=== PATIENT | female | born 1950 | race Caucasian/White ===

== ENCOUNTER 2020-01-09 16:32 | Outpatient (REF) | payer MEDICARE, SELFPAY ==
--- NOTE | 2020-01-09 | MM_ITS ---
EXAMINATION: MM SCREENING DIGITAL BREAST TOMOSYNTHESIS, BILATERAL CLINICAL INFORMATION: Screening. Asymptomatic. The lifetime risk of breast cancer based on the Tyrer-Cuzick Model is 9%. COMPARISON: Mammography: 10/09/2018, 09/23/2017, 08/23/2016 TECHNIQUE: Digital breast tomosynthesis is performed in both the craniocaudal and mediolateral oblique views along with computer-aided detection (CAD). Synthesized 2D images are generated from the tomosynthesis. FINDINGS: There are scattered areas of fibroglandular density (ACR BI-RADS breast composition Category b). There are no significant masses, abnormal calcifications, or other abnormalities. Breast tissue composition borders on predominantly fatty. Background stromal and fibroglandular densities are stable. No significant changes. MM/MM tomosynthesis screening BI IMPRESSION: No mammographic evidence of malignancy. ASSESSMENT: BI-RADS 1: Negative RECOMMENDATION: Routine annual mammography screening. This patient's information was entered into a reminder system with a target due date for their next mammogram.
== END 2020-01-09 16:33 | disposition home or self-care (01) ==
LOC: HO.MAMMO 16:32
PROVIDERS: PCP Student in an Organized Health Care Education/Training Program; Visit Provider Student in an Organized Health Care Education/Training Program
DX: Z12.31 Encounter for screening mammogram for malignant neoplasm of breast (principal)
CPT/HCPCS: 77063; 77067

== ENCOUNTER 2020-01-15 10:22 | Outpatient (REF) | payer MEDICARE, SELFPAY ==
--- NOTE | 2020-01-15 10:23 | XR_ITS ---
EXAMINATION: XR KNEE STANDING, BILATERAL XR KNEE, LEFT CLINICAL INFORMATION: Pain bilateral knee. More pain on the left at COMPARISON: Left knee 08/08/2008 TECHNIQUE: AP bilateral knee standing. Left knee 2 views. FINDINGS: AP BILATERAL KNEE: There is mild reduction in the medial and lateral compartment joint space left knee with lateral compartment periarticular spurring. There is mild loss of medial compartment right knee joint. No visible acute fracture, dislocation or lytic process. The soft tissues are normal. LEFT KNEE: Two views of the left knee reveal severe loss of patellofemoral compartment joint space with periarticular spurring. There is mild joint effusion. There is no fracture or dislocation. No evidence of loose bodies. XR/XR knee standing BI IMPRESSION: Mild degenerative changes medial and lateral compartment left knee. Tricompartment degenerative changes left knee with mild suprapatellar joint effusion. No loose body seen.
--- NOTE | 2020-01-15 10:23 | XR_ITS ---
EXAMINATION: XR KNEE STANDING, BILATERAL XR KNEE, LEFT CLINICAL INFORMATION: Pain bilateral knee. More pain on the left at COMPARISON: Left knee 08/08/2008 TECHNIQUE: AP bilateral knee standing. Left knee 2 views. FINDINGS: AP BILATERAL KNEE: There is mild reduction in the medial and lateral compartment joint space left knee with lateral compartment periarticular spurring. There is mild loss of medial compartment right knee joint. No visible acute fracture, dislocation or lytic process. The soft tissues are normal. LEFT KNEE: Two views of the left knee reveal severe loss of patellofemoral compartment joint space with periarticular spurring. There is mild joint effusion. There is no fracture or dislocation. No evidence of loose bodies. XR/XR knee LT 2V IMPRESSION: Mild degenerative changes medial and lateral compartment left knee. Tricompartment degenerative changes left knee with mild suprapatellar joint effusion. No loose body seen.
== END 2020-01-15 10:23 | disposition home or self-care (01) ==
LOC: HO.HOSX 10:22
PROVIDERS: Visit Provider Orthopaedic Surgery
DX: M17.12 Unilateral primary osteoarthritis, left knee (principal); M25.561 Pain in right knee
CPT/HCPCS: 20610; 73560; 73565; 99202; J1040

== ENCOUNTER 2020-05-19 09:26 | Day surgery (SDC) | payer MEDICARE, OTHER, SELFPAY ==
[2020-05-13 09:16] VITALS: BMI 40.7
--- NOTE | 2020-05-16 14:25 | P.CONAN_ITS ---
Documented by User: Rajni Cervantes 05/16/20 14:26 HPI - Anesthesia Eval Consult details Narrative: 69yo F for Right Cataract Extraction IOL Insertion No prev cataract on record PCP clearance pending [facility] Active Problems Active Problems: All Active Problems (Updated 05/13/20 @ 09:16 by Bell Sousa) Primary osteoarthritis of left knee (Acute) Past Medical History Medical History Arthritis Back pain, lumbosacral Bone spur of ankle Diabetes Hypercholesteremia Hypertension Hypothyroid Plantar fasciitis Steatohepatitis Family History Family History Mother Rheumatoid arthritis Gout Diabetes Father Lung cancer Hypertension Surgical History Surgical History History of dental surgery History of hysterectomy History of tonsillectomy Social History Social History Are you a primary hourly caregiver to a significant other at home: No Do you presently have visiting nurse or other home services: No Smoking Status: Former smoker Smoking Quit Date: 15 years ago Use of substances other than those prescribed or required for medical reasons: No Have you been hit, kicked, punched, or otherwise hurt by someone within the past year? If so, by whom?: No Advance Directives: No Advance Directives Information Provided: No Advance Directives on File: No Recently lost weight without trying: No Current occupational status: retired Current occupation: Right handed Meds Allergies Allergy/AdvReac Type Severity Reaction Status Date / Time lisinopril Allergy Cough Verified 05/13/20 08:58 Home Medications Medication Instructions Recorded Confirmed Last Taken Type aspirin 81 mg tablet,delayed 81 mg PO DAILY 01/14/20 05/13/20 Unknown History release atenolol 100 mg tablet 100 mg PO DAILY 01/14/20 05/13/20 05/19/20 History atorvastatin 20 mg tablet 20 mg PO DAILY 01/14/20 05/13/20 Unknown History blood sugar diagnostic #10 ea 01/14/20 Unknown History clonidine HCl 0.2 mg tablet 0.2 mg PO TID 01/14/20 05/13/20 05/19/20 History gabapentin 100 mg capsule 100 mg PO BID 01/14/20 05/13/20 Unknown History gemfibrozil 600 mg tablet 600 mg PO DAILY 01/14/20 05/13/20 Unknown History glipizide 5 mg tablet 10 mg PO DAILY 01/14/20 05/13/20 Unknown History lancets MISCELLANEOUS 01/14/20 Unknown History levothyroxine 75 mcg tablet 75 mcg PO DAILY 01/14/20 05/13/20 05/19/20 History oxybutynin chloride 5 mg tablet 10 mg PO DAILY tab 01/14/20 05/13/20 Unknown History valsartan 40 mg tablet 40 mg PO BID 01/14/20 05/13/20 05/19/20 History acetaminophen [Tylenol Extra 500 mg PO Q8H PRN 05/13/20 05/13/20 Unknown History Strength] amlodipine 1 tab PO DAILY 05/13/20 05/13/20 05/19/20 History calcium carbonate-vitamin D3 1 tab PO DAILY 05/13/20 05/13/20 Unknown History [Calcium 600 + D(3)] glipizide 20 mg PO QPM 05/13/20 05/13/20 Unknown History ibuprofen 600 mg PO BID 05/13/20 05/13/20 Unknown History multivitamin 1 tab PO DAILY 05/13/20 05/13/20 Unknown History niacin [Niacor] 500 mg PO DAILY 05/13/20 05/13/20 Unknown History omega-3 fatty acids-fish oil [Fish 2 cap PO DAILY 05/13/20 05/13/20 Unknown History Oil] Exam Exam Date and Time: May 16, 2020 1425 Height,Weight and Vital Signs: Height 5 ft 5 in Weight 111.13 kg Assessment and Plan Assessment Anesthesia Assessment: Chart Reviewed Documented by User: Arvind Azul 05/19/20 10:28 [facility] Past Medical History Medical History Arthritis Back pain, lumbosacral Bone spur of ankle Diabetes Hypercholesteremia Hypertension Hypothyroid Plantar fasciitis Steatohepatitis Family History Family History Mother Rheumatoid arthritis Gout Diabetes Father Lung cancer Hypertension Surgical History Surgical History History of dental surgery History of hysterectomy History of tonsillectomy Social History Social History Are you a primary hourly caregiver to a significant other at home: No Do you presently have visiting nurse or other home services: No Smoking Status: Former smoker Smoking Quit Date: 15 years ago Use of substances other than those prescribed or required for medical reasons: No Have you been hit, kicked, punched, or otherwise hurt by someone within the past year? If so, by whom?: No Advance Directives: No Advance Directives Information Provided: No Advance Directives on File: No Recently lost weight without trying: No Current occupational status: retired Current occupation: Right handed Meds Allergies Allergy/AdvReac Type Severity Reaction Status Date / Time lisinopril Allergy Cough Verified 05/13/20 08:58 Home Medications Medication Instructions Recorded Confirmed Last Taken Type aspirin 81 mg tablet,delayed 81 mg PO DAILY 01/14/20 05/13/20 Unknown History release atenolol 100 mg tablet 100 mg PO DAILY 01/14/20 05/13/20 05/19/20 History atorvastatin 20 mg tablet 20 mg PO DAILY 01/14/20 05/13/20 Unknown History blood sugar diagnostic #10 ea 01/14/20 Unknown History clonidine HCl 0.2 mg tablet 0.2 mg PO TID 01/14/20 05/13/20 05/19/20 History gabapentin 100 mg capsule 100 mg PO BID 01/14/20 05/13/20 Unknown History gemfibrozil 600 mg tablet 600 mg PO DAILY 01/14/20 05/13/20 Unknown History glipizide 5 mg tablet 10 mg PO DAILY 01/14/20 05/13/20 Unknown History lancets MISCELLANEOUS 01/14/20 Unknown History levothyroxine 75 mcg tablet 75 mcg PO DAILY 01/14/20 05/13/20 05/19/20 History oxybutynin chloride 5 mg tablet 10 mg PO DAILY tab 01/14/20 05/13/20 Unknown History valsartan 40 mg tablet 40 mg PO BID 01/14/20 05/13/20 05/19/20 History acetaminophen [Tylenol Extra 500 mg PO Q8H PRN 05/13/20 05/13/20 Unknown History Strength] amlodipine 1 tab PO DAILY 05/13/20 05/13/20 05/19/20 History calcium carbonate-vitamin D3 1 tab PO DAILY 05/13/20 05/13/20 Unknown History [Calcium 600 + D(3)] glipizide 20 mg PO QPM 05/13/20 05/13/20 Unknown History ibuprofen 600 mg PO BID 05/13/20 05/13/20 Unknown History multivitamin 1 tab PO DAILY 05/13/20 05/13/20 Unknown History niacin [Niacor] 500 mg PO DAILY 05/13/20 05/13/20 Unknown History omega-3 fatty acids-fish oil [Fish 2 cap PO DAILY 05/13/20 05/13/20 Unknown History Oil] Exam Airway Mallampati Class: III TM Dist: >3cm Neck ROM: Full Denture: Upper and Lower Heart: [id number] Lungs: cta b/l Assessment and Plan Assessment Anesthesia Assessment: Anesthesia Plan Discussed, PAT Visit and Chart Reviewed Final Anesthetic Review NPO: Yes ASA Class: III Final Preanesthetic Review: No Changes in Pt Med Stat, Meds/Allgs Chart Reviewed, Consent Obtained/Reviewed and Anes Risks/Benef Reviewed Patient Risk: Intermediate Procedure Risk: Low Assessment/Block/Sedation in SS: Assess/Block/Sedation-SS Anesthetic Plan Anesthetic Plan: MAC: and Agree w/ Assess. and Plan Disposition: Standard PACU
[2020-05-19 10:13] VITALS: BP 150/69; PULSE 55; RESP 18; TEMP 36.6; O2SAT 95
[2020-05-19 10:14] LABS: Glucose, Whole Blood 179 mg/dL (60-115)
--- NOTE | 2020-05-19 10:18 | PC.NURSE ---
pt verbalized understanding of d/c and care of plan
[2020-05-19] MEDS: Tetracaine HCl/PF 0.5% Oph Sol 4 ML DROPS 1 DROP EYE-RIGHT (10:19)
[2020-05-19] MEDS: Tropicamide 1 % Ophth Sol 3 ML BTL 1 DROP EYE-RIGHT ×3 (10:19→10:24)
[2020-05-19] MEDS: Phenylephrine HCL 2.5% Oph SoL 2 ML BOTTLE 1 DROP EYE-RIGHT ×3 (10:20→10:24)
[2020-05-19] MEDS: Lactated Ringers 500 ML 50 ML IV (10:40)
[2020-05-19 11:39] VITALS: BP 120/51; PULSE 52; RESP 16; TEMP 36.6; O2SAT 95
--- NOTE | 2020-05-19 11:39 | HO.PNOPHT ---
Ophthalmology Procedure Procedure Date of Service: 05/19/20 Ophthalmology Viscoelastic: Healon Duet Dual Pack Pro Ophthalmology Lenses: TECNIS [id number] (23.5) Procedure Notes: PREOPERATIVE DIAGNOSIS: Decreased visual acuity right eye secondary to cataract POSTOPERATIVE DIAGNOSIS: Same PROCEDURE: Right cataract extraction with intraocular lens insertion SURGEON: Howard Clark M.D. ANESTHESIA: Topical/MAC ESTIMATED BLOOD LOSS: None COMPLICATIONS: None After obtaining informed consent, the patient was brought to the operating room suite and placed in the supine position. After adequate sedation per anesthesia, topical drops of Tetracaine were given to the right eye. The eye was then prepped and draped in the usual sterile fashion. The operating room microscope was then positioned over the operative eye and a lid speculum placed. A paracentesis was created. Viscoelastic was then instilled into the anterior chamber. A three plane incision was then created temporally, utilizing a 2.85 mm keratome. Capsulotomy forceps were then utilized to create a circular tear capsulotomy. Hydrodissection and hydrodelineation were carried out until adequate mobilization of the nucleus occurred. Phacoemulsification was then utilized to remove the dense central nucleus followed by removal of the cortical material utilizing the automated aspiration irrigation unit. Viscoelastic was instilled into the posterior capsular bag followed by placement of a posterior chamber intraocular lens without difficulty. The residual Viscoelastic was then removed utilizing the automated IA machine. The wound was checked and found to be watertight. The patient tolerated the procedure well and the lid speculum was removed. Intracameral injection of Vigamox 0.1 mL followed by a subtenon injection of Kenalog-40 0.2 mL were administered. The patient will be seen in the a.m.
== END 2020-05-19 12:41 | disposition home or self-care (01) ==
PROVIDERS: PCP Student in an Organized Health Care Education/Training Program; Visit Provider Ophthalmology
PROC: (CPT 66985; principal; 2020-05-19 12:10)
DX: H25.11 Age-related nuclear cataract, right eye (principal); H35.033 Hypertensive retinopathy, bilateral; H52.4 Presbyopia; I10 Essential (primary) hypertension; E11.9 Type 2 diabetes mellitus without complications; E03.9 Hypothyroidism, unspecified; Z79.84 Long term (current) use of oral hypoglycemic drugs; Z79.899 Other long term (current) drug therapy; Z87.891 Personal history of nicotine dependence
CPT/HCPCS: 66984; 82947; J2250; J3010; J3300; V2632

== ENCOUNTER 2020-05-26 08:31 | Day surgery (SDC) | payer MEDICARE, OTHER, SELFPAY ==
[2020-05-13 09:23] VITALS: BMI 39.9
--- NOTE | 2020-05-22 08:12 | MHC.SHP ---
Pre-Procedural Eval Section A The patient is an INPATIENT: No The History & Physical has been completed within 30 days and I have reviewed it.: Yes Section B Chief Complaint: Cataract Left Eye Allergies: Allergies Allergy/AdvReac Type Severity Reaction Status Date / Time lisinopril Allergy Cough Verified 05/13/20 08:58 Plan Diagnosis/Plan: Unchanged I have reviewed the history and physical and performed a pertinent physical examination on my patient. No changes have occurred unless specified.
--- NOTE | 2020-05-23 08:54 | HO.ANESPROP2 ---
Documented by User: Rajni Cervantes 05/23/20 08:54 HPI - Anesthesia Eval Consult details Narrative: 69yo F for Left Cataract Extraction IOL Insertion Right eye 05/19/20 with MAC: Fent 50, Midaz 2 PMFSH Active Problems Active Problems: All Active Problems (Updated 05/16/20 @ 14:26 by Rajni Cervantes) Primary osteoarthritis of left knee (Acute) Past Medical History Medical History (Updated 05/26/20 @ 10:21 by Adelita Lopez) Arthritis Back pain, lumbosacral Bone spur of ankle Diabetes Hypercholesteremia Hypertension Hypothyroid Increased BMI Plantar fasciitis Steatohepatitis Family History Family History Mother Rheumatoid arthritis Gout Diabetes Father Lung cancer Hypertension Surgical History Surgical History History of dental surgery History of hysterectomy History of tonsillectomy Social History Social History Are you a primary career development facilitator to a significant other at home: No Do you presently have visiting nurse or other home services: No Smoking Status: Former smoker Smoking Quit Date: 15 yrs ago Use of substances other than those prescribed or required for medical reasons: No Have you been hit, kicked, punched, or otherwise hurt by someone within the past year? If so, by whom?: No Advance Directives: No Advance Directives Information Provided: No Advance Directives on File: No Recently lost weight without trying: No Current occupational status: retired Current occupation: Right handed Meds Allergies Allergy/AdvReac Type Severity Reaction Status Date / Time lisinopril Allergy Cough Verified 05/26/20 09:32 Home Medications Medication Instructions Recorded Confirmed Last Taken Type aspirin 81 mg tablet,delayed 81 mg PO DAILY 01/14/20 05/13/20 Unknown History release atenolol 100 mg tablet 100 mg PO DAILY 01/14/20 05/13/20 05/19/20 History atorvastatin 20 mg tablet 20 mg PO DAILY 01/14/20 05/13/20 Unknown History blood sugar diagnostic #10 ea 01/14/20 Unknown History clonidine HCl 0.2 mg tablet 0.2 mg PO TID 01/14/20 05/13/20 05/19/20 History gabapentin 100 mg capsule 100 mg PO BID 01/14/20 05/13/20 Unknown History gemfibrozil 600 mg tablet 600 mg PO DAILY 01/14/20 05/13/20 Unknown History glipizide 5 mg tablet 10 mg PO DAILY 01/14/20 05/13/20 Unknown History lancets MISCELLANEOUS 01/14/20 Unknown History levothyroxine 75 mcg tablet 75 mcg PO DAILY 01/14/20 05/13/20 05/19/20 History oxybutynin chloride 5 mg tablet 10 mg PO DAILY tab 01/14/20 05/13/20 Unknown History valsartan 40 mg tablet 40 mg PO BID 01/14/20 05/13/20 05/19/20 History acetaminophen [Tylenol Extra 500 mg PO Q8H PRN 05/13/20 05/13/20 Unknown History Strength] amlodipine 1 tab PO DAILY 05/13/20 05/13/20 05/19/20 History calcium carbonate-vitamin D3 1 tab PO DAILY 05/13/20 05/13/20 Unknown History [Calcium 600 + D(3)] glipizide 20 mg PO QPM 05/13/20 05/13/20 Unknown History ibuprofen 600 mg PO BID 05/13/20 05/13/20 Unknown History multivitamin 1 tab PO DAILY 05/13/20 05/13/20 Unknown History niacin [Niacor] 500 mg PO DAILY 05/13/20 05/13/20 Unknown History omega-3 fatty acids-fish oil [Fish 2 cap PO DAILY 05/13/20 05/13/20 Unknown History Oil] Exam Exam Date and Time: May 23, 2020 0854 Height,Weight and Vital Signs: Height 5 ft 5 in Weight 108.862 kg Assessment and Plan Assessment Anesthesia Assessment: Chart Reviewed Documented by User: Adelita Lopez 05/26/20 10:24 [facility] Past Medical History Medical History (Updated 05/26/20 @ 10:21 by Adelita Lopez) Arthritis Back pain, lumbosacral Bone spur of ankle Diabetes Hypercholesteremia Hypertension Hypothyroid Increased BMI Plantar fasciitis Steatohepatitis Family History Family History Mother Rheumatoid arthritis Gout Diabetes Father Lung cancer Hypertension Family history of problems with anesthesia: No Surgical History Surgical History History of dental surgery History of hysterectomy History of tonsillectomy History of Problems with Anesthesia: No Social History Social History Are you a primary career development facilitator to a significant other at home: No Do you presently have visiting nurse or other home services: No Smoking Status: Former smoker Smoking Quit Date: 15 yrs ago Use of substances other than those prescribed or required for medical reasons: No Have you been hit, kicked, punched, or otherwise hurt by someone within the past year? If so, by whom?: No Advance Directives: No Advance Directives Information Provided: No Advance Directives on File: No Recently lost weight without trying: No Current occupational status: retired Current occupation: Right handed Meds Allergies Allergy/AdvReac Type Severity Reaction Status Date / Time lisinopril Allergy Cough Verified 05/26/20 09:32 Home Medications Medication Instructions Recorded Confirmed Last Taken Type aspirin 81 mg tablet,delayed 81 mg PO DAILY 01/14/20 05/13/20 Unknown History release atenolol 100 mg tablet 100 mg PO DAILY 01/14/20 05/13/20 05/19/20 History atorvastatin 20 mg tablet 20 mg PO DAILY 01/14/20 05/13/20 Unknown History blood sugar diagnostic #10 ea 01/14/20 Unknown History clonidine HCl 0.2 mg tablet 0.2 mg PO TID 01/14/20 05/13/20 05/19/20 History gabapentin 100 mg capsule 100 mg PO BID 01/14/20 05/13/20 Unknown History gemfibrozil 600 mg tablet 600 mg PO DAILY 01/14/20 05/13/20 Unknown History glipizide 5 mg tablet 10 mg PO DAILY 01/14/20 05/13/20 Unknown History lancets MISCELLANEOUS 01/14/20 Unknown History levothyroxine 75 mcg tablet 75 mcg PO DAILY 01/14/20 05/13/2021 History oxybutynin chloride 5 mg tablet 10 mg PO DAILY tab 01/14/20 05/13/20 Unknown History valsartan 40 mg tablet 40 mg PO BID 01/14/20 05/13/20 05/19/20 History acetaminophen [Tylenol Extra 500 mg PO Q8H PRN 05/13/20 05/13/20 Unknown History Strength] amlodipine 1 tab PO DAILY 05/13/20 05/13/20 05/19/20 History calcium carbonate-vitamin D3 1 tab PO DAILY 05/13/20 05/13/20 Unknown History [Calcium 600 + D(3)] glipizide 20 mg PO QPM 05/13/20 05/13/20 Unknown History ibuprofen 600 mg PO BID 05/13/20 05/13/20 Unknown History multivitamin 1 tab PO DAILY 05/13/20 05/13/20 Unknown History niacin [Niacor] 500 mg PO DAILY 05/13/20 05/13/20 Unknown History omega-3 fatty acids-fish oil [Fish 2 cap PO DAILY 05/13/20 05/13/20 Unknown History Oil] Exam Height,Weight and Vital Signs: Vital Signs Temp Pulse Resp BP Pulse Ox 05/26/20 09:46 98.7 F 49 L 20 131/43 L 98 Pertinent Lab Results Pertinent Lab Results: POC 179 Narrative Narrative: HR 45-60 Airway Mallampati Class: II TM Dist: >3cm Neck ROM: Full Heart: RRR Lungs: CTAB Assessment and Plan Assessment Anesthesia Assessment: Anesthesia Plan Discussed and Chart Reviewed Final Anesthetic Review NPO: Yes ASA Class: III Final Preanesthetic Review: No Changes in Pt Med Stat, Meds/Allgs Chart Reviewed, Consent Obtained/Reviewed and Anes Risks/Benef Reviewed Patient Risk: Intermediate Procedure Risk: Low Assessment/Block/Sedation in SS: Assess/Block/Sedation-SS Anesthetic Plan Anesthetic Plan: MAC: Disposition: Standard PACU
[2020-05-26] MEDS: Tetracaine HCl/PF 0.5% Oph Sol 4 ML DROPS 1 DROP EYE-LEFT (09:40)
[2020-05-26] MEDS: Tropicamide 1 % Ophth Sol 3 ML BTL 1 DROP EYE-LEFT ×3 (09:44→10:05)
[2020-05-26 09:46] VITALS: BP 131/43; PULSE 49; RESP 20; TEMP 37.1; O2SAT 98
[2020-05-26] MEDS: Phenylephrine HCL 2.5% Oph SoL 2 ML BOTTLE 1 DROP EYE-LEFT ×3 (09:50→10:11)
[2020-05-26] MEDS: Lactated Ringers 500 ML 50 ML IV (09:57)
[2020-05-26 10:25] LABS: Glucose, Whole Blood 179 mg/dL (60-115)
--- NOTE | 2020-05-26 10:48 | HO.PNOPHT ---
Ophthalmology Procedure Procedure Date of Service: 05/26/20 Ophthalmology Viscoelastic: Healon Duet Dual Pack Pro Ophthalmology Lenses: TECBASILIO [id number] (24) Procedure Notes: PREOPERATIVE DIAGNOSIS: Decreased visual acuity left eye secondary to cataract POSTOPERATIVE DIAGNOSIS: Same PROCEDURE: Left cataract extraction with intraocular lens insertion SURGEON: Howard Clark M.D. ANESTHESIA: Topical/MAC ESTIMATED BLOOD LOSS: None COMPLICATIONS: None After obtaining informed consent, the patient was brought to the operation room suite and placed in the supine position. After adequate sedation per anesthesia, topical drops of Tetracaine were given to the left eye. The eye was then prepped and draped in the usual sterile fashion. The operating room microscope was then positioned over the operative eye and a lid speculum placed. A paracentesis was created. Viscoelastic was then instilled into the anterior chamber. A three plane incision was then created temporally, utilizing a 2.85 mm keratome. Capsulotomy forceps were then utilized to create a circular tear capsulotomy. Hydrodissection and hydrodelineation were carried out until adequate mobilization of the nucleus occurred. Phacoemulsification was then utilized to remove the dense central nucleus followed by removal of the cortical material utilizing the automated aspiration irrigation unit. Viscoat elastic was instilled into the posterior capsular bag followed by placement of a posterior chamber intraocular lens without difficulty. The residual Viscoat elastic was then removed utilizing the automated IA machine. The wound was check and found to be watertight. The patient tolerated the procedure well and the lid speculum was removed. Intracameral injection of Vigamox 0.1 mL followed by a subtenon injection of Kenalog-40 0.2 mL were administered. The patient will be seen in the a.m.
[2020-05-26 10:54] VITALS: BP 123/52; PULSE 53; RESP 16; TEMP 36.6; O2SAT 95
== END 2020-05-26 11:24 | disposition home or self-care (01) ==
PROVIDERS: PCP Student in an Organized Health Care Education/Training Program; Visit Provider Ophthalmology
PROC: (CPT 66985; principal; 2020-05-26 10:50)
DX: H25.12 Age-related nuclear cataract, left eye (principal); I10 Essential (primary) hypertension; E11.9 Type 2 diabetes mellitus without complications; Z79.82 Long term (current) use of aspirin; Z79.84 Long term (current) use of oral hypoglycemic drugs; Z79.899 Other long term (current) drug therapy
CPT/HCPCS: 66984; 82947; J2250; J3300; V2632

== ENCOUNTER 2021-02-09 12:59 | Outpatient (REF) | payer MEDICARE, OTHER, SELFPAY ==
--- NOTE | ~2021-02-09 | MM_ITS ---
EXAMINATION: MM SCREENING DIGITAL BREAST TOMOSYNTHESIS, BILATERAL CLINICAL INFORMATION: Screening. Asymptomatic. The lifetime risk of breast cancer based on the Tyrer-Cuzick Model is 8%. COMPARISON: Mammography: 01/09/2020, 10/09/2018, 09/23/2017 TECHNIQUE: Digital breast tomosynthesis is performed in both the craniocaudal and mediolateral oblique views along with computer-aided detection (CAD). Synthesized 2D images are generated from the tomosynthesis. Additional right CC x2 views are provided. FINDINGS: There are scattered areas of fibroglandular density (ACR BI-RADS breast composition Category b). There are no significant masses, abnormal calcifications, or other abnormalities. Parenchymal pattern is similar to prior studies. There is no developing density or architectural abnormality. The axilla and skin contours are unremarkable. No significant changes. MM/MM tomosynthesis screening BI IMPRESSION: No mammographic evidence of malignancy. ASSESSMENT: BI-RADS 1: Negative RECOMMENDATION: Routine annual mammography screening. This patient's information was entered into a reminder system with a target due date for their next mammogram.
== END 2021-02-09 13:00 | disposition home or self-care (01) ==
LOC: HO.MAMMO 12:59
PROVIDERS: PCP Student in an Organized Health Care Education/Training Program; Visit Provider Student in an Organized Health Care Education/Training Program
DX: Z12.31 Encounter for screening mammogram for malignant neoplasm of breast (principal)
CPT/HCPCS: 77063; 77067

== ENCOUNTER 2021-09-07 10:17 | Day surgery (SDC) | payer MEDICARE, OTHER, SELFPAY ==
[2021-09-01 09:46] VITALS: BMI 38.6
--- NOTE | 2021-09-03 10:49 | MHC.SHP ---
Pre-Procedural Eval Section A Date of Service: 09/03/21 The patient is an INPATIENT: No Changes since office visit: No Cold of Flu in the past 2 weeks, No New Medical Problems, No Changes in Medication and No Patient answered all questions The History & Physical has been completed within 30 days and I have reviewed it.: Yes Section B Chief Complaint: extra skin Allergies: Allergies Allergy/AdvReac Type Severity Reaction Status Date / Time lisinopril Allergy Cough Verified 05/26/20 09:32 Plan Diagnosis/Plan: Unchanged I have reviewed the history and physical and performed a pertinent physical examination on my patient. No changes have occurred unless specified.
--- NOTE | 2021-09-04 09:54 | P.CONAN_ITS ---
Documented by User: Rajni Cervantes NP 09/04/21 09:55 HPI - Anesthesia Eval Consult details Narrative: 71yo F for Bilateral Blepharoplasty [facility]CP [facility] Active Problems Active Problems: All Active Problems (Updated 09/01/21 @ 09:47 by Mercedes Christianson RN) Primary osteoarthritis of left knee (Acute) Increased BMI (Acute) Past Medical History Medical History Arthritis Back pain, lumbosacral Bone spur of ankle COVID-19 vaccine series completed Diabetes Hypercholesteremia Hypertension Hypothyroid Increased BMI Plantar fasciitis Steatohepatitis Family History Family History Mother Rheumatoid arthritis Gout Diabetes Father Lung cancer Hypertension Family history of problems with anesthesia: No Surgical History Surgical History History of dental surgery History of hysterectomy History of tonsillectomy Hx of cataract surgery History of Problems with Anesthesia: No Social History Social History Are you a primary complex care nurse practitioner to a significant other at home: No Do you presently have visiting nurse or other home services: No Patient Tobacco Use Status: Former Tobacco user Quit Date: 2007 Tobacco use type: Cigarette Use of substances other than those prescribed or required for medical reasons: No Have you been hit, kicked, punched, or otherwise hurt by someone within the past year? If so, by whom?: No Are you DNR?: No Advance Directives: No Advance Directives Information Provided: Yes (brochure mailed) Advance Directives on File: No Recently lost weight without trying: No Eating poorly because of decreased appetite: No Nutrition Risks: No Nutritional Risk Poor oral hygiene: No (upper & lower full dentures) Current occupational status: retired Current occupation: Right handed Meds Allergies Allergy/AdvReac Type Severity Reaction Status Date / Time lisinopril Allergy Cough Verified 05/26/20 09:32 Home Medications Medication Instructions Recorded Confirmed Last Taken Type aspirin 81 mg tablet,delayed 81 mg PO DAILY 01/14/20 09/01/21 09/06/21 History release atenolol 100 mg tablet 100 mg PO DAILY 11/09/01/21 09/07/21 History atorvastatin 20 mg tablet 20 mg PO DAILY 01/14/20 09/01/21 Unknown History blood sugar diagnostic (OneTouch #10 ea 01/14/20 Unknown History Ultra Blue Test Strip) clonidine HCl 0.2 mg tablet 0.2 mg PO TID 01/14/20 09/01/21 09/07/21 History gabapentin 100 mg capsule 100 mg PO BID 01/14/20 09/01/21 09/07/21 History gemfibrozil 600 mg tablet 600 mg PO DAILY 01/14/20 09/01/21 Unknown History glipizide 5 mg tablet 10 mg PO DAILY 01/14/20 09/01/21 Unknown History lancets [OneTouch Delica Lancets] miscellaneous 01/14/20 Unknown History levothyroxine 75 mcg tablet 75 mcg PO DAILY 01/14/20 09/01/21 09/07/21 History oxybutynin chloride 5 mg tablet 10 mg PO DAILY 01/14/20 09/01/21 Unknown History valsartan 40 mg tablet 40 mg PO BID 01/14/20 09/01/21 05/19/20 History acetaminophen 500 mg capsule 500 mg PO Q8H PRN Pain 05/13/20 09/01/21 08/31/21 History amlodipine 10 mg tablet 1 tab PO DAILY 05/13/20 09/01/21 09/07/21 History calcium carbonate 600 mg-vitamin 1 tab PO DAILY 05/13/20 09/01/21 Unknown History D3 10 mcg (400 unit) tablet (Calcium 600 + D(3)) glipizide 10 mg tablet 20 mg PO QPM 05/13/20 09/01/21 Unknown History multivitamin 1 tab PO DAILY 05/13/20 09/01/21 Unknown History niacin 500 mg tablet (Niacor) 500 mg PO DAILY 05/13/20 09/01/21 Unknown History omega-3 fatty acids-fish oil 340 2 cap PO DAILY 05/13/20 09/01/21 09/06/21 History mg-1,000 mg capsule (Fish Oil) biotin 10,000 mcg capsule 10,000 mcg PO DAILY 09/01/21 09/01/21 Unknown History meloxicam 7.5 mg tablet 7.5 mg PO DAILY PRN Pain 07/09/01/21 08/16/21 History Exam Exam Date and Time: September 04, 2021 0954 Height,Weight and Vital Signs: Height 5 ft 5 in Weight 105.233 kg Assessment and Plan Assessment Anesthesia Assessment: Chart Reviewed Final Anesthetic Review Family History of Problems with Anesthesia: No History of Problems with Anesthesia: No Documented by User: Adelita Lopez MD 09/07/21 11:36 [facility] Past Medical History Medical History Arthritis Back pain, lumbosacral Bone spur of ankle COVID-19 vaccine series completed Diabetes Hypercholesteremia Hypertension Hypothyroid Increased BMI Plantar fasciitis Steatohepatitis Family History Family History Mother Rheumatoid arthritis Gout Diabetes Father Lung cancer Hypertension Surgical History Surgical History History of dental surgery History of hysterectomy History of tonsillectomy Hx of cataract surgery Social History Social History Are you a primary complex care nurse practitioner to a significant other at home: No Do you presently have visiting nurse or other home services: No Patient Tobacco Use Status: Former Tobacco user Quit Date: 2007 Tobacco use type: Cigarette Use of substances other than those prescribed or required for medical reasons: No Have you been hit, kicked, punched, or otherwise hurt by someone within the past year? If so, by whom?: No Are you DNR?: No Advance Directives: No Advance Directives Information Provided: Yes (brochure mailed) Advance Directives on File: No Recently lost weight without trying: No Eating poorly because of decreased appetite: No Nutrition Risks: No Nutritional Risk Poor oral hygiene: No (upper & lower full dentures) Current occupational status: retired Current occupation: Right handed Meds Allergies Allergy/AdvReac Type Severity Reaction Status Date / Time jordonpril Allergy Cough Verified 05/26/20 09:32 Home Medications Medication Instructions Recorded Confirmed Last Taken Type aspirin 81 mg tablet,delayed 81 mg PO DAILY 01/14/20 09/01/21 09/06/21 History release atenolol 100 mg tablet 100 mg PO DAILY 01/14/20 09/01/21 09/07/21 History atorvastatin 20 mg tablet 20 mg PO DAILY 01/14/20 09/01/21 Unknown History blood sugar diagnostic (OneTouch #10 ea 01/14/20 Unknown History Ultra Blue Test Strip) clonidine HCl 0.2 mg tablet 0.2 mg PO TID 01/14/20 09/01/21 09/07/21 History gabapentin 100 mg capsule 100 mg PO BID 01/14/20 09/01/21 09/07/21 History gemfibrozil 600 mg tablet 600 mg PO DAILY 01/14/20 09/01/21 Unknown History glipizide 5 mg tablet 10 mg PO DAILY 01/14/20 09/01/21 Unknown History lancets [OneTouch Delica Lancets] miscellaneous 01/14/20 Unknown History levothyroxine 75 mcg tablet 75 mcg PO DAILY 01/14/20 09/01/21 09/07/21 History oxybutynin chloride 5 mg tablet 10 mg PO DAILY 01/14/20 09/01/21 Unknown History valsartan 40 mg tablet 40 mg PO BID 01/14/20 09/01/21 05/19/20 History acetaminophen 500 mg capsule 500 mg PO Q8H PRN Pain 05/13/20 09/01/21 08/31/21 History amlodipine 10 mg tablet 1 tab PO DAILY 05/13/20 09/01/21 09/07/21 History calcium carbonate 600 mg-vitamin 1 tab PO DAILY 05/13/20 09/01/21 Unknown History D3 10 mcg (400 unit) tablet (Calcium 600 + D(3)) glipizide 10 mg tablet 20 mg PO QPM 05/13/20 09/01/21 Unknown History multivitamin 1 tab PO DAILY 05/13/20 09/01/21 Unknown History niacin 500 mg tablet (Niacor) 500 mg PO DAILY 05/13/20 09/01/21 Unknown History omega-3 fatty acids-fish oil 340 2 cap PO DAILY 05/13/20 09/01/21 09/06/21 History mg-1,000 mg capsule (Fish Oil) biotin 10,000 mcg capsule 10,000 mcg PO DAILY 09/01/21 09/01/21 Unknown History meloxicam 7.5 mg tablet 7.5 mg PO DAILY PRN Pain 09/01/21 09/01/21 08/16/21 History Exam Height,Weight and Vital Signs: Height 5 ft 5 in Weight 105.233 kg Vital Signs Temp Pulse Resp BP Pulse Ox O2 Del Method 09/07/21 10:51 98 F 54 20 165/55 H 94 Room Air Pertinent Lab Results Pertinent Lab Results: Lab Results 09/07/21 Range/Units 11:05 POC Glucose 157 H (60-115) mg/dL Airway Mallampati Class: II TM Dist: >3cm Neck ROM: Full Denture: Upper and Lower Heart: RRR Lungs: CTAB Assessment and Plan Final Anesthetic Review NPO: Yes ASA Class: III Final Preanesthetic Review: No Changes in Pt Med Stat, Meds/Allgs Chart Reviewed, Consent Obtained/Reviewed and Anes Risks/Benef Reviewed Patient Risk: Intermediate Procedure Risk: Low Assessment/Block/Sedation in SS: Assess/Block/Sedation-SS Anesthetic Plan Anesthetic Plan: MAC: Disposition: Standard PACU
[2021-09-07 10:51] VITALS: BP 165/55; PULSE 54; RESP 20; TEMP 36.6; O2SAT 94
[2021-09-07 11:08] LABS: Glucose, Whole Blood 157 mg/dL (60-115)
--- NOTE | 2021-09-07 12:45 | HO.PNOPHT ---
Ophthalmology Procedure Procedure Date of Service: 09/07/21 Ophthalmology Viscoelastic: Not Applicable Ophthalmology Lenses: Not Applicable Procedure Notes: PREOPERATIVE DIAGNOSIS: Decreased visual field secondary to dermatochalasia POSTOPERATIVE DIAGNOSIS: Same PROCEDURE: Bilateral Blepharoplasty, upper eyelids SURGEON: Howard Clark M.D. ANESTHESIA: Local with sedation ESTIMATED BLOOD LOSS: None COMPLICATIONS: None After obtaining informed consent, the patient was brought to the operating room and placed in supine position. After adequate sedation per Anesthesia, the eyes were prepped and draped in the usual sterile fashion. Attention was directed to the right eye where a double pinch test was completed to assure excess tissue was not removed from the upper lid. The margin was marked at the proposed incision sites. The left eye was done in a similar fashion. 2% Lidocaine with epinephrine was then instilled subcutaneously along the margin of the pre-marked skin incisions. #15 scalpel blade was then utilized to create the incisions. Using a combination of sharp and blunt dissection with Diony scissors, the epidermis was removed. Hemostasis was achieved with cautery. 6-0 plain suture was then utilized to close the incision site. Attention was directed to the left upper lid where subcutaneous 2% with Epinephrine Lidocaine was instilled along the pre-marked areas. A #15 scalpel blade was then utilized to create the incisions followed by sharp and blunt dissection with Diony scissors to remove the overlying epidermis. Hemostasis was achieved with cautery, followed by closure with 6-0 plain suture. The patient tolerated the procedure well. The patient will be followed up in the a.m. Topical antibiotic ointment was instilled over the incision sites and ice as tolerated for 48 hours.
[2021-09-07 14:11] VITALS: BP 131/54; PULSE 54; RESP 16; TEMP 36.2; O2SAT 95
[2021-09-07 14:26] VITALS: BP 142/53; PULSE 52; RESP 16; O2SAT 95
[2021-09-07 14:40] VITALS: BP 132/52; PULSE 50; RESP 16; TEMP 36.3; O2SAT 95
[2021-09-07 14:55] VITALS: BP 136/53; PULSE 49; RESP 16; TEMP 36.3; O2SAT 95
[2021-09-07] MEDS: oxyCODONE HCl Immed Release 5 MG TABLET PO (15:10)
[2021-09-07] MEDS: Acetaminophen 325 MG TABLET 650 MG PO (15:10)
== END 2021-09-07 15:29 | disposition home or self-care (01) ==
PROVIDERS: PCP Student in an Organized Health Care Education/Training Program; Visit Provider Ophthalmology
PROC: (CPT 15823; principal; 2021-09-07 12:40)
DX: H02.834 Dermatochalasis of left upper eyelid (principal); H02.831 Dermatochalasis of right upper eyelid; H53.453 Other localized visual field defect, bilateral; Z96.1 Presence of intraocular lens; I10 Essential (primary) hypertension; E78.00 Pure hypercholesterolemia, unspecified; E03.9 Hypothyroidism, unspecified; E11.9 Type 2 diabetes mellitus without complications; Z87.891 Personal history of nicotine dependence; Z79.84 Long term (current) use of oral hypoglycemic drugs; Z79.899 Other long term (current) drug therapy
CPT/HCPCS: 15823; 82947; J2250; J3010

== ENCOUNTER 2022-02-10 13:15 | Outpatient (REF) | payer MEDICARE, OTHER, SELFPAY ==
--- NOTE | ~2022-02-10 | MM_ITS ---
EXAMINATION: MM SCREENING DIGITAL BREAST TOMOSYNTHESIS, BILATERAL CLINICAL INFORMATION: Screening. Asymptomatic. The lifetime risk of breast cancer based on the Tyrer-Cuzick Model is 8%. COMPARISON: Mammography: February 09, 2021 and studies dating back to August 08, 2015 TECHNIQUE: Digital breast tomosynthesis is performed in both the craniocaudal and mediolateral oblique views along with computer-aided detection (CAD). Synthesized 2D images are generated from the tomosynthesis. FINDINGS: There are scattered areas of fibroglandular density (ACR BI-RADS breast composition Category b). There are no significant masses, abnormal calcifications, or other abnormalities. MM/MM tomosynthesis screening BI IMPRESSION: No significant changes from prior exam. ASSESSMENT: BI-RADS 1: Negative RECOMMENDATION: Routine annual mammography screening. This patient's information was entered into a reminder system with a target due date for their next mammogram.
== END 2022-02-10 13:16 | disposition home or self-care (01) ==
LOC: HO.MAMMO 13:15
PROVIDERS: PCP Student in an Organized Health Care Education/Training Program; Visit Provider Student in an Organized Health Care Education/Training Program
DX: Z12.31 Encounter for screening mammogram for malignant neoplasm of breast (principal)
CPT/HCPCS: 77063; 77067

== ENCOUNTER → 2022-04-01 11:25 | Outpatient (BNVA) | payer MEDICARE, SELFPAY | PROVIDERS: PCP Student in an Organized Health Care Education/Training Program; Visit Provider Surgery Vascular Surgery | DX: I73.9 Peripheral vascular disease, unspecified (principal); I65.23 Occlusion and stenosis of bilateral carotid arteries | CPT/HCPCS: 99202 ==

== ENCOUNTER 2022-08-11 13:24 | Outpatient (REF) | payer MEDICARE, SELFPAY | END 2022-08-11 13:25 | disposition home or self-care (01) | LOC: HO.US 13:24 | PROVIDERS: PCP Student in an Organized Health Care Education/Training Program; Visit Provider Surgery Vascular Surgery | DX: I65.23 Occlusion and stenosis of bilateral carotid arteries (principal); I70.213 Atherosclerosis of native arteries of extremities with intermittent claudication, bilateral legs | CPT/HCPCS: 93880; 93923; 93925 ==

== ENCOUNTER 2022-09-14 13:22 | Outpatient (AMB) | payer MEDICARE, SELFPAY ==
--- NOTE | 2022-09-14 13:24 | A.OFFVIS_ITS ---
Intake Vital Signs 09/14/22 13:29 09/14/22 13:34 BP 127/78 127/77 Blood Pressure Location Lt brachial Rt brachial Position Sitting Sitting Intake Visit Reasons: 6 mo follow up carotid and LE Art US 08/11/2022 Intake Note: Patient is here for a 6 months follow up carotid and LE arterial US 08/11/22, patient stated shes been having trouble with balancing when walking Allergies lisinopril Allergy (Verified 09/14/22 13:27) Cough HPI 6 mo follow up carotid and LE Art US 08/11/2022 HPI Details Very pleasant 71-year-old female who presents for follow-up regarding carotid an arterial disease. She had originally transferred her care from [facility] has we take care of her as well. She had been on a surveillance protocol. She now presents for routine arterial in carotid surveillance. Of note she quit smoking about 15 years prior. She does have a history of diabetes and hypertension. In terms of her carotids she is asymptomatic and denies any lateralizing signs or symptoms, speech disturbances or visual changes. In terms of her peripheral vascular disease she is able to ambulate approximately a block. She now presents for follow-up regarding her arterial disease. PENDING SALE TO [facility] Medical History Arthritis Back pain, lumbosacral Bone spur of ankle COVID-19 vaccine series completed Diabetes Hypercholesteremia Hypertension Hypothyroid Increased BMI Plantar fasciitis Steatohepatitis Surgical History History of dental surgery History of hysterectomy History of tonsillectomy Hx of cataract surgery Family History Mother Rheumatoid arthritis Gout Diabetes Father Lung cancer Hypertension Social History Are you a primary lead care manager to a significant other at home: No Do you presently have visiting nurse or other home services: No Patient Tobacco Use Status: Former Tobacco user Quit Date: 2007 Tobacco use type: Cigarette Current occupational status: retired Current occupation: Right handed Review of Systems Const All systems reviewed & are unremarkable except as noted in HPI and below Reports no additional complaints ENT Reports Normal hearing present Card Denies chest pain, Denies chest pain at rest, Denies chest pain with activity and Denies pedal edema Resp Denies cough GI Denies abdominal pain Musc Denies abnormal gait, Denies muscle cramps and Denies radiating pain into limb Skin/Breast Denies skin ulcer and Denies wounds Neuro Reports Normal hearing present and Denies abnormal gait Psych Reports no additional complaints Physical Exam Vital Signs: Last Vital Signs BP 127/77 09/14/22 13:34 Const General: cooperative, healthy appearing and comfortable Orientation/consciousness: oriented to person, oriented to place and oriented to time HEENT Head: Yes normal to inspection Neck Neck: Yes normal visual inspection Carotids: no bruits Chest Chest palpation & inspection: normal inspection of the chest Resp Effort & Inspection: normal respiratory effort and able to speak in complete sentences Auscultation: clear to auscultation bilaterally, no crackles, no rales, no rhonchi and no wheezes Cardio Other: Bilateral DP signals Rate: regular rate Rhythm: regular rhythm Heart sounds: S1 normal heart sound present and S2 normal heart sound present Bruits: no carotid bruits GI Inspection: Yes normal to inspection Skin Wounds: no wounds Hair: normal Neuro General: oriented to person, oriented to place and oriented to time Cranial nerves: Yes CN's II-XII intact bilaterally and Yes Normal hearing present Cognition (Neuro): normal cognition Motor exam (neuro): 5/5 motor strength present throughout Extrem Other: venous exam: No significant superficial varicosities or spider telangiectasias, minimal edema General: No clubbing, No cyanosis and No edema Psych Appearance: grossly normal Mental Status: mental status grossly normal Speech and movement: Normal speech and movement present Results Reviewed Results Reviewed: Carotid testing dated 08/03/2022 demonstrates right-sided 0-49% stenosis left side 50-79% stenosis of the peak systolic is only 176 or suspect it is in the lower end of that range. Arterial ultrasound dated 08/11/2022 demonstrates BAKARI on the right of 0.58 and on the left of 0.69. This is similar from prior exam findings. Bilateral superficial femoral arteries changes from a multi phasic to monophasic flow. Written report and images of both studies were reviewed. Assessment & Plan Assessment & Plan (1) Bilateral carotid artery stenosis: Code(s): I65.23 - Occlusion and stenosis of bilateral carotid arteries Plan: In short patient has asymptomatic carotid disease. We have reviewed signs and symptoms of a stroke. We also discussed risk factor modification inclusive a healthy diet low in cholesterol. The patient will follow up with us with surveillance ultrasound of the carotids 1 year. Should there be any changes or signs or symptoms of a stroke we will be happy to see them back sooner. Thank you for allowing us to participate in this patient's care. If there are any questions or concerns please do not hesitate to contact us. (2) PAD (peripheral artery disease): Code(s): I73.9 - Peripheral vascular disease, unspecified Orders: Orders US arterial duplex LE BI 364 Days I73.9 - Peripheral vascular disease, unspecified US carotid duplex BI 364 Days I65.23 - Occlusion and stenosis of bilateral carotid arteries Patient Instructions: In short patient has stable claudication. I did review the pathophysiology of peripheral vascular disease with the patient. In addition we did discuss routine conservative measures including a healthy diet and the importance of exercise and ambulation. We did discuss risk factor modification. The patient will continue to to follow-up with surveillance follow-up in approximately 1 year. Thank you for allowing us to participate in this patient's care. If there are any questions or concerns please do not hesitate to contact us. Coding Level of Care Code Est Pt Level 4 (38156) Diagnoses Bilateral carotid artery stenosis I65.23 PAD (peripheral artery disease) I73.9
[2022-09-14 13:29] VITALS: BP 127/78
[2022-09-14 13:34] VITALS: BP 127/77
== END 2022-09-14 13:49 | disposition home or self-care (01) ==
PROVIDERS: PCP Student in an Organized Health Care Education/Training Program; Visit Provider Surgery Vascular Surgery
DX: I65.23 Occlusion and stenosis of bilateral carotid arteries (principal); I73.9 Peripheral vascular disease, unspecified
CPT/HCPCS: 99213

== ENCOUNTER → 2022-09-14 13:22 | Outpatient (BNVA) | payer MEDICARE, SELFPAY | PROVIDERS: PCP Student in an Organized Health Care Education/Training Program; Visit Provider Surgery Vascular Surgery ==

== ENCOUNTER 2023-02-23 13:57 | Outpatient (REF) | payer MEDICARE, SELFPAY | END 2023-02-23 13:58 | disposition home or self-care (01) | LOC: HO.MAMMO 13:57 | PROVIDERS: PCP Student in an Organized Health Care Education/Training Program; Visit Provider Student in an Organized Health Care Education/Training Program | DX: Z12.31 Encounter for screening mammogram for malignant neoplasm of breast (principal) | CPT/HCPCS: 77063; 77067 ==

== ENCOUNTER → 2023-02-23 14:00 | Outpatient (BNV) | payer MEDICARE, SELFPAY | PROVIDERS: PCP Student in an Organized Health Care Education/Training Program; Visit Provider Radiology Diagnostic Radiology | DX: Z12.31 Encounter for screening mammogram for malignant neoplasm of breast (principal) | CPT/HCPCS: 77063; 77067 ==

== ENCOUNTER 2023-09-05 09:52 | Outpatient (REF) | payer MEDICARE, SELFPAY ==
--- NOTE | ~2023-09-05 | US_ITS ---
EXAMINATION: US EXTRACRANIAL CAROTID DUPLEX, BILATERAL CLINICAL INFORMATION: Occlusion and stenosis of bilateral carotid arteries COMPARISON: Carotid duplex 08/11/2022 TECHNIQUE: Real-time ultrasound and Doppler techniques (integrating B-mode 2-D vascular images, Doppler spectral analysis and color-flow Doppler imaging) were utilized to interrogate the extracranial carotid arteries, the vertebral arteries and proximal subclavian arteries bilaterally. The degree of stenosis is determined by criteria similar to NASCET. FINDINGS: Right Side: 1. There is mild atherosclerotic plaque seen in the bifurcation/proximal ICA region. 2. The common carotid artery PSV proximally is 107 cm/s and distally 91 cm/s. 3. The proximal internal carotid artery velocities are 92 cm/s systolic and 16 cm/s diastolic. 4. The proximal external carotid artery PSV is 169 cm/s. 5. The vertebral artery shows antegrade flow. 6. The subclavian artery waveforms are normal. Left Side: 1. There is moderate atherosclerotic plaque seen in the bifurcation/proximal ICA region. 2. The common carotid artery PSV proximally is 113 cm/s and distally 94 cm/s. 3. The proximal internal carotid artery velocities are 147 cm/s systolic and 17 cm/s diastolic. 4. The proximal external carotid artery PSV is 121 cm/s. 5. The vertebral artery shows antegrade flow. 6. The subclavian artery waveforms are normal. US/US carotid duplex BI IMPRESSION: 1. RIGHT: Minimal, non-hemodynamically significant stenosis of the proximal right internal carotid artery corresponding to a 0-49% stenosis by velocity criteria. 2. LEFT: Moderate, hemodynamically significant stenosis of the proximal left internal carotid artery corresponding to a 50-79% stenosis by velocity criteria. 3. There is no change in the category severity of disease when compared to the previous study dated 08/11/2022.
--- NOTE | ~2023-09-05 | US_ITS ---
EXAMINATION: US NONINVASIVE ASSESSMENT OF THE ARTERIES OF BOTH LOWER EXTREMITIES INCLUDING PVR EXAM AND BILATERAL LOWER EXTREMITY DUPLEX. CLINICAL INFORMATION: Peripheral vascular disease COMPARISON: BAKARI/duplex 08/11/2022 TECHNIQUE: Ankle pulse volume recordings, ankle pressure measurements and ankle brachial indices were obtained of the lower extremity arterial system bilaterally in addition to duplex Doppler techniques with wave form analysis and measurement of velocities in the common femoral, profunda femoral, superficial femoral, popliteal, tibial and peroneal arteries. The study was performed only at rest. FINDINGS: RIGHT LE. THE RIGHT ANKLE-BRACHIAL INDEX IS: 0.72 >0.97-1.25 = normal - no significant arterial disease 0.75-0.96 = mild peripheral arterial disease 0.5-0.74 = moderate peripheral arterial disease <0.50 = severe peripheral arterial disease <0.30 = critical arterial disease 2. SEGMENTAL PRESSURES (mmHg): Ankle: PT 81, DP 83 3. PVR WAVEFORMS: Ankle: Abnormal 4. DIRECT DUPLEX: Common femoral artery: 171 cm/s, Multiphasic Profunda femoris artery: 78 cm/s, biphasic Superficial femoral artery (proximal): 74 cm/s, biphasic Superficial femoral artery (mid): 152 cm/s, monophasic Superficial femoral artery (distal): 39 cm/s, monophasic Proximal Popliteal artery: 49 cm/s, monophasic Anterior tibial artery: 69 cm/s, monophasic Mid posterior tibial artery: 40 cm/s, monophasic Peroneal artery: Not visualized Dorsalis pedis artery: 49 cm/s, monophasic Incidentally noted Hollingsworth's cyst measuring 5.3 x 1.7 x 2.4 cm in the popliteal fossa. LEFT LE. THE LEFT ANKLE-BRACHIAL INDEX IS: 0.7 >0.97-1.25 = normal - no significant arterial disease 0.75-0.96 = mild peripheral arterial disease 0.5-0.74 = moderate peripheral arterial disease <0.50 = severe peripheral arterial disease <0.30 = critical arterial disease 2. SEGMENTAL PRESSURES: Ankle: PT (occluded), DP 81 3. PVR WAVEFORMS: Ankle: Abnormal 4. DIRECT DUPLEX: Common femoral artery: 149 cm/s, Multiphasic Profunda femoris artery: 143 cm/s, biphasic Superficial femoral artery (proximal): 170 cm/s, monophasic Superficial femoral artery (mid): 234 cm/s, monophasic Superficial femoral artery (distal): 78 cm/s, monophasic Proximal Popliteal artery: 148 cm/s, monophasic Anterior tibial artery: 70 cm/s, monophasic Mid posterior tibial artery: Not visualized Dorsalis pedis artery: 6 cm/s, monophasic Incidentally noted Hollingsworth's cyst measuring 4.8 x 1.8 x 2.6 cm in the popliteal fossa. US/US arterial duplex BI w/ BAKARI IMPRESSION: 1. When compared to prior study in 2022, there is mild improvement in the BAKARI on the right, unchanged on the left. 2. Mild right lower extremity peripheral vascular disease, worst within the mid SFA. 3. Moderate left lower extremity peripheral vascular disease, worst at the mid SFA and popliteal artery. 4. Nonvisualization of bilateral peroneal and left posterior tibial arteries. 5. Bilateral Hollingsworth's cysts.
== END 2023-09-05 09:53 | disposition home or self-care (01) ==
LOC: HO.US 09:52
PROVIDERS: PCP Student in an Organized Health Care Education/Training Program; Visit Provider Surgery Vascular Surgery
DX: I65.23 Occlusion and stenosis of bilateral carotid arteries (principal); I70.213 Atherosclerosis of native arteries of extremities with intermittent claudication, bilateral legs
CPT/HCPCS: 93880; 93922; 93925

== ENCOUNTER 2023-10-14 08:42 | Outpatient (REF) | payer MEDICARE, SELFPAY ==
[2023-10-14 15:23] LABS: Alanine Aminotransferase 15 U/L (0-31); Albumin Level 3.8 g/dL (3.5-5.0); Alkaline Phosphatase 54 U/L (39-117); Anion Gap 10 (12-20); Aspartate Amino Transferase 17 U/L (5-31); Bilirubin Direct 0.2 mg/dL (0.0-0.5); Bilirubin Total 0.5 mg/dL (0.0-1.0); Blood Urea Nitrogen 20 mg/dL (9-16); Calcium 9.5 mg/dL (8.4-10.2); Carbon Dioxide 26 mmol/L (22-29); Chloride 109 mmol/L (96-108); Cholesterol 132 mg/dL (<200); Estimated Glomerular Filt Rate > 60; Glucose Random 131 mg/dL (60-115); HDL Cholesterol 45 mg/dL (>40); LDL Cholesterol Calculated 62 mg/dL (<100); Potassium 3.9 mmol/L (3.3-5.1); Sodium 141 mmol/L (135-145); Total Protein 6.7 g/dL (6.5-8.0); Triglycerides 125 mg/dL (<150)
[2023-10-14 15:27] LABS: TSH reflex Free T4 1.84 uIU/mL (0.32-4.0)
== END 2023-10-14 08:43 | disposition home or self-care (01) ==
LOC: HO.CHCLDS 08:42
PROVIDERS: Visit Provider Student in an Organized Health Care Education/Training Program
DX: I10 Essential (primary) hypertension (principal); E78.00 Pure hypercholesterolemia, unspecified; E03.9 Hypothyroidism, unspecified; E11.9 Type 2 diabetes mellitus without complications
CPT/HCPCS: 36415; 80048; 80061; 80076; 84443

== ENCOUNTER 2023-10-18 13:19 | Outpatient (AMB) | payer MEDICARE, SELFPAY ==
--- NOTE | 2023-10-18 13:20 | MHC.OFFVIS ---
Vital Signs 10/18/23 13:24 10/18/23 13:30 Height 5 ft 5 in BP 102/52 L 104/58 L Blood Pressure Location Lt brachial Rt brachial Position Sitting Sitting Intake Visit Reasons: follow up Carotid & Arterial US 09/05/23 Intake Note: 1 yr follow up carotid US 09/05/23 & LE arterial US 09/05/23. Pt states she still gets some weakness/balance issues in her legs but has been exercising more using a bike pedal machine. Accompanied by: Self / Same As Patient Allergies lisinopril Allergy (Verified 10/18/23 13:28) Cough adhesive tape Adverse Reaction (Intermediate, Verified 10/18/23 13:28) Rash HPI HPI follow up Carotid & Arterial US 09/05/23: Details: Very pleasant 73-year-old female presents for follow-up regarding carotids and peripheral vascular disease. She had been seen by [facility] in the past and had transferred her care to . Of note she has been seen podiatry for her right 3rd toe. Overall reports that she was doing fairly well. She actually had seen Ophthalmology earlier today. She reports that she is doing extremely well she can ambulate about a block without any difficulty. She is a nonsmoker but is a diabetic. She now is for surveillance follow-up. [facility] Medical History COVID-19 vaccine series completed Increased BMI Back pain, lumbosacral Arthritis Bone spur of ankle Plantar fasciitis Diabetes Hypothyroid Steatohepatitis Hypercholesteremia Hypertension Surgical History Hx of cataract surgery History of dental surgery History of hysterectomy History of tonsillectomy Family History Mother Rheumatoid arthritis Gout Diabetes Father Lung cancer Hypertension Social History Are you a primary rn long term care to a significant other at home: No Do you presently have visiting nurse or other home services: No Patient Tobacco Use Status: Former Tobacco user Tobacco use type: Cigarette Current occupational status: retired Current occupation: Right handed Review of Systems Const All systems reviewed & are unremarkable except as noted in HPI and below Reports no additional complaints ENT Reports Normal hearing present Card Denies chest pain, Denies chest pain at rest, Denies chest pain with activity and Denies pedal edema Resp Denies cough GI Denies abdominal pain Musc Denies abnormal gait, Denies muscle cramps and Denies radiating pain into limb Skin/Breast Denies skin ulcer and Denies wounds Neuro Reports Normal hearing present and Denies abnormal gait Psych Reports no additional complaints Physical Exam Vital Signs: Last Vital Signs BP 104/58 L 10/18/23 13:30 Const General: cooperative, healthy appearing and comfortable Orientation/consciousness: oriented to person, oriented to place and oriented to time HEENT Head: Yes normal to inspection Neck Neck: Yes normal visual inspection Carotids: no bruits Chest Chest palpation & inspection: normal inspection of the chest Resp Effort & Inspection: normal respiratory effort and able to speak in complete sentences Auscultation: clear to auscultation bilaterally, no crackles, no rales, no rhonchi and no wheezes Cardio Rate: regular rate Rhythm: regular rhythm Heart sounds: S1 normal heart sound present and S2 normal heart sound present Bruits: no carotid bruits Peripheral pulses: Peripheral pulses 2+ throughout GI Inspection: Yes normal to inspection Skin Wounds: no wounds Hair: normal Neuro General: oriented to person, oriented to place and oriented to time Cranial nerves: Yes CN's II-XII intact bilaterally and Yes Normal hearing present Cognition (Neuro): normal cognition Motor exam (neuro): 5/5 motor strength present throughout Extrem Other: venous exam: No significant superficial varicosities or spider telangiectasias, minimal edema General: No clubbing, No cyanosis and No edema Psych Appearance: grossly normal Mental Status: mental status grossly normal Speech and movement: Normal speech and movement present Results Reviewed Results Reviewed: Noninvasive arterial testing dated 09/05/2023 demonstrates BAKARI on the right of 0.72 and on the left of 0.70 with monophasic waveforms. She does appear to have mild bilateral SFA disease. Carotid ultrasound testing dated 09/05/2023 demonstrates right-sided 0-49% stenosis left side 50-79% stenosis with a peak systolic of 147 Written report and images of both studies were reviewed Assessment & Plan Assessment & Plan (1) Bilateral carotid artery stenosis: Code(s): I65.23 - Occlusion and stenosis of bilateral carotid arteries Category: Medical Plan: In short patient has asymptomatic carotid disease. We have reviewed signs and symptoms of a stroke. We also discussed risk factor modification inclusive a healthy diet low in cholesterol. The patient will follow up with us with surveillance ultrasound of the carotids 1 year. Should there be any changes or signs or symptoms of a stroke we will be happy to see them back sooner. Thank you for allowing us to participate in this patient's care. If there are any questions or concerns please do not hesitate to contact us. (2) PAD (peripheral artery disease): Code(s): I73.9 - Peripheral vascular disease, unspecified Category: Medical Plan: In short patient has stable claudication. I did review the pathophysiology of peripheral vascular disease with the patient. In addition we did discuss routine conservative measures including a healthy diet and the importance of exercise and ambulation. We did discuss risk factor modification. The patient will continue to to follow-up with surveillance follow-up in approximately 1 year. Thank you for allowing us to participate in this patient's care. If there are any questions or concerns please do not hesitate to contact us. Please note a longitudinal relationship has been created with the patient and we have been following and surveillance this chronic condition. Orders: Orders US carotid duplex BI 1 Year I65.23 - Occlusion and stenosis of bilateral carotid arteries US arterial duplex LE BI 1 Year I73.9 - Peripheral vascular disease, unspecified Coding Level of Care Code Est Pt Level 4 (79632) Complex EM visit Add On G2211 Diagnoses Bilateral carotid artery stenosis I65.23 PAD (peripheral artery disease) I73.9
[2023-10-18 13:24] VITALS: BP 102/52
[2023-10-18 13:30] VITALS: BP 104/58
== END 2023-10-18 13:50 | disposition home or self-care (01) ==
PROVIDERS: PCP Student in an Organized Health Care Education/Training Program; Visit Provider Surgery Vascular Surgery
DX: I65.23 Occlusion and stenosis of bilateral carotid arteries (principal); I73.9 Peripheral vascular disease, unspecified
CPT/HCPCS: 99213; G2211

== ENCOUNTER → 2023-10-18 13:19 | Outpatient (BNVA) | payer MEDICARE, SELFPAY | PROVIDERS: PCP Student in an Organized Health Care Education/Training Program; Visit Provider Surgery Vascular Surgery | DX: I65.23 Occlusion and stenosis of bilateral carotid arteries (principal); I73.9 Peripheral vascular disease, unspecified | CPT/HCPCS: 99212 ==

== ENCOUNTER 2024-02-27 11:29 | Outpatient (REF) | payer MEDICARE, SELFPAY | END 2024-02-27 11:30 | disposition home or self-care (01) | LOC: HO.MAMMO 11:29 | PROVIDERS: PCP Student in an Organized Health Care Education/Training Program; Visit Provider Student in an Organized Health Care Education/Training Program | DX: Z12.31 Encounter for screening mammogram for malignant neoplasm of breast (principal) | CPT/HCPCS: 77063; 77067 ==

== ENCOUNTER → 2024-02-27 11:30 | Outpatient (BNV) | payer MEDICARE, SELFPAY | PROVIDERS: PCP Student in an Organized Health Care Education/Training Program; Visit Provider Internal Medicine | DX: Z12.31 Encounter for screening mammogram for malignant neoplasm of breast (principal) | CPT/HCPCS: 77063; 77067 ==

== ENCOUNTER 2024-03-12 09:54 | Outpatient (REF) | payer MEDICARE, SELFPAY ==
--- OUTSIDE RECORDS SUMMARY | 2024-03-12 14:25 | XMS_ITS | Encounter Summary ---
Author Organization [employer] Address [address] [facility] [address]t [place] [address] Care Team Providers Care Certified Medical Assistant Name Role Phone Romy Delgadillo MD Primary Care Provider [phone] Encounter Details Date Type Department Care Team (Late st Contact Info) Description 06/23/2022 Orders Only [facility] CHC MED & PEDS [address] [place] [address] Mariangel Hurt LPN Social History Tobacco Use Types Packs/Day Years Used Date Smoking Tobacco: Former Cigarettes Smokeless Tobacco: Never Alcohol Use Standard Drinks/Week Comments Never 0 (1 standard drink = 0.6 oz pur e alcohol) Comments Unknown Sex and Gender Information Value Date Recorded Sex Assigned at Female 12/14/2021 10:18 AM EDT Legal Sex Female 10:18 AM EDT Gender Identity Female 12/14/2021 10:18 AM EDT Sexual Orientation Straight 12/14/2021 10 :18 AM EDT documented as of this encounter Plan of Treatment Not on file documented as of this encounter Visit Diagnoses Not on filedocumented in this encounter Care Teams Certified Medical Assistant Relationship Specialty Start Date End Date Romy Delgadillo MD [address] [place] [id number] PCP - General Family Medicine 01/27/12 documented as of this encounter
--- OUTSIDE RECORDS SUMMARY | 2024-03-12 14:25 | XMS_ITS | Encounter Summary ---
Author Organization [employer] Address [address] [facility] 7[address] [place] [address] Care Team Providers Care Seasonal Retail Merchandiser Name Role Phone Romy Delgadillo MD Primary Care Provider [phone] Reason for Visit * Reason Comments Med Refill Encounter Details Date Type Department Care Team ([facility] Contact Info) Description 07/29/[address] [facility] CHC MED & PEDS [address] [place], [place] [phone] Romy Delgadillo MD [address] [place], [place] Type 2 diabetes mellitus without complication, without long-term current use of insulin ([facility]/HCC); Acquired hypothyroidism; Benign hypertension Social History Tobacco Use Types Packs/Day Years Used Date Smoking Tobacco: Former Cigarettes Smokeless Tobacco: Never Alcohol Use Standard Drinks/Week Comments Never 0 (1 standard drink = 0.6 oz pur e alcohol) Depression Answer Date Recorded Patient Health Questionnaire-9 Score 1 07/15/2022 Housing Stability Answer Date Recorded What is your housing situation today? I have jayden amos 12/03/[address] you li ve. Do you have problems with any of the following? None of the above 12/03/2022 Food Insecurity Answer Date Recorded Within the past 12 months, y ou worried that your food would run out before you got money to buy more: Never True 12/03/2022 Within the past 12 months,th e food you bought just didn't last and you didn't have enough money to get more: Not on file Transportation Answer Date Recorded In the past 12 months, has l ack of transportation kept you from medical appts, meetings, work or from getting things needed for daily living? No 12/03/2022 Utilities Answer Date Recorded In the past 12 months, has t he electric, gas, oil or water company threatened to shut off services in your home? No 12/03/2022 Depression Answer Date Recorded Patient Health Questionnaire-2 Score 1 07/15/2022 Comments Unknown Sex and Gender Information Value Date Recorded Sex Assigned at Female 12/14/2021 10:18 AM EDT Legal Sex Female 10:18 AM EDT Gender Identity Female 12/14/2021 10:18 AM EDT Sexual Orientation Straight 12/14/2021 10 :18 AM EDT documented as of this encounter Plan of Treatment Not on file documented as of this encounter Visit Diagnoses Diagnosis Type 2 diabetes mellitus without complication, without long-term current use of insulin ([facility]) Acquired hypothyroidism Unspecified hypothyroidism Benign hypertension Essential hypertension, benign documented in this encounter Additional Health Concerns Assessment Noted Time PHQ-9 Depression Total Score: 1 07/16/19 23 9:56 AM EDT documented as of this encounter Care Teams Seasonal Retail Merchandiser Relationship Specialty Start Date End Date Romy Delgadillo MD [address] [place] [address] PCP - General Family Medicine 01/27/12 documented as of this encounter
--- OUTSIDE RECORDS SUMMARY | 2024-03-12 14:25 | XMS_ITS | Encounter Summary ---
Author Organization [employer] Address [address] [place] [address] 7t [place] [address] Care Team Providers Care Fashion Photographer Name Role Phone Romy Delgadillo MD Primary Care Provider [phone] Reason for Visit * Reason Comments Med Refill Encounter Details Date Type Department Care Team ([facility] st Contact Info) Description 02/23/2022 Refill [facility] CHC MED & PEDS [address] [place], [place] [phone] Romy Delgadillo MD [address] [place] [address] Social History Tobacco Use Types Packs/Day Years Used Date Smoking Tobacco: Never Assessed Comments Unknown Sex and Gender Information Value [...] on filedocumented in this encounter Care Teams Fashion Photographer Relationship Specialty Start Date End Date Romy Delgadillo MD [address] [place] [id number] PCP - General Family Medicine 01/27/12 documented as of this encounter
--- OUTSIDE RECORDS SUMMARY | 2024-03-12 14:26 | XMS_ITS ---
Author Organization [facility] Address [address] [place] [address] Care Team Providers Care Gate Manager Name Role Phone Romy Delgadillo Primary Care Provider Cande Christie [phone] REASON FOR VISIT seen sooner Encounters Encounter Location Date Provider Diagnosis [address] [id number] 01/23/2024 Cande Vogt Plan Of Treatment Next Appt Details Provider Name:Cande Vogt , 03/19/2024 03:00:00 PM, [address] [place] [address], [id number], Progress Notes * Bell VOGTDOB:[birth year] (73 yo F)Acc No.[id number]:01/23/2024 Progress Note Patient:?Bell VOGT Provider:?Cande Vogt DPM :1950???Age:73 Y???Sex:Female D ate:01/23/2024 [address] [id number] Pcp:Romy Delgadillo Subjective: * Chief Complaints: * ???1. Seen sooner. * Medical History:? Objective: * Vitals:? Assessment: Plan: * Treatment: * Images: * The named appointment provid er may or may not be the originator of this progress note, and it is not deemed complete until electronically signed by the appointment provider. Sign off status: Pending * Provider:?Cande Vogt DPM Date:?2023 Generated for Lang oates/Meghann/Rosa on:?03/12/2024 02:25 PM EST
--- OUTSIDE RECORDS SUMMARY | 2024-03-12 14:26 | XMS_ITS | Encounter Summary ---
Author Organization [employer] Address [address] [facility] [address] [place] [address] Care Team Providers Care Seating Upholsterer Name Role Phone Romy Delgadillo MD Primary Care Provider [phone] Reason for Visit * Reason Comments Pre-visit Planning Pre-visit planning - LVM Encounter Details Date Type Department Care Team ([facility] Contact Info) Description 02/20/2024 Patient Outreach [facility] CHC MED & PEDS [address] [place] [address] Romy Delgadillo MD [address] [place] [address] Pre-visit Planning (Pre-visit planning - LVM ) Social History Tobacco Use Types Packs/Day Years Used Date Smoking Tobacco: Former Cigarettes Passive Smoke Exposure: Past Smokeless Tobacco: Never Alcohol Use Standard Drinks/Week [...] AM EDT documented as of this encounter Progress Notes * Katherine Barahona - 02/20/2024 2:17 PM EST SUDHIR De Leon placed outbound call to patient to complete pre-visit planning. No answer at this time. Patient name and were not confirmed. CC left voicemail requesting return call. Direct contact information provided. documented in this encounter Plan of Treatment Not on file documented as of this encounter Visit Diagnoses Not on filedocumented in this encounter Additional Health Concerns Assessment Noted Time PHQ-9 Depression Total Score: 1 07/16/19 23 9:56 AM EDT documented as of this encounter Care Teams Seating Upholsterer Relationship Specialty Start Date End Date Romy Delgadillo MD [address] [place] [id number] PCP - General Family Medicine 01/27/12 documented as of this encounter
--- OUTSIDE RECORDS SUMMARY | 2024-03-12 14:26 | XMS_ITS | Encounter Summary ---
Author Organization [employer] Address [address] [place] [address] [address] [place] [address] Care Team Providers Care Film Flat Inspector Name Role Phone Romy Delgadillo MD Primary Care Provider [phone] Reason for Visit * Reason Comments Med Refill Encounter Details Date Type Department Care Team ([facility] st Contact Info) Description 02/22/2022 Refill [facility] CHC MED & PEDS [address] [place], [place] [phone] Romy Delgadillo MD [address] [place] [address] Social History Tobacco Use Types Packs/Day Years [...] on filedocumented in this encounter Care Teams Film Flat Inspector Relationship Specialty Start Date End Date Romy Delgadillo MD [address] [place] [id number] PCP - General Family Medicine 01/27/12 documented as of this encounter
--- OUTSIDE RECORDS SUMMARY | 2024-03-12 14:26 | XMS_ITS | Encounter Summary ---
Author Organization [employer] Address [address] [facility] [address] [place] [address] Care Team Providers Care Director Erp Name Role Phone Romy Delgadillo MD Primary Care Provider [phone] Reason for Visit * Reason Comments Med Refill Encounter Details Date Type Department Care Team ([facility] Contact Info) Description 03/08/2023 Refill [facility] CHC MED & PEDS [address] [place], [place] [phone] Romy Delgadillo MD [address] [place] [address] Social History Tobacco Use Types Packs/Day Years [...] documented as of this encounter Care Teams Director Erp Relationship Specialty Start Date End Date Romy Delgadillo MD [address] [place] [id number] PCP - General Family Medicine 01/27/12 documented as of this encounter
--- OUTSIDE RECORDS SUMMARY | 2024-03-12 14:26 | XMS_ITS | Clinical Summary ---
Author Organization [employer] Address [address] [facility] [address] [place] [address] Care Team Providers Care Brass Finisher Name Role Phone Romy Delgadillo MD Primary Care Provider [phone] Allergies Active Allergy Reactions Criticality Noted Date Comments Lisinopril Cough 03/21/2014 Other reaction(s): coughing Medications atenolol (Tenormin) 100 MG tabletIndications: Benign hypertension TAKE 1 TABLET BY MOUTH ONCE DAILY 100 tablet 2 3 Active glipiZIDE (Glucotrol) 5 MG tabletIndications: Type 2 diabetes mellitus without complication, without long-term current use of insulin (CMS/HCC),Acquired hypothyroidism TAKE 2 TABLETS BY MOUTH BEFORE BREAKFAST AND 4 TABLETS BY MOUTH BEFORE SUPPER 600 tablet 2 3 Active Lancets (OneTouch Delica Plus [id number]) misc CHECK TWICE DAILY 200 each 11 3 Active meloxicam (Mobic) 7.5 MG tablet TAKE 1 TABLET BY MOUTH TWICE DAILY 200 tablet 2 4 Active levothyroxine (Synthroid, Levoxyl) 75 MCG tabletIndications: Type 2 diabetes mellitus without complication, without long-term current use of insulin (CMS/HCC),Acquired hypothyroidism TAKE 1 TABLET BY MOUTH DAILY BEFORE BREAKFAST 100 tablet 2 4 Active gemfibrozil (Lopid) 600 MG tabletIndications: Primary hypertension TAKE 1 TABLET BY MOUTH IN THE MORNING 100 tablet 2 4 Active cloNIDine (Catapres) 0.2 MG tabletIndications: Primary hypertension TAKE 1 TABLET BY MOUTH 3 TIMES DAILY 300 tablet 2 4 Active atorvastatin (Lipitor) 20 MG tabletIndications: Primary hypertension TAKE 1 TABLET BY MOUTH IN THE MORNING 100 tablet 2 4 Active metFORMIN (Glucophage) 500 MG tablet 1 tablet 2 times daily. Active Calcium Carb-Cholecalcifer ol 600-10 MG-MCG tablet Take 1 tablet by mouth every 12 (twelve) hours. 5 Active acetaminophen (Tylenol Extra Strength) 500 MG tablet Take 1 tablet (500 mg) by mouth every 6 (six) hours if needed for mild pain. 90 tablet 2 4 10/12/19 25 Active terbinafine (LamISIL AT) 1 % cream Apply topically 2 times daily. 15 g 2 4 Active glucose blood (Hone and Strop Ultra) test stripIndications:T ype 2 diabetes mellitus without complication, without long-term current use of insulin (CMS/HCC),Acquired hypothyroidism CHECK BLOOD SUGAR TWICE DAILY 200 strip 2 4 Active gabapentin (Neurontin) 100 MG capsule TAKE 1 CAPSULE BY MOUTH TWICE DAILY 200 capsule 2 4 Active oxybutynin XL (Ditropan-XL) 15 MG 24 hr tablet TAKE 1 TABLET BY MOUTH DAILY 100 tablet 2 4 Active amLODIPine (Norvasc) 10 MG tablet TAKE 1 TABLET BY MOUTH ONCE DAILY 100 tablet 2 4 Active valsartan (Diovan) 40 MG tablet TAKE 1 TABLET BY MOUTH DAILY 100 tablet 2 4 Active Active Problems Problem Noted Date Diagnosed Date Peripheral vascular disease 03/11/2022 Type 2 diabetes mellitus wit hout complication, without long-term current use of insulin 03/11/2022 Hypothyroidism 07/17/2012 Hypercholesterolemia 07/17/2012 Benign hypertension 07/17/2012 Encounters Date Type Department Care Team Description 03/01/2024 11:30 AM EST Office Visit [facility] [address] [place] [place] [address] Romy Delgadillo MD Benign hypertension (Primary Dx); Type 2 diabetes mellitus without complication, without long-term current use of insulin (CMS/HCC); Hypothyroidism, unspecified type 03/01/2024 Travel 02/27/2024 Orders Only [facility] [address] [place] [address] Romy Delgadillo MD 02/27/2024 Travel 02/27/2024 Telephone [facility] [address] [place] [address] Romy Delgadillo MD Chart Prep 02/20/2024 Patient Outreach [facility] [address] [place] [place] [address] Romy Delgadillo MD Pre-visit Planning (Pre-visit planning - LVM ) from Last 3 Months Immunizations Name Administration Dates Next Due Influenza High-dose Quadriva lent Preservative Free 10/28/2020 Influenza Quadrivalent Adjuvanted 11/03/2021 Influenza injectable quadriv alent IIV4 with preservative 11/05/2016 Influenza, High Dose Seasona l, Preservative Free 11/06/2018,12/12/2015,11/19/2014 Influenza, IIV3, injectable 11/16/2013 Influenza, Split (incl. miguel fied surface antigen) 11/01/2011 Pneumococcal Conjugate PCV 13 12/24/2015 Pneumococcal Polysaccharide PPSV23 01/24/2018, TD (adult), 2 Lf tetanus tox oid, preservative free, adsorbed 11/11/2006 Tdap 12/24/2016 Zoster, Recombinant 09/21/2021,07/07/2021 Zoster, live 12/05/2014 Social History Tobacco Use Types Packs/Day Years Used Date Smoking Tobacco: Former Cigarettes Passive Smoke Exposure: Past Smokeless Tobacco: Never Tobacco Cessation:Counseling Given: Not Answered Alcohol Use Standard Drinks/Week Comments Never 0 (1 standard drink = 0.6 oz pur e alcohol) Depression Answer Date Recorded Patient Health Questionnaire-9 Score 1 07/15/2022 Housing Stability Answer Date Recorded What is your housing situation today? I have jayden dandre 12/03/[address] you li [...] Patient Health Questionnaire-2 Score 1 07/15/2022 Comments No Sex and Gender Information Value Date Recorded Sex Assigned at Female 12/14/2021 10:18 AM EDT Legal Sex Female 10:18 AM EDT Gender Identity Female 12/14/2021 10:18 AM EDT Sexual Orientation Straight 12/14/2021 10 :18 AM EDT Last Filed Vital Signs Vital Sign Reading Time Taken Comments Blood Pressure 146/59 03/01/2024 11:47 AM EST Pulse 58 03/01/2024 11:47 AM EST Temperature 36.1 ??C (97 ??F) 03/01/2024 11:47 AM EST Respiratory Rate 20 03/01/2024 11:47 AM EST Oxygen Saturation 98% 03/01/2024 11:47 AM EST Inhaled Oxygen Concentration - - Weight 102 kg (224 lb) 03/01/2024 11:47 AM EST Height 163.2 cm (5' 4.25 ) 03/01/2024 11:[address] Body Mass Index 38.15 03/01/2024 11:47 AM EST Plan of Treatment Health Maintenance Due Date Last Done Comments CT Colonography 1950 Colonoscopy 1950 Colorectal Cancer Screening 1950 FIT DNA/Cologuard 1950 FIT 1950 FOBT 1950 Sigmoidoscopy 1950 Eye Exam 06/07/1959 Alcohol/Substance Use Screening 1961 Hepatitis C Screening 06/07/1967 Hepatitis A Vaccines (1 of 2 - Risk 2-dose series) 1968 Hepatitis B Vaccines (1 of 3 - Risk 3-dose series) 2009 RSV Patients and Patients Aged 60 years or older (1 - Risk 60-74 years 1-dose series) 2009 Diabetes: Urine Protein Screening 01/15/2022 01/15/2021 Depression Screening 07/16/2023 07/15/2022, 07/16/19 23 SDOH Screening 07/16/2023 07/15/2022 Diabetes: Hemoglobin A1C 08/29/2024 025, 10/12/2023, 07/15/2022, Additional history exists Lipid Panel 10/13/2024 10/14/2023, 06/2022, 03/16/2022, Additional history exists Mammogram 02/26/2025 02/27/2024, 02/14, 02/10/2022, Additional history exists Diabetes: Foot Exam 03/01/2025 03/01/2024, 03/01/2024, 03/01/2024, Additional history exists Tobacco Screening 03/01/2025 03/01/2024 DTaP/Tdap/Td Vaccines (2 - Td or Tdap) 12/24/2026 12/24/2016, 11/11/2006 Pneumococcal Vaccine: 65+ Years Completed 01/24/2018, 12/24/2015, 05/09/2005 Zoster Vaccines Completed 09/21/2021, 06/15, 12/05/2014 Influenza Vaccine Completed 09/22/2023, , 11/03/2021, Additional history exists COVID-19 Vaccine Completed 12/29/2023, , 01/01/2022, Additional history exists HIB Vaccines Aged Out No longer eligi ble based on patient's age to complete this topic HPV Vaccines Aged Out No longer eligi ble based on patient's age to complete this topic IPV Vaccines Aged Out No longer eligi ble based on patient's age to complete this topic Meningococcal Vaccine Aged Out No stan pancho eligible based on patient's age to complete this topic RSV under 20 months Aged Out No longe r eligible based on patient's age to complete this topic Rotavirus Vaccines Aged Out No longer eligible based on patient's age to complete this topic Procedures Procedure Name Priority Date/Time Associated Diagnosis Comments POCT GLYCATED HEMOGLOBIN, TOTAL Routine 03/01/2024 11:50 AM EST Type 2 diabetes mellitus without complication, without long-term current use of insulin ([facility]) POCT GLUCOSE Routine 03/01/2024 11:49 AM EST Type 2 diabetes mellitus without complication, without long-term current use of insulin ([facility]) BI MAMMOGRAM SCREENING TOMOSYNTHESIS BILATERAL Routine 02/27/2024 11:35 AM EST LIPID PANEL, STANDARD Routine 10/14/2023 8:44 AM EDT Type 2 diabetes mellitus without complication, without long-term current use of insulin ([facility]) Benign hypertension Hypercholesterolem ia ALBUMIN, RANDOM URINE W/CREATININE Routine 01/15/2021 11:20 AM EST from Last 3 Months or Most Recently Relevant to Health Maintenance Results * (ABNORMAL) POCT HGB A1C (03/01/2024 11:50 AM EST) Hemoglobin A1C 6.7(A) 4.0 - 6.0 % QC Media Lot # [id number] Lot# Expiration Date [id number] Blood 03/01/2024 11:5 0 AM EST Romy Delgadillo MD POINT OF CARE TEST ENTER/EDIT OR DERABLES Final Result * (ABNORMAL) POCT Glucose (03/01/2024 11:49 AM EST) Glucose Blood, POC 202(A) 60 - 200 mg/dL QC Media Lot # [id number] Lot# Expiration Date [id number] Blood Capillary blood specimen / Unknown 03/01/2024 11:49 AM EST Romy Delgadillo MD POINT OF CARE TEST ENTER/EDIT OR DERABLES Final Result * BI Mammogram Screening Tomosynthesis Bilateral (02/27/2024 11:35 AM EST) Anatomical Region Laterality Modality Breast Bilateral Mammography 02/27/2024 11:3 5 AM EST Narrative 03/06/2024 12:48 PM EST ? [facility] ? [address] ?[place] [address] ? Mammography Report ? Signed ? Patient: Boivin,Bell ?MR#: [id number] ?? [id number] ? : 1950 ?Acct:[id number] ? Age/Sex: 73 / F ?ADM Date: 02/27/24 ? Loc: HO.MAMMO ? Attending Dr: Romy Delgadillo MD ? Ordering Physician: Romy Delgadillo MD ?Results: 2Benign ?? Findings ? Date of Service: 02/27/24 ?Follow Up: 1 Year From Orig ?? inal Mammogram ? Procedure(s): MM tomosynthesis screening BI ?? Accession Number(s): [id number] ? cc: Romy Delgadillo MD ? EXAMINATION: ?? MM SCREENING DIGITAL BREAST TOMOSYNTHESIS, BILATERAL ? CLINICAL INFORMATION: ? Screening. Asymptomatic. ? COMPARISON: ?? Mammography: Comparison is made with available priors ? TECHNIQUE: ?? Digital breast mammography with tomosynthesis is performed in both the ?? craniocaudal and mediolateral oblique views along with computer-aided ?? detection (CAD). ? FINDINGS: ?? Limited imaging patient wheelchair and due to patient's limitations. ?? There are scattered areas of fibroglandular density (ACR BI-RADS breast ?? composition Category b). ?? Bilateral scattered asymmetries are stable. ?? There are no significant masses, abnormal calcifications, or other ?? abnormalities. ? MM/MM tomosynthesis screening BI ?? IMPRESSION: ?? No mammographic evidence of malignancy. ? ASSESSMENT: ? BI-RADS BI-RADS 2 - Benign Findings ? RECOMMENDATION: ?? Routine annual mammography screening. ? 1 year F/U ? This examination should not preclude the clinical evaluation of a ?? suspicious palpable abnormality. ? This patient's information was entered into a reminder system with a ?? target due date for their next mammogram. ? Electronically signed by: ??Charmaine Willson DO ??03/06/2024 12:46 PM EST ? Dictated By: ?Charmaine Willson DO ? Signed By: ?<Electronically signed by Charmaine Willson, DO in OV> ? 03/06/24 1246 ? DD/ 1135 ? TD/TT: 02/27/24 1205 ? Racehorse Trainer: ? Procedure Note Terry, Image - 03/06/2024 [facility] [address] [place] [address] Mammography Report Signed Patient: Bell MartinezMR#: [id number] : 1950Acct:[id number] Age/Sex: 73 / FADM Date: 02/27/24 Loc: HO.MAMMO Attending Dr: Romy Delgadillo MD Ordering Physician: Romy Delgadillo MDResults: 2Benign Findings Date of Service: 02/27/24Follow Up: 1 Year From Orig inal Mammogram Procedure(s): MM tomosynthesis screening BI Accession Number(s): [id number] cc: Romy Delgadillo MD EXAMINATION: MM SCREENING DIGITAL BREAST TOMOSYNTHESIS, BILATERAL CLINICAL INFORMATION: Screening. Asymptomatic. COMPARISON: Mammography: Comparison is made with available priors TECHNIQUE: Digital breast mammography with tomosynthesis is performed in both the craniocaudal and mediolateral oblique views along with computer-aided detection (CAD). FINDINGS: Limited imaging patient wheelchair and due to patient's limitations. There are scattered areas of fibroglandular density (ACR BI-RADS breast composition Category b). Bilateral scattered asymmetries are stable. There are no significant masses, abnormal calcifications, or other abnormalities. MM/MM tomosynthesis screening BI IMPRESSION: No mammographic evidence of malignancy. ASSESSMENT: BI-RADS BI-RADS 2 - Benign Findings RECOMMENDATION: Routine annual mammography screening. 1 year F/U This examination should not preclude the clinical evaluation of a suspicious palpable abnormality. This patient's information was entered into a reminder system with a target due date for their next mammogram. Electronically signed by: Charmaine Willson DO 03/06/2024 12:46 PM [facility] Dictated By: Charmaine Willson DO Signed By: <Electronically signed by Charmaine Willson DO in OV> 03/06/24 1246 DD/ 1135 TD/TT: 02/27/24 1205 Racehorse Trainer: Romy Delgadillo MD IM BI PROCEDURES Edited Result - Final * Lipid Panel, Standard (10/14/2023 8:44 AM EDT) Triglycerides 125 <150 mg/dL [facility] Comment:Desirable Triglyceri de: less than 150 mg/dLBorderline High Triglyceride 150-199 mg/dLHigh Triglyceride: 200-499 mg/dLVery High Triglyceride: greater than or equal to 5OO mg/dL Cholesterol 132 <200 mg/dL [facility] Comment:Desirable Cholestero l: less than 200 mg/dLBorderline High Cholesterol: 200-239 mg/dLHigh Cholesterol: greater than 239 mg/dL LDL Cholesterol Calculated 62 <100 mg/dL [facility] Comment:Desirable LDL: less than 100 mg/dLNear Optimal/Above Optimal LDL: 110- 129 mg/dLBorderline High LDL: 130-159 mg/dLHigh LDL: 160-189 mg/dLVery High LDL: greater than or equal to 190 mg/dL HDL Cholesterol 45 >40 mg/dL [facility] Comment:Desirable HDL: great er than 40 mg/dL Note: This HDL assay may give artificially low results in patients with liver disease. Blood Venous blood specimen / Unknown 10/14/2023 8:44 AM EDT 10/14/2023 2:38 PM EDT us Romy Delgadillo MD LAB BLOOD ORDERABLES Final Resul t Performing Organization Address [facility]/ZIP Co de Phone Number [facility] [address] [place] [address] [phone] * ALBUMIN, RANDOM URINE W/CREATININE (01/15/2021 11:20 AM EST) Microalbumin Urine 1.8 See Note: mg/dL [facility] Comment: Reference Range: ?? Reference Range Not established Microalb/Creat Ratio 23 <30 mcg/mg creat [facility] Comment: ?? The ADA defines abnormalities in albumin excretion as follows: ?? Albuminuria Category ?Result (mcg/mg creatinine) ?? Normal to Mildly increased ?? <30 Moderately increased ? 30-299 ?? Severely increased ? > OR = 300 ?? The ADA recommends that at least two of three specimens collected within a 3-6 month period be abnormal before considering a patient to be within a diagnostic category. Creatinine, Urine 77 20 - 275 mg/dL [facility] 01/15/2021 11:2 0 AM EST us Romy Delgadillo MD LAB URINE ORDERABLES Final Resul t Performing Organization Address [facility] Co de Phone Number [facility] [address] from Last 3 Months or Most Recently Relevant to Health Maintenance Insurance [facility] MEDICARE REPLACEMENT * Guarantor: Bell Martinez Account Type Relation to Patient Date of Phone Billing Address Personal/Family Self [address] [place] Advance Directives Documents on File Type Date Recorded 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
--- OUTSIDE RECORDS SUMMARY | 2024-03-12 14:26 | XMS_ITS ---
Author Organization [facility] Address [address] [place] [address] Care Team Providers Care Rn Rehabilitation Name Role Phone Romy Delgadillo Primary Care Provider Cande Christie [phone] REASON FOR VISIT BUY Right Medium Crest Pad Encounters Encounter Location Date Provider Diagnosis [facility] [address] [place] [address] 12/15/2023 Cande Vogt Plan Of Treatment Next Appt Details Provider Name:Cande Vogt , 03/19/2024 03:00:00 PM, [address] [place] [address], [phone], Progress Notes * Bell VOGTDOB:[birth year] (73 yo F)Acc No.[id number]:12/15/2023 Patient:?Bell Vogt :1950???Age:73 Y???Sex:Female Address:[address] [place] [address] * true * Date:? Generated for Printi иван/Meghann/eTransmitting on:?03/12/2024 02:26 PM EST
--- OUTSIDE RECORDS SUMMARY | 2024-03-12 14:26 | XMS_ITS ---
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 Medications Medication SIG (Take, Route, Frequency, Duration) Notes Start Date End Date Status Compression Stockings 20-30mm Hg as directed 12/09/2022 Active Vitamin B 12 Not-Solomon ing Fish Oil Not-Taking Ciclopirox 8 % 1 application Externally Once a day for 90 days 12/09/2022 Not-Taking metFORMIN HCl 500 MG 1 tablet with a dawn l Orally Twice a day Not-Taking Losartan Potassium A ctive Night Splint AFO - L1930 as directed 12/26/2017 Active Gabapentin Active glipiZIDE Active Levothyroxine Sodium Active Gemfibrozil Active Atorvastatin Calcium Active Caltrate 600 Active Centrum Silver Activ e cloNIDine HCl Active oxyBUTYnin Active amLODIPine Besylate Active Atenolol 100 MG 1 tablet Orally Once a day Active Aspirin Active Social History Tobacco Use: Social History Observation Description Date Details (start date - stop date) Former Smoker NA - NA Tobacco Use/Smoking Question Answer Notes Are you a: former smoker Additional Findings: Tobacco Non-User Current no n-smoker Tobacco use other than smoking: Question Answer Notes Are you an other tobacco user? No Problems Problem Type SNOMED Code ICD Code Onset Dates Problem Status W/U Status Risk Notes Problem Ulcer of toe of right foot (disorder) ([id number]) Skin ulcer of toe of right foot, limited to breakdown of skin (L97.511) Active confirmed Resistant to previous conservative treatment Vital Signs Height 5ft5in in 12/15/2023 Weight 224 lbs 12/15/2023 BMI 37.27 kg/m2 12/15/2023 Procedures Procedure Date Ordered Date Performed Result Body Sit e 25136-AYACZRV NAIL, 6 OR MORE 12/15/2023 N/A 50727- Debride <25 sq cm 12/15/2023 N/A 62592-AQPN SKIN LESIONS, OVER 4 12/15/2023 N/A Encounters Encounter Location Date Provider Diagnosis [facility] [address] [place] [address] 12/15/2023 Cande Black Type 2 diabetes mellitus with diabetic polyneuropathy E11.42 ; Tinea unguium B35.1 ; Skin ulcer of toe of right foot, limited to breakdown of skin L97.511 and Hammer toe of right foot M20.41 Assessments Encounter Date Diagnosis (ICD Code) Assessment Notes Treatment Notes Treatment Clinical Notes Section Notes 12/15/2023 Type 2 diabetes mellitus with diabetic polyneuropathy (ICD-10 - E11.42) 12/15/2023 Tinea unguium (ICD-10 - B35.1) 12/15/2023 Skin ulcer of toe of right foot, limited to breakdown of skin (ICD-10 - L97.511) Resistant to previous conservative treatment Patient Educated with: WOUND CARE INSTRUCTIONS. pdf (WOUND CARE INSTRUCTIONS. pdf) 12/15/2023 Hammer toe of right foot (ICD-10 - M20.41) 12/15/2023 Other Plan Of Treatment Treatment Notes Assessment Notes Skin ulcer of toe of right f oot, limited to breakdown of skin Patient Educated with: WOUND CARE INSTRUCTIONS.pdf (WOUND CARE INSTRUCTIONS.pdf) Pending Test Test Name Order Date 00023-ZRKIEHE NAIL, 6 OR MORE 12/15/2023 29865- Debride <25 sq cm 12/15/2023 05095-EQDD SKIN LESIONS, OVER 4 12/15/19 24 Next Appt Details Follow Up: 2 Months, Reason: Provider Name:Cande Olsen Sin , 03/19/2024 03:00:00 PM, [address] [place] [address], [phone], Procedure Notes * Category Sub-Category Detail Notes Debride Nail 6-10 Nail debridement Performance o f this nail treatment by a nonprofessional would put this patients foot and overall health at risk. Therefore, nail debridement was performed extensively to reduce/remove overall nail length, girth, thickness, subungual debris, and necrotic tissue, by manual and/or electrical means through the use of a nail nipper and/or dremel-type grinder brake lining, to a more viable healthy nail plate or bed tissue 6-10. Silver nitrate used for any petechial bleeding as necessary. Definitive antifungal treatment options have been reviewed and discussed with the patient. The patient chooses, no pharmaceutical tx - 41691 Debride skin< 25 sq cm Open wound Physician of record performed open wound selective debridement of first 25 sq cm or less, of devitilized necrotic/nonviable soft tissue, fibrin, and exudate extending from the epidermis through the dermis, utilizing sharp dissection with sterile 15 blade, and/or tissue nippers. Sterile antibiotic dressing applied, ANESTHESIA- was accomplished TOPICALLY with Lidocaine Hydrochloride Jelly 2 percent. Hemostasis was achieved through direct pressure. Post debridement measurements: 7 mm x7 mm x 2 mm. Character of the wound post debridement is stable (23395) Keratoma Treatment Parring or Cutting o f Benign Hyperkeratotic Lesion(s) 17787 ( >4 Lesions) - The Benign hyperkeratotic lesions, as described above were pared, and/or cut utilizing a sterile #15 blade, tissue nippers, and/or dremel Progress Notes * Bell VOGTDOB:[birth year] (73 yo F)Acc No.[id number]:12/15/2023 Progress Notes Patient:?Bell Vogt Provider:?Cande Vogt DPM :1950???Age:73 Y???Sex:Female D ate:12/15/2023 Address:[address] [place] [address] [id number] Pcp:Romy Delgadillo Subjective: * Chief Complaints: * ???At Risk FootcareOpen sore - ToePainful Nail(s) aggrevated by shoes and causing difficulty standing/walking. * HPI: ???At Risk footcare:?Pt States Last PCP Visit:?Date?11/03/2023 ???Skin problems:?Treatments:?, Local care consisting of daily distilled water wound cleanse, topical antibiotic as recommended, application of sterile dressing, offloading/pressure reduction via rest, shoe modification, insert modification, accommodative padding, assisted ambulation via cane/ crutch/ walker/ wheel chair/ knee scooter, and surgical debridement.? Pt was scheduled for a flexor e release however due to other medical issues pt defers to move forward. * ROS:?General/Constitutional:?Nausea?denies.?Vomiting?denies.?Hunger Thirst?denies.?Loss appetite?denies.?Chills?denies.?Fatigue?denies.?Fever?denies.?Night Sweats?denies.?Unexplained weight loss?denies.?Unexplained weight gain?denies.?HEENTM:?Dentures?denies.?Dizziness?denies.?Glasses/contacts?denies.?Retinopathy?de nies.?Blurred/double vision?denies.?TMJ?denies.?Discharge/drainage?denies.?Implants?denies.?Sore throat?denies.?Dental implants?denies.?Hard of hearing ?denies.?Difficulty chewing/swallowing/speaking?denies.?Nose bleeds?denies.?Sore mouth?denies.?Respiratory:?On Oxygen?denies.?Pneumonia/pleurisy?denies.?Bronchitis?denies.?Emphysema?denies.?C oughing?denies.?Cough blood?denies.?Shortness of breath?denies.?Wheezing?denies.?Cardiovascular:?Pacemaker?denies.?MVP?denies.?WPW?denies.?CHF?denies.?Heart attack?denies.?Septal defect?denies.?Rapid beat?denies.?Chest pain ?denies.?Atrial Fib.?denies.?Murmur/Palpitations?denies.?Gastrointestinal:?Hemorrhoids?denies.?Stomach/Abdominal pain?denies.?Dark blood stool?denies.?Irritable bowel ?denies.?Constipation?denies.?Diarrhea?denies.?Hematology:?Swelling?denies.?Clots?denies.?Varicose Veins?denies.?Bruising?denies.?Bleeding problem?denies.?Genitourinary:?Blood urine?denies.?Frequent/Painfu/urination/bladder control?denies.?Kidney stones?denies.?Infection (UTI)?denies.?Nephropathy?admits.?sex trans dis (STD)?denies.?Prostate?denies.?Musculoskeletal:?Hammertoes?admits.?Bunions?admits.?Back Pain?denies.?Muscle Cramps/ Resting?denies.?Muscle cramps / walking?denies.?Generalized aches and pains?denies.?Weakness?denies.?Integ.:?Horton?denies.?Scars?denies.?Corns/calluses?admits.?Ingrown nails?denies.?Painful nails?denies.?Open Sores?denies.?Rashes?denies.?Neurologic:?Difficulty sleeping?denies.?Brain disorder?denies.?Numbness?denies.?Balance trouble?denies.?Confusion?denies.?Fainting/blackouts?denies.?Tingling?denies.?Tr emors?denies.? * Medical History:? * Surgical History:?tonsillect zamzam 1975teeth extraction 1993hysterectomy 1994xrays Pankaj israel ap/lat/mo 07/23/19cataract surgery- both eyes 06/04 * Hospitalization/Major Diagno stic Procedure:?Denies Past Hospitalization * Family History:?Mother: dece ased, thyroid issues, diagnosed with Family history of arthritis, Diabetic - NIDDM, Unspecified essential hypertension.?Father: , diagnosed with Unspecified essential hypertension, Other malignant neoplasm of unspecified site.?Siblings: kidney/liver disease, poor circulation, cancer, diagnosed with Unspecified cerebral artery occlusion with cerebral infarction.? * Social History:?Tobacco Use:?Tobacco Use/Smoking?Are you a:?former smoker ?Additional Findings: Tobacco Non-User?Current non-smoker ?Tobacco use other than smoking?Are you an other tobacco user??No * Medications:?TakingoxyBUTYni n amLODIPine Besylate Atenolol 100 MG Tablet 1 tablet Orally Once a dayAspirin Atorvastatin Calcium Caltrate 600 Centrum Silver cloNIDine HCl Gemfibrozil Gabapentin glipiZIDE Levothyroxine Sodium Losartan Potassium Night Splint AFO - L1930 as directed Compression Stockings 20-30mm Hg closed toe- knee high as directed Taking oxyBUTYnin Taking amLODIPine Besylate Taking Atenolol 100 MG Tablet 1 tablet Orally Once a dayTaking Aspirin Taking Atorvastatin Calcium Taking Caltrate 600 Taking Centrum Silver Taking cloNIDine HCl Taking Gemfibrozil Taking Gabapentin Taking glipiZIDE Taking Levothyroxine Sodium Taking Losartan Potassium Taking Night Splint AFO - L1930 as directed Taking Compression Stockings 20-30mm Hg closed toe- knee high as directed Not-Taking/PRNVitamin B 12 Fish Oil Ciclopirox 8 % Solution 1 application Externally Once a daymetFORMIN HCl 500 MG Tablet 1 tablet with a meal Orally Twice a dayMedication List reviewed and reconciled with the patientNot-Taking/PRN Vitamin B 12 Not-Taking/PRN Fish Oil Not-Taking/PRN Ciclopirox 8 % Solution 1 application Externally Once a dayNot-Taking/PRN metFORMIN HCl 500 MG Tablet 1 tablet with a meal Orally Twice a dayMedication List reviewed and reconciled with the patient * Allergies:?Lisinopril: cough ing - Side EffectsLatex: Allergyyes[Allergies Verified] Objective: * Vitals:?Ht: 5ft5in, Wt:224, BMI:37.27, Shoe size: 9W, BS: 117, Ht-cm: 165.1 cm, Wt-k.6 kg. * Examination: ???Ophthalmology Referral: ?DIABETES EYE EXAM?Dermatologic: ?SKIN FINDINGS:? Skin exam reveals Keratotic lesion(s) located at, Medial plantar, SUB MTH (s), 1, b/l IPJ, TA, T5, T9 ,.?ULCER:? LOCATION,T7, SIZE, 6mm X 5mm X 2mm, BASE, granular, RIM, hyperkeratotic, UNDERMINING, absent, TRACKING, Full thickness breakdown of skin, DRAINAGE, serosanguineous, mild, NECROTIC TISSUE, loosely-adherent, yellow slough, MALODOR, absent, CALOR, absent, ERYTHEMA, absent, PAIN ON PALPATION, present.?Neurological: ?SENSORY:?Neurological exam demonstrates, reduced sharp/dull discrimination , reduced vibration sensation, 5.07 monofilament test performed at plantar aspects of 5 varied sites per foot shows sensation, reduced, at Forefoot, B/L, Pt relates, Cont. burning, anesthesia, pins and needles sensation , tingling, burning, anesthesia ,.?Nails: ?NAILS are:?elongated,overgrown,dystrophic,greater than 3mm thick,discolored and friable with crumbly malodorous subungual debris, with dull to no pain on palpation due to neuropathy,, , T1 , T2 , T3 , T4 , T6 , T8.?Vascular: ?DP PULSES(B):? 1/4, B/L.?PT PULSES(B):?2/4, B/L.?AASHISH'S SIGN:?absent, B/L.?PALPABLE CORDS:?absent, B/L.?Orthopedic: ?DIGITAL DEFORMITIES:?Digital contracture, PIPJ, 2-5 B/L, incompl-reducible with WB, or to push-up test, no over, nor underlapping , Reveals pain/swelling/redness/enlargement of DIPJ T7.?General Examination: ?GENERAL APPEARANCE:?Reveals a pleasant, alert, well nourished, well- developed, well hydrated individual, who demonstrates proper attention to hygiene/body habitus, and is in no acute distress, Pt serves as own historian for office visit today.?ORIENTED:?person, place, and time.? * Physical Examination:?L2999 Supplies:?Crest pad?1 Medium right.? Assessment: * Assessment: 1.?Type 2 diabetes mellitus with diabetic polyneuropathy - E11.42?2.?Tinea unguium - B35.1?3.?Skin ulcer of toe of right foot, limited to breakdown of skin - L97.511, Resistant to previous conservative treatment?4.?Hammer toe of right foot - M20.41? Plan: * Treatment: 2.?Tinea unguium?Procedure: 72684-SMQHTZH NAIL, 6 OR MORE 3.?Skin ulcer of toe of righ t foot, limited to breakdown of skin?Procedure: 59084- Debride <25 sq cm Notes: Patient Educated with: WOUND CARE INSTRUCTIONS.pdf (WOUND CARE INSTRUCTIONS.pdf)?? * Procedures:?Debride Nail 6-10:?Nail debridement?Performance of this nail treatment by a nonprofessional would put this patients foot and overall health at risk. Therefore, nail debridement was performed extensively to reduce/remove overall nail length, girth, thickness, subungual debris, and necrotic tissue, by manual and/or electrical means through the use of a nail nipper and/or dremel-type grinder brake lining, to a more viable healthy nail plate or bed tissue 6-10. Silver nitrate used for any petechial bleeding as necessary. Definitive antifungal treatment options have been reviewed and discussed with the patient. The patient chooses, no pharmaceutical tx - 25820.?Debride skin< 25 sq cm:?Open wound?Physician of record performed open wound selective debridement of first 25 sq cm or less, of devitilized necrotic/nonviable soft tissue, fibrin, and exudate extending from the epidermis through the dermis, utilizing sharp dissection with sterile 15 blade, and/or tissue nippers. Sterile antibiotic dressing applied, ANESTHESIA- was accomplished TOPICALLY with Lidocaine Hydrochloride Jelly 2 percent. Hemostasis was achieved through direct pressure. Post debridement measurements: 7 mm x7 mm x 2 mm. Character of the wound post debridement is stable (62701).?Keratoma Treatment:?Parring or Cutting of Benign Hyperkeratotic Lesion(s)?72276 ( >4 Lesions) - The Benign hyperkeratotic lesions, as described above were pared, and/or cut utilizing a sterile #15 blade, tissue nippers, and/or dremel.?97. ? * Procedure Codes:?21212 ACTIV E WOUND CARE/20 CM OR <, Modifiers: XS 55135 TRIM SKIN LESIONS, OVER 4, Modifiers: XS 89924 DEBRIDE NAIL, 6 OR MORE, Modifiers: XS * Preventive Medicine:? ??Counseling:?Discussion:?-13: Office or other outpatient visit for the evaluation and management of an established patient, which required a medically appropriate history and/or examination and LOW level of DECISION MAKING for: 1 STABLE ACUTE UNCOMPLICATED PROBLEM, 2 OR MORE MINOR PROBLEMS, OR 1 STABLE CHRONIC PROBLEM, THAT POSE(S) A LOW RISK FOR MORBIDITY/MORTALITY. The visit on the day of the encounter encompassed interpreting the data and educating the patient as to the nature of their condition, treatment options available according to their individual PMH, meds, allergies, and overall health/living conditions, as well as any potential risks or complications that may occur from a failure to adhere to, and participate in, the recommended course of therapy. The discussion included a complete verbal, and/or written explanation of the examination results, any x-rays taken, the proposed diagnosis, and outline of the treatment plan. A schedule for future care needs was also explained. The patient verbalized an understanding of the instructions at this time and agreed to be an active participant in their treatment. If the patient should think of any questions or concerns after the visit, I have encouraged the patient to call the office.?Digital Treatment:?WE cancelled pts scheduled procedure today and discussed more conservative care, Recomm, rest, ice, proper shoe gear, padding, orthotics, anti-inflammatories or Tylenol as tolerated, topical analgesics, cortisone injections-Pt is fitted with a medium crest pad to offload the distal tip of the 3rd digit.?Ulcer:?The patient is to cont the local wound care as directed, Debridement frequency as indicated, Every 5-8 weeks until healed, wear crest pad, check multiple times daily for a skin irritation if found remove device.? * Follow Up:?2 Months * Images: * Sign off status: Completed true * Provider:?Cande Vogt DPM Date:?2023 Generated for aLng oates/Meghann/Rosa on:?03/12/2024 02:26 PM EST History and Physical Notes * HPI (History of Present Illness) Category Sub-Category Detail Notes Category Not es Skin problems Treatments: , Local care con sisting of daily distilled water wound cleanse, topical antibiotic as recommended, application of sterile dressing, offloading/pressure reduction via rest, shoe modification, insert modification, accommodative padding, assisted ambulation via cane/ crutch/ walker/ wheel chair/ knee scooter, and surgical debridement Pt was scheduled for a flexor e release however due to other medical issues pt defers to move forward At Risk footcare Pt States Last PCP Visit: Date: 11/03/2023 Physical Examination Category Sub-Category Detail Notes Section Note s L2999 Supplies Crest pad 1 Medium right Examination Category Sub-Category Detail Notes Category Not es Neurological SENSORY: Neurological exa m demonstrates, reduced sharp/dull discrimination , reduced vibration sensation, 5.07 monofilament test performed at plantar aspects of 5 varied sites per foot shows sensation, reduced, at Forefoot, B/L, Pt relates, Cont. burning, anesthesia, pins and needles sensation , tingling, burning, anesthesia , BABINSKI REFLEX: TINEL'S COMPRESSION: DEEP TENDON REFLEXES: Dermatologic SKIN FINDINGS: Skin exam reveal s Keratotic lesion(s) located at, Medial plantar, SUB MTH (s), 1, b/l IPJ, TA, T5, T9 , ULCER: LOCATION,T7, SIZE, 6 mm X 5mm X 2mm, BASE, granular, RIM, hyperkeratotic, UNDERMINING, absent, TRACKING, Full thickness breakdown of skin, DRAINAGE, serosanguineous, mild, NECROTIC TISSUE, loosely-adherent, yellow slough, MALODOR, absent, CALOR, absent, ERYTHEMA, absent, PAIN ON PALPATION, present Orthopedic DIGITAL DEFORMITIES: Digital con tracture, PIPJ, 2-5 B/L, incompl-reducible with WB, or to push-up test, no over, nor underlapping , Reveals pain/swelling/redness/enlargement of DIPJ T7 General Examination GENERAL APPEARANCE: Reveals a pleasant, alert, well nourished, well-developed, well hydrated individual, who demonstrates proper attention to hygiene/body habitus, and is in no acute distress, Pt serves as own historian for office visit today ORIENTED: person, place, and t deneen Ophthalmology Referral DIABETES EYE EXAM Diabeti c Retinopathy Screening:: Yes 02/2023 Findings of Diabetic Eye Exam:: no retin opathy Vascular DP PULSES (B): 1/4, B/L PT PULSES (B): 2/4, B/L AASHISH'S SIGN: absent, B/L PALPABLE CORDS: absent, B/L Nails NAILS are: elongated,overgr own,dystrophic,greater than 3mm thick,discolored and friable with crumbly malodorous subungual debris, with dull to no pain on palpation due to neuropathy,, , T1 , T2 , T3 , T4 , T6 , T8
--- OUTSIDE RECORDS SUMMARY | 2024-03-12 14:27 | XMS_ITS | Encounter Summary ---
Author Organization [employer] Address [address] [place] [address] Care Team Providers Care Entertainment Reporter Name Role Phone Romy Delgadillo MD Primary Care Provider [phone] Encounter Details Date Type Department Care Team (Latest Contact Info) Description 02/27/2024 Travel Social History Tobacco Use Types Packs/Day Years [...] documented as of this encounter Care Teams Entertainment Reporter Relationship Specialty Start Date End Date Romy Delgadillo MD [address] [place] [address] PCP - General Family Medicine 01/27/12 documented as of this encounter
--- OUTSIDE RECORDS SUMMARY | 2024-03-12 14:27 | XMS_ITS | Encounter Summary ---
Author Organization [employer] Address [address] [place] [address] Care Team Providers Care Door Cutter Name Role Phone Romy Delgadillo MD Primary Care Provider [phone] Reason for Visit * Reason Onset Date Comments Immunizations 11/25/2022 Encounter Details Date Type Department Care Team ([facility] Contact Info) Description 11/25/2022 Telephone [facility] [address] [place], [place] [phone] Romy Delgadillo MD [address] [place] [address] Immunizations Social History Tobacco Use Types Packs/Day Years Used Date Smoking Tobacco: Former Cigarettes Smokeless Tobacco: Never Alcohol Use Standard Drinks/Week Comments Never 0 (1 standard drink = 0.6 oz pur e alcohol) Depression Answer Date Recorded Patient Health Questionnaire-9 Score 1 07/15/2022 Housing Stability Answer Date Recorded What is your housing situation today? I have jayden amos 11/21/[address] you li ve. Do you have problems with any of the following? None of the above 11/21/2022 Food Insecurity Answer Date Recorded Within the past 12 months, y ou worried that your food would run out before you got money to buy more: Never True 11/21/2022 Within the past 12 months,th e food you bought just didn't last and you didn't have enough money to get more: Not on file 09/2022 Transportation Answer Date Recorded In the past 12 months, has l ack of transportation kept you from medical appts, meetings, work or from getting things needed for daily living? No 11/21/2022 Utilities Answer Date Recorded In the past 12 months, has t he electric, gas, oil or water company threatened to shut off services in your home? No 11/21/2022 Depression Answer Date Recorded Patient Health Questionnaire-2 Score 1 07/15/2022 Comments Unknown Sex and Gender Information Value Date Recorded Sex Assigned at Female 12/14/2021 10:18 AM EDT Legal Sex Female 10:18 AM EDT Gender Identity Female 12/14/2021 10:18 AM EDT Sexual Orientation Straight 12/14/2021 10 :18 AM EDT documented as of this encounter Miscellaneous Notes * Telephone Encounter - Anuradha Hamlin - 11/25/2022 3:34 PM EDT Tc from pt requesting a call from a nurse. Would like to know if PCP would like for pt to get the RSV vaccine. Please contact pt at [phone] documented in this encounter Plan of Treatment Not on file documented as of this encounter Visit Diagnoses Not on filedocumented in this encounter Additional Health Concerns Assessment Noted Time PHQ-9 Depression Total Score: 1 07/16/19 23 9:56 AM EDT documented as of this encounter Care Teams Door Cutter Relationship Specialty Start Date End Date Romy Delgadillo MD [address] [place] [id number] PCP - General Family Medicine 01/27/12 documented as of this encounter
--- OUTSIDE RECORDS SUMMARY | 2024-03-12 14:27 | XMS_ITS | Encounter Summary ---
Author Organization [employer] Address [address] [facility] 7t [place] [address] Care Team Providers Care Roll Cutting Operator Name Role Phone Romy Delgadillo MD Primary Care Provider [phone] Reason for Visit * Reason Onset Date Comments Glucose Meter 12/28/2022 Encounter Details Date Type Department Care Team ([facility] Contact Info) Description 12/28/2022 Telephone [facility] MED [facility] PEDS [address] [place], [place] [phone] Romy Delgadillo MD [address] [place] [address] Glucose Meter Social History Tobacco Use Types Packs/Day Years [...] encounter Miscellaneous Notes * Telephone Encounter - Naomy Gutierrez RN - 12/28/2022 12:47 PM EST Meter pended to PCP for review * Telephone Encounter - Evelia Marcos - 12/28/2022 12:19 PM EST Tc from pt requesting a ONE TOUCH METER for her diabetes. Pt states that pharmacy has sent multiplerequests for meter and no response. Please sent to [facility] - [address] documented in this encounter Plan of Treatment Not on file documented as of this encounter Visit Diagnoses Not on filedocumented in this encounter Additional Health Concerns Assessment Noted Time PHQ-9 Depression Total Score: 1 07/16/19 23 9:56 AM EDT documented as of this encounter Care Teams Roll Cutting Operator Relationship Specialty Start Date End Date Romy Delgadillo MD [address] [place] [address] PCP - General Family Medicine 01/27/12 documented as of this encounter
--- OUTSIDE RECORDS SUMMARY | 2024-03-12 14:27 | XMS_ITS | Patient Health Record ---
Author Organization [facility] jonah Coker Address [address] [facility] [place] [address] Care Team Providers Care Librarian Special Collections Name Role Phone Romy Delgadillo Primary Care Provider Cande Christie Unavailable [phone] Allergies Allergen (clinical drug ingredient) Drug/Non Drug Allergy documented on EMR Reaction Allergy Type Onset Date Status Latex Latex Unknown Allergy Active lisinopril Lisinopril coughing Drug Allergy Activ e Results Component Value Reference Range Notes HEMOGLOBIN A1C (GLYCOHEMOGLO BIN) Reviewed date:02/20/2024 07:31:07 AM Interpretation: Performing Lab: Notes/Report: HEMOGLOBIN A1C % (HH) 7.1 Reason For Referral No Information Medications Medication SIG (Take, Route, Frequency, Duration) Notes Start Date End Date Status oxyBUTYnin Active amLODIPine Besylate Active Losartan Potassium A ctive Atenolol 100 MG 1 tablet Orally Once a day Active Night Splint AFO - L1930 as directed 12/26/2017 Active Aspirin Active Compression Stockings 20-30mm Hg as directed 12/09/2022 Active Gemfibrozil Active Gabapentin Active glipiZIDE Active Levothyroxine Sodium Active Atorvastatin Calcium Active Vitamin B 12 Not-Solomon ing Caltrate 600 Active Fish Oil Not-Taking Centrum Silver Activ e Ciclopirox 8 % 1 application Externally Once a day for 90 days 12/09/2022 Not-Taking cloNIDine HCl Active metFORMIN HCl 500 MG 1 tablet with a dawn l Orally Twice a day Not-Taking Immunizations Vaccine Route Administration Date Status Comme nts COVID-19 Moderna Vaccine Unknown 05/05/2020 Administere d First Dose: 04/14/2020 Influenza Unknown 12/22/2015 Administered Influenza Unknown 10/18/2016 Administered Influenza Unknown 10/18/2017 Administered Influenza Unknown 10/18/2018 Administered Influenza Unknown 11/23/2019 Administered Influenza Unknown 10/15/2020 Administered Influenza Unknown 10/15/2022 Administered Pneumococcal Unknown 12/22/2015 Administered 2nd dose Social History Tobacco Use: Social History Observation Description Date Details (start date - stop date) Former Smoker NA - NA Tobacco Use/Smoking Question Answer Notes Are you a: former smoker Additional Findings: Tobacco Non-User Current no n-smoker Alcohol Screen Question Answer Notes Did you have a drink containing alcohol in the p ast year? No Points 0 Interpretation Negative Tobacco use other than smoking: Question Answer Notes Are you an other tobacco user? No Problems Problem Type SNOMED Code ICD Code Onset Dates Problem Status W/U Status Risk Notes Problem Acquired hallux valgus (85691742) Hallux valgus (acquired), left foot (M20.12) Active confirmed Problem Localized, primary osteoarthritis of the ankle and/or foot (715564112) Primary osteoarthritis, right ankle and foot (M19.071) Active confirmed Problem Localized, primary osteoarthritis of the ankle and/or foot (541797205) Primary osteoarthritis, left ankle and foot (M19.072) Active confirmed Problem Acquired hallux valgus (34738003) Hallux valgus (acquired), right foot (M20.11) Active confirmed Problem Ulcer of foot (56820123) Non-pressure chronic ulcer of other part of left foot limited to breakdown of skin (L97.521) Active confirmed Problem Chronic ulcer of toe (781528071) Non-pressure chronic ulcer of other part of right foot limited to breakdown of skin (L97.511) Active confirmed Problem Acquired hallux valgus (84343360) Hallux valgus (acquired), right foot (M20.11) Active confirmed Problem Polyneuropathy due to type 2 diabetes mellitus (652966285) Type 2 diabetes mellitus with diabetic polyneuropathy (E11.42) Active confirmed Problem Acquired hammer toe of lesser toe of right foot (061985864466837 08) Hammer toe of right foot (M20.41) Active confirmed Problem Acquired hammer toe of lesser toe of left foot (102636994003452 03) Hammer toe of left foot (M20.42) Active confirmed Problem Unable to balance (664160126) Unsteady gait (R26.81) Active confirmed Problem Localized, primary osteoarthritis of the ankle and/or foot (319834062) Osteoarthritis of right ankle and foot (M19.071) Active confirmed Problem Peripheral arterial disease (555646706) PAD (peripheral artery disease) (I73.9) Active confirmed Problem Acquired deformity of right foot (120607167145047 00) PlantarFlexion of metatarsal of right foot (M21.6X1) Active confirmed Problem Acquired deformity of left foot (558054001405986 04) PlantarFlexion of metatarsal of left foot (M21.6X2) Active confirmed Problem Ulcer of toe of right foot (disorder) (637437517104096 01) Skin ulcer of toe of right foot, limited to breakdown of skin (L97.511) Active confirmed Resistant to previous conservative treatment Vital Signs Blood pressure diastolic 70 mm Hg 08/15/2023 Height 5ft5in in 12/15/2023 Blood pressure systolic 120 mm Hg 08/15/2023 Weight 224 lbs 12/15/2023 BMI 37.27 kg/m2 12/15/2023 Procedures Procedure Date Ordered Date Performed Result Body Sit e 34600-GSADORZ NAIL, 6 OR MORE 04/18/2023 N/A 23661-NQEB SKIN LESIONS, OVER 4 04/18/2023 N/A 02967- Debride <25 sq cm 08/01/2023 N/A 77104-TYIL SKIN LESIONS, OVER 4 08/01/2023 N/A 12551- Debride <25 sq cm 08/15/2023 N/A 42224- Debride <25 sq cm 12/01/2023 N/A 41415-JZKJSEO NAIL, 6 OR MORE 12/15/2023 N/A 41589- Debride <25 sq cm 12/15/2023 N/A 74037-PODN SKIN LESIONS, OVER 4 12/15/2023 N/A Encounters Encounter Location Date Provider Diagnosis [facility] [address] 04/18/2023 Cande Black Type 2 diabetes mellitus with diabetic polyneuropathy E11.42 and Tinea unguium B35.[address] [facility] [address] 08/01/2023 Cande Black Type 2 diabetes mellitus with diabetic polyneuropathy E11.42 ; Tinea unguium B35.1 and Skin ulcer of toe of right foot, limited to breakdown of skin L97.[address] [address] 08/15/2023 Cande Black Type 2 diabetes mellitus with diabetic polyneuropathy E11.42 ; Skin ulcer of toe of right foot, limited to breakdown of skin L97.511 and Tinea unguium B35.[address] [address] 12/01/2023 Cande Black Pain in right toe(s) M79.674 ; Other hammer toe(s) (acquired), right foot M20.41 and Skin ulcer of toe of right foot, limited to breakdown of skin L97.[address] [address] 12/15/2023 Cande Black Type 2 diabetes mellitus with diabetic polyneuropathy E11.42 ; Tinea unguium B35.1 ; Skin ulcer of toe of right foot, limited to breakdown of skin L97.511 and Hammer toe of right foot M20.[address] [address] 03/17/2023 Cande Vogt [address] [address] 08/10/2023 Candemarley Vogt [address] [address] 12/01/2023 Candemarley Vogt [address] [address] 12/15/2023 Caned Black Assessments Encounter Date Diagnosis (ICD Code) Assessment Notes Treatment Notes Treatment Clinical Notes Section Notes 04/18/2023 Type 2 diabetes mellitus with diabetic polyneuropathy (ICD-10 - E11.42) 04/18/2023 Tinea unguium (ICD-10 - B35.1) 08/01/2023 Type 2 diabetes mellitus with diabetic polyneuropathy (ICD-10 - E11.42) 08/01/2023 Tinea unguium (ICD-10 - B35.1) 08/15/2023 Type 2 diabetes mellitus with diabetic polyneuropathy (ICD-10 - E11.42) 08/15/2023 Skin ulcer of toe of right foot, limited to breakdown of skin (ICD-10 - L97.511) Response to treatment - Improvement Patient Educated with: WOUND CARE INSTRUCTIONS. pdf (WOUND CARE INSTRUCTIONS. pdf) 12/01/2023 Pain in right toe(s) (ICD-10 - M79.674) 12/01/2023 Other hammer toe(s) (acquired), right foot (ICD-10 - M20.41) 12/15/2023 Type 2 diabetes mellitus with diabetic polyneuropathy (ICD-10 - E11.42) 12/15/2023 Tinea unguium (ICD-10 - B35.1) 12/15/2023 Skin ulcer of toe of right foot, limited to breakdown of skin (ICD-10 - L97.511) Resistant to previous conservative treatment Patient Educated with: WOUND CARE INSTRUCTIONS. pdf (WOUND CARE INSTRUCTIONS. pdf) 12/01/2023 Skin ulcer of toe of right foot, limited to breakdown of skin (ICD-10 - L97.511) Patient Educated with: WOUND CARE INSTRUCTIONS. pdf (WOUND CARE INSTRUCTIONS. pdf) 08/15/2023 Tinea unguium (ICD-10 - B35.1) 08/01/2023 Skin ulcer of toe of right foot, limited to breakdown of skin (ICD-10 - L97.511) Nonapplicable Patient Educated with: WOUND CARE INSTRUCTIONS. pdf (WOUND CARE INSTRUCTIONS. pdf) 12/15/2023 Hammer toe of right foot (ICD-10 - M20.41) 08/01/2023 Other 12/01/2023 Other 12/15/2023 Other Plan Of Treatment Pending Test Test Name Order Date *Liver Function Test (LFT) 08/01/2023 *Liver Function Test (LFT) 08/15/2023 X ray : Foot, left 3V 07/23/2019 36348-FDJQAXK NAIL, 6 OR MORE 07/23/2019 52004-BKXVQXS NAIL, 6 OR MORE 01/04/2019 12317-RZSXQJS NAIL, 6 OR MORE 04/12/2019 79669-FBNYYZS NAIL, 6 OR MORE 12/26/2017 09326-ECKTPKR NAIL, 6 OR MORE 03/27/2018 84624-LMWWNFY NAIL, 6 OR MORE 06/26/2018 96968-SMBFGRO NAIL, 6 OR MORE 10/02/2018 30465-THVAMNY NAIL, 6 OR MORE 12/04/2015 41930-RXTYPHO NAIL, 6 OR MORE 03/04/2016 82628-GYGUAUO NAIL, 6 OR MORE 06/03/2016 20321-HYWSMJG NAIL, 6 OR MORE 10/11/2016 70177-ZEKGLYQ NAIL, 6 OR MORE 12/27/2016 27492-XUYMWYK NAIL, 6 OR MORE 03/28/2017 12801-AEKDTBM NAIL, 6 OR MORE 06/27/2017 07707-GAVEDBM NAIL, 6 OR MORE 09/26/2017 99506-TVOETIK NAIL, 6 OR MORE 10/15/2019 46840-ZDKMCEF NAIL, 6 OR MORE 01/21/2020 41007-UAZGCQG NAIL, 6 OR MORE 05/05/2020 30506-ALAYGOP NAIL, 6 OR MORE 09/22/2020 13273-DLROXQA NAIL, 6 OR MORE 12/29/2020 34197-VNKITFS NAIL, 6 OR MORE 04/20/2021 24790-LHTKQYA NAIL, 6 OR MORE 07/30/2021 75995-KTTRWBQ NAIL, 6 OR MORE 11/05/2021 52413-CAVTZIX NAIL, 6 OR MORE 02/25/2022 97137-LOBGKLE NAIL, 6 OR MORE 05/27/2022 59727-NIVYNLP NAIL, 6 OR MORE 09/02/2022 19287-DQRFKDK NAIL, 6 OR MORE 12/09/2022 15195-KQOXPJE NAIL, 6 OR MORE 04/18/2023 06036-LZZDYEM NAIL, 6 OR MORE 12/15/2023 86101-Wwpmepsd Plate 04/20/2021 22941-Vbqmfpka Plate 05/05/2020 88122-Jrpaabey Plate 10/15/2019 70635-Ffopbaxq Plate 06/27/2017 21503-Dpwteonp Plate 10/11/2016 37625-Oykskktv Plate 06/03/2016 95152- Debride <25 sq cm 01/21/2020 01852- Debride <25 sq cm 10/06/2020 45470- Debride <25 sq cm 09/22/2020 85602- Debride <25 sq cm 07/30/2021 02228- Debride <25 sq cm 08/01/2023 13438- Debride <25 sq cm 08/15/2023 61885- Debride <25 sq cm 12/01/2023 69686- Debride <25 sq cm 12/15/2023 25375 I&D ABSCESS- SIMPLE,SINGLE , J0702- INJECT or DRAIN, JOINT/BUR SA 07/23/2019, J0702- INJECT or DRAIN, JOINT/BUR SA 10/15/2019 32237-ZBZK SKIN LESIONS, OVER 4 12/04/19 16 54185-FXHA SKIN LESIONS, OVER 4 07/23/19 20 96681-UHFG SKIN LESIONS, OVER 4 04/12/19 20 08997-UCIO SKIN LESIONS, OVER 4 01/05/20 19 80269-NMIJ SKIN LESIONS, OVER 4 10/03/19 19 58029-MDFH SKIN LESIONS, OVER 4 03/27/19 19 00479-IRCV SKIN LESIONS, OVER 4 06/27/19 19 86566-FGBH SKIN LESIONS, OVER 4 10/12/19 17 69339-URCF SKIN LESIONS, OVER 4 06/04/19 17 37085-DOZV SKIN LESIONS, OVER 4 03/04/19 17 56867-DFIM SKIN LESIONS, OVER 4 09/27/19 18 65502-AFEF SKIN LESIONS, OVER 4 12/27/19 18 39622-SECV SKIN LESIONS, OVER 4 06/28/19 18 52311-WMDO SKIN LESIONS, OVER 4 12/28/19 17 30335-TUYZ SKIN LESIONS, OVER 4 03/28/19 18 14507-HACA SKIN LESIONS, OVER 4 05/28/19 23 33591-VMOK SKIN LESIONS, OVER 4 09/03/19 23 83202-WYUN SKIN LESIONS, OVER 4 04/18/19 24 37448-HQNT SKIN LESIONS, OVER 4 12/10/19 23 29338-HJEM SKIN LESIONS, OVER 4 07/31/19 22 07433-YMCT SKIN LESIONS, OVER 4 11/06/19 22 23973-ACLB SKIN LESIONS, OVER 4 02/25/19 23 18214-OZOR SKIN LESIONS, OVER 4 09/23/19 21 87046-FARG SKIN LESIONS, OVER 4 04/21/19 22 38346-SWWU SKIN LESIONS, OVER 4 12/30/19 21 30719-CVPJ SKIN LESIONS, OVER 4 05/06/19 21 72134-BZNL SKIN LESIONS, OVER 4 10/15/19 20 90089-YQES SKIN LESIONS, OVER 4 01/21/20 20 83394-ADIZ SKIN LESIONS, OVER 4 12/15/19 24 02080-YHFO SKIN LESIONS, OVER 4 08/01/19 24 98527, R5396-THQWZ/INJECT, JOINT/BURSA 0 05/27/2022 Next Appt Details Provider Name:Cande Vogt , 03/19/2024 03:00:00 PM, [address] [place], [address], Insurance Providers Payer Name Payer Address Payer Phone Subscriber Number Group Number Insured Name Patient Relationship to Insured Coverage Start Date Coverage End Date A[employer] Medicare Complete [address] [address] [place] [address] [id number] Bell Martinez Self - patient is the insured Medical (General) History Medical History History ICD Code osteoarthritis Chicken pox Cholesterol Diabetic type 2 Gall bladder problems High blood pressure Measles Mumps Numbness Thyroid disorder Surgical History Surgery Date(Month/Year) tonsillectomy 1975 teeth extraction 1992 hysterectomy 1994 xrays L jhonatan ap/lat/mo 07/23/19 cataract surgery- both eyes 06/04
--- OUTSIDE RECORDS SUMMARY | 2024-03-12 14:27 | XMS_ITS | Encounter Summary ---
Author Organization [employer] Address [address] [facility] [address] 7[address] [place] [address] Care Team Providers Care Getterer Name Role Phone Romy Delgadillo MD Primary Care Provider [phone] Encounter Details Date Type Department Care Team (Latest Contact Info) Description 03/01/2024 Travel Social History Tobacco Use Types Packs/Day [...] documented as of this encounter Care Teams Getterer Relationship Specialty Start Date End Date Romy Delgadillo MD [address] [place] [address] PCP - General Family Medicine 01/27/12 documented as of this encounter
--- OUTSIDE RECORDS SUMMARY | 2024-03-12 14:27 | XMS_ITS | Encounter Summary ---
Author Organization [employer] Address [address] [facility] 7t [place] [address] Care Team Providers Care Basket Filler Name Role Phone Romy Delgadillo MD Primary Care Provider [phone] Reason for Visit * Reason Onset Date Comments Chart Prep 02/27/2024 Encounter Details Date Type Department Care Team ([facility] [address] Contact Info) Description 02/27/2024 Telephone [facility] MED & PEDS [address] [place] [address] Romy Delgadillo MD [address] [place] [address] Chart Prep Social History Tobacco Use Types Packs/Day Years [...] encounter Miscellaneous Notes * Telephone Encounter - Linda Rodriguez [place] - 02/27/2024 2:39 PM EST Chart Prep Labs: not done Images: done Vaccines due: yes Referrals: complete Screenings: eye exam Overdue care gaps: A1C, Glucose, Sbirt, SDOH, PHQ-9 documented in this encounter Plan of Treatment Not on file documented as of this encounter Visit Diagnoses Not on filedocumented in this encounter Additional Health Concerns Assessment Noted Time PHQ-9 Depression Total Score: 1 07/16/19 23 9:56 AM EDT documented as of this encounter Care Teams Basket Filler Relationship Specialty Start Date End Date Romy Delgadillo MD [address] [place] [address] PCP - General Family Medicine 01/27/12 documented as of this encounter
--- OUTSIDE RECORDS SUMMARY | 2024-03-12 14:27 | XMS_ITS | Encounter Summary ---
Author Organization [employer] Address [address] [facility] 7t [place] [address] Care Team Providers Care Nursing Attendant Name Role Phone Romy Delgadillo MD Primary Care Provider [phone] Reason for Visit * Reason Comments Diabetes Encounter Details Date Type Department Care Team ([facility] Contact Info) Description 03/01/2024 11:30 AM EST Office Visit [facility] MED & PEDS [address] [place] [address] Romy Delgadillo MD [address] [place] [address] Benign hypertension (Primary Dx); Type 2 diabetes mellitus without complication, without long-term current use of insulin ([facility]); Hypothyroidism, unspecified type Social History Tobacco Use Types Packs/Day Years [...] is your housing situation today? I have jaydenmodesto amos 12/03/[address] you [...] AM EDT documented as of this encounter Last Filed Vital Signs Vital Sign Reading [...] Mass Index 38.15 03/01/2024 11:47 AM EST documented in this encounter Progress Notes * Romy Delgadillo MD - 03/01/2024 11:30 AM EST Subjective Patient ID: Bell Martinez is a 73 y.o. female who presents for Diabetes. Diabetes Pertinent negatives for hypoglycemia include no headaches or sweats. Pertinent negatives for diabetes include no blurred vision and no chest pain. Review of Systems Constitutional: Negative. Eyes: Negative for blurred vision. Respiratory: Negative. Negative for shortness of breath. Cardiovascular: Negative for chest pain and palpitations. Gastrointestinal: Negative. Genitourinary: Negative. Musculoskeletal: Negative for neck pain. Neurological: Negative for headaches. Objective Physical Exam Constitutional: Appearance: Normal appearance. Cardiovascular: Rate and Rhythm: Normal rate and regular rhythm. Pulses: Normal pulses. Heart sounds: Normal heart sounds. Pulmonary: Effort: Pulmonary effort is normal. Abdominal: General: Abdomen is flat. Feet: Right foot: Protective Sensation: 4 sites tested. 4 sites sensed. Skin integrity: Callus present. Left foot: Protective Sensation: 4 sites tested. 4 sites sensed. Skin integrity: Callus present. Neurological: Mental Status: She is alert. Assessment/Plan Diagnoses and all orders for this visit: Benign hypertension Comments: Stable Cont Same meds Advised low salt diet . Orders: - Basic Metabolic Panel; Future - Lipid Panel, Standard; Future - Hepatic Function Panel; Future Type 2 diabetes mellitus without complication, without long-term current use of insulin (CMS/HCC) Comments: Stable No changes in meds for now Advised low carb and low sugar diet . Orders: - POCT Glucose - POCT HGB A1C - Basic Metabolic Panel; Future - Lipid Panel, Standard; Future - Hepatic Function Panel; Future - Albumin, Random Urine W/Creatinine; Future Hypothyroidism, unspecified type Comments: Stable Cont Levothyroxine labs ordered Orders: - TSH with Reflex to Free T4; Future documented in this encounter Plan of Treatment Scheduled Orders Name Type Priority Associated Diagnoses Orde r Schedule Basic Metabolic Panel Lab Routine Type 2 diabetes mellitus without complication, without long-term current use of insulin (CMS/HCC) Benign hypertension Expected: 03/01/2024 (Approximate), Expires: 03/01/2025 Lipid Panel, Standard Lab Routine Type 2 diabetes mellitus without complication, without long-term current use of insulin (CMS/HCC) Benign hypertension Expected: 03/01/2024 (Approximate), Expires: 03/01/2025 Hepatic Function Panel Lab Routine Type 2 diabetes mellitus without complication, without long-term current use of insulin (CMS/HCC) Benign hypertension Expected: 03/01/2024 (Approximate), Expires: 03/01/2025 Albumin, Random Urine W/Creatinine Lab Routine Type 2 diabetes mellitus without complication, without long-term current use of insulin (CMS/HCC) Expected: 03/01/2024 (Approximate), Expires: 03/01/2025 TSH with Reflex to Free T4 Lab Routine Hypothyroidism, unspecified type Expected: 03/01/2024 (Approximate), Expires: 03/01/2025 documented as of this encounter Procedures Procedure Name Priority Date/Time Associated Diagnosis Comments POCT GLYCATED HEMOGLOBIN, TOTAL Routine 03/01/2024 11:50 AM EST Type 2 diabetes mellitus without complication, without long-term current use of insulin ([facility]) POCT GLUCOSE Routine 03/01/2024 11:49 AM EST Type 2 diabetes mellitus without complication, without long-term current use of insulin ([facility]) documented in this encounter Results * (ABNORMAL) POCT HGB A1C (03/01/2024 11:50 AM EST) Hemoglobin A1C 6.7(A) 4.0 - 6.0 % QC Media Lot # [id number] Lot# Expiration Date Blood 03/01/2024 11:5 0 AM EST Romy Delgadillo MD POINT OF CARE TEST ENTER/EDIT OR DERABLES Final Result * (ABNORMAL) POCT Glucose (03/01/2024 11:49 AM EST) Glucose Blood, POC 202(A) 60 - 200 mg/dL QC Media Lot # [id number] Lot# Expiration Date Blood Capillary blood specimen / Unknown 03/01/2024 11:49 AM EST Result Count Includes [facility] us Romy Delgadillo MD POINT OF CARE TEST ENTER/EDIT OR DERABLES Final Result documented in this encounter Visit Diagnoses Diagnosis Benign hypertension- Primary Essential hypertension, benign Type 2 diabetes mellitus without complication, without long-term current use of insulin ([facility]) Hypothyroidism, unspecified type documented in this encounter Additional Health Concerns Assessment Noted Time PHQ-9 Depression Total Score: 1 07/16/19 23 9:56 AM EDT documented as of this encounter Care Teams Nursing Attendant Relationship Specialty Start Date End Date Romy Delgadillo MD [address] [place] [address] PCP - General Family Medicine 01/27/12 documented as of this encounter
--- OUTSIDE RECORDS SUMMARY | 2024-03-12 14:27 | XMS_ITS | Encounter Summary ---
Author Organization [facility] Address [address] [place] [address] Care Team Providers Care Coiled Tubing Supervisor Name Role Phone Romy Delgadillo MD Primary Care Provider [phone] Encounter Details Date Type Department Care Team ([facility] st Contact Info) Description 02/27/[address] [facility] CH[facility] MED & PEDS [address] [place] [address] Romy Delgadillo MD [address] [place] [address] Social History Tobacco Use Types Packs/Day Years [...] t he electric, gas, oil or water [employer] threatened to shut off services in your [...] on file documented as of this encounter Procedures Procedure Name Priority Date/Time Associated Diagnosis Comments BI MAMMOGRAM SCREENING TOMOSYNTHESIS BILATERAL Routine 02/27/2024 11:35 AM EST documented in this encounter Results * BI Mammogram Screening Tomosynthesis Bilateral (02/27/2024 11:35 AM EST) Anatomical Region Laterality Modality Breast Bilateral Mammography 02/27/2024 11:3 5 AM EST Narrative 03/06/2024 12:48 PM EST ? [facility] [place] ? [address] ?[place] [address] ? Mammography Report ? Signed ? Patient: Bell Martinez ?MR#: [id number] ?? [id number] ? : 1950 ?Acct:[id number] ? Age/Sex: 73 / F ?ADM Date: 01/13/25 ? Loc: HO.MAMMO ? Attending Dr: Romy Delgadillo MD ? Ordering Physician: Romy Delgadillo MD ?Results: 2Benign ?? Findings ? Date of Service: 02/27/24 ?Follow Up: 1 Year From Orig ?? inal Mammogram ? Procedure(s): MM tomosynthesis screening BI ?? Accession Number(s): [id number] ? cc: Romy Delgadillo MD ? EXAMINATION: [...] next mammogram. ? Electronically signed by: ??Charmaine Sharonhumberto DO ??03/06/2024 12:46 PM EST ?? RP ? Dictated By: ?Charmaine Willson DO ? Signed By: ?<Electronically signed by Charmaine Willson, DO in OV> ? 03/06/24 1246 ? DD/ 1135 ? TD/TT: 02/27/24 1205 ? Therapeutic Case Manager: ? Procedure Note Terry, Image - 03/06/2024 [facility] [address] [place] [address] Mammography Report Signed Patient: Bell MartinezMR#: [id number] : 1950Acct:[id number] Age/Sex: 73 / FADM Date: 02/27/24 Loc: HO.MAMMO Attending Dr: Romy Delgadillo MD Ordering Physician: Romy Delgadillo MDResults: 2Benign Findings Date of Service: 02/27/24Follow Up: 1 Year From Orig inal Mammogram Procedure(s): MM tomosynthesis screening BI Accession Number(s): [id number] cc: Romy Delgadillo MD EXAMINATION: MM SCREENING [...] by: Charmaine Willson DO 03/06/2024 12:46 PM [facility] Dictated By: Charmaine Willson DO Signed By: <Electronically signed by Charmaine Willson DO in OV> 03/06/24 1246 DD/ 1135 TD/TT: 02/27/24 1205 Therapeutic Case Manager: Romy Delgadillo MD IMG BI PROCEDURES Edited Result - Final documented in this encounter Visit Diagnoses Not on filedocumented in this encounter Additional Health Concerns Assessment Noted Time PHQ-9 Depression Total Score: 1 07/16/19 23 9:56 AM EDT documented as of this encounter Care Teams Coiled Tubing Supervisor Relationship Specialty Start Date End Date Romy Delgadillo MD [address] [place] [address] PCP - General Family Medicine 01/27/12 documented as of this encounter
[2024-03-12 14:47] LABS: Alanine Aminotransferase 20 U/L (0-31); Albumin Level 3.9 g/dL (3.5-5.0); Anion Gap 13 (12-20); Aspartate Amino Transferase 25 U/L (5-31); Bilirubin Direct 0.2 mg/dL (0.0-0.5); Bilirubin Total 0.6 mg/dL (0.0-1.0); Blood Urea Nitrogen 27 mg/dL (9-16); Calcium 9.4 mg/dL (8.4-10.2); Carbon Dioxide 23 mmol/L (22-29); Chloride 108 mmol/L (96-108); Cholesterol 154 mg/dL (<200); Estimated Glomerular Filt Rate > 60; Glucose Random 145 mg/dL (60-115); HDL Cholesterol 48 mg/dL (>40); LDL Cholesterol Calculated 80 mg/dL (<100); Potassium 4.3 mmol/L (3.3-5.1); Sodium 140 mmol/L (135-145); Total Protein 7.2 g/dL (6.5-8.0); Triglycerides 130 mg/dL (<150)
[2024-03-12 14:56] LABS: Alkaline Phosphatase 58 U/L (39-117)
[2024-03-12 15:03] LABS: Creatinine Urine 62.67 mg/dL; Microalbum/Creatinine Ratio Ur 35.1 ug/mg cr (<30)
[2024-03-12 15:13] LABS: TSH reflex Free T4 2.75 uIU/mL (0.32-4.0)
== END 2024-03-12 09:55 | disposition home or self-care (01) ==
LOC: HO.CHCLDS 09:54
PROVIDERS: Visit Provider Student in an Organized Health Care Education/Training Program
DX: I10 Essential (primary) hypertension (principal); E11.9 Type 2 diabetes mellitus without complications; E03.9 Hypothyroidism, unspecified
CPT/HCPCS: 36415; 80048; 80061; 80076; 82043; 82570; 84443

== ENCOUNTER 2024-08-13 09:10 | Outpatient (REF) | payer MEDICARE, SELFPAY ==
--- OUTSIDE RECORDS SUMMARY | 2024-08-13 09:32 | XMS_ITS | Encounter Summary ---
Author Organization [employer] Address [address] [facility] [address] [place] [address] Care Team Providers Care Trench Pipe Layer Helper Name Role Phone Romy Delgadillo MD Primary Care Provider [phone] Encounter Details Date Type Department Care Team ([facility] st Contact Info) Description 06/23/2022 Orders Only [facility] CHC MED & PEDS [address] [place] [address] Mariangel Hurt LPN Social History Tobacco Use [...] on filedocumented in this encounter Care Teams Trench Pipe Layer Helper Relationship Specialty Start Date End Date Romy Delgadillo MD [address] [place] [address] PCP - General Family Medicine 01/27/12 documented as of this encounter
[2024-08-13 15:10] LABS: Estimated Average Glucose 148 mg/dL; Hemoglobin A1c % 6.8 % (<6.0)
[2024-08-13 15:15] LABS: Alanine Aminotransferase 19 U/L (0-31); Albumin Level 4.1 g/dL (3.5-5.0); Alkaline Phosphatase 71 U/L (39-117); Anion Gap 12 (12-20); Aspartate Amino Transferase 23 U/L (5-31); Bilirubin Direct 0.3 mg/dL (0.0-0.5); Bilirubin Total 0.6 mg/dL (0.0-1.0); Blood Urea Nitrogen 24 mg/dL (9-16); Calcium 9.7 mg/dL (8.4-10.2); Carbon Dioxide 25 mmol/L (22-29); Chloride 107 mmol/L (96-108); Cholesterol 140 mg/dL (<200); Estimated Glomerular Filt Rate 58; Glucose Random 109 mg/dL (60-115); HDL Cholesterol 42 mg/dL (>40); LDL Cholesterol Calculated 77 mg/dL (<100); Potassium 4.2 mmol/L (3.3-5.1); Sodium 140 mmol/L (135-145); Total Protein 6.9 g/dL (6.5-8.0); Triglycerides 107 mg/dL (<150)
[2024-08-13 15:36] LABS: TSH reflex Free T4 1.82 uIU/mL (0.32-4.0)
== END 2024-08-13 09:11 | disposition home or self-care (01) ==
LOC: HO.CHCLDS 09:10
PROVIDERS: Visit Provider Student in an Organized Health Care Education/Training Program
DX: I10 Essential (primary) hypertension (principal); E11.9 Type 2 diabetes mellitus without complications; E03.9 Hypothyroidism, unspecified
CPT/HCPCS: 36415; 80048; 80061; 80076; 83036; 84443

== ENCOUNTER 2024-08-20 11:39 | Outpatient (REF) | payer MEDICARE, SELFPAY ==
--- NOTE | ~2024-08-20 | XR_ITS ---
EXAMINATION: XR KNEE 1-2 VIEWS LEFT HISTORY: pain COMPARISON: Comparison is made with the prior examination dated 01/15/2020. FINDINGS: AP and lateral views of the left knee are submitted. Osseous mineralization is normal. There is no fracture or dislocation. There is moderate to severe osteoarthritis of the medial and patellofemoral compartment and moderate osteoarthritis of the lateral compartment, with joint space narrowing and osteophyte formation. The soft tissues are unremarkable. There is no joint effusion. XR/XR knee LT 2V IMPRESSION: Osteoarthritis of the left knee as described. Electronically signed by: Emiliano Justice MD 08/20/2024 12:46 PM EDT
--- OUTSIDE RECORDS SUMMARY | 2024-08-20 12:32 | XMS_ITS | Encounter Summary ---
Author Organization [employer] [facility] Address [address] [place] [address] [address] [place] [address] Care Team Providers Care Aerial Gunner Superintendent Name Role Phone Romy Delgadillo MD Primary Care Provider [phone] Encounter Details Date Type Department Care Team (Late Contact Info) Description 06/23/[address] [facility] MED & PEDS [address] [place] [address] Mariangel Hurt LPN Social History Tobacco Use [...] as of this encounter Plan of Treatment Upcoming Encounters Date Type Department Care Team (Late st Contact Info) Description 10/10/2024 11:15 AM EDT Office Visit [facility] MED & PEDS [address] [place] [address] Romy Delgadillo MD [address] [place] [address] documented as of this encounter Visit Diagnoses Not on filedocumented in this encounter Care Teams Aerial Gunner Superintendent Relationship Specialty Start Date End Date Romy Delgadillo MD [address] [place] [address] PCP - General Family Medicine 01/27/12 documented as of this encounter
--- OUTSIDE RECORDS SUMMARY | 2024-08-20 12:32 | XMS_ITS | Patient Health Record ---
Author Organization [facility] jonah Jones Address [address] [facility] [place] [address] Care Team Providers Care [employer] Consultant Name Role Phone Romy Delgadillo Primary Care Provider Cande Christie Unavailable [phone] Allergies Allergen (clinical drug ingredient) Drug/Non Drug Allergy documented on EMR Reaction Allergy Type Onset Date Status Latex Latex Unknown Allergy Active lisinopril Lisinopril coughing Drug Allergy Activ e Results Component Value Reference Range Notes HEMOGLOBIN A1C (GLYCOHEMOGLO BIN) Reviewed date:02/20/2024 07:31:07 AM Interpretation: Performing Lab: Notes/Report: HEMOGLOBIN A1C % (HH) 7.1 HEMOGLOBIN A1C (GLYCOHEMOGLO BIN) Reviewed date:03/19/2024 03:23:57 PM Interpretation: Performing Lab: Notes/Report: HEMOGLOBIN A1C % (HH) 7.1 Reason For Referral No Information Medications Medication SIG (Take, Route, Frequency, Duration) Notes Start Date End Date Status Caltrate 600 Active Night Splint AFO - L1930 as directed 12/26/2017 Not-Taking Centrum Silver Activ e Compression Stockings 20-30mm Hg as directed 12/09/2022 Not-Taking cloNIDine HCl Active Vitamin B 12 Not-Solomon ing Gemfibrozil Active amLODIPine Besylate Active Losartan Potassium A ctive Atenolol 100 MG 1 tablet Orally Once a day Active Ammonium Lactate 12 % 1 application Exte rnally to affected areas of dry skin to feet except for between the toes Twice a day; Duration: 30 days Active Aspirin Active Extra Depth Orthopedic Shoes (1 Pair) with Customized Heat Molded Multidensity Innersoles (3 Pair) as directed Dx: NIDDM/Polyneuropathy (E11.42), Hammertoe Foot Deformity (M20.41,M20.42), Preulcerative Skin Lesion(s) (L85.1 03/19/2024 Active Atorvastatin Calcium Active Silvadene 1 % 1 application Nurse Monitoring ally Once a day; Duration: 30 days 05/28/2024 Active Fish Oil Not-Taking Gabapentin Active Ciclopirox 8 % 1 application Nurse Monitoring ally Once a day; Duration: 90 days 12/09/2022 Not-Taking Cephalexin 500 MG 1 capsule Orally twi ce a day; Duration: 10 days 06/18/2024 Active glipiZIDE Active metFORMIN HCl 500 MG 1 tablet with a dawn l Orally Twice a day Not-Taking oxyBUTYnin Active Levothyroxine Sodium Active Immunizations Vaccine Route Administration Date Status Comme nts COVID-19 Moderna Vaccine Unknown 05/05/2020 Administere d First Dose: 04/14/2020 Influenza Unknown 12/22/2015 Administered Influenza Unknown 10/18/2016 Administered Influenza Unknown 10/18/2017 Administered Influenza Unknown 10/18/2018 Administered Influenza Unknown 11/23/2019 Administered Influenza Unknown 10/15/2020 Administered Influenza Unknown 10/15/2022 Administered Influenza Unknown 11/15/2023 Administered Pneumococcal Unknown 12/22/2015 Administered 2nd dose Social History Tobacco Use: Social History Observation Description Date Details (start date - stop date) Never Smoker NA - NA Tobacco use other than smoking: Question Answer Notes Are you an other tobacco user? No Tobacco Control (Standard) Question Answer Notes Tobacco use: Nonsmoker AUDIT-C (Standard) Question Answer Notes Did you have a drink containing alcohol in the p ast year? No Points 0 Interpretation Negative Problems Problem Type SNOMED Code ICD Code Onset Dates Problem Status W/U Status Risk Notes Problem Polyneuropathy due to type 2 diabetes mellitus (000747911) Type 2 diabetes mellitus with diabetic polyneuropathy (E11.42) Active confirmed Problem Hammer toe of right foot (M20.41) Active confirmed Improvement Vital Signs Blood pressure diastolic 70 mm Hg 07/23/2024 Height 5ft5in in 07/23/2024 Blood pressure systolic 120 mm Hg 07/23/2024 Weight 224 lbs 07/23/2024 BMI 37.27 kg/m2 07/23/2024 Procedures Procedure Date Ordered Date Performed Result Body Sit e 23750- Debride <25 sq cm 12/01/2023 N/A 13045-KGSYFEH NAIL, 6 OR MORE 12/15/2023 N/A 44945- Debride <25 sq cm 12/15/2023 N/A 79381-EGOF SKIN LESIONS, OVER 4 12/15/2023 N/A 42258-JMHTQXK NAIL, 6 OR MORE 03/19/2024 N/A 76084- Debride <25 sq cm 03/19/2024 N/A 25882-GVYF SKIN LESIONS, OVER 4 03/19/2024 N/A 80959- Debride <25 sq cm 04/05/2024 N/A 82184-VONSMQN SKIN/TISSUE 05/28/2024 N/A 83501-KYGBWRQ NAIL, 6 OR MORE 06/18/2024 N/A 68748-TERIDCS SKIN/TISSUE 06/18/2024 N/A 77536-ICQW SKIN LESIONS, OVER 4 06/18/2024 N/A 34460 - Tenotomy, open flexor 07/16/2024 N/A Encounters Encounter Location Date Provider Diagnosis [address] [address] 12/01/2023 Cande Black Pain in right toe(s) M79.674 ; Other hammer toe(s) (acquired), right foot M20.41 and Skin ulcer of toe of right foot, limited to breakdown of skin L97.[address] [address] 12/15/2023 Cande Black Type 2 diabetes mellitus with diabetic polyneuropathy E11.42 ; Tinea unguium B35.1 ; Skin ulcer of toe of right foot, limited to breakdown of skin L97.511 and Hammer toe of right foot M20.[address] [address] 03/19/2024 Cande Black Type 2 diabetes mellitus with diabetic polyneuropathy E11.42 ; Tinea unguium B35.1 ; Skin ulcer of toe of right foot, limited to breakdown of skin L97.511 ; Cellulitis of toe of right foot L03.031 ; Xerosis of skin L85.3 ; Other hammer toe(s) (acquired), left foot M20.42 and Other hammer toe(s) (acquired), right foot M20.[address] [address] 04/05/2024 Cande Black Type 2 diabetes mellitus with diabetic polyneuropathy E11.42 ; Other hammer toe(s) (acquired), right foot M20.41 ; Skin ulcer of toe of right foot, limited to breakdown of skin L97.511 and Cellulitis of toe of right foot L03.[address] [address] 05/28/2024 Cande Black Skin ulcer of toe of right foot with fat layer exposed L97.512 and Type 2 diabetes mellitus with diabetic polyneuropathy E11.[address] [address] 06/18/2024 Cande Black Skin ulcer of toe of right foot with fat layer exposed L97.512 ; Type 2 diabetes mellitus with diabetic polyneuropathy E11.42 and Tinea unguium B35.[address] [address] 07/16/2024 Cande Black Hammer toe of right foot M20.[address] [facility] [address] 07/23/2024 Cande Black Hammer toe of right foot M20.41 [facility] [place] [address] 12/01/2023 Cande Black [facility] [address] [address] 12/15/2023 Cande Black [facility] [address] [address] 05/24/2024 Cande Black [facility] [address] [address] 06/14/2024 Cande Black [facility] [address] [address] 06/18/2024 Cande Black [facility] [address] [address] 07/06/2024 Candemarley Vogt Assessments Encounter Date Diagnosis (ICD Code) Assessment Notes Treatment Notes Treatment Clinical Notes Section Notes 12/01/2023 Pain in right toe(s) (ICD-10 - M79.674) 12/01/2023 Other hammer toe(s) (acquired), right foot (ICD-10 - M20.41) 12/15/2023 Type 2 diabetes mellitus with diabetic polyneuropathy (ICD-10 - E11.42) 12/15/2023 Tinea unguium (ICD-10 - B35.1) 03/19/2024 Type 2 diabetes mellitus with diabetic polyneuropathy (ICD-10 - E11.42) 04/05/2024 Other hammer toe(s) (acquired), right foot (ICD-10 - M20.41) 04/05/2024 Type 2 diabetes mellitus with diabetic polyneuropathy (ICD-10 - E11.42) 05/28/2024 Type 2 diabetes mellitus with diabetic polyneuropathy (ICD-10 - E11.42) 05/28/2024 Skin ulcer of toe of right foot with fat layer exposed (ICD-10 - L97.512) Response to treatment Unchanged Patient Educated with: WOUND CARE INSTRUCTIONS. pdf (WOUND CARE INSTRUCTIONS. pdf) 06/18/2024 Type 2 diabetes mellitus with diabetic polyneuropathy (ICD-10 - E11.42) 06/18/2024 Skin ulcer of toe of right foot with fat layer exposed (ICD-10 - L97.512) Response to treatment - Improvement Patient Educated with: WOUND CARE INSTRUCTIONS. pdf (WOUND CARE INSTRUCTIONS. pdf) 07/16/2024 Hammer toe of right foot (ICD-10 - M20.41) 07/23/2024 Hammer toe of right foot (ICD-10 - M20.41) Improvement 04/05/2024 Skin ulcer of toe of right foot, limited to breakdown of skin (ICD-10 - L97.511) Response to treatment - Improvement Patient Educated with: WOUND CARE INSTRUCTIONS. pdf (WOUND CARE INSTRUCTIONS. pdf) 06/18/2024 Tinea unguium (ICD-10 - B35.1) 03/19/2024 Tinea unguium (ICD-10 - B35.1) 12/15/2023 Skin [...] toe of right foot (ICD-10 - M20.41) 03/19/2024 Skin ulcer of toe of right foot, limited to breakdown of skin (ICD-10 - L97.511) Resistant to previous conservative treatment Patient Educated with: WOUND CARE INSTRUCTIONS. pdf (WOUND CARE INSTRUCTIONS. pdf) 04/05/2024 Cellulitis of toe of right foot (ICD-10 - L03.031) 03/19/2024 Cellulitis of toe of right foot (ICD-10 - L03.031) 03/19/2024 Xerosis of skin (ICD-10 - L85.3) 03/19/2024 Other hammer toe(s) (acquired), left foot (ICD-10 - M20.42) 03/19/2024 Other hammer toe(s) (acquired), right foot (ICD-10 - M20.41) Patient Educated with: DIABETIC FOOT CARE INSTRUCTIONS. pdf (DIABETIC FOOT CARE INSTRUCTIONS. pdf) 12/01/2023 Other 12/15/2023 Other Plan Of Treatment Pending Test Test Name Order Date *Liver Function Test (LFT) 08/01/2023 *Liver Function Test (LFT) 08/15/2023 X ray : Foot, left 3V 07/23/2019 26920-SUBCCAN NAIL, 6 OR MORE 07/23/2019 76893-BCIDOZZ NAIL, 6 OR MORE 01/04/2019 59658-WJEZRHE NAIL, 6 OR MORE 04/12/2019 39041-RLVJSHB NAIL, 6 OR MORE 12/26/2017 42760-KFXIVUJ NAIL, 6 OR MORE 03/27/2018 22773-WCMGPZC NAIL, 6 OR MORE 06/26/2018 14915-PDDXOAT NAIL, 6 OR MORE 10/02/2018 21319-IVEEOBS NAIL, 6 OR MORE 12/04/2015 08076-ECXXEJU NAIL, 6 OR MORE 03/04/2016 84585-PGGIAGX NAIL, 6 OR MORE 06/03/2016 12647-LNTUKHR NAIL, 6 OR MORE 10/11/2016 37489-ROIXFXT NAIL, 6 OR MORE 12/27/2016 42681-QXVOGNK NAIL, 6 OR MORE 03/28/2017 22798-FXHFFXJ NAIL, 6 OR MORE 06/27/2017 71947-KZKWJXI NAIL, 6 OR MORE 09/26/2017 18956-ZZUKNGJ NAIL, 6 OR MORE 10/15/2019 41467-GKRJWIB NAIL, 6 OR MORE 01/21/2020 84475-BENVWAK NAIL, 6 OR MORE 05/05/2020 97199-OSOLOIV NAIL, 6 OR MORE 09/22/2020 94287-QMJKQCB NAIL, 6 OR MORE 12/29/2020 28303-KBUVJUA NAIL, 6 OR MORE 04/20/2021 77408-WXEHGXW NAIL, 6 OR MORE 07/30/2021 17048-JGSGLAM NAIL, 6 OR MORE 11/05/2021 88144-DYLPSAM NAIL, 6 OR MORE 02/25/2022 86789-MFFMHZK NAIL, 6 OR MORE 05/27/2022 43240-OFPMLDD NAIL, 6 OR MORE 09/02/2022 21976-FORXDTU NAIL, 6 OR MORE 12/09/2022 37003-SVIKZHH NAIL, 6 OR MORE 04/18/2023 08740-MSQAGLJ NAIL, 6 OR MORE 03/19/2024 88043-VLMNIUS NAIL, 6 OR MORE 12/15/2023 41307-YJWXCBA NAIL, 6 OR MORE 06/18/2024 86451-Rywzoqhm Plate 04/20/2021 47042-Bnbozepv Plate 05/05/2020 97988-Yfcbdiaa Plate 10/15/2019 55384-Lliyxfgw Plate 06/27/2017 43077-Oecaokje Plate 10/11/2016 63948-Foctjtie Plate 06/03/2016 01739- Debride <25 sq cm 01/21/2020 42375- Debride <25 sq cm 10/06/2020 23013- Debride <25 sq cm 09/22/2020 53829- Debride <25 sq cm 07/30/2021 61832- Debride <25 sq cm 03/19/2024 89473- Debride <25 sq cm 04/05/2024 25030- Debride <25 sq cm 08/01/2023 31494- Debride <25 sq cm 08/15/2023 52948- Debride <25 sq cm 12/01/2023 07885- Debride <25 sq cm 12/15/2023 38729-KLUWTED SKIN/TISSUE 05/28/2024 44654-AQIYYZK SKIN/TISSUE 06/18/2024 88963 I&D ABSCESS- SIMPLE,SINGLE , J0702- INJECT or DRAIN, JOINT/BUR SA 07/23/2019, J0702- INJECT or DRAIN, JOINT/BUR SA 10/15/2019 39161-EKCY SKIN LESIONS, OVER 4 12/04/19 16 97094-ERTQ SKIN LESIONS, OVER 4 07/23/19 20 46407-KDWO SKIN LESIONS, OVER 4 04/12/19 20 60924-VTPN SKIN LESIONS, OVER 4 01/05/20 19 72705-MJWV SKIN LESIONS, OVER 4 10/03/19 19 98949-NMKR SKIN LESIONS, OVER 4 03/27/19 19 64828-JETU SKIN LESIONS, OVER 4 06/27/19 19 27151-WUTD SKIN LESIONS, OVER 4 10/12/19 17 22032-KONW SKIN LESIONS, OVER 4 06/04/19 17 75497-UAKW SKIN LESIONS, OVER 4 03/04/19 17 17872-JUEC SKIN LESIONS, OVER 4 09/27/19 18 28671-XUZE SKIN LESIONS, OVER 4 12/27/19 18 95208-VTNZ SKIN LESIONS, OVER 4 06/28/19 18 62804-GPCN SKIN LESIONS, OVER 4 12/28/19 17 99845-EFUG SKIN LESIONS, OVER 4 03/28/19 18 25732-OGMJ SKIN LESIONS, OVER 4 05/28/19 23 49059-LOLN SKIN LESIONS, OVER 4 09/03/19 23 98999-PJAX SKIN LESIONS, OVER 4 04/18/19 24 86742-IAJP SKIN LESIONS, OVER 4 12/10/19 23 40629-IULR SKIN LESIONS, OVER 4 07/31/19 22 61096-DYLJ SKIN LESIONS, OVER 4 11/06/19 22 18672-NCRM SKIN LESIONS, OVER 4 02/25/19 23 20816-LLDH SKIN LESIONS, OVER 4 09/23/19 21 45224-ZYSQ SKIN LESIONS, OVER 4 04/21/19 22 43506-MNOH SKIN LESIONS, OVER 4 12/30/19 21 44492-RIPH SKIN LESIONS, OVER 4 05/06/19 21 21572-QRZV SKIN LESIONS, OVER 4 10/15/19 20 43127-RLFF SKIN LESIONS, OVER 4 01/21/20 20 37284-RHSG SKIN LESIONS, OVER 4 06/19/19 25 91590-IRPN SKIN LESIONS, OVER 4 03/19/19 25 08388-SOYL SKIN LESIONS, OVER 4 12/15/19 24 70733-RHVF SKIN LESIONS, OVER 4 08/01/19 24 64422, P2492-IJKQY/INJECT, JOINT/BURSA 0 05/27/2022 20568 - Tenotomy, open flexor 07/16/2024 Next Appt Details Provider Name:Cande Vogt , 10/08/2024 01:30:00 PM, [address] [facility], [place], [address], Insurance Providers Payer Name Payer Address Payer Phone Subscriber Number Group Number Insured Name Patient Relationship to Insured Coverage Start Date Coverage End Date [employer] Medicare Complete [address] [address] [place], [place] [id number] [phone] [id number] Bell Martinez Self - patient is the insured Medical (General) History Medical History History ICD Code osteoarthritis Chicken pox Cholesterol Diabetic type 2 Gall bladder problems High blood pressure Measles Mumps Numbness Thyroid disorder Primary osteoarthritis, right ankle and foot M19.071 Primary osteoarthritis, left ankle and f oot M19.072 Hallux valgus (acquired), right foot M20 .11 Hallux valgus (acquired), left foot M20. 12 Other hammer toe(s) (acquired), right fo ot M20.41 Other hammer toe(s) (acquired), left cherelle t M20.42 Surgical History Surgery Date(Month/Year) tonsillectomy 1975 teeth extraction 1992 hysterectomy 1994 xrays Pankaj israel ap/lat/mo 07/23/19 cataract surgery- both eyes 06/04
== END 2024-08-20 11:40 | disposition home or self-care (01) ==
LOC: HO.HMGCX 11:39
PROVIDERS: PCP Student in an Organized Health Care Education/Training Program; Visit Provider Student in an Organized Health Care Education/Training Program
DX: M17.12 Unilateral primary osteoarthritis, left knee (principal); G89.29 Other chronic pain
CPT/HCPCS: 73560

== ENCOUNTER → 2024-08-20 11:51 | Outpatient (BNV) | payer MEDICARE, SELFPAY | PROVIDERS: PCP Student in an Organized Health Care Education/Training Program; Visit Provider Radiology Diagnostic Radiology | DX: M17.12 Unilateral primary osteoarthritis, left knee (principal) | CPT/HCPCS: 73560 ==

== ENCOUNTER 2024-10-16 10:50 | Outpatient (AMB) | payer MEDICARE, SELFPAY ==
--- NOTE | 2024-10-16 11:02 | MHC.OFFVIS ---
Vital Signs 10/16/24 11:08 Height 5 ft 4 in Weight 213 lb BMI 36.6 Intake Visit Reasons: [employer]-LT knee pain Intake Note: Bell is a 74 year old female who presents with complaints of progressively worsening left knee pain. She describes her pain as sharp and severe in nature, 11/23. Her pain has gotten worse over the last 5 years in spite of continued non operative treatments. She has tried Tylenol and meloxicam which gave her minimal relief. She has also done physical therapy exercises which aggravated her pain. The patient walks with a walker because of her left knee pain. She states that her left knee will give out several times per day. The patient recently fell because her knee gave out. At this point her left knee pain is interfering with her activities of daily living and her ability to sleep well through the night. Allergies lisinopril Allergy (Verified 10/16/24 11:08) Cough adhesive tape Adverse Reaction (Intermediate, Verified 10/16/24 11:08) Rash Medication List - Last Reconciled 10/16/24 by Anatoly Pollock MD acetaminophen 500 mg PO Q8H PRN amlodipine 1 tab PO DAILY aspirin 81 mg PO DAILY atenolol 100 mg PO DAILY atorvastatin 20 mg PO DAILY biotin 10,000 mcg PO DAILY blood sugar diagnostic (ThumbplayTouch Ultra Blue Test Strip) As directed calcium carbonate-vitamin D3 600 mg-10 mcg (400 unit) (Calcium 600 + D(3)) 1 tab PO DAILY clonidine HCl 0.2 mg PO TID gabapentin 100 mg PO BID gemfibrozil 600 mg PO DAILY glipizide 20 mg PO QPM glipizide 10 mg PO DAILY lancets (ThumbplayTouch Delica Lancets) miscellaneous levothyroxine 75 mcg PO DAILY meloxicam 7.5 mg PO DAILY PRN multivitamin 1 tab PO DAILY niacin (Niacor) 500 mg PO DAILY omega-3 fatty acids-fish oil 340-1,000 mg (Fish Oil) 2 caps PO DAILY oxybutynin chloride 10 mg PO DAILY valsartan 40 mg PO BID PFSH Medical History COVID-19 vaccine series completed Increased BMI Back pain, lumbosacral Arthritis Bone spur of ankle Plantar fasciitis Diabetes Hypothyroid Steatohepatitis Hypercholesteremia Hypertension Surgical History Hx of cataract surgery History of dental surgery History of hysterectomy History of tonsillectomy Family History Mother Rheumatoid arthritis Gout Diabetes Father Lung cancer Hypertension Social History Are you a primary hemodialysis patient care specialist to a significant other at home: No Do you presently have visiting nurse or other home services: No Patient Tobacco Use Status: Former Tobacco user Tobacco use type: Cigarette Current occupational status: retired Current occupation: Right handed Physical Exam Vital Signs: BMI result Body Mass Index 36.6 Const Other: Well-nourished well-developed very friendly female awake alert and oriented x3 in no acute distress Extrem Other: Bilateral lower extremity examination shows good capillary refill, no skin lesions noted, normal sensation light touch Left knee examination shows a minimal effusion, palpable crepitus with range of motion, pain with range of motion, range of motion from -3 degrees to 110 degrees, no instability Results Reviewed Results Reviewed: X-rays of the patient's left knee taken previously show end-stage degenerative joint disease with grade 4 [id number] arthritis, subchondral sclerosis, no acute bony abnormalities Assessment & Plan Assessment & Plan (1) Primary osteoarthritis of left knee: Code(s): M17.12 - Unilateral primary osteoarthritis, left knee Category: Medical Plan Ms. Martinez presents with progressively worsening left knee pain due to end-stage degenerative joint disease. I had a lengthy discussion with the patient regarding the treatment options. At this point she has failed continued non operative treatments. The risks and benefits of left total knee replacement surgery were discussed at length with the patient. The patient wishes to proceed. I will have my office contact the patient to pick a surgery date. I will see her back 1 week prior to her surgery to answer any final questions that she might have. Feel free to call me at any time should questions regarding her orthopedic management arise. Thank you very much for asking me to see this very friendly patient. I spent 20 minutes in reviewing the patient's records and imaging studies, seeing the patient and documenting in the medical record. Coding Level of Care Code New Pt Level 3 (87057) Complex EM visit Add On G2211 Diagnoses Primary osteoarthritis of left knee M17.12
[2024-10-16 11:08] VITALS: BMI 36.6
--- OUTSIDE RECORDS SUMMARY | 2024-10-16 12:24 | XMS_ITS | Clinical Summary ---
Author Organization [employer] Address [address] [facility] 7[address] [place] [address] Care Team Providers Care Manager Process Name Role Phone Romy Delgadillo MD Primary Care Provider [phone] Allergies Active Allergy Reactions Criticality Noted Date Comments Lisinopril Cough 03/21/2014 Other reaction(s): coughing Medications Lancets (OneTouch Delica Plus [id number]) misc CHECK TWICE DAILY 200 each 11 01/01/20 23 Active Calcium Carb-Cholecalcife rol 600-10 MG-MCG tablet Take 1 tablet by mouth every 12 (twelve) hours. 06/05/19 15 Active terbinafine (LamISIL AT) 1 % cream Apply topically 2 times daily. 15 g 2 10/12/19 24 Active glucose blood (OneTouch Ultra) test stripIndications: Type 2 diabetes mellitus without complication, without long-term current use of insulin (CMS/HCC),Acquire d hypothyroidism CHECK BLOOD SUGAR TWICE DAILY 200 strip 2 11/02/19 24 Active levothyroxine (Synthroid, Levoxyl) 75 MCG tabletIndications :Type 2 diabetes mellitus without complication, without long-term current use of insulin (CMS/HCC),Acquire d hypothyroidism TAKE 1 TABLET BY MOUTH DAILY BEFORE BREAKFAST 100 tablet 2 03/21/19 25 Active cloNIDine (Catapres) 0.2 MG tabletIndications :Primary hypertension TAKE 1 TABLET BY MOUTH 3 TIMES DAILY 300 tablet 2 05/23/19 25 Active atorvastatin (Lipitor) 20 MG tabletIndications :Primary hypertension TAKE 1 TABLET BY MOUTH IN THE MORNING 100 tablet 2 05/23/19 25 Active valsartan (Diovan) 40 MG tablet TAKE 1 TABLET BY MOUTH DAILY 100 tablet 2 08/21/19 25 Active gemfibrozil (Lopid) 600 MG tabletIndications :Primary hypertension TAKE 1 TABLET BY MOUTH IN THE MORNING 100 tablet 2 08/21/19 25 Active amLODIPine (Norvasc) 10 MG tablet TAKE 1 TABLET BY MOUTH ONCE DAILY 100 tablet 2 08/21/19 25 Active gabapentin (Neurontin) 100 MG capsule TAKE 1 CAPSULE BY MOUTH TWICE DAILY 200 capsule 2 08/21/19 25 Active oxybutynin XL (Ditropan-XL) 15 MG 24 hr tablet TAKE 1 TABLET BY MOUTH DAILY 100 tablet 2 08/21/19 25 Active atenolol (Tenormin) 100 MG tabletIndications :Benign hypertension TAKE 1 TABLET BY MOUTH ONCE DAILY 100 tablet 2 09/01/19 25 Active glipiZIDE (Glucotrol) 5 MG tabletIndications :Type 2 diabetes mellitus without complication, without long-term current use of insulin ([facility]),Acquire d hypothyroidism TAKE 2 TABLETS BY MOUTH BEFORE BREAKFAST AND 4 TABLETS BY MOUTH BEFORE SUPPER 600 tablet 2 09/01/19 25 Active Accu-Chek Softclix Lancets lancetsIndication s:Type 2 diabetes mellitus without complication, without long-term current use of insulin ([facility]) CHECK BLOOD SUGAR TWICE DAILY 100 each 11 10/03/19 25 Active glucose blood (Accu-Chek Guide Test) test stripIndications: Type 2 diabetes mellitus without complication, without long-term current use of insulin ([facility]) CHECK BLOOD SUGAR TWICE DAILY 100 each 11 10/03/19 25 Active Blood Glucose Monitoring Suppl (Accu-Chek Guide Me) w/Device kitIndications:Ty pe 2 diabetes mellitus without complication, without long-term current use of insulin ([facility]) CHECK BLOOD SUGAR TWICE DAILY 1 kit 10/03/19 25 Active meloxicam (Mobic) 15 MG tablet Take 1 tablet (15 mg) by mouth 2 times daily. 60 tablet 2 10/11/19 25 Active Diclofenac Sodium (Voltaren) 1 % gel Use topical BID 100 g 3 10/11/19 25 Active acetaminophen (Tylenol Extra Strength) 500 MG tablet Take 1 tablet (500 mg) by mouth every 6 (six) hours if needed for mild pain. 90 tablet 2 10/12/19 24 2024 meloxicam (Mobic) 7.5 MG tablet TAKE 1 TABLET BY MOUTH TWICE DAILY 200 tablet 2 09/01/19 25 2024 Discontinued(R eorder (will not trigger notification to Pharmacy)) Active Problems Problem Noted Date Diagnosed Date Peripheral vascular disease 03/11/2022 Type 2 diabetes mellitus wit hout complication, without long-term current use of insulin 03/11/2022 Hypothyroidism 07/17/2012 Hypercholesterolemia 07/17/2012 Benign hypertension 07/17/2012 Encounters Date Type Department Care Team Description 10/10/2024 11:15 AM EDT Office Visit [facility] [address] [place] [address] Romy Delgadillo MD Type 2 diabetes mellitus without complication, without long-term current use of insulin (CMS/HCC) (Primary Dx); Benign hypertension; Hypercholesterolemia; Bilateral chronic knee pain 10/10/2024 Travel 10/09/2024 Telephone [facility] [address] [place] [address] Romy Delgadillo MD Chart Prep 10/03/2024 Patient Outreach [facility] [address] [place] [phone] Romy Delgadillo MD Pre-visit Planning (Pre visit planning LVM ) 10/01/2024 Refill [facility] [address] [place] [address] Romy Delgadillo MD Type 2 diabetes mellitus without complication, without long-term current use of insulin (CMS/HCC) 09/27/2024 Telephone [facility] [address] [place] [phone] Romy Delgadillo MD 09/12/2024 Telephone [facility] [address] [place] [address] Romy Delgadillo MD 08/31/2024 Telephone [facility] [address] [place] [phone] Romy Delgadillo MD Med Refill 08/31/2024 Refill [facility] [address] [place] [phone] Romy Delgadillo MD Benign hypertension; Type 2 diabetes mellitus without complication, without long-term current use of insulin (CMS/HCC); Acquired hypothyroidism 08/28/2024 Orders Only [facility] [address] [place] [address] Nimco Acevedo MD 08/20/2024 Telephone [facility] [address] [place] [address] Romy Delgadillo MD Results 08/16/2024 Refill [facility] [address] [place] [address] Romy Delgadillo MD Primary hypertension 08/15/2024 Telephone [facility] [address] [place] [address] Romy Delgadillo MD Referral 08/15/2024 Orders Only [facility] [address] [place] [address] Romy Delgadillo MD Chronic pain of left knee (Primary Dx) 08/14/2024 Telephone [facility] [address] [place] [address] Romy Delgadillo MD Call 07/24/2024 Telephone [facility] [address] [place] [address] Romy Delgadillo MD Referral; FYI 07/17/2024 Telephone [facility] [address] [place] [address] Romy Delgadillo MD from Last 3 Months Immunizations Immunization Administration Dates Next Due Influenza High-dose Quadriva lent Preservative Free 10/28/2020 Influenza Quadrivalent Adjuvanted 11/03/2021 Influenza injectable quadriv alent IIV4 with preservative 11/05/2016 Influenza, High Dose Seasona l, Preservative Free 11/06/2018,12/12/2015,11/19/2014 Influenza, IIV3, injectable 11/16/2013 Influenza, Split (incl. miguel fied surface antigen) 11/01/2011 Pneumococcal Conjugate PCV 13 12/24/2015 Pneumococcal Polysaccharide PPSV23 01/24/2018,,05/09/2005 RSV Bivalent 02/24/2023 TD (adult), 2 Lf tetanus tox oid, [...] housing situation today? I have jayden amos 07/13/[address] you li ve. Do you have problems with any of the following? None of the above 07/13/2024 Food Insecurity Answer Date Recorded Within the past 12 months, y ou worried that your food would run out before you got money to buy more: Never True 07/13/2024 Within the past 12 months,th e food you bought just didn't last and you didn't have enough money to get more: Never True Transportation Answer Date Recorded In the past 12 months, has l ack of transportation kept you from medical appts, meetings, work or from getting things needed for daily living? No 07/13/2024 Utilities Answer Date Recorded In the past 12 months, has t he electric, gas, oil or water company threatened to shut off services in your home? No 07/13/2024 Depression Answer Date Recorded Patient Health Questionnaire-2 Score 1 07/15/2022 Internet Access Answer Date Recorded Internet Access Q1 No 07/13/2024 Internet Access Q2 I do not want or need it 06/16 Comments No Sex and Gender Information Value Date Recorded Sex Assigned at Female 12/14/2021 10:18 AM EDT Legal Sex Female 10:18 AM EDT Gender Identity Female 12/14/2021 10:18 AM EDT Sexual Orientation Straight 12/14/2021 10 :18 AM EDT Last Filed Vital Signs Vital Sign Reading Time Taken Comments Blood Pressure 120/76 10/10/2024 11:39 AM EDT Pulse 60 10/10/2024 11:39 AM EDT Temperature 36.6 C (97.9 F) 10/10/2024 11:39 AM EDT Respiratory Rate 16 10/10/2024 11:39 AM EDT Oxygen Saturation 98% 03/01/2024 11:47 AM EST Inhaled Oxygen Concentration - - Weight 96.6 kg (213 lb) 10/10/2024 11:39 AM EDT Height 162.6 cm (5' 4 ) 10/10/2024 11:39 AM EDT Body Mass Index 36.56 10/10/2024 11:39 AM EDT Plan of Treatment Health Maintenance Due Date Last Done Comments CT Colonography 1950 Colonoscopy 1950 FIT DNA/Cologuard 1950 Sigmoidoscopy 1950 Eye Exam 06/07/1959 Alcohol/Substance Use Screening 1961 Hepatitis C Screening 06/07/1967 Hepatitis A Vaccines (1 of 2 - Risk 2-dose series) 1968 Hepatitis B Vaccines (1 of 3 - Risk 3-dose series) 2009 Depression Screening 07/16/2023 07/15/2022, 07/16/19 COVID-19 Vaccine ( season) 2024 12/29/2023, 11/26/2022, 01/01/2022, Additional history exists Influenza Vaccine (#1) 2024 , 09/22/2023, 11/26/2022, Additional history exists Diabetes: Hemoglobin A1C 02/12/2025 025, 03/01/2024, 10/12/2023, Additional history exists Diabetes: Foot Exam 03/01/2025 03/01/2024, 03/01/2024, 03/01/2024, Additional history exists Diabetes: Urine Protein Screening 03/12/2025 03/12/2024, 01/15/2021 SDOH Screening 07/13/2025 07/13/2024 Tobacco Screening 07/13/2025 07/13/2024 Lipid Panel 08/13/2025 08/13/2024, 02/15, 10/14/2023, Additional history exists Colorectal Cancer Screening 08/20/2025 FIT 08/20/2025 08/20/2024 FOBT 08/20/2025 08/20/2024 DTaP/Tdap/Td Vaccines (2 - Td or Tdap) 12/24/2026 12/24/2016, 11/11/2006 Pneumococcal Vaccine: 50+ Years Completed 01/24/2018, 12/24/2015, 12/22/2015, Additional history exists Zoster Vaccines Completed 09/21/2021, 06/15, 12/05/2014 RSV Patients and Patients Aged 60 years or older Completed 02/24/2023 HIB Vaccines Aged Out No longer eligi ble based on patient's age to complete this topic HPV Vaccines Aged Out No longer eligi ble based on patient's age to complete this topic IPV Vaccines Aged Out No longer eligi ble based on patient's age to complete this topic Meningococcal B Vaccine Aged Out No l onger eligible based on patient's age to complete [...] Name Priority Date/Time Associated Diagnosis Comments POCT GLUCOSE Routine 10/10/2024 11:48 AM EDT Type 2 diabetes mellitus without complication, without long-term current use of insulin ([facility]) XR KNEE 1-2 VIEWS LEFT Routine 11:53 AM EDT Chronic pain of left knee FECAL GLOBIN BY IMMUNOCHEMISTRY Routine 08/20/2024 9:52 AM EDT HEMOGLOBIN A1C Routine 08/13/2024 12:00 AM EDT Type 2 diabetes mellitus without complication, without long-term current use of insulin (CMS/[facility]) TSH W/REFLEX TO FT4 Routine 08/13/2024 1 2:00 AM EDT Hypothyroidism, unspecified type HEPATIC FUNCTION PANEL Routine 12:00 AM EDT Type 2 diabetes mellitus without complication, without long-term current use of insulin (CMS/[facility]) Benign hypertension LIPID PANEL, STANDARD Routine 08/13/2024 12:00 AM EDT Type 2 diabetes mellitus without complication, without long-term current use of insulin (CMS/[facility]) Benign hypertension BASIC METABOLIC PANEL Routine 08/13/2024 12:00 AM EDT Type 2 diabetes mellitus without complication, without long-term current use of insulin ([facility]) Benign hypertension ALBUMIN, RANDOM URINE W/CREATININE Routine 03/12/2024 10:02 AM EST from Last 3 Months or Most Recently Relevant to Health Maintenance Results * POCT Glucose (10/10/2024 11:48 AM EDT) Pathologist [facility] Glucose Blood, POC 141 60 - 200 mg/dL QC Media Lot # [id number] Lot# Expiration Date Blood Capillary blood specimen / Unknown 10/10/2024 11:48 AM EDT Romy Delgadillo MD POINT OF CARE TEST ENTER/EDIT OR DERABLES Final Result * XR Knee 1-2 Views Left (08/20/2024 11:53 AM EDT) Anatomical Region Laterality Modality Lower Extremities, Knee Left Radiogra phic Imaging 08/20/2024 11:5 3 AM EDT Narrative 08/20/2024 12:49 PM EDT [facility] [address] [place] [address] [place] [address] XRay Report Signed Patient: Bell Martinez MR#: [id number] : 1950 Acct:[id number] Age/Sex: 74 / F ADM Date: 08/20/24 Loc: HO.HMGCX Attending Dr: Romy Delgadillo MD Ordering Physician: Romy Delgadillo MD Date of Service: 08/20/24 Procedure(s): XR knee LT 2V Accession Number(s): [id number] cc: Romy Delgadillo MD EXAMINATION: XR KNEE 1-2 VIEWS LEFT HISTORY: pain COMPARISON: Comparison is made with the prior examination dated 01/15/2020. FINDINGS: AP and lateral views of the left knee are submitted. Osseous mineralization is normal. There is no fracture or dislocation. There is moderate to severe osteoarthritis of the medial and patellofemoral compartment and moderate osteoarthritis of the lateral compartment, with joint space narrowing and osteophyte formation. The soft tissues are unremarkable. There is no joint effusion. XR/XR knee LT 2V IMPRESSION: Osteoarthritis of the left knee as described. Electronically signed by: Emiliano Justice MD 08/20/2024 12:46 PM EDT RP Dictated By: Emiliano Justice MD Signed By: <Electronically signed by Emiliano Justice MD in OV> 08/20/24 1246 DD/ 1153 TD/TT: 08/20/24 1159 Sausage Stuffer: Procedure Note Donotuseinterpreter, Image - 08/20/2024 [facility] [place] [address] XRay Report Signed Patient: Bell MartinezMR#: [id number] : 1950Acct:[id number] Age/Sex: 74 / FADM Date: 08/20/24 Loc: .HMGCX Attending Dr: Romy Delgadillo MD Ordering Physician: Romy Delgadillo MD Date of Service: 08/20/24 Procedure(s): XR knee LT 2V Accession Number(s): [id number] cc: Romy Delgadillo MD EXAMINATION: XR KNEE 1-2 VIEWS LEFT HISTORY: pain COMPARISON: Comparison is made with the prior examination dated 01/15/2020. FINDINGS: AP and lateral views of the left knee are submitted. Osseous mineralization is normal. There is no fracture or dislocation. There is moderate to severe osteoarthritis of the medial and patellofemoral compartment and moderate osteoarthritis of the lateral compartment, with joint space narrowing and osteophyte formation. The soft tissues are unremarkable. There is no joint effusion. XR/XR knee LT 2V IMPRESSION: Osteoarthritis of the left knee as described. Electronically signed by: Emiliano Justice MD 08/20/2024 12:46 PM EDT RP Dictated By: Emiliano Justice MD Signed By: <Electronically signed by Emiliano Justice MD in OV> 08/20/24 1246 DD/ 1153 TD/TT: 08/20/24 1159 Sausage Stuffer: Result [facility] Romy Delgadillo MD IMG XR PROCEDURES Final Result * Fecal Globin By Immunochemistry (08/20/2024 9:52 AM EDT) Stool Rectal contents / Unknown Result [facility] Historical Provider LAB BODY FLUIDS AND STOOL S ORDERABLES Final Result * TSH with Reflex to Free T4 (08/13/2024 12:00 AM EDT) TSH reflex Free T4 1.82 0.32 - 4.0 uIU/mL [facility] Blood Venous blood specimen / Unknown 08/13/2024 08/13/2024 Result [facility] Romy Delgadillo MD LAB BLOOD ORDERABLES Final Resul t [facility] [address] [place] [phone] * (ABNORMAL) Hemoglobin A1c (08/13/2024 12:00 AM EDT) Hemoglobin A1c 6.8(H) <6.0 % [facility] Comment:Hemoglobin A1C Refer ence Range Adults: 4.8 - 6.0 % Non diabetic: < 6.0 % Goal: < 7.0 %Additional Action Suggested: > 8.0 %Note: Hemoglobin A1c results are invalid for patients with abnormal amounts of HbF. Blood transfusions may impact the HbA1c concentration in the patient sample. Estimated Average Glucose 148 mg/dL [facility] Comment:eAG = Estimated ave rage glucose which is %A1C expressed asaverage glucose, using the formula of the K6Y-FisxdsrFdukefl Glucose study (ADAG), Diabetes Care, Vol.31,#8,Sep. 2007 Blood Venous blood specimen / Unknown 08/13/2024 08/13/2024 Result [facility] Romy Delgadillo MD LAB BLOOD ORDERABLES Final Resul t Performing Organization Address [facility] Co de Phone Number [facility] [address] [place] [address] [phone] * Hepatic Function Panel (08/13/2024 12:00 AM EDT) Bilirubin, Total 0.6 0.0 - 1.0 mg/dL [facility] Bilirubin, Direct 0.3 0.0 - 0.5 mg/dL [facility] Aspartate Amino Transferase 23 5 - 31 U/L [facility] Alanine Aminotransferase 19 0 - 31 U/L [facility] Total Protein 6.9 6.5 - 8.0 g/dL [facility] Albumin Level 4.1 3.5 - 5.0 g/dL [facility] Alkaline Phosphatase 71 39 - 117 U/L [facility] Blood Venous blood specimen / Unknown 08/13/2024 08/13/2024 us Romy Delgadillo MD LAB BLOOD ORDERABLES Final Resul t Performing Organization Address [facility] Co de Phone Number [facility] [address] [place] [address] [phone] * Lipid Panel, Standard (08/13/2024 12:00 AM EDT) Triglycerides 107 <150 mg/dL [facility] Comment:Desirable Triglyceri de: less than 150 mg/dLBorderline High Triglyceride 150-199 mg/dLHigh Triglyceride: 200-499 mg/dLVery High Triglyceride: greater than or equal to 5OO mg/dL Cholesterol 140 <200 mg/dL [facility] Comment:Desirable Cholestero l: less than 200 mg/dLBorderline High Cholesterol: 200-239 mg/dLHigh Cholesterol: greater than 239 mg/dL LDL Cholesterol Calculated 77 <100 mg/dL [facility] Comment:Desirable LDL: less than 100 mg/dLNear Optimal/Above Optimal LDL: 110- 129 mg/dLBorderline High LDL: 130-159 mg/dLHigh LDL: 160-189 mg/dLVery High LDL: greater than or equal to 190 mg/dL HDL Cholesterol 42 >40 mg/dL [facility] Comment:Desirable HDL: great er than 40 mg/dL Note: This HDL assay may give artificially low results in patients with liver disease. Blood Venous blood specimen / Unknown 08/13/2024 08/13/2024 Romy Delgadillo MD LAB BLOOD ORDERABLES Final Resul t Performing Organization Address City/[facility]/ZIP Co de Phone Number [facility] [address] [place] [address] [phone] * (ABNORMAL) Basic Metabolic Panel (08/13/2024 12:00 AM EDT) Sodium 140 135 - 145 mmol/L [facility] Potassium 4.2 3.3 - 5.1 mmol/L [facility] Chloride 107 96 - 108 mmol/L [facility] Carbon Dioxide 25 22 - 29 mmol/L [facility] Anion Gap 12 12 - 20 [facility] Urea Nitrogen (BUN) 24(H) 9 - 16 mg/dL [facility] Creatinine, Serum 0.94 0.5 - 1.4 mg/dL [facility] Estimated Glomerular Filt Rate 58 [facility] Comment:Chronic Kidney Disea se: Estimated GFR < 60 mL/min/[id number] Kidney Disease: Estimated GFR < 15 mL/min/1.73m2 Glucose 109 60 - 115 mg/dL [facility] Calcium 9.7 8.4 - 10.2 mg/dL [facility] Blood Venous blood specimen / Unknown 08/13/2024 08/13/2024 Romy Delgadillo MD LAB BLOOD ORDERABLES Final Resul t Performing Organization Address City/[facility]/ZIP Co de Phone Number [facility] [address] [place] [phone] * (ABNORMAL) Albumin, Random Urine W/Creatinine (03/12/2024 10:02 AM EST) Creatinine, Urine 62.67 mg/dL [facility] Microalbumin Urine 22.0 mg/L [facility] Microalbum Creatinine Ratio Ur 35.1(H) <30 ug/mg cr [facility] Comment:Albumin/Creatinine R atio Reference Ranges: Normal: < 30 ug/mg creatinine Microalbuminuria: 30 - 300 ug/mg creatinineClinical Albuminuria: > 300 ug/mg creatinine 03/12/2024 10:0 2 AM EST 03/12/2024 2:14 PM EST us Romy Delgadillo MD LAB URINE ORDERABLES Final Resul t Performing Organization Address City/State/[facility] Co de Phone Number [facility] [address] [place] [address] [phone] from Last 3 Months or Most Recently Relevant to Health Maintenance Insurance [facility] [place] [address] * Guarantor: Bell Martinez Account Type Relation to Patient Date of Phone Billing Address Personal/[place] [address] Advance Directives Documents on File Type Date Recorded Patient Thread Trimmer Expl anation Advance Directives and Living Will 01/03/2024 3:40 PM HCP (Wilfredo Martinez) Care Teams Manager Process Relationship Specialty Start Date End Date Romy Delgadillo MD [address] [place] [address] PCP - General Family Medicine 01/27/12
--- OUTSIDE RECORDS SUMMARY | 2024-10-16 12:24 | XMS_ITS | Encounter Summary ---
Author Organization [employer] Address [address] [address] [place] [address] Care Team Providers Care Wind Operations Supervisor Name Role Phone Romy Delgadillo MD Primary Care Provider [phone] Encounter Details Date Type Department Care Team (Late st Contact Info) Description 08/28/2024 Orders Only [facility] [address] [place], [place] [phone] Provider, MD Nimco Social History Tobacco Use Types Packs/Day Years Used Date Smoking Tobacco: Former Cigarettes Passive Smoke Exposure: Past Smokeless Tobacco: Never Alcohol Use Standard Drinks/Week Comments Never 0 (1 standard drink = 0.6 oz pur e alcohol) Depression Answer Date Recorded Patient Health Questionnaire-9 Score 1 07/15/2022 Housing Stability Answer Date Recorded What is your housing situation today? I have jaydenmodesto amos 07/13/[address] you [...] Procedure Name Priority Date/Time Associated Diagnosis Comments FECAL GLOBIN BY IMMUNOCHEMISTRY Routine 08/20/2024 9:52 AM EDT documented in this encounter Results * Fecal Globin By Immunochemistry (08/20/2024 9:52 AM EDT) Stool Rectal contents / Unknown Historical Provider LAB BODY FLUIDS AND STOOL S ORDERABLES Final Result documented in this encounter Visit Diagnoses Not on filedocumented in this encounter Additional Health Concerns Assessment Noted Time PHQ-9 Depression Total Score: 1 07/16/19 23 9:56 AM EDT documented as of this encounter Care Teams Wind Operations Supervisor Relationship Specialty Start Date End Date Romy Delgadillo MD [address] [place] [phone] PCP - General Family Medicine 01/27/12 documented as of this encounter
--- OUTSIDE RECORDS SUMMARY | 2024-10-16 12:24 | XMS_ITS | Encounter Summary ---
Author Organization [employer] Address [address] [facility] [address] [place] [address] Care Team Providers Care Pain Management Physician Name Role Phone Romy Delgadillo MD Primary Care Provider [phone] Encounter Details Date Type Department Care Team ([facility] st Contact Info) Description 06/23/2022 Orders Only [facility] [address] [place] [address] Mariangel Hurt LPN Social History Tobacco Use [...] on filedocumented in this encounter Care Teams Pain Management Physician Relationship Specialty Start Date End Date Romy Delgadillo MD [address] [place] [phone] PCP - General Family Medicine 01/27/12 documented as of this encounter
--- OUTSIDE RECORDS SUMMARY | 2024-10-16 12:24 | XMS_ITS | Encounter Summary ---
Author Organization [employer] Address [address] [facility] 7t [place] [address] Care Team Providers Care Architect Internship Name Role Phone Romy Delgadillo MD Primary Care Provider [phone] Reason for Visit * Reason Onset Date Comments Immunizations 11/25/2022 Encounter Details Date Type Department Care Team ([facility] Contact Info) Description 11/25/2022 Telephone [facility] CHC MED & PEDS [address] [place], [place] [phone] Romy Delgadillo MD [address] [place] [address] Immunizations Social History Tobacco Use Types Packs/Day Years Used Date Smoking Tobacco: Former Cigarettes Smokeless Tobacco: Never Alcohol Use Standard Drinks/Week Comments Never 0 (1 standard drink = 0.6 oz pur e alcohol) Depression Answer Date Recorded Patient Health Questionnaire-9 Score 1 07/15/2022 Housing Stability Answer Date Recorded What is your housing situation today? I have jayden aoms 11/21/[address] you li [...] the RSV vaccine. Please contact pt at [phone] documented in this encounter Plan of Treatment Not on file documented as of this encounter Visit Diagnoses Not on filedocumented in this encounter Additional Health Concerns Assessment Noted Time PHQ-9 Depression Total Score: 1 07/16/19 23 9:56 AM EDT documented as of this encounter Care Teams Architect Internship Relationship Specialty Start Date End Date Romy Delgadillo MD [address] [place] [address] PCP - General Family Medicine 01/27/12 documented as of this encounter
--- OUTSIDE RECORDS SUMMARY | 2024-10-16 12:24 | XMS_ITS | Encounter Summary ---
Author Organization [employer] Address 75 [facility] 7t [place] [address] Care Team Providers Care Stage Electrician Helper Name Role Phone Romy Delgadillo MD Primary Care Provider [phone] Reason for Visit * Reason Onset Date Comments Call 08/14/2024 Encounter Details Date Type Department Care Team ([facility] st Contact Info) Description 08/14/2024 Telephone [facility] MEDICINE [address] [place] [address] Romy Delgadillo MD [address] [place], [place] [phone] Call Social History Tobacco Use Types Packs/Day Years [...] encounter Miscellaneous Notes * Telephone Encounter - Romana Sheriff - 08/14/2024 3:01 PM EDT Tc from pt stating dr. Delgadillo try to call her 3 time today 08/14. Contact pt at [phone] documented in this encounter Plan of Treatment Not on file documented as of this encounter Visit Diagnoses Not on filedocumented in this encounter Additional Health Concerns Assessment Noted Time PHQ-9 Depression Total Score: 1 07/16/19 23 9:56 AM EDT documented as of this encounter Care Teams Stage Electrician Helper Relationship Specialty Start Date End Date Romy Delgadillo MD [address] [place] [id number] PCP - General Family Medicine 01/27/12 documented as of this encounter
--- OUTSIDE RECORDS SUMMARY | 2024-10-16 12:24 | XMS_ITS | Encounter Summary ---
Author Organization [employer] Address [address] [place] [address] [address] [place] [address] Care Team Providers Care Geological E Logger Name Role Phone Romy Delgadillo MD Primary Care Provider [phone] Reason for Visit * Reason Comments Med Refill Encounter Details Date Type Department Care Team ([facility] st Contact Info) Description 02/22/2022 Refill [facility] CHC MED & PEDS [address] [place], [place] [phone] Romy Delgadillo MD 505 [place] [address] Social History Tobacco Use Types Packs/Day Years [...] on filedocumented in this encounter Care Teams Geological E Logger Relationship Specialty Start Date End Date Romy Delgadillo MD [address] [place] [id number] PCP - General Family Medicine 01/27/12 documented as of this encounter
--- OUTSIDE RECORDS SUMMARY | 2024-10-16 12:24 | XMS_ITS | Encounter Summary ---
Author Organization [employer] Address [address] [facility] 7t [place] [address] Care Team Providers Care Contracts Law Professor Name Role Phone Romy Delgadillo MD Primary Care Provider [phone] Reason for Visit * Reason Comments Med Refill Encounter Details Date Type Department Care Team ([facility] Contact Info) Description 07/03/2024 Refill [facility] CHC MED & PEDS [address] [place], [place] [phone] Romy Delgadillo MD 505 [place] [address] Type 2 diabetes mellitus without complication, without long-term current use of insulin ([facility]); Acquired hypothyroidism; Primary hypertension Social History Tobacco Use Types Packs/Day [...] complication, without long-term current use of insulin ([facility]) Acquired hypothyroidism Unspecified hypothyroidism Primary hypertension Unspecified essential hypertension documented in this encounter Additional Health Concerns Assessment Noted Time PHQ-9 Depression Total Score: 1 07/16/19 23 9:56 AM EDT documented as of this encounter Care Teams Contracts Law Professor Relationship Specialty Start Date End Date Romy Delgadillo MD [address] [place] [address] PCP - General Family Medicine 01/27/12 documented as of this encounter
--- OUTSIDE RECORDS SUMMARY | 2024-10-16 12:24 | XMS_ITS | Encounter Summary ---
Author Organization [employer] Address [address] [place] [address] [address] [place] [address] Care Team Providers Care Appeals Referee Name Role Phone Romy Delgadillo MD Primary Care Provider [phone] Reason for Visit * Reason Comments Med Refill Encounter Details Date Type Department Care Team ([facility] st Contact Info) Description 02/23/2022 Refill C CHC MED & PEDS [address] [place], [place] [phone] Romy Delgadillo MD [address] [place] [address] Social History Tobacco Use Types Packs/Day Years [...] on filedocumented in this encounter Care Teams Appeals Referee Relationship Specialty Start Date End Date Romy Delgadillo MD [address] [place] [address] PCP - General Family Medicine 01/27/12 documented as of this encounter
--- OUTSIDE RECORDS SUMMARY | 2024-10-16 12:24 | XMS_ITS | Encounter Summary ---
Author Organization [employer] Address [address] [facility] 7t [place] [address] Care Team Providers Care Optometry Professor Name Role Phone Romy Delgadillo MD Primary Care Provider [phone] Reason for Visit * Reason Comments Med Refill Encounter Details Date Type Department Care Team ([facility] Contact Info) Description 07/29/2023 Refill [facility] CHC MED & PEDS [address] [place], [place] [phone] Romy Delgadillo MD [address] [place] [address] Type 2 diabetes mellitus without complication, without long-term current use of insulin ([facility]); Acquired hypothyroidism; Benign hypertension Social History Tobacco [...] complication, without long-term current use of insulin ([facility]) Acquired hypothyroidism Unspecified hypothyroidism Benign hypertension Essential hypertension, benign documented in this encounter Additional Health Concerns Assessment Noted Time PHQ-9 Depression Total Score: 1 07/16/19 23 9:56 AM EDT documented as of this encounter Care Teams Optometry Professor Relationship Specialty Start Date End Date Romy Delgadillo MD [address] [place] [address] PCP - General Family Medicine 01/27/12 documented as of this encounter
--- OUTSIDE RECORDS SUMMARY | 2024-10-16 12:24 | XMS_ITS | Encounter Summary ---
Author Organization [employer] Address [address] [facility] 7t [place] [address] Care Team Providers Care Electrical Tester Name Role Phone Romy Delgadillo MD Primary Care Provider [phone] Reason for Visit * Reason Comments Med Refill Encounter Details Date Type Department Care Team ([facility] Contact Info) Description 03/08/2023 Refill [facility] CHC MED & PEDS [address] [place], [place] [phone] Romy Delgadillo MD 505 [place] [address] Social History Tobacco Use Types Packs/Day Years [...] documented as of this encounter Care Teams Electrical Tester Relationship Specialty Start Date End Date Romy Delgadillo MD [address] [place] [id number] PCP - General Family Medicine 01/27/12 documented as of this encounter
--- OUTSIDE RECORDS SUMMARY | 2024-10-16 12:24 | XMS_ITS | Encounter Summary ---
Author Organization [employer] Address [address] [facility] 7t [place] [address] Care Team Providers Care Credit Office Manager Name Role Phone Romy Delgadillo MD Primary Care Provider [phone] Reason for Visit * Reason Onset Date Comments Glucose Meter 12/28/2022 Encounter Details Date Type Department Care Team ([facility] st Contact Info) Description 12/28/2022 Telephone [facility] CHC MED & PEDS [address] [place], [place] [phone] Romy Delgadillo MD [address] [place] [address] Glucose Meter Social History Tobacco Use Types [...] meter and no response. Please sent to [facility] - [address] documented in this encounter Plan of Treatment Not on file documented as of this encounter Visit Diagnoses Not on filedocumented in this encounter Additional Health Concerns Assessment Noted Time PHQ-9 Depression Total Score: 1 07/16/19 23 9:56 AM EDT documented as of this encounter Care Teams Credit Office Manager Relationship Specialty Start Date End Date Romy Delgadillo MD [address] [place] [id number] PCP - General Family Medicine 01/27/12 documented as of this encounter
== END 2024-10-16 11:19 | disposition home or self-care (01) ==
LOC: HO.HOS 10:52
PROVIDERS: PCP Student in an Organized Health Care Education/Training Program; Visit Provider Orthopaedic Surgery
DX: M17.12 Unilateral primary osteoarthritis, left knee (principal)
CPT/HCPCS: 99204; G2211

== ENCOUNTER → 2024-10-16 10:50 | Outpatient (BNVA) | payer MEDICARE, SELFPAY | PROVIDERS: PCP Student in an Organized Health Care Education/Training Program; Visit Provider Orthopaedic Surgery | DX: M17.12 Unilateral primary osteoarthritis, left knee (principal) | CPT/HCPCS: 99202 ==

== ENCOUNTER 2024-10-17 12:50 | Outpatient (REF) | payer MEDICARE, SELFPAY ==
--- NOTE | ~2024-10-17 | US_ITS ---
EXAMINATION: Noninvasive assessment of the bilateral lower extremities with ARTERIAL DUPLEX, ANKLE BRACHIAL INDICES (ABIs), and PULSE VOLUME RECORDINGS (PVRs). CLINICAL INFORMATION: Full vascular disease. TECHNIQUE: Duplex Doppler techniques with waveform analysis and measurement of velocities in the bilateral common femoral, profunda femoris, superficial femoral, popliteal and tibial arteries were performed. Additionally, ankle pulse volume recordings, ankle pressure measurements and ankle brachial indices were obtained of the lower extremity arterial system bilaterally. The study was performed only at rest. COMPARISON: September 03, 2023 FINDINGS: DIRECT DUPLEX DOPPLER FINDINGS: RIGHT LEG: Common femoral artery: 154 cm/s, phasicity: Biphasic. Profunda femoris artery: 163 cm/s, phasicity: Biphasic. Superficial femoral artery (proximal): 110 cm/s, phasicity: Monophasic. Superficial femoral artery (mid): 142 cm/s, phasicity: Monophasic. Superficial femoral artery (distal): 190 cm/s, phasicity: Monophasic. Spectral broadening. Popliteal artery: 55 cm/s, phasicity: Monophasic. Posterior tibial artery: 31 cm/s, phasicity: Monophasic. Spectral broadening. Peroneal artery: No color Doppler flow. Anterior tibial artery: 87 cm/s, phasicity: Monophasic. Spectral broadening. Dorsalis pedis artery: 71 cm/s, phasicity:Monophasic. Spectral broadening. LEFT LEG: Common femoral artery: 136 cm/s, phasicity: Biphasic. Spectral broadening. Profunda femoris artery: 210 cm/s, phasicity: Monophasic. Superficial femoral artery (proximal): 92 cm/s, phasicity: Monophasic. Spectral broadening. Superficial femoral artery (mid): 454 cm/s, phasicity: Monophasic. Spectral broadening. Superficial femoral artery (distal): 76 cm/s, phasicity: Monophasic. Spectral broadening. Popliteal artery: 98 cm/s, phasicity: Monophasic. Spectral broadening. Posterior tibial artery: No color Doppler flow. Peroneal artery: No color Doppler flow. Anterior tibial artery: 54 cm/s, phasicity: Monophasic. Spectral broadening. Dorsalis pedis artery: 41 cm/s, phasicity: Monophasic. Spectral broadening. There is a 2.9 x 1.7 x 1.2 cm lobulated anechoic abnormality without flow on color Doppler interrogation or internal echoes centered in the left popliteal fossa. BRACHIAL PRESSURES: Right: 135 Left: 139 ANKLE PRESSURES: Right: PT 78, DP 99 Left: PT not recorded., DP 92 ANKLE-BRACHIAL INDEX: Right: 0.71 Left: 0.66 ANKLE PVR WAVEFORMS: Right: Abnormal Left: Abnormal US/US arterial duplex BI w/ BAKARI IMPRESSION: Right leg: Severe inflow disease from the superficial femoral artery to the dorsalis pedis artery. Left leg: Moderate to severe inflow disease throughout the interrogated arteries with likely high degree stenosis in the mid superficial femoral artery. 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 2.9 cm popliteal cyst. BAKARI Reference: - >1.4 = calcified vessels - 0.9 - 1.4 = normal - no significant arterial disease - 0.7 - 0.89 = mild peripheral arterial disease - 0.51 - 0.69 = moderate peripheral arterial disease - 0.50 = severe peripheral arterial disease - < .30 = critical arterial disease Electronically signed by: Enrique Atkinson MD 10/17/2024 03:32 PM EDT
--- NOTE | ~2024-10-17 | US_ITS ---
EXAMINATION: US EXTRACRANIAL CAROTID DUPLEX, BILATERAL CLINICAL INFORMATION: I65.23 - Occlusion and stenosis of bilateral carotid arteries COMPARISON: September 05, 2023 TECHNIQUE: Real-time ultrasound and Doppler techniques (integrating B-mode 2-D vascular images, Doppler spectral analysis and color-flow Doppler imaging) were utilized to interrogate the extracranial carotid arteries, the vertebral arteries and proximal subclavian arteries bilaterally. The degree of stenosis is determined by criteria similar to NASCET. FINDINGS: Right Side: 1. There is mild shadowing atherosclerotic plaque seen in the bifurcation/proximal ICA region. 2. The common carotid artery PSV proximally is 102 cm/s and distally 104 cm/s. 3. The proximal internal carotid artery velocities are 102 cm/s systolic and 23 cm/s diastolic. 4. The proximal external carotid artery PSV is 153 cm/s. 5. The vertebral artery shows antegrade flow. 6. The subclavian artery waveforms are biphasic. ICA/CCA ratio = 1.0 Left Side: 1. There is moderate shadowing atherosclerotic plaque seen in the bifurcation/proximal ICA region. 2. The common carotid artery PSV proximally is 100 cm/s and distally 93 cm/s. 3. The proximal internal carotid artery velocities are 154 cm/s systolic and 27 cm/s diastolic. 4. The proximal external carotid artery PSV is 134 cm/s. 5. The vertebral artery shows antegrade flow. 6. The subclavian artery waveforms are biphasic. ICA/CCA ratio = 1.5 US/US carotid duplex BI IMPRESSION: 1. RIGHT: There is no hemodynamically significant stenosis 2. LEFT: Borderline hemodynamically significant stenosis. There is mildly elevated velocity in the proximal ICA with a normal ICA/CCA ratio. Peak systolic velocity of the proximal ICA measured 154 cm/s on the current study and 147 cm/s on the prior. Electronically signed by: Grady Anaya MD 10/17/2024 02:34 PM EDT
--- OUTSIDE RECORDS SUMMARY | 2024-10-17 15:14 | XMS_ITS | Encounter Summary ---
Author Organization [employer] Address [address] [facility] 7t [place] [address] Care Team Providers Care Filler Room Attendant Name Role Phone Romy Delgadillo MD Primary Care Provider [phone] Reason for Visit * Reason Comments Med Refill Encounter Details Date Type Department Care Team ([facility] Contact Info) Description 03/08/2023 Refill [facility] CHC MED & PEDS [address] [place], [place] [phone] Romy Delgadillo MD [address] [place] [address] Social History Tobacco Use Types Packs/Day Years [...] documented as of this encounter Care Teams Filler Room Attendant Relationship Specialty Start Date End Date Romy Delgadillo MD [address] [place] [address] PCP - General Family Medicine 01/27/12 documented as of this encounter
--- OUTSIDE RECORDS SUMMARY | 2024-10-17 15:14 | XMS_ITS | Encounter Summary ---
Author Organization [employer] Address 75 [facility] 7t [place] [address] Care Team Providers Care Secondary Social Studies Teacher Name Role Phone Romy Delgadillo MD Primary Care Provider Reason for Visit * Reason Onset Date Comments Call 08/14/2024 Encounter Details Date Type Department Care Team ([facility] st Contact Info) Description 08/14/2024 Telephone [facility] MEDICINE [address] [place] [address] Romy Delgadillo MD [address] [place], [place] [phone] Call Social History Tobacco Use Types Packs/Day [...] 3 time today 08/14. Contact pt at [phone] documented in this encounter Plan of Treatment Not on file documented as of this encounter Visit Diagnoses Not on filedocumented in this encounter Additional Health Concerns Assessment Noted Time PHQ-9 Depression Total Score: 1 07/16/19 23 9:56 AM EDT documented as of this encounter Care Teams Secondary Social Studies Teacher Relationship Specialty Start Date End Date Romy Delgadillo MD [address] [place] [address] PCP - General Family Medicine 01/27/12 documented as of this encounter
--- OUTSIDE RECORDS SUMMARY | 2024-10-17 15:14 | XMS_ITS | Encounter Summary ---
Author Organization [employer] Address [address] [facility] [address] 7t [place] [address] Care Team Providers Care Featherer Name Role Phone Romy Delgadillo MD Primary Care Provider [phone] Encounter Details Date Type Department Care Team (Late st Contact Info) Description 08/28/2024 Orders Only [facility] CHC MED & PEDS [address] [place], [place] [phone] Provider, MD [place] Social History Tobacco Use [...] documented as of this encounter Care Teams Featherer Relationship Specialty Start Date End Date Romy Delgadillo MD [address] [place] [address] PCP - General Family Medicine 01/27/12 documented as of this encounter
--- OUTSIDE RECORDS SUMMARY | 2024-10-17 15:14 | XMS_ITS | Encounter Summary ---
Author Organization [employer] Address 75 [facility] 7t [place] [address] Care Team Providers Care Manager Industrial Name Role Phone Romy Delgadillo MD Primary Care Provider [phone] Reason for Visit * Reason Onset Date Comments Glucose Meter 12/28/2022 Encounter Details Date Type Department Care Team ([facility] st Contact Info) Description 12/28/2022 Telephone [facility] CHC MED & PEDS [address] [place], [place] [phone] Romy Delgadillo MD [address] [place] [address] Glucose Meter Social History Tobacco Use Types [...] Please sent to [facility] - [address] documented in this encounter Plan of Treatment Not on file documented as of this encounter Visit Diagnoses Not on filedocumented in this encounter Additional Health Concerns Assessment Noted Time PHQ-9 Depression Total Score: 1 07/16/19 23 9:56 AM EDT documented as of this encounter Care Teams Manager Industrial Relationship Specialty Start Date End Date Romy Delgadillo MD [address] [place] [address] PCP - General Family Medicine 01/27/12 documented as of this encounter
--- OUTSIDE RECORDS SUMMARY | 2024-10-17 15:14 | XMS_ITS | Clinical Summary ---
Author Organization [employer] Address [address] [facility] [address] [place] [address] Care Team Providers Care Sports Apparel Internship Name Role Phone Romy Delgadillo MD Primary Care Provider [phone] Allergies Active Allergy Reactions Criticality Noted Date Comments Lisinopril Cough 03/21/2014 Other reaction(s): coughing Medications Lancets (OneTouch Delica Plus [id number]) misc CHECK TWICE DAILY 200 each 11 [...] of insulin ([facility]),Acquire d hypothyroidism TAKE 2 TABLETS BY MOUTH BEFORE BREAKFAST AND 4 TABLETS BY MOUTH BEFORE SUPPER 600 tablet 2 09/01/19 25 Active Accu-Chek Softclix Lancets lancetsIndication s:Type 2 diabetes mellitus without complication, without long-term current use of insulin ([facility]) CHECK BLOOD SUGAR TWICE DAILY 100 each 11 10/03/19 25 Active glucose blood (Accu-Chek Guide Test) test stripIndications: Type 2 diabetes mellitus without complication, without long-term current use of insulin ([facility]) CHECK BLOOD SUGAR TWICE DAILY 100 each 11 10/03/19 25 Active Blood Glucose Monitoring Suppl (Accu-Chek Guide Me) w/Device kitIndications:Ty pe 2 diabetes mellitus without complication, without long-term current use of insulin ([facility]) CHECK BLOOD SUGAR TWICE DAILY 1 kit [...] Encounters Date Type Department Care Team Description 10/17/2024 Orders Only [facility] External Provider, [facility] 10/10/2024 11:15 AM EDT Office Visit [facility] [address] [place] [address] Romy Delgadillo MD Type 2 diabetes mellitus without complication, without long-term current use of insulin ([facility]) (Primary Dx); Benign hypertension; Hypercholesterolemia; Bilateral chronic knee pain 10/10/2024 Travel 10/09/[address] [facility] [address] [place] [address] Romy Delgadillo MD Chart Prep 10/03/2024 Patient Outreach [facility] [address] [place] [address] Romy Delgadillo MD Pre-visit Planning (Pre visit planning LVM ) 10/01/[address] [facility] [address] [place] [address] Romy Delgadillo MD Type 2 diabetes mellitus without complication, without long-term current use of insulin (CMS/HCC) 09/27/2024 Telephone [facility] [address] [place] [address] Romy Delgadillo MD 09/12/[address] [facility] [address] [place] [address] Romy Delgadillo MD 08/31/2024 Telephone [facility] [address] [place] [address] Romy Delgadillo MD Med Refill 08/31/2024 Refill [facility] [address] [place] [address] Romy Delgadillo MD Benign hypertension; Type 2 diabetes mellitus without complication, without long-term current use of insulin ([facility]); Acquired hypothyroidism 08/28/[address] [facility] [address] [place] [address] Nimco Acevedo MD 08/20/[address] [facility] [address] [place] [address] Romy Delgadillo MD Results 08/16/2024 Refill [facility] [address] [place] [address] Roym Delgadillo MD Primary hypertension 08/15/2024 Telephone [facility] [address] [place] [address] Romy Delgadillo MD Referral 08/15/[address] [facility] [address] [place] [address] Romy Delgadillo MD Chronic pain of left knee (Primary Dx) 08/14/2024 Telephone [facility] [address] [place] [address] Romy Delgadillo MD Call 07/24/2024 Telephone [facility] [address] [place] [address] Romy Delgadillo MD Referral; FYI 07/17/2024 Telephone [facility] [address] [place] [address] Romy Delgadillo MD from Last 3 Months [...] series) 2009 Depression Screening 07/16/2023 07/15/2022, 07/16/19 23 COVID-19 Vaccine ( season) 2024 12/29/2023, 11/26/2022, [...] Procedure Name Priority Date/Time Associated Diagnosis Comments VASC US CAROTID ARTERY DUPLEX BILATERAL Routine 10/17/2024 1:14 PM EDT POCT GLUCOSE Routine 10/10/2024 11:48 AM EDT Type 2 diabetes mellitus without complication, without long-term current use of insulin (CMS/HCC) XR KNEE 1-2 VIEWS LEFT Routine 11:53 AM EDT Chronic pain of left knee FECAL GLOBIN BY IMMUNOCHEMISTRY Routine 08/20/2024 9:52 AM EDT HEMOGLOBIN A1C Routine 08/13/2024 12:00 AM EDT Type 2 diabetes mellitus without complication, without long-term current use of insulin (CMS/HCC) TSH W/REFLEX TO FT4 Routine 08/13/2024 1 2:00 AM EDT Hypothyroidism, unspecified type HEPATIC FUNCTION PANEL Routine 12:00 AM EDT Type 2 diabetes mellitus without complication, without long-term current use of insulin (CMS/HCC) Benign hypertension LIPID PANEL, STANDARD Routine 08/13/2024 12:00 AM EDT Type 2 diabetes mellitus without complication, without long-term current use of insulin (CMS/HCC) Benign hypertension BASIC METABOLIC PANEL Routine 08/13/2024 12:00 AM EDT Type 2 diabetes mellitus without complication, without long-term current use of insulin (CMS/HCC) Benign hypertension ALBUMIN, RANDOM URINE W/CREATININE Routine 03/12/2024 10:02 AM EST from Last 3 Months or Most Recently Relevant to Health Maintenance Results * [facility] US Carotid Artery Duplex Bilateral (10/17/2024 1:14 PM EDT) 10/17/2024 1:14 PM EDT [facility] - 10/17/2024 2:37 PM EDT [place] [address] Ultrasound Report Signed Patient: Bell Martinez MR#: [id number] 356 : 1950 Acct:[id number] Age/Sex: 74 / F ADM Date: 10/17/24 Loc: HO.US Attending Dr: Tyree Gallardo MD Ordering Physician: Tyree Gallardo MD Date of Service: 10/17/24 Procedure(s): US carotid duplex BI Accession Number(s): [id number] cc: Tyree Gallardo MD; Romy Delgadillo MD Reason for Exam: I65.23 - Occlusion and stenosis of bilateral carotid arteries EXAMINATION: US EXTRACRANIAL CAROTID DUPLEX, BILATERAL CLINICAL INFORMATION: I65.23 - Occlusion and stenosis of bilateral carotid arteries COMPARISON: September 05, 2023 TECHNIQUE: Real-time ultrasound and Doppler techniques (integrating B-mode 2-D vascular images, Doppler spectral analysis and color-flow Doppler imaging) were utilized to interrogate the extracranial carotid arteries, the vertebral arteries and proximal subclavian arteries bilaterally. The degree of stenosis is determined by criteria similar to NASCET. FINDINGS: Right Side: 1. There is mild shadowing atherosclerotic plaque seen in the bifurcation/proximal ICA region. 2. The common carotid artery PSV proximally is 102 cm/s and distally 104 cm/s. 3. The proximal internal carotid artery velocities are 102 cm/s systolic and 23 cm/s diastolic. 4. The proximal external carotid artery PSV is 153 cm/s. 5. The vertebral artery shows antegrade flow. 6. The subclavian artery waveforms are biphasic. ICA/CCA ratio = 1.0 Left Side: 1. There is moderate shadowing atherosclerotic plaque seen in the bifurcation/proximal ICA region. 2. The common carotid artery PSV proximally is 100 cm/s and distally 93 cm/s. 3. The proximal internal carotid artery velocities are 154 cm/s systolic and 27 cm/s diastolic. 4. The proximal external carotid artery PSV is 134 cm/s. 5. The vertebral artery shows antegrade flow. 6. The subclavian artery waveforms are biphasic. ICA/CCA ratio = 1.5 US/US carotid duplex BI IMPRESSION: 1. RIGHT: There is no hemodynamically significant stenosis 2. LEFT: Borderline hemodynamically significant stenosis. There is mildly elevated velocity in the proximal ICA with a normal ICA/CCA ratio. Peak systolic velocity of the proximal ICA measured 154 cm/s on the current study and 147 cm/s on the prior. Electronically signed by: Grady Anaya MD 10/17/2024 02:34 PM EDT Dictated By: Grady Anaya MD Signed By: <Electronically signed by Grady Anaya MD in OV> 10/17/24 1434 DD/ 1314 TD/TT: 10/17/24 1334 It Sales Executive: Procedure Note Donotuseinterpreter, Image - 10/17/[address] [address] Ultrasound Report Signed Patient: Bell MartinezMR#: [id number] 356 : 1950Acct:[id number] Age/Sex: 74 / FADM Date: 10/17/24 Loc: HO.US Attending Dr: Tyree Gallardo MD Ordering Physician: Tyree Gallardo MD Date of Service: 10/17/24 Procedure(s): US carotid duplex BI Accession Number(s): [id number] cc: Tyree Gallardo MD; Romy Delgadillo MD Reason for Exam: I65.23 - Occlusion and stenosis of bilateral carotidarteries EXAMINATION: US EXTRACRANIAL CAROTID DUPLEX, BILATERAL CLINICAL INFORMATION: I65.23 - Occlusion and stenosis of bilateral carotid arteries COMPARISON: September 05, 2023 TECHNIQUE: Real-time ultrasound and Doppler techniques (integrating B-mode 2-D vascular images, Doppler spectral analysis and color-flow Doppler imaging) were utilized to interrogate the extracranial carotid arteries, the vertebral arteries and proximal subclavian arteries bilaterally. The degree of stenosis is determined by criteria similar to NASCET. FINDINGS: Right Side: 1. There is mild shadowing atherosclerotic plaque seen in the bifurcation/proximal ICA region. 2. The common carotid artery PSV proximally is 102 cm/s and distally 104 cm/s. 3. The proximal internal carotid artery velocities are 102 cm/s systolic and 23 cm/s diastolic. 4. The proximal external carotid artery PSV is 153 cm/s. 5. The vertebral artery shows antegrade flow. 6. The subclavian artery waveforms are biphasic. ICA/CCA ratio = 1.0 Left Side: 1. There is moderate shadowing atherosclerotic plaque seen in the bifurcation/proximal ICA region. 2. The common carotid artery PSV proximally is 100 cm/s and distally 93 cm/s. 3. The proximal internal carotid artery velocities are 154 cm/s systolic and 27 cm/s diastolic. 4. The proximal external carotid artery PSV is 134 cm/s. 5. The vertebral artery shows antegrade flow. 6. The subclavian artery waveforms are biphasic. ICA/CCA ratio = 1.5 US/US carotid duplex BI IMPRESSION: 1. RIGHT: There is no hemodynamically significant stenosis 2. LEFT: Borderline hemodynamically significant stenosis. There is mildly elevated velocity in the proximal ICA with a normal ICA/CCA ratio. Peak systolic velocity of the proximal ICA measured 154 cm/s on the current study and 147 cm/s on the prior. Electronically signed by: Grady Anaya MD 10/17/2024 02:34 PM EDT Dictated By: Grady Anaya MD Signed By: <Electronically signed by Grady Anaya MD in OV> 10/17/24 1434 DD/ 1314 TD/TT: 10/17/24 1334 It Sales Executive: [facility] External Provider CV VASC ULAR PROCEDURES Final Result [facility] [address] [place] [address] * POCT Glucose (10/10/2024 11:48 AM EDT) Glucose Blood, POC 141 60 - 200 [...] AM EDT Narrative 08/20/2024 12:49 PM EDT [facility] [address] [place] [address] [place] [address] XRay Report Signed Patient: Bell Martinez MR#: [id number] 356 : 1950 Acct:[id number] Age/Sex: 74 / F ADM Date: 08/20/24 Loc: HO.HMGCX Attending Dr: Romy Delgadillo MD Ordering Physician: Romy Delgadillo MD Date of Service: 08/20/24 Procedure(s): XR knee LT 2V Accession Number(s): [id number] cc: Romy Delgadillo MD EXAMINATION: XR KNEE [...] 08/20/24 1246 DD/ 1153 TD/TT: 08/20/24 1159 It Sales Executive: Procedure Note Donotuseinterpreter, Image - 08/20/[address] [facility] [address] [place] [address] [place] [address] XRay Report Signed Patient: Bell MartinezMR#: [id number] 356 : 1950Acct:[id number] Age/Sex: 74 / FADM Date: 08/20/24 Loc: .HMGCX Attending Dr: Romy Delgadillo MD Ordering Physician: Romy Delgadillo MD Date of Service: 08/20/24 Procedure(s): XR knee LT 2V Accession Number(s): [id number] cc: Romy Delgadillo MD EXAMINATION: XR KNEE [...] 08/20/24 1246 DD/ 1153 TD/TT: 08/20/24 1159 It Sales Executive: Result [facility] Romy Delgadillo MD IMG XR PROCEDURES Final Result * Fecal Globin By Immunochemistry (08/20/2024 9:52 AM EDT) Stool Rectal contents / Unknown Result [facility] Provider LAB BODY FLUIDS AND STOOL S ORDERABLES Final Result * TSH with Reflex to Free T4 (08/13/2024 12:00 AM EDT) TSH reflex Free T4 1.82 0.32 - 4.0 uIU/mL [facility] Blood Venous blood specimen / Unknown 08/13/2024 08/13/2024 Result [facility] Romy Delgadillo MD LAB BLOOD ORDERABLES Final Resul t [facility] [address] [place] [phone] * (ABNORMAL) Hemoglobin A1c (08/13/2024 12:00 AM EDT) Hemoglobin A1c 6.8(H) <6.0 % [facility] Comment:Hemoglobin A1C Refer ence Range Adults: 4.8 - 6.0 % Non diabetic: < 6.0 % Goal: < 7.0 %Additional Action Suggested: > 8.0 %Note: Hemoglobin A1c results are invalid for patients with abnormal amounts of HbF. Blood transfusions may impact the HbA1c concentration in the patient sample. Estimated Average Glucose 148 mg/dL [facility] Comment:eAG = Estimated ave rage glucose which is %A1C expressed asaverage glucose, using the formula of the K8Y-UpjylbtFlvjikm Glucose study (ADAG), Diabetes Care, Vol.31,#8,2007 Blood Venous blood specimen / Unknown 08/13/2024 08/13/2024 Result [facility] Romy Delgadillo MD LAB BLOOD ORDERABLES Final Resul t Performing Organization Address [facility] Co de Phone Number [facility] [address] [place] [address] [phone] * Hepatic Function Panel (08/13/2024 12:00 AM EDT) Bilirubin, Total 0.6 0.0 - 1.0 mg/dL [facility] Bilirubin, Direct 0.3 0.0 - 0.5 mg/dL [facility] Aspartate Amino Transferase 23 5 - 31 U/L [facility] Alanine Aminotransferase 19 0 - 31 U/L [facility] Total Protein 6.9 6.5 - 8.0 g/dL [facility] Albumin Level 4.1 3.5 - 5.0 g/dL [facility] Alkaline Phosphatase 71 39 - 117 U/L [facility] Blood Venous blood specimen / Unknown 08/13/2024 08/13/2024 Romy Delgadillo MD LAB BLOOD ORDERABLES Final Resul t Performing Organization Address [facility] Co de Phone Number [facility] [address] [place] [address] [phone] * Lipid Panel, Standard (08/13/2024 12:00 AM EDT) Triglycerides 107 <150 mg/dL [facility] Comment:Desirable Triglyceri de: less than 150 mg/dLBorderline High Triglyceride 150-199 mg/dLHigh Triglyceride: 200-499 mg/dLVery High Triglyceride: greater than or equal to 5OO mg/dL Cholesterol 140 <200 mg/dL [facility] Comment:Desirable Cholestero l: less than 200 mg/dLBorderline High Cholesterol: 200-239 mg/dLHigh Cholesterol: greater than 239 mg/dL LDL Cholesterol Calculated 77 <100 mg/dL [facility] Comment:Desirable LDL: less than 100 mg/dLNear Optimal/Above Optimal LDL: 110- 129 mg/dLBorderline High LDL: 130-159 mg/dLHigh LDL: 160-189 mg/dLVery High LDL: greater than or equal to 190 mg/dL HDL Cholesterol 42 >40 mg/dL [facility] Comment:Desirable HDL: great er than 40 mg/dL Note: This HDL assay may give artificially low results in patients with liver disease. Blood Venous blood specimen / Unknown 08/13/2024 08/13/2024 Romy Delgadillo MD LAB BLOOD ORDERABLES Final Resul t Performing Organization Address [facility] Co de Phone Number [facility] [address] [place] [address] [phone] * (ABNORMAL) Basic Metabolic Panel (08/13/2024 12:00 AM EDT) Sodium 140 135 - 145 mmol/L [facility] Potassium 4.2 3.3 - 5.1 mmol/L [facility] Chloride 107 96 - 108 mmol/L [facility] Carbon Dioxide 25 22 - 29 mmol/L [facility] Anion Gap 12 12 - 20 [facility] Urea Nitrogen (BUN) 24(H) 9 - 16 mg/dL [facility] Creatinine, Serum 0.94 0.5 - 1.4 mg/dL [facility] Estimated Glomerular Filt Rate 58 [facility] Comment:Chronic Kidney Disea se: Estimated GFR < 60 mL/min/1.26i2Rdbrqq Kidney Disease: Estimated GFR < 15 mL/min/1.73m2 Glucose 109 60 - 115 mg/dL [facility] Calcium 9.7 8.4 - 10.2 mg/dL [facility] Blood Venous blood specimen / Unknown 08/13/2024 08/13/2024 Romy Delgadillo MD LAB BLOOD ORDERABLES Final Resul t Performing Organization Address [facility] Co de Phone Number [facility] [address] [place] [address] [phone] * (ABNORMAL) Albumin, Random Urine W/Creatinine (03/12/2024 10:02 AM EST) Creatinine, Urine 62.67 mg/dL [facility] Microalbumin Urine 22.0 mg/L H [facility] Microalbum Creatinine Ratio Ur 35.1(H) <30 ug/mg cr [facility] Comment:Albumin/Creatinine R atio Reference Ranges: Normal: < 30 ug/mg creatinine Microalbuminuria: 30 - 300 ug/mg creatinineClinical Albuminuria: > 300 ug/mg creatinine 03/12/2024 10:0 2 AM EST 03/12/2024 2:14 PM EST us Romy Delgadillo MD LAB URINE ORDERABLES Final Resul t [facility] [address] [place] [address] [phone] from Last 3 Months or Most Recently Relevant to Health Maintenance Insurance [facility] * Guarantor: Bell Martinez Account Type Relation to Patient Date of Phone Billing Address Personal/[place] [address] Advance Directives Documents on File Type Date Recorded Patient Deep Tissue Massage Therapist Expl anation Advance Directives and Living Will 01/03/2024 3:40 PM HCP (Wilfredo Martinez) Care Teams Sports Apparel Internship Relationship Specialty Start Date End Date Romy Delgadillo MD [address] [place] [phone] PCP - General Family Medicine 01/27/12
--- OUTSIDE RECORDS SUMMARY | 2024-10-17 15:14 | XMS_ITS | Encounter Summary ---
Author Organization [employer] Address [address] [facility] [address] [place] [address] Care Team Providers Care Optical Glass Silverer Name Role Phone Romy Delgadillo MD Primary Care Provider [phone] Encounter Details Date Type Department Care Team (Late st Contact Info) Description 10/17/2024 Orders Only [facility] External Provider, [facility] Social History Tobacco Use Types Packs/Day Years [...] Procedure Name Priority Date/Time Associated Diagnosis Comments [facility] US CAROTID ARTERY DUPLEX BILATERAL Routine 10/17/2024 1:14 PM EDT documented in this encounter Results * [facility] US Carotid Artery Duplex Bilateral (10/17/2024 1:14 PM EDT) 10/17/2024 1:14 PM EDT Narrative [facility] - 10/17/2024 2:37 PM EDT [place] [address] Ultrasound Report Signed Patient: Bell Martinez MR#: [id number] 356 : 1950 Acct:[id number] Age/Sex: 74 / F ADM Date: 10/17/24 Loc: . Attending Dr: Tyree Gallardo MD Ordering Physician: Tyree Gallardo MD Date of Service: 10/17/24 Procedure(s): US carotid duplex BI Accession Number(s): [id number] cc: Tyree Gallardo MD; Romy Delgadillo MD [...] 10/17/24 1434 DD/ 1314 TD/TT: 10/17/24 1334 Stratigraphy Teacher: Procedure Note Donotuseinterpreter, Image - 10/17/[address] [address] Ultrasound Report Signed Patient: Bell MartinezMR#: [id number] 356 : 1950Acct:[id number] Age/Sex: 74 / FADM Date: 10/17/24 Loc: HO.US Attending Dr: Tyree Gallardo MD Ordering Physician: Tyree Gallardo MD Date of Service: 10/17/24 Procedure(s): US carotid duplex BI Accession Number(s): [id number] cc: Tyree Gallardo MD; Romy Delgadillo MD [...] 10/17/24 1434 DD/ 1314 TD/TT: 10/17/24 1334 Stratigraphy Teacher: [facility] External Provider CV VASC ULAR PROCEDURES Final Result [facility] [address] [place] [phone] documented in this encounter Visit Diagnoses Not on filedocumented in this encounter Additional Health Concerns Assessment Noted Time PHQ-9 Depression Total Score: 1 07/16/19 23 9:56 AM EDT documented as of this encounter Care Teams Optical Glass Silverer Relationship Specialty Start Date End Date Romy Delgadillo MD [address] [place] [phone] PCP - General Family Medicine 01/27/12 documented as of this encounter
--- OUTSIDE RECORDS SUMMARY | 2024-10-17 15:14 | XMS_ITS | Encounter Summary ---
Author Organization [employer] Address [address] [place] [address] [address] [place] [address] Care Team Providers Care Lens Grinder And Polisher Name Role Phone Romy Delgadillo MD Primary Care Provider [phone] Reason for Visit * Reason Comments Med Refill Encounter Details Date Type Department Care Team ([facility] st Contact Info) Description 02/22/2022 Refill [facility] [address] [place], [place] [phone] Romy Delgadillo MD [address] [place] [address] Social History Tobacco Use Types Packs/Day Years [...] on filedocumented in this encounter Care Teams Lens Grinder And Polisher Relationship Specialty Start Date End Date Romy Delgadillo MD [address] [place] [phone] PCP - General Family Medicine 01/27/12 documented as of this encounter
--- OUTSIDE RECORDS SUMMARY | 2024-10-17 15:14 | XMS_ITS | Encounter Summary ---
Author Organization [employer] Address [address] [place] [address] [address] [place] [address] Care Team Providers Care Rent And Miscellaneous Remittance Clerk Name Role Phone Romy Delgadillo MD Primary Care Provider [phone] Reason for Visit * Reason Comments Med Refill Encounter Details Date Type Department Care Team ([facility] st Contact Info) Description 02/23/2022 Refill [facility] [address] [place], [place] [phone] Romy Delgadillo MD [address] [place] [address] Social History Tobacco Use Types Packs/Day Years [...] on filedocumented in this encounter Care Teams Rent And Miscellaneous Remittance Clerk Relationship Specialty Start Date End Date Romy Delgadillo MD [address] [place] [phone] PCP - General Family Medicine 01/27/12 documented as of this encounter
--- OUTSIDE RECORDS SUMMARY | 2024-10-17 15:14 | XMS_ITS | Encounter Summary ---
Author Organization [employer] Address [address] [facility] [address]t [place] [address] Care Team Providers Care Development Administrator Name Role Phone Romy Delgadillo MD Primary Care Provider [phone] Encounter Details Date Type Department Care Team ([facility] st Contact Info) Description 06/23/2022 Orders Only [facility] [address] [place] [address] Mariangel Hurt LPN Social History Tobacco Use [...] on filedocumented in this encounter Care Teams Development Administrator Relationship Specialty Start Date End Date Romy Delgadillo MD [address] [place] [phone] PCP - General Family Medicine 01/27/12 documented as of this encounter
--- OUTSIDE RECORDS SUMMARY | 2024-10-17 15:14 | XMS_ITS | Patient Health Record ---
Author Organization [facility] jonah [place] Address [address] [facility] [place] [address] Care Team Providers Care Grain Elevator Operator Name Role Phone Romy Delgadillo Primary Care Provider Cande Christie Unavailable [phone] Allergies Allergen (clinical drug ingredient) Drug/Non Drug [...] Duration) Notes Start Date End Date Status Gabapentin Active Cephalexin 500 MG 1 capsule Orally twi ce a day; Duration: 10 days 06/18/2024 Active cloNIDine HCl Active Vitamin B 12 Not-Solomon ing Gemfibrozil Active Fish Oil Not-Taking Caltrate 600 Active Night Splint AFO - L1930 as directed 12/26/2017 Not-Taking Centrum Silver Activ e Compression Stockings 20-30mm Hg as directed 12/09/2022 Not-Taking Aspirin Active Extra Depth Orthopedic Shoes (1 Pair) with Customized Heat Molded Multidensity Innersoles (3 Pair) as directed Dx: NIDDM/Polyneuropathy (E11.42), Hammertoe Foot Deformity (M20.41,M20.42), Preulcerative Skin Lesion(s) (L85.1 03/19/2024 Active Atorvastatin Calcium Active Silvadene 1 % 1 application Jig And Fixture Builder Apprentice ally Once a day; Duration: 30 days 05/28/2024 Active amLODIPine Besylate Active Losartan Potassium A ctive Atenolol 100 MG 1 tablet Orally Once a day Active Ammonium Lactate 12 % 1 application Exte rnally to affected areas of dry skin to feet except for between the toes Twice a day; Duration: 30 days Active glipiZIDE Active metFORMIN HCl 500 MG 1 tablet with a dawn l Orally Twice a day Not-Taking oxyBUTYnin Active Levothyroxine Sodium Active Extra Depth Orthopedic Shoes (1 Pair) with Customized Heat Molded Multidensity Innersoles (3 Pair) Dx: NIDDM/Polyneuropathy (E11.42), Hammertoe Foot Deformity (M20.41,M20.42), Preulcerative Skin Lesion(s) (L85.1); Duration: 365 days 10/08/2024 Active Ciclopirox 8 % 1 application Jig And Fixture Builder Apprentice ally Once a day; Duration: 90 days 12/09/2022 Not-Taking Immunizations Vaccine Route Administration Date Status Comme nts Influenza Unknown 12/22/2015 Administered Influenza Unknown 10/18/2016 Administered Influenza Unknown 10/18/2017 Administered Influenza Unknown 10/18/2018 Administered Influenza Unknown 11/23/2019 Administered Influenza Unknown 10/15/2020 Administered Influenza Unknown 10/15/2022 Administered Influenza Unknown 11/15/2023 Administered Pneumococcal Unknown 12/22/2015 Administered 2nd dose COVID-19 Moderna Vaccine Unknown 05/05/2020 Administere d First Dose: 04/14/2020 Social History Tobacco Use: Social History Observation [...] Status W/U Status Risk Notes Problem Acquired hammer toe of right foot (4609084352657646 ) Other hammer toe(s) (acquired), right foot (M20.41) Active confirmed Problem Acquired hammer toe of left foot (3905166579431283 ) Other hammer toe(s) (acquired), left foot (M20.42) Active confirmed Problem Polyneuropathy due to type 2 diabetes mellitus (330454282) Type 2 diabetes mellitus with diabetic polyneuropathy (E11.42) Active confirmed Problem Ulcer of toe (357967033) Skin ulcer of toe of right foot, limited to breakdown of skin (L97.511) Active confirmed Vital Signs Blood pressure diastolic 70 mm Hg 10/08/2024 Height 5ft5in in 10/08/2024 Blood pressure systolic 121 mm Hg 10/08/2024 Weight 224 lbs 10/08/2024 BMI 37.27 kg/m2 10/08/2024 Procedures Procedure Date Ordered Date Performed Result Body Sit e 67044- Debride <25 sq cm 12/01/2023 N/A 47002-VUZNPMY NAIL, 6 OR MORE 12/15/2023 N/A 16594- Debride <25 sq cm 12/15/2023 N/A 56130-IJQQ SKIN LESIONS, OVER 4 12/15/2023 N/A 93965-VPHRQGB NAIL, 6 OR MORE 03/19/2024 N/A 51394- Debride <25 sq cm 03/19/2024 N/A 60581-RMPL SKIN LESIONS, OVER 4 03/19/2024 N/A 41272- Debride <25 sq cm 04/05/2024 N/A 73886-ARXKCYS SKIN/TISSUE 05/28/2024 N/A 13492-EMKBHAV NAIL, 6 OR MORE 06/18/2024 N/A 02935-WKZPYFM SKIN/TISSUE 06/18/2024 N/A 57005-KLXO SKIN LESIONS, OVER 4 06/18/2024 N/A 81515 - Tenotomy, open flexor 07/16/2024 N/A 12500-GSFXFUM NAIL, 6 OR MORE 10/08/2024 N/A 92430- Debride <25 sq cm 10/08/2024 N/A 21798-DMYZ SKIN LESIONS, OVER 4 10/08/2024 N/A Encounters Encounter Location Date Provider Diagnosis [facility] [address] [place] [address] 12/01/2023 Cande Black Pain in right toe(s) M79.674 ; Other hammer toe(s) (acquired), right foot M20.41 and Skin ulcer of toe of right foot, limited to breakdown of skin L97.[address] [address] 12/15/2023 Cande Black Type 2 diabetes mellitus with diabetic polyneuropathy E11.42 ; Tinea unguium B35.1 ; Skin ulcer of toe of right foot, limited to breakdown of skin L97.511 and Hammer toe of right foot M20.[address] [address] 03/19/2024 Cande Black Type 2 diabetes mellitus with diabetic polyneuropathy E11.42 ; Tinea unguium B35.1 ; Skin ulcer of toe of right foot, limited to breakdown of skin L97.511 ; Cellulitis of toe of right foot L03.031 ; Xerosis of skin L85.3 ; Other hammer toe(s) (acquired), left foot M20.42 and Other hammer toe(s) (acquired), right foot M20.[address] [address] 04/05/2024 Cande Black Type 2 diabetes mellitus with diabetic polyneuropathy E11.42 ; Other hammer toe(s) (acquired), right foot M20.41 ; Skin ulcer of toe of right foot, limited to breakdown of skin L97.511 and Cellulitis of toe of right foot L03.[address] [address] 05/28/2024 Cande Black Skin ulcer of toe of right foot with fat layer exposed L97.512 and Type 2 diabetes mellitus with diabetic polyneuropathy E11.[address] [address] 06/18/2024 Cande Black Skin ulcer of toe of right foot with fat layer exposed L97.512 ; Type 2 diabetes mellitus with diabetic polyneuropathy E11.42 and Tinea unguium B35.[address] [address] 07/16/2024 Cande Black Hammer toe of right foot M20.[address] [address] 07/23/2024 Cande Black Hammer toe of right foot M20.[address] [address] 10/08/2024 Cande Black Type 2 diabetes mellitus with diabetic polyneuropathy E11.42 ; Tinea unguium B35.1 ; Other hammer toe(s) (acquired), right foot M20.41 ; Other hammer toe(s) (acquired), left foot M20.42 and Skin ulcer of toe of right foot, limited to breakdown of skin L97.[address] [address] 12/01/2023 Candecarmen Vogt [facility] [address] 12/15/2023 Cande Black [facility] [address] 05/24/2024 Cande Black [facility] [address] 06/14/2024 Cande Black [facility] [address] 06/18/2024 Cande Vogt [facility] [address] 07/06/2024 Candemarley Vogt Assessments Encounter Date Diagnosis [...] of right foot (ICD-10 - M20.41) Improvement 10/08/2024 Type 2 diabetes mellitus with diabetic polyneuropathy (ICD-10 - E11.42) 10/08/2024 Tinea unguium (ICD-10 - B35.1) 04/05/2024 Skin ulcer of toe of right foot, limited to breakdown of skin (ICD-10 - L97.511) Response to treatment - Improvement Patient Educated with: WOUND CARE INSTRUCTIONS. pdf (WOUND CARE INSTRUCTIONS. pdf) 10/08/2024 Other hammer toe(s) (acquired), right foot (ICD-10 - M20.41) Patient Educated with: DIABETIC FOOT CARE INSTRUCTIONS. pdf (DIABETIC FOOT CARE INSTRUCTIONS. pdf) 06/18/2024 Tinea unguium (ICD-10 [...] toe of right foot (ICD-10 - L03.031) 10/08/2024 Other hammer toe(s) (acquired), left foot (ICD-10 - M20.42) 03/19/2024 Cellulitis of toe of right foot (ICD-10 - L03.031) 10/08/2024 Skin ulcer of toe of right foot, limited to breakdown of skin (ICD-10 - L97.511) Patient Educated with: WOUND CARE INSTRUCTIONS. pdf (WOUND CARE INSTRUCTIONS. pdf) 03/19/2024 Xerosis of skin (ICD-10 - L85.3) [...] X ray : Foot, left 3V 07/23/2019 99037-IPFYXTE NAIL, 6 OR MORE 07/23/2019 99319-NZQSDTZ NAIL, 6 OR MORE 01/04/2019 67733-IIEAPQV NAIL, 6 OR MORE 04/12/2019 59994-IHYVVGI NAIL, 6 OR MORE 12/26/2017 72308-WPEPZTQ NAIL, 6 OR MORE 03/27/2018 67972-QZUPAXX NAIL, 6 OR MORE 06/26/2018 14923-CQMNITZ NAIL, 6 OR MORE 10/02/2018 20729-SLJFIHL NAIL, 6 OR MORE 12/04/2015 26682-AKVFYAM NAIL, 6 OR MORE 03/04/2016 76875-BIDXXBR NAIL, 6 OR MORE 06/03/2016 48551-HZMUVFJ NAIL, 6 OR MORE 10/11/2016 15347-LPGZLNX NAIL, 6 OR MORE 12/27/2016 16386-DMGOZTQ NAIL, 6 OR MORE 03/28/2017 20218-AWGMGTF NAIL, 6 OR MORE 06/27/2017 93949-AAYKRMB NAIL, 6 OR MORE 09/26/2017 64582-XMPBFRN NAIL, 6 OR MORE 10/15/2019 06254-PMEFCED NAIL, 6 OR MORE 01/21/2020 94400-LJMWBUF NAIL, 6 OR MORE 05/05/2020 67223-LFLJOGD NAIL, 6 OR MORE 09/22/2020 35255-OTYBQSN NAIL, 6 OR MORE 12/29/2020 32073-HOSJTOC NAIL, 6 OR MORE 04/20/2021 34922-ILNJFVE NAIL, 6 OR MORE 07/30/2021 93386-NCVVRFG NAIL, 6 OR MORE 11/05/2021 28107-ZUMHOGX NAIL, 6 OR MORE 02/25/2022 96569-QADTNQP NAIL, 6 OR MORE 05/27/2022 39663-ZIMRQTQ NAIL, 6 OR MORE 09/02/2022 13178-KCMMWDG NAIL, 6 OR MORE 12/09/2022 37219-BVTTOZK NAIL, 6 OR MORE 04/18/2023 35979-WLEXNWT NAIL, 6 OR MORE 03/19/2024 36489-QDCDVWI NAIL, 6 OR MORE 12/15/2023 56312-AVULQQH NAIL, 6 OR MORE 06/18/2024 13034-PPMHSOL NAIL, 6 OR MORE 10/08/2024 25173-Ulyhwsgn Plate 04/20/2021 75785-Bkwwzxub Plate 05/05/2020 98994-Mmcfruxw Plate 10/15/2019 86094-Wuroypzl Plate 06/27/2017 47562-Jhnnahsq Plate 10/11/2016 79510-Rsklkzzy Plate 06/03/2016 63761- Debride <25 sq cm 01/21/2020 35701- Debride <25 sq cm 10/06/2020 57084- Debride <25 sq cm 09/22/2020 12753- Debride <25 sq cm 07/30/2021 21359- Debride <25 sq cm 10/08/2024 17882- Debride <25 sq cm 03/19/2024 94901- Debride <25 sq cm 04/05/2024 01000- Debride <25 sq cm 08/01/2023 50626- Debride <25 sq cm 08/15/2023 43430- Debride <25 sq cm 12/01/2023 46600- Debride <25 sq cm 12/15/2023 67282-YKGEWZQ SKIN/TISSUE 05/28/2024 29494-KMBULBY SKIN/TISSUE 06/18/2024 13744 I&D ABSCESS- SIMPLE,SINGLE , J0702- INJECT or DRAIN, JOINT/BUR SA 07/23/2019, J0702- INJECT or DRAIN, JOINT/BUR SA 10/15/2019 64062-MMPR SKIN LESIONS, OVER 4 12/04/19 16 12642-JQKC SKIN LESIONS, OVER 4 07/23/19 20 24887-ZSKR SKIN LESIONS, OVER 4 04/12/19 20 26704-NMHY SKIN LESIONS, OVER 4 01/05/20 19 57345-HGIO SKIN LESIONS, OVER 4 10/03/19 19 66334-CLOC SKIN LESIONS, OVER 4 03/27/19 19 38139-DGUO SKIN LESIONS, OVER 4 06/27/19 19 28639-YNNB SKIN LESIONS, OVER 4 10/12/19 17 03018-NCGN SKIN LESIONS, OVER 4 06/04/19 17 71893-WBDB SKIN LESIONS, OVER 4 03/04/19 17 04685-NIRZ SKIN LESIONS, OVER 4 09/27/19 18 56979-WYXP SKIN LESIONS, OVER 4 12/27/19 18 39833-LTFW SKIN LESIONS, OVER 4 06/28/19 18 42931-FBWN SKIN LESIONS, OVER 4 12/28/19 17 29159-QDYS SKIN LESIONS, OVER 4 03/28/19 18 98015-VYFT SKIN LESIONS, OVER 4 05/28/19 23 13571-ILBR SKIN LESIONS, OVER 4 09/03/19 23 08292-FZRX SKIN LESIONS, OVER 4 04/18/19 24 62641-OXAI SKIN LESIONS, OVER 4 12/10/19 23 04453-SMHV SKIN LESIONS, OVER 4 07/31/19 22 61761-JZEV SKIN LESIONS, OVER 4 11/06/19 22 87751-PBLF SKIN LESIONS, OVER 4 02/25/19 23 05325-YFHT SKIN LESIONS, OVER 4 09/23/19 21 86450-JBFY SKIN LESIONS, OVER 4 04/21/19 22 84726-OUUA SKIN LESIONS, OVER 4 12/30/19 21 76243-WRYF SKIN LESIONS, OVER 4 05/06/19 21 71440-WWEI SKIN LESIONS, OVER 4 10/15/19 20 30818-CAHO SKIN LESIONS, OVER 4 01/21/20 20 44449-AINO SKIN LESIONS, OVER 4 06/19/19 25 04984-MWGM SKIN LESIONS, OVER 4 03/19/19 74452-DLHG SKIN LESIONS, OVER 4 12/15/19 24 83988-XXBV SKIN LESIONS, OVER 4 08/01/19 24 64459-QORQ SKIN LESIONS, OVER 4 10/09/19 25 40442, M5429-JPOCY/INJECT, JOINT/BURSA 0 05/27/2022 60357 - Tenotomy, open flexor 07/16/2024 Next Appt Details Provider Name:Cande Vogt , 01/24/2025 01:30:00 PM, [address] [place], [address], Insurance Providers Payer Name Payer Address Payer Phone Subscriber Number Group Number Insured Name Patient Relationship to Insured Coverage Start Date Coverage End Date [employer] Medicare Complete [address] [address] [place] [address] [id number] Bell Martinez Self - patient is the [...] hammer toe(s) (acquired), left cherelle t M20.42 Type 1 diabetes mellitus with diabetic p olyneuropathy E10.42 Hammer toe of right foot M20.41 Surgical History Surgery Date(Month/Year) tonsillectomy 1974 teeth extraction 1992 hysterectomy 1994 xrays L jhonatan ap/lat/mo 07/23/19 cataract surgery- both eyes 06/04
--- OUTSIDE RECORDS SUMMARY | 2024-10-17 15:14 | XMS_ITS | Encounter Summary ---
Author Organization [employer] Address [address] [facility] [address] [place] [address] Care Team Providers Care Patent Agent Name Role Phone Romy Delgadillo MD Primary Care Provider [phone] Reason for Visit * Reason Onset Date Comments Immunizations 11/25/2022 Encounter Details Date Type Department Care Team ([facility] Contact Info) Description 11/25/2022 Telephone [facility] PED[facility] [address], [place] [phone] Romy Delgadillo MD [address] [place] [address] Immunizations Social History Tobacco Use Types Packs/Day [...] the RSV vaccine. Please contact pt at [phone] documented in this encounter Plan of Treatment Not on file documented as of this encounter Visit Diagnoses Not on filedocumented in this encounter Additional Health Concerns Assessment Noted Time PHQ-9 Depression Total Score: 1 07/16/19 23 9:56 AM EDT documented as of this encounter Care Teams Patent Agent Relationship Specialty Start Date End Date Romy Delgadillo MD [address] [place] [address] PCP - General Family Medicine 01/27/12 documented as of this encounter
--- OUTSIDE RECORDS SUMMARY | 2024-10-17 15:14 | XMS_ITS | Encounter Summary ---
Author Organization [employer] Address [address] [facility] [address] [place] [address] Care Team Providers Care Longwall Shearer Operator Name Role Phone Romy Delgadillo MD Primary Care Provider [phone] Reason for Visit * Reason Comments Med Refill Encounter Details Date Type Department Care Team ([facility] Contact Info) Description 07/03/2024 Refill [facility] CH[facility] MED & PEDS [address] [place], [place] [phone] Romy Delgadillo MD [address] [place] [address] Type 2 diabetes mellitus without complication, without long-term current use of insulin ([facility]); Acquired hypothyroidism; Primary hypertension Social History Tobacco [...] complication, without long-term current use of insulin ([facility]) Acquired hypothyroidism Unspecified hypothyroidism Primary hypertension Unspecified essential hypertension documented in this encounter Additional Health Concerns Assessment Noted Time PHQ-9 Depression Total Score: 1 07/16/19 23 9:56 AM EDT documented as of this encounter Care Teams Longwall Shearer Operator Relationship Specialty Start Date End Date Romy Delgadillo MD [address] [place] [address] PCP - General Family Medicine 01/27/12 documented as of this encounter
--- OUTSIDE RECORDS SUMMARY | 2024-10-17 15:14 | XMS_ITS | Encounter Summary ---
Author Organization [employer] Address [address] [facility] [address] [place] [address] Care Team Providers Care Atomic Fuel Assembler Name Role Phone Romy Delgadillo MD Primary Care Provider [phone] Reason for Visit * Reason Comments Med Refill Encounter Details Date Type Department Care Team ([facility] Contact Info) Description 07/29/2023 Refill [facility] MED & PEDS [address] [place], [place] [phone] Romy Delgadillo MD [address] [place] [address] Type 2 diabetes mellitus without complication, without long-term current use of insulin ([facility]); Acquired hypothyroidism; Benign hypertension Social History Tobacco [...] complication, without long-term current use of insulin ([facility]) Acquired hypothyroidism Unspecified hypothyroidism Benign hypertension Essential hypertension, benign documented in this encounter Additional Health Concerns Assessment Noted Time PHQ-9 Depression Total Score: 1 07/16/19 23 9:56 AM EDT documented as of this encounter Care Teams Atomic Fuel Assembler Relationship Specialty Start Date End Date Romy Delgadillo MD [address] [place] [address] PCP - General Family Medicine 01/27/12 documented as of this encounter
== END 2024-10-17 12:51 | disposition home or self-care (01) ==
LOC: HO.US 12:50
PROVIDERS: PCP Student in an Organized Health Care Education/Training Program; Visit Provider Surgery Vascular Surgery
DX: I65.23 Occlusion and stenosis of bilateral carotid arteries (principal); I73.9 Peripheral vascular disease, unspecified
CPT/HCPCS: 93880; 93922; 93925

== ENCOUNTER → 2024-10-17 12:52 | Outpatient (BNV) | payer MEDICARE, SELFPAY | PROVIDERS: PCP Student in an Organized Health Care Education/Training Program; Visit Provider Radiology Diagnostic Radiology | DX: I65.22 Occlusion and stenosis of left carotid artery (principal); I70.202 Unspecified atherosclerosis of native arteries of extremities, left leg | CPT/HCPCS: 93880; 93922; 93925 ==

== ENCOUNTER 2024-10-23 13:03 | Outpatient (AMB) | payer MEDICARE, SELFPAY ==
--- NOTE | 2024-10-23 13:04 | A.OFFVIS_ITS ---
Intake Visit Reasons: 1y follow up s/p Carotid/Arterial US 10/17/24 Intake Note: Patient presents for 1 year follow up s/p carotid/arterial US performed on 10/17. Accompanied by: Spouse Allergies lisinopril Allergy (Verified 10/23/24 13:06) Cough adhesive tape Adverse Reaction (Intermediate, Verified 10/23/24 13:06) Rash HPI HPI 1y follow up s/p Carotid/Arterial US 10/17/24: Details: The patient is a 74-year-old female presenting with annual carotid surveillance. The patient underwent a carotid ultrasound on October 17, 2024, which revealed that the right carotid artery is clear, while the left carotid artery shows mild stenosis, considered low risk and not requiring intervention at this time. The patient reports knee pain, specifically in the left knee, which affects her mobility. She uses a walker for support during ambulation. The patient is awaiting further evaluation and potential intervention for her knee, including a possible reconstruction procedure by Orthopedics The patient has a history of diabetes mellitus, which complicates healing, particularly in the presence of foot injuries. She has a toe injury from stubbing it on a door, which is healing slowly due to her diabetic condition. The patient also has hammer toes. Now presents for carotid and arterial follow-up. [facility] Medical History COVID-19 vaccine series completed Increased BMI Back pain, lumbosacral Arthritis Bone spur of ankle Plantar fasciitis Diabetes Hypothyroid Steatohepatitis Hypercholesteremia Hypertension Surgical History Hx of cataract surgery History of dental surgery History of hysterectomy History of tonsillectomy Family History Mother Rheumatoid arthritis Gout Diabetes Father Lung cancer Hypertension Social History Are you a primary healthcare facility administrator to a significant other at home: No Do you presently have visiting nurse or other home services: No Patient Tobacco Use Status: Former Tobacco user Tobacco use type: Cigarette Current occupational status: retired Current occupation: Right handed Review of Systems Const All systems reviewed & are unremarkable except as noted in HPI and below Reports no additional complaints ENT Reports Normal hearing present Card Denies chest pain, Denies chest pain at rest, Denies chest pain with activity and Denies pedal edema Resp Denies cough GI Denies abdominal pain Musc Denies abnormal gait, Denies muscle cramps and Denies radiating pain into limb Skin/Breast Denies skin ulcer and Denies wounds Neuro Reports Normal hearing present and Denies abnormal gait Psych Reports no additional complaints Physical Exam Const General: cooperative, healthy appearing and comfortable Orientation/consciousness: oriented to person, oriented to place and oriented to time HEENT Head: Yes normal to inspection Neck Neck: Yes normal visual inspection Carotids: no bruits Chest Chest palpation & inspection: normal inspection of the chest Resp Effort & Inspection: normal respiratory effort and able to speak in complete sentences Auscultation: clear to auscultation bilaterally, no crackles, no rales, no rhonchi and no wheezes Cardio Rate: regular rate Rhythm: regular rhythm Heart sounds: S1 normal heart sound present and S2 normal heart sound present Bruits: no carotid bruits Peripheral pulses: Peripheral pulses 2+ throughout GI Inspection: Yes normal to inspection Skin Wounds: no wounds Hair: normal Neuro General: oriented to person, oriented to place and oriented to time Cranial nerves: Yes CN's II-XII intact bilaterally and Yes Normal hearing present Cognition (Neuro): normal cognition Motor exam (neuro): 5/5 motor strength present throughout Extrem Other: venous exam: No significant superficial varicosities or spider telangiectasias, minimal edema General: No clubbing, No cyanosis and No edema Psych Appearance: grossly normal Mental Status: mental status grossly normal Speech and movement: Normal speech and movement present Results Reviewed Results Reviewed: Carotid testing dated 10/17/2024 demonstrates right side no see significant hemodynamic stenosis. Left side 50-79% with a peak systolic of 154. Lower extremity arterial testing demonstrates BAKARI on the right of 0.71 and up the left 0.66. Assessment & Plan Assessment & Plan (1) PAD (peripheral artery disease): Code(s): I73.9 - Peripheral vascular disease, unspecified Category: Medical Plan: In short patient has stable claudication. I did review the pathophysiology of peripheral vascular disease with the patient. In addition we did discuss routine conservative measures including a healthy diet and the importance of exercise and ambulation. We did discuss risk factor modification. The patient will continue to to follow-up with surveillance follow-up in approximately 1 year. Thank you for allowing us to participate in this patient's care. If there are any questions or concerns please do not hesitate to contact us. (2) Bilateral carotid artery stenosis: Code(s): I65.23 - Occlusion and stenosis of bilateral carotid arteries Category: Medical Plan: In short patient has asymptomatic carotid disease. We have reviewed signs and symptoms of a stroke. We also discussed risk factor modification inclusive a healthy diet low in cholesterol. The patient will follow up with us with surveillance ultrasound of the carotids 1 year. Should there be any changes or signs or symptoms of a stroke we will be happy to see them back sooner. Thank you for allowing us to participate in this patient's care. If there are any questions or concerns please do not hesitate to contact us. Plan Patient was informed and verbally consented to the use of an ambient scribe for clinic note documentation during this visit. Orders: Orders US carotid duplex BI 1 Year I65.23 - Occlusion and stenosis of bilateral carotid arteries US arterial duplex LE BI 1 Year I73.9 - Peripheral vascular disease, unspecified Patient Instructions: - Schedule a follow-up carotid ultrasound in one year. - Continue using a walker for support and mobility. - Monitor blood glucose levels regularly and maintain foot care to prevent complications from diabetes. Coding Level of Care Code Est Pt Level 4 (41367) Diagnoses PAD (peripheral artery disease) I73.9 Bilateral carotid artery stenosis I65.23
--- OUTSIDE RECORDS SUMMARY | 2024-10-23 15:19 | XMS_ITS | Encounter Summary ---
Author Organization [employer] Address [address] [place] [address] Care Team Providers Care Water Quality Assistant Name Role Phone Romy Delgadillo MD Primary Care Provider [phone] Reason for Visit * Reason Onset Date Comments Immunizations 11/25/2022 Encounter Details Date Type Department Care Team ([facility] Contact Info) Description 11/25/2022 Telephone [facility] [address], [place] [phone] Romy Delgadillo MD [address] [place] [address] Immunizations Social History Tobacco Use Types Packs/Day [...] the RSV vaccine. Please contact pt at [phone] documented in this encounter Plan of Treatment Not on file documented as of this encounter Visit Diagnoses Not on filedocumented in this encounter Additional Health Concerns Assessment Noted Time PHQ-9 Depression Total Score: 1 07/16/19 23 9:56 AM EDT documented as of this encounter Care Teams Water Quality Assistant Relationship Specialty Start Date End Date Romy Delgadillo MD [address] [place] [id number] PCP - General Family Medicine 01/27/12 documented as of this encounter
--- OUTSIDE RECORDS SUMMARY | 2024-10-23 15:19 | XMS_ITS | Clinical Summary ---
Author Organization [employer] Address [address] [facility] [address] [place] [address] Care Team Providers Care Power Saw Mechanic Name Role Phone Romy Delgadillo MD Primary Care Provider [phone] Allergies Active Allergy Reactions Criticality Noted Date Comments Lisinopril Cough 03/21/2014 Other reaction(s): coughing Medications Lancets (OneTouch Delica Plus [id number]) misc CHECK TWICE DAILY 200 each 11 [...] complication, without long-term current use of insulin ([facility]),Acquire d hypothyroidism TAKE 2 TABLETS BY MOUTH BEFORE BREAKFAST AND 4 TABLETS BY MOUTH BEFORE SUPPER 600 tablet 2 09/01/19 25 Active Accu-Chek Softclix Lancets lancetsIndication s:Type 2 diabetes mellitus without complication, without long-term current use of insulin ([facility]) CHECK BLOOD SUGAR TWICE DAILY 100 each 11 10/03/19 25 Active glucose blood (Accu-Chek Guide Test) test stripIndications: Type 2 diabetes mellitus without complication, without long-term current use of insulin ([facility]) CHECK BLOOD SUGAR TWICE DAILY 100 each 11 10/03/19 25 Active Blood Glucose Monitoring Suppl (Accu-Chek Guide Me) w/Device kitIndications:Ty pe 2 diabetes mellitus without complication, without long-term current use of insulin ([facility]) CHECK BLOOD SUGAR TWICE DAILY 1 kit [...] Encounters Date Type Department Care Team Description 10/23/2024 Telephone [facility] [address] [place] [address] Romy Delgadillo MD Call Back Request 10/17/2024 Orders Only [facility] External Provider, [facility] 10/10/2024 11:15 AM EDT Office Visit [facility] [address] [place] [address] Romy Delgadillo MD Type 2 diabetes mellitus without complication, without long-term current use of insulin ([facility]) (Primary Dx); Benign hypertension; Hypercholesterolemia; Bilateral chronic knee pain 10/10/2024 Travel 10/09/2024 Telephone [facility] [address] [place] [address] Romy Delgadillo MD Chart Prep 10/03/2024 Patient Outreach [address] [address] Romy Delgadillo MD Pre-visit Planning (Pre visit planning LVM ) 10/01/2024 Refill [facility] [address] [place] [address] Romy Delgadillo MD Type 2 diabetes mellitus without complication, without long-term current use of insulin (CMS/HCC) 09/27/2024 Telephone [facility] [address] [place] [address] Romy Delgadillo MD 09/12/2024 Telephone [facility] [address] [place] [address] Romy Delgadillo MD 08/31/[address] [address] Romy Delgadillo MD Med Refill 08/31/2024 Refill [facility] [address] [place] [address] Romy Delgadillo MD Benign hypertension; Type 2 diabetes mellitus without complication, without long-term current use of insulin ([facility]); Acquired hypothyroidism 08/28/2024 Orders Only [facility] [address] [place] [address] Nimco Acevedo MD 08/20/2024 Telephone [facility] [address] [place] [address] Romy Delgadillo MD Results 08/16/2024 Refill [facility] [address] [place] [address] Romy Delgadillo MD Primary hypertension 08/15/2024 Telephone [facility] [address] [place] [address] Romy Delgadillo MD Referral 08/15/2024 Orders Only [facility] [address] [place] [address] Romy Delgadillo MD Chronic pain of left knee (Primary Dx) 08/14/2024 Telephone [facility] [address] [place] [address] Romy Delgadillo MD Call 07/24/2024 Telephone [facility] [address] [place] [address] Romy Delgadillo MD Referral; FYI from Last 3 Months Immunizations Immunization Administration [...] Procedure Name Priority Date/Time Associated Diagnosis Comments [facility] LOWER EXTREMITY ARTERIAL DUPLEX BILATERAL WITH SHERI Routine 10/17/2024 1:43 PM EDT [facility] US CAROTID ARTERY DUPLEX BILATERAL Routine 10/17/2024 1:14 PM EDT POCT GLUCOSE Routine 10/10/2024 11:48 AM EDT Type 2 diabetes mellitus without complication, without long-term current use of insulin ([facility]) XR KNEE 1-2 VIEWS LEFT Routine 11:53 AM EDT Chronic pain of left knee FECAL GLOBIN BY IMMUNOCHEMISTRY Routine 08/20/2024 9:52 AM EDT HEMOGLOBIN A1C Routine 08/13/2024 12:00 AM EDT Type 2 diabetes mellitus without complication, without long-term current use of insulin ([facility]) TSH W/REFLEX TO FT4 Routine 08/13/2024 1 [...] Recently Relevant to Health Maintenance Results * [facility] US Lower Extremity Arterial Duplex Bilateral With Sheri (10/17/2024 1:43 PM EDT) 10/17/2024 1:43 PM EDT [facility] - 10/17/2024 3:36 PM EDT [place] [address] Ultrasound Report Signed Patient: Bell Martinez MR#: [id number] 356 : 1950 Acct:[id number] Age/Sex: 74 / F ADM Date: 10/17/24 Loc: .US Attending Dr: Tyree Gallardo MD Ordering Physician: Tyree Gallardo MD Date of Service: 10/17/24 Procedure(s): US arterial duplex BI w/ SHERI Accession Number(s): [id number] cc: Tyree Gallardo MD; Romy Delgadillo MD Reason for Exam: I73.9 - Peripheral vascular disease, unspecified EXAMINATION: Noninvasive assessment of the bilateral lower extremities with ARTERIAL DUPLEX, ANKLE BRACHIAL INDICES (ABIs), and PULSE VOLUME RECORDINGS (PVRs). CLINICAL INFORMATION: Full vascular disease. TECHNIQUE: Duplex Doppler techniques with waveform analysis and measurement of velocities in the bilateral common femoral, profunda femoris, superficial femoral, popliteal and tibial arteries were performed. Additionally, ankle pulse volume recordings, ankle pressure measurements and ankle brachial indices were obtained of the lower extremity arterial system bilaterally. The study was performed only at rest. COMPARISON: September 03, 2023 FINDINGS: DIRECT DUPLEX DOPPLER FINDINGS: RIGHT LEG: Common femoral artery: 154 cm/s, phasicity: Biphasic. Profunda femoris artery: 163 cm/s, phasicity: Biphasic. Superficial femoral artery (proximal): 110 cm/s, phasicity: Monophasic. Superficial femoral artery (mid): 142 cm/s, phasicity: Monophasic. Superficial femoral artery (distal): 190 cm/s, phasicity: Monophasic. Spectral broadening. Popliteal artery: 55 cm/s, phasicity: Monophasic. Posterior tibial artery: 31 cm/s, phasicity: Monophasic. Spectral broadening. Peroneal artery: No color Doppler flow. Anterior tibial artery: 87 cm/s, phasicity: Monophasic. Spectral broadening. Dorsalis pedis artery: 71 cm/s, phasicity:Monophasic. Spectral broadening. LEFT LEG: Common femoral artery: 136 cm/s, phasicity: Biphasic. Spectral broadening. Profunda femoris artery: 210 cm/s, phasicity: Monophasic. Superficial femoral artery (proximal): 92 cm/s, phasicity: Monophasic. Spectral broadening. Superficial femoral artery (mid): 454 cm/s, phasicity: Monophasic. Spectral broadening. Superficial femoral artery (distal): 76 cm/s, phasicity: Monophasic. Spectral broadening. Popliteal artery: 98 cm/s, phasicity: Monophasic. Spectral broadening. Posterior tibial artery: No color Doppler flow. Peroneal artery: No color Doppler flow. Anterior tibial artery: 54 cm/s, phasicity: Monophasic. Spectral broadening. Dorsalis pedis artery: 41 cm/s, phasicity: Monophasic. Spectral broadening. There is a 2.9 x 1.7 x 1.2 cm lobulated anechoic abnormality without flow on color Doppler interrogation or internal echoes centered in the left popliteal fossa. BRACHIAL PRESSURES: Right: 135 Left: 139 ANKLE PRESSURES: Right: PT 78, DP 99 Left: PT not recorded., DP 92 ANKLE-BRACHIAL INDEX: Right: 0.71 Left: 0.66 ANKLE PVR WAVEFORMS: Right: Abnormal Left: Abnormal US/US arterial duplex BI w/ SHERI IMPRESSION: Right leg: Severe inflow disease from the superficial femoral artery to the dorsalis pedis artery. Left leg: Moderate to severe inflow disease throughout the interrogated arteries with likely high degree stenosis in the mid superficial femoral artery. 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 2.9 cm popliteal cyst. SHERI Reference: - >1.4 = calcified vessels - 0.9 - 1.4 = normal - no significant arterial disease - 0.7 - 0.89 = mild peripheral arterial disease - 0.51 - 0.69 = moderate peripheral arterial disease - 0.50 = severe peripheral arterial disease - < .30 = critical arterial disease Electronically signed by: Enrique Atkinson MD 10/17/2024 03:32 PM EDT RP Dictated By: Enrique Georges MD Signed By: <Electronically signed by Enrique De Luna MD in OV> 10/17/24 1532 DD/ 1343 TD/TT: 10/17/24 1413 M48 M60 Armor Crewman: Procedure Note Donotuseinterpreter, Image - 10/17/2024 [place] [address] Ultrasound Report Signed Patient: Bell Martinez#: [id number] 356 : 1950Acct:[id number] Age/Sex: 74 / FADM Date: 10/17/24 Loc: . Attending Dr: Tyree Gallardo MD Ordering Physician: Tyree Gallardo MD Date of Service: 10/17/24 Procedure(s): US arterial duplex BI w/ SHERI Accession Number(s): [id number] cc: Tyree Gallardo MD; Romy Delgadillo MD Reason for Exam: I73.9 - Peripheral vascular disease, unspecified EXAMINATION: Noninvasive assessment of the bilateral lower extremities with ARTERIAL DUPLEX, ANKLE BRACHIAL INDICES (ABIs), and PULSE VOLUME RECORDINGS (PVRs). CLINICAL INFORMATION: Full vascular disease. TECHNIQUE: Duplex Doppler techniques with waveform analysis and measurement of velocities in the bilateral common femoral, profunda femoris, superficial femoral, popliteal and tibial arteries were performed. Additionally, ankle pulse volume recordings, ankle pressure measurements and ankle brachial indices were obtained of the lower extremity arterial system bilaterally. The study was performed only at rest. COMPARISON: September 03, 2023 FINDINGS: DIRECT DUPLEX DOPPLER FINDINGS: RIGHT LEG: Common femoral artery: 154 cm/s, phasicity: Biphasic. Profunda femoris artery: 163 cm/s, phasicity: Biphasic. Superficial femoral artery (proximal): 110 cm/s, phasicity: Monophasic. Superficial femoral artery (mid): 142 cm/s, phasicity: Monophasic. Superficial femoral artery (distal): 190 cm/s, phasicity: Monophasic. Spectral broadening. Popliteal artery: 55 cm/s, phasicity: Monophasic. Posterior tibial artery: 31 cm/s, phasicity: Monophasic. Spectral broadening. Peroneal artery: No color Doppler flow. Anterior tibial artery: 87 cm/s, phasicity: Monophasic. Spectral broadening. Dorsalis pedis artery: 71 cm/s, phasicity:Monophasic. Spectral broadening. LEFT LEG: Common femoral artery: 136 cm/s, phasicity: Biphasic. Spectral broadening. Profunda femoris artery: 210 cm/s, phasicity: Monophasic. Superficial femoral artery (proximal): 92 cm/s, phasicity: Monophasic. Spectral broadening. Superficial femoral artery (mid): 454 cm/s, phasicity: Monophasic. Spectral broadening. Superficial femoral artery (distal): 76 cm/s, phasicity: Monophasic. Spectral broadening. Popliteal artery: 98 cm/s, phasicity: Monophasic. Spectral broadening. Posterior tibial artery: No color Doppler flow. Peroneal artery: No color Doppler flow. Anterior tibial artery: 54 cm/s, phasicity: Monophasic. Spectral broadening. Dorsalis pedis artery: 41 cm/s, phasicity: Monophasic. Spectral broadening. There is a 2.9 x 1.7 x 1.2 cm lobulated anechoic abnormality without flow on color Doppler interrogation or internal echoes centered in the left popliteal fossa. BRACHIAL PRESSURES: Right: 135 Left: 139 ANKLE PRESSURES: Right: PT 78, DP 99 Left: PT not recorded., DP 92 ANKLE-BRACHIAL INDEX: Right: 0.71 Left: 0.66 ANKLE PVR WAVEFORMS: Right: Abnormal Left: Abnormal US/US arterial duplex BI w/ SHERI IMPRESSION: Right leg: Severe inflow disease from the superficial femoral artery to the dorsalis pedis artery. Left leg: Moderate to severe inflow disease throughout the interrogated arteries with likely high degree stenosis in the mid superficial femoral artery. 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 2.9 cm popliteal cyst. SHERI Reference: - >1.4 = calcified vessels - 0.9 - 1.4 = normal - no significant arterial disease - 0.7 - 0.89 = mild peripheral arterial disease - 0.51 - 0.69 = moderate peripheral arterial disease - 0.50 = severe peripheral arterial disease - < .30 = critical arterial disease Electronically signed by: Enrique Atkinson MD 10/17/2024 03:32 PM EDT RP Dictated By: Enrique Georges MD Signed By: <Electronically signed by Enrique De Luna MDin OV> 10/17/24 1532 DD/ 1343 TD/TT: 10/17/24 1413 M48 M60 Armor Crewman: [facility] External Provider CV VASC ULAR PROCEDURES Final Result Performing Organization Address City/State/[facility] Co de Phone Number [facility] [address] [place] [address] * VASC US Carotid Artery Duplex Bilateral (10/17/2024 1:14 PM EDT) 10/17/2024 1:14 PM EDT Narrative [facility] - 10/17/2024 2:37 PM EDT [address] [address] Ultrasound Report Signed Patient: Bell Martinez MR#: [id number] 356 : 1950 Acct:[id number] Age/Sex: 74 / F ADM Date: 10/17/24 Loc: .US Attending Dr: Tyree Gallardo MD Ordering Physician: Tyree Gallardo MD Date of Service: 10/17/24 Procedure(s): US carotid duplex BI Accession Number(s): [id number] cc: Tyree Gallardo MD; Romy Delgadillo MD [...] 10/17/24 1434 DD/ 1314 TD/TT: 10/17/24 1334 M48 M60 Armor Crewman: Procedure Note Donotuseinterpreter, Image - 10/17/[address] [address] Ultrasound Report Signed Patient: Bell MartinezMR#: [id number] 356 : 1950Acct:[id number] Age/Sex: 74 / FADM Date: 10/17/24 Loc: HO.US Attending Dr: Tyree Gallardo MD Ordering Physician: Tyree Gallardo MD Date of Service: 10/17/24 Procedure(s): US carotid duplex BI Accession Number(s): [id number] cc: Tyree Gallardo MD; Romy Delgadillo MD [...] 10/17/24 1434 DD/ 1314 TD/TT: 10/17/24 1334 M48 M60 Armor Crewman: [facility] External Provider CV VASC ULAR PROCEDURES Final Result [facility] [address] [place] [phone] * POCT Glucose (10/10/2024 11:48 AM EDT) [...] AM EDT Narrative 08/20/2024 12:49 PM EDT [facility] [address] [place] [address] [place] [address] XRay Report Signed Patient: Bell Martinez MR#: [id number] 356 : 1950 Acct:[id number] Age/Sex: 74 / F ADM Date: 08/20/24 Loc: HO.HMGCX Attending Dr: Romy Delgadillo MD Ordering Physician: Romy Delgadillo MD Date of Service: 08/20/24 Procedure(s): XR knee LT 2V Accession Number(s): [id number] cc: Romy Delgadillo MD EXAMINATION: XR KNEE [...] Emiliano Justice MD 08/20/2024 12:46 PM EDT Dictated By: Emiliano Justice MD Signed By: <Electronically signed by Emiliano Justice MD in OV> 08/20/24 1246 DD/ 1153 TD/TT: 08/20/24 1159 M48 M60 Armor Crewman: Procedure Note Donotuseinterpreter, Image - 08/20/2024 [facility] [address] [place] [address] XRay Report Signed Patient: Bell MartinezMR#: [id number] 356 : 1950Acct:[id number] Age/Sex: 74 / FADM Date: 08/20/24 Loc: HO.HMGCX Attending Dr: Romy Delgadillo MD Ordering Physician: Romy Delgadillo MD Date of Service: 08/20/24 Procedure(s): XR knee LT 2V Accession Number(s): [id number] cc: Romy Delgadillo MD EXAMINATION: XR KNEE [...] 08/20/24 1246 DD/ 1153 TD/TT: 08/20/24 1159 M48 M60 Armor Crewman: Romy Delgadillo MD IMG XR PROCEDURES Final Result * Fecal Globin By Immunochemistry (08/20/2024 9:52 AM EDT) Stool Rectal contents / Unknown [facility] Provider LAB BODY FLUIDS AND STOOL S ORDERABLES Final Result * TSH with Reflex to Free T4 (08/13/2024 12:00 AM EDT) TSH reflex Free T4 1.82 0.32 - 4.0 uIU/mL [facility] Blood Venous blood specimen / Unknown 08/13/2024 08/13/2024 Romy Delgadillo MD LAB BLOOD ORDERABLES Final Resul t [facility] [address] [place] [phone] [phone] * (ABNORMAL) Hemoglobin A1c (08/13/2024 12:00 AM EDT) Hemoglobin A1c 6.8(H) <6.0 % [facility] Comment:Hemoglobin A1C Refer ence Range Adults: 4.8 - 6.0 % Non diabetic: < 6.0 % Goal: < 7.0 %Additional Action Suggested: > 8.0 %Note: Hemoglobin A1c results are invalid for patients with abnormal amounts of HbF. Blood transfusions may impact the HbA1c concentration in the patient sample. Estimated Average Glucose 148 mg/dL [facility] Comment:eAG = Estimated ave rage glucose which is %A1C expressed asaverage glucose, using the formula of the J4U-GrpdwypXogekse Glucose study (ADAG), Diabetes Care, Vol.31,#8,Sep. 2007 Blood Venous blood specimen / Unknown 08/13/2024 08/13/2024 Romy Delgadillo MD LAB BLOOD ORDERABLES Final Resul t Performing Organization Address [facility]/ZIP Co de Phone Number [facility] [address] [place] [phone] * Hepatic Function Panel (08/13/2024 12:00 AM EDT) Bilirubin, Total 0.6 0.0 - 1.0 mg/dL [facility] Bilirubin, Direct 0.3 0.0 - 0.5 mg/dL [facility] Aspartate Amino Transferase 23 5 - 31 U/L [facility] Alanine Aminotransferase 19 0 - 31 U/L [facility] Total Protein 6.9 6.5 - 8.0 g/dL [facility] Albumin Level 4.1 3.5 - 5.0 g/dL [facility] Alkaline Phosphatase 71 39 - 117 U/L [facility] Blood Venous blood specimen / Unknown 08/13/2024 08/13/2024 Romy Delgadillo MD LAB BLOOD ORDERABLES Final Resul t Performing Organization Address City/[facility]/ZIP Co de Phone Number [facility] [address] [place] [phone] * Lipid Panel, Standard (08/13/2024 12:00 AM EDT) Triglycerides 107 <150 mg/dL [facility] Comment:Desirable Triglyceri de: less than 150 mg/dLBorderline High Triglyceride 150-199 mg/dLHigh Triglyceride: 200-499 mg/dLVery High Triglyceride: greater than or equal to 5OO mg/dL Cholesterol 140 <200 mg/dL [facility] Comment:Desirable Cholestero l: less than 200 mg/dLBorderline High Cholesterol: 200-239 mg/dLHigh Cholesterol: greater than 239 mg/dL LDL Cholesterol Calculated 77 <100 mg/dL [facility] Comment:Desirable LDL: less than 100 mg/dLNear Optimal/Above Optimal LDL: 110- 129 mg/dLBorderline High LDL: 130-159 mg/dLHigh LDL: 160-189 mg/dLVery High LDL: greater than or equal to 190 mg/dL HDL Cholesterol 42 >40 mg/dL [facility] Comment:Desirable HDL: great er than 40 mg/dL Note: This HDL assay may give artificially low results in patients with liver disease. Blood Venous blood specimen / Unknown 08/13/2024 08/13/2024 us Romy Delgadillo MD LAB BLOOD ORDERABLES Final Resul t [facility] [address] [place] [phone] [phone] * (ABNORMAL) Basic Metabolic Panel (08/13/2024 12:00 AM EDT) Sodium 140 135 - 145 mmol/L [facility] Potassium 4.2 3.3 - 5.1 mmol/L [facility] Chloride 107 96 - 108 mmol/L [facility] Carbon Dioxide 25 22 - 29 mmol/L [facility] Anion Gap 12 12 - 20 [facility] Urea Nitrogen (BUN) 24(H) 9 - 16 mg/dL [facility] Creatinine, Serum 0.94 0.5 - 1.4 mg/dL [facility] Estimated Glomerular Filt Rate 58 [facility] Comment:Chronic Kidney Disea se: Estimated GFR < 60 mL/min/[id number] Kidney Disease: Estimated GFR < 15 mL/min/1.73m2 Glucose 109 60 - 115 mg/dL [facility] Calcium 9.7 8.4 - 10.2 mg/dL [facility] Blood Venous blood specimen / Unknown 08/13/2024 08/13/2024 Romy Delgadillo MD LAB BLOOD ORDERABLES Final Resul t Performing Organization Address [place]/[facility] de Phone Number [facility] [address] [place] [phone] * (ABNORMAL) Albumin, Random Urine W/Creatinine (03/12/2024 10:02 AM EST) Creatinine, Urine 62.67 mg/dL [facility] Microalbumin Urine 22.0 mg/L [facility] Microalbum Creatinine Ratio Ur 35.1(H) <30 ug/mg cr [facility] Comment:Albumin/Creatinine R atio Reference Ranges: Normal: < 30 ug/mg creatinine Microalbuminuria: 30 - 300 ug/mg creatinineClinical Albuminuria: > 300 ug/mg creatinine 03/12/2024 10:0 2 AM EST 03/12/2024 2:14 PM EST Romy Delgadillo MD LAB URINE ORDERABLES Final Resul t Performing Organization Address [place]/[facility] de Phone Number [facility] [address] [place] [phone] from Last 3 Months or Most Recently Relevant to Health Maintenance Insurance [facility] MEDICARE ADVANTAGE * Guarantor: Bell Martinez Account Type Relation to Patient Date of Phone Billing Address Personal/Family Self [address] [place] Advance Directives Documents on File Type Date Recorded Patient Housekeeper Home Expl anation Advance Directives and Living Will 01/03/2024 3:40 PM HCP (Wilfredo Martinez) Care Teams Power Saw Mechanic Relationship Specialty Start Date End Date Romy Delgadillo MD [address] [place] [phone] PCP - General Family Medicine 01/27/12
--- OUTSIDE RECORDS SUMMARY | 2024-10-23 15:19 | XMS_ITS | Encounter Summary ---
Author Organization [employer] Address [address] [place] [address] [address] [place] [address] Care Team Providers Care Property Management Specialist Name Role Phone Romy Delgadillo MD Primary Care Provider [phone] Reason for Visit * Reason Comments Med Refill Encounter Details Date Type Department Care Team ([facility] st Contact Info) Description 02/22/2022 Refill [facility] [address] [place], [place] [phone] Romy Delgadillo MD [address] [place] [address] Social History Tobacco Use Types Packs/Day Years [...] on filedocumented in this encounter Care Teams Property Management Specialist Relationship Specialty Start Date End Date Romy Delgadillo MD [address] [place] [phone] PCP - General Family Medicine 01/27/12 documented as of this encounter
--- OUTSIDE RECORDS SUMMARY | 2024-10-23 15:19 | XMS_ITS | Encounter Summary ---
Author Organization [employer] Address [address] [place] [address] [address] [place] [address] Care Team Providers Care Head Boys Tennis Coach Name Role Phone Romy Delgadillo MD Primary Care Provider Reason for Visit * Reason Comments Med Refill Encounter Details Date Type Department Care Team ([facility] st Contact Info) Description 02/23/2022 Refill [facility] [address] [place], [place] [phone] Romy Delgadillo MD [address] [place] [address] Social History Tobacco Use Types Packs/Day Years [...] on filedocumented in this encounter Care Teams Head Boys Tennis Coach Relationship Specialty Start Date End Date Romy Delgadillo MD [address] [place] [phone] PCP - General Family Medicine 01/27/12 documented as of this encounter
--- OUTSIDE RECORDS SUMMARY | 2024-10-23 15:19 | XMS_ITS | Encounter Summary ---
Author Organization [employer] Address 75 [facility] 7t [place] [address] Care Team Providers Care Maintenance Foreman Name Role Phone Romy Delgadillo MD Primary Care Provider [phone] Reason for Visit * Reason Comments Med Refill Encounter Details Date Type Department Care Team ([facility] Contact Info) Description 07/29/2023 Refill [facility] CHC MED & PEDS [address] [place], [place] [phone] Romy Delgadillo MD [address] [place] [address] Type 2 diabetes mellitus without complication, without long-term current use of insulin ([facility]); Acquired hypothyroidism; Benign hypertension Social History Tobacco [...] long-term current use of insulin ([facility]) Acquired hypothyroidism Unspecified hypothyroidism Benign hypertension Essential hypertension, benign documented in this encounter Additional Health Concerns Assessment Noted Time PHQ-9 Depression Total Score: 1 07/16/19 23 9:56 AM EDT documented as of this encounter Care Teams Maintenance Foreman Relationship Specialty Start Date End Date Romy Delgadillo MD [address] [place] [address] PCP - General Family Medicine 01/27/12 documented as of this encounter
--- OUTSIDE RECORDS SUMMARY | 2024-10-23 15:19 | XMS_ITS | Encounter Summary ---
Author Organization [employer] Address 75 [facility] 7t [place] [address] Care Team Providers Care Choir Leader Name Role Phone Romy Delgadillo MD Primary Care Provider [phone] Reason for Visit * Reason Onset Date Comments Glucose Meter 12/28/2022 Encounter Details Date Type Department Care Team ([facility] st Contact Info) Description 12/28/2022 Telephone [facility] CHC MED & PEDS [address] [place], [place] [phone] Romy Delgadillo MD [address] [place] [address] Glucose Meter Social History Tobacco Use Types Packs/Day Years Used Date Smoking Tobacco: Former Cigarettes Smokeless Tobacco: Never Alcohol Use Standard Drinks/Week Comments Never 0 (1 standard drink = 0.6 oz pur e alcohol) Depression Answer Date Recorded Patient Health Questionnaire-9 Score 1 07/15/2022 Housing Stability Answer Date Recorded What is your housing situation today? I have jyaden amos 12/03/[address] you [...] Please sent to [facility] - [address] documented in this encounter Plan of Treatment Not on file documented as of this encounter Visit Diagnoses Not on filedocumented in this encounter Additional Health Concerns Assessment Noted Time PHQ-9 Depression Total Score: 1 07/16/19 23 9:56 AM EDT documented as of this encounter Care Teams Choir Leader Relationship Specialty Start Date End Date Romy Delgadillo MD [address] [place] [address] PCP - General Family Medicine 01/27/12 documented as of this encounter
--- OUTSIDE RECORDS SUMMARY | 2024-10-23 15:19 | XMS_ITS | Encounter Summary ---
Author Organization [employer] Address 75 [facility] 7t [place] [address] Care Team Providers Care Putty Tinter Maker Name Role Phone Romy Delgadillo MD Primary Care Provider [phone] Encounter Details Date Type Department Care Team ([facility] st Contact Info) Description 06/23/2022 Orders Only [facility] CHC MED & PEDS [address] [place] [address] Mariangel Hurt LPN Social History Tobacco Use [...] on filedocumented in this encounter Care Teams Putty Tinter Maker Relationship Specialty Start Date End Date Romy Delgadillo MD [address] [place] [address] PCP - General Family Medicine 01/27/12 documented as of this encounter
--- OUTSIDE RECORDS SUMMARY | 2024-10-23 15:19 | XMS_ITS | Encounter Summary ---
Author Organization [employer] Address 75 [facility] 7t [place] [address] Care Team Providers Care Field Adjuster Name Role Phone Romy Delgadillo MD Primary Care Provider [phone] Reason for Visit * Reason Onset Date Comments Call Back Request 10/23/2024 Encounter Details Date Type Department Care Team ([facility] Contact Info) Description 10/23/2024 Telephone [facility] CHC MED & PEDS [address] [place] [address] Romy Delgadillo MD [address] [place] [address] Call Back Request Social History Tobacco Use Types Packs/Day Years [...] encounter Miscellaneous Notes * Telephone Encounter - Ban Retana RN - 10/23/2024 1:39 PM EDT TC placed to patient [phone] in regards to below message. Patient did not answer, RN left VM requesting CB to [facility] RN's. Patient to f/u PRN. * Telephone Encounter - Paramjit Bautista - 10/23/2024 11:34 AM EDT Tc from pt returning call regarding message prior stating she also has an appt coming up at 12:30. * Telephone Encounter - Minoo Gallagher RN - 10/23/2024 11:16 AM EDT Tc from pt requesting a call back to discuss ortho referral Contact pt at [phone] TC placed to pt to discuss ortho referral pt has an appointment today at 1 pm with ortho per notes in chart left a message for a call back * Telephone Encounter - Dayanna Brady - 10/23/2024 8:39 AM EDT Tc from pt requesting a call back to discuss ortho referral Contact pt at [phone] documented in this encounter Plan of Treatment Not on file documented as of this encounter Visit Diagnoses Not on filedocumented in this encounter Additional Health Concerns Assessment Noted Time PHQ-9 Depression Total Score: 1 07/16/19 23 9:56 AM EDT documented as of this encounter Care Teams Field Adjuster Relationship Specialty Start Date End Date Romy Delgadillo MD [address] [place] [address] PCP - General Family Medicine 01/27/12 documented as of this encounter
--- OUTSIDE RECORDS SUMMARY | 2024-10-23 15:19 | XMS_ITS | Encounter Summary ---
Author Organization [employer] Address 75 [facility] 7t [place] [address] Care Team Providers Care Manager Transport Name Role Phone Romy Delgadillo MD Primary Care Provider [phone] Reason for Visit * Reason Onset Date Comments Call 08/14/2024 Encounter Details Date Type Department Care Team ([facility] st Contact Info) Description 08/14/2024 Telephone [facility] [address] [place] [address] Romy Delgadillo MD [address] [place], [place] [phone] Call Social History Tobacco Use Types Packs/Day Years Used Date Smoking Tobacco: Former Cigarettes Passive Smoke Exposure: Past Smokeless Tobacco: Never Alcohol Use Standard Drinks/Week Comments Never 0 (1 standard drink = 0.6 oz pur e alcohol) Depression Answer Date Recorded Patient Health Questionnaire-9 Score 1 07/15/2022 Housing Stability Answer Date Recorded What is your housing situation today? I have ajyden amos 07/13/[address] you [...] 3 time today 08/14. Contact pt at [phone] documented in this encounter Plan of Treatment Not on file documented as of this encounter Visit Diagnoses Not on filedocumented in this encounter Additional Health Concerns Assessment Noted Time PHQ-9 Depression Total Score: 1 07/16/19 23 9:56 AM EDT documented as of this encounter Care Teams Manager Transport Relationship Specialty Start Date End Date Romy Delgadillo MD [address] [place] [address] PCP - General Family Medicine 01/27/12 documented as of this encounter
--- OUTSIDE RECORDS SUMMARY | 2024-10-23 15:19 | XMS_ITS | Encounter Summary ---
Author Organization [employer] Address [address] [facility] [address] 7t [place] [address] Care Team Providers Care Financial Wellness Coach Name Role Phone Romy Delgadillo MD Primary Care Provider [phone] Encounter Details Date Type Department Care Team ([facility] Contact Info) Description 08/28/2024 Orders Only [facility] CHC MED & PEDS [address] [place], [place] [phone] Provider, MD [place] Social History Tobacco Use [...] documented as of this encounter Care Teams Financial Wellness Coach Relationship Specialty Start Date End Date Romy Delgadillo MD [address] [place] [address] PCP - General Family Medicine 01/27/12 documented as of this encounter
--- OUTSIDE RECORDS SUMMARY | 2024-10-23 15:19 | XMS_ITS | Encounter Summary ---
Author Organization [employer] Address 75 [facility] 7t [place] [address] Care Team Providers Care Auto Job Estimator Name Role Phone Romy Delgadillo MD Primary Care Provider [phone] Reason for Visit * Reason Comments Med Refill Encounter Details Date Type Department Care Team ([facility] Contact Info) Description 03/08/[address] [facility] CHC MED & PEDS [address] [place], [place] [phone] Romy Delgadillo MD [address] [place] [address] Social History Tobacco Use Types Packs/Day Years [...] documented as of this encounter Care Teams Auto Job Estimator Relationship Specialty Start Date End Date Romy Delgadillo MD [address] [place] [address] PCP - General Family Medicine 01/27/12 documented as of this encounter
--- OUTSIDE RECORDS SUMMARY | 2024-10-23 15:19 | XMS_ITS | Patient Health Record ---
Author [facility] [place] Address [address] [facility] [place] [address] Care Team Providers Care Talent Solutions Manager Name Role Phone Romy Delgadillo Primary Care Provider Cande Christie Unavailable [phone] Allergies Allergen (clinical drug ingredient) Drug/Non Drug [...] Calcium Active Silvadene 1 % 1 application [employer] Once a day; Duration: 30 days [...] 10/08/2024 Active Ciclopirox 8 % 1 application [employer] Once a day; Duration: 90 days [...] Problem Acquired hammer toe of right foot (6057110744935257 ) Other hammer toe(s) (acquired), right foot (M20.41) Active confirmed Problem Acquired hammer toe of left foot (2990534669836126 ) Other hammer toe(s) (acquired), left foot (M20.42) Active confirmed Problem Polyneuropathy due to type 2 diabetes mellitus (070527042) Type 2 diabetes mellitus with diabetic polyneuropathy (E11.42) Active confirmed Problem Ulcer of toe (486100410) Skin ulcer of toe of right foot, limited to breakdown of skin (L97.511) Active confirmed Vital Signs Blood pressure diastolic 70 mm Hg 10/08/2024 Height 5ft5in in 10/08/2024 Blood pressure systolic 121 mm Hg 10/08/2024 Weight 224 lbs 10/08/2024 BMI 37.27 kg/m2 10/08/2024 Procedures Procedure Date Ordered Date Performed Result Body Sit e 50939- Debride <25 sq cm 12/01/2023 N/A 30953-AJIFRDD NAIL, 6 OR MORE 12/15/2023 N/A 78352- Debride <25 sq cm 12/15/2023 N/A 49979-WVPJ SKIN LESIONS, OVER 4 12/15/2023 N/A 75979-RYOXOIM NAIL, 6 OR MORE 03/19/2024 N/A 75831- Debride <25 sq cm 03/19/2024 N/A 20814-UFED SKIN LESIONS, OVER 4 03/19/2024 N/A 94599- Debride <25 sq cm 04/05/2024 N/A 90243-SGFVPJE SKIN/TISSUE 05/28/2024 N/A 69271-WZDMEMU NAIL, 6 OR MORE 06/18/2024 N/A 01462-CMMPTBC SKIN/TISSUE 06/18/2024 N/A 58241-PHNZ SKIN LESIONS, OVER 4 06/18/2024 N/A 69019 - Tenotomy, open flexor 07/16/2024 N/A 81233-YJDQRMK NAIL, 6 OR MORE 10/08/2024 N/A 09412- Debride <25 sq cm 10/08/2024 N/A 09228-YJMI SKIN LESIONS, OVER 4 10/08/2024 N/A Encounters Encounter Location Date Provider Diagnosis [facility] [address] [place] [address] 12/01/2023 Cande Black Pain in right toe(s) M79.674 ; Other hammer toe(s) (acquired), right foot M20.41 and Skin ulcer of toe of right foot, limited to breakdown of skin L97.[address] [address] 12/15/2023 Cande Black Type 2 diabetes mellitus with diabetic polyneuropathy E11.42 ; Tinea unguium B35.1 ; Skin ulcer of toe of right foot, limited to breakdown of skin L97.511 and Hammer toe of right foot M20.[address] [address] 03/19/2024 Cande Black Type 2 diabetes mellitus with diabetic polyneuropathy E11.42 ; Tinea unguium B35.1 ; Skin ulcer of toe of right foot, limited to breakdown of skin L97.511 ; Cellulitis of toe of right foot L03.031 ; Xerosis of skin L85.3 ; Other hammer toe(s) (acquired), left foot M20.42 and Other hammer toe(s) (acquired), right foot M20.[address] [address] 04/05/2024 Cande Black Type 2 diabetes mellitus with diabetic polyneuropathy E11.42 ; Other hammer toe(s) (acquired), right foot M20.41 ; Skin ulcer of toe of right foot, limited to breakdown of skin L97.511 and Cellulitis of toe of right foot L03.[address] [address] 05/28/2024 Cande Black Skin ulcer of toe of right foot with fat layer exposed L97.512 and Type 2 diabetes mellitus with diabetic polyneuropathy E11.[address] [address] 06/18/2024 Cande Black Skin ulcer of toe of right foot with fat layer exposed L97.512 ; Type 2 diabetes mellitus with diabetic polyneuropathy E11.42 and Tinea unguium B35.[address] [address] 07/16/2024 Cande Black Hammer toe of right foot M20.[address] [address] 07/23/2024 Cande Black Hammer toe of right foot M20.[address] [address] 10/08/2024 Cande Black Type 2 diabetes mellitus with diabetic polyneuropathy E11.42 ; Tinea unguium B35.1 ; Other hammer toe(s) (acquired), right foot M20.41 ; Other hammer toe(s) (acquired), left foot M20.42 and Skin ulcer of toe of right foot, limited to breakdown of skin L97.[address] [address] 12/01/2023 Candecarmen Vogt [facility] [address] 12/15/2023 Cande Black [facility] [address] 05/24/2024 Cande Black [facility] [address] 06/14/2024 Cande Black [facility] [address] 06/18/2024 Cande Vogt [facility] [address] 07/06/2024 Candemarley Vogt Assessments Encounter Date Diagnosis [...] X ray : Foot, left 3V 07/23/2019 15794-YEWVKDC NAIL, 6 OR MORE 07/23/2019 72373-ORDGQDG NAIL, 6 OR MORE 01/04/2019 49606-HXATYOX NAIL, 6 OR MORE 04/12/2019 60723-WIGRDAG NAIL, 6 OR MORE 12/26/2017 87553-NRLBJGM NAIL, 6 OR MORE 03/27/2018 65466-ASEXCBM NAIL, 6 OR MORE 06/26/2018 65608-FORXDXD NAIL, 6 OR MORE 10/02/2018 82365-XGFAWVY NAIL, 6 OR MORE 12/04/2015 97747-ALDSKXG NAIL, 6 OR MORE 03/04/2016 10920-JYSGDWU NAIL, 6 OR MORE 06/03/2016 48016-PGQBUGK NAIL, 6 OR MORE 10/11/2016 52697-UNJKHCB NAIL, 6 OR MORE 12/27/2016 76821-HCFFRIQ NAIL, 6 OR MORE 03/28/2017 95778-CIYXSKT NAIL, 6 OR MORE 06/27/2017 33440-TDZGVKB NAIL, 6 OR MORE 09/26/2017 32461-PDHJCCV NAIL, 6 OR MORE 10/15/2019 90049-SPACGBX NAIL, 6 OR MORE 01/21/2020 15052-WNWLYGP NAIL, 6 OR MORE 05/05/2020 12278-LJETAEA NAIL, 6 OR MORE 09/22/2020 41003-UBZJPYE NAIL, 6 OR MORE 12/29/2020 56714-OVGFGSL NAIL, 6 OR MORE 04/20/2021 62567-ESQMAKR NAIL, 6 OR MORE 07/30/2021 26132-FNQLSLX NAIL, 6 OR MORE 11/05/2021 51765-TTAVWFF NAIL, 6 OR MORE 02/25/2022 49471-OJNMOSN NAIL, 6 OR MORE 05/27/2022 69605-AKQENTR NAIL, 6 OR MORE 09/02/2022 66242-VTXYWBX NAIL, 6 OR MORE 12/09/2022 00160-DYUXWMC NAIL, 6 OR MORE 04/18/2023 12201-CHBKIQX NAIL, 6 OR MORE 03/19/2024 75851-KGPBTMF NAIL, 6 OR MORE 12/15/2023 72402-VROAVNJ NAIL, 6 OR MORE 06/18/2024 31930-PHDDJQO NAIL, 6 OR MORE 10/08/2024 07655-Trrwtjgl Plate 04/20/2021 39430-Smhaypfi Plate 05/05/2020 95889-Obnxyahn Plate 10/15/2019 04555-Rqvudvfp Plate 06/27/2017 06222-Tzswljwp Plate 10/11/2016 17194-Edzhlvbb Plate 06/03/2016 61186- Debride <25 sq cm 01/21/2020 29325- Debride <25 sq cm 10/06/2020 23937- Debride <25 sq cm 09/22/2020 35709- Debride <25 sq cm 07/30/2021 72247- Debride <25 sq cm 10/08/2024 43333- Debride <25 sq cm 03/19/2024 77038- Debride <25 sq cm 04/05/2024 65462- Debride <25 sq cm 08/01/2023 54529- Debride <25 sq cm 08/15/2023 29526- Debride <25 sq cm 12/01/2023 50364- Debride <25 sq cm 12/15/2023 79444-NENXBPW SKIN/TISSUE 05/28/2024 41436-ACFCNFI SKIN/TISSUE 06/18/2024 33834 I&D ABSCESS- SIMPLE,SINGLE , J0702- INJECT or DRAIN, JOINT/BUR SA 07/23/2019, J0702- INJECT or DRAIN, JOINT/BUR SA 10/15/2019 37522-LHAJ SKIN LESIONS, OVER 4 12/04/19 16 69781-USBU SKIN LESIONS, OVER 4 07/23/19 20 69452-MNKV SKIN LESIONS, OVER 4 04/12/19 20 40270-EYMU SKIN LESIONS, OVER 4 01/05/20 19 10971-OQSQ SKIN LESIONS, OVER 4 10/03/19 19 63478-PFFO SKIN LESIONS, OVER 4 03/27/19 19 44712-VSWB SKIN LESIONS, OVER 4 06/27/19 19 79225-NOCI SKIN LESIONS, OVER 4 10/12/19 17 36532-NODK SKIN LESIONS, OVER 4 06/04/19 17 92584-KONS SKIN LESIONS, OVER 4 03/04/19 17 34813-OGWS SKIN LESIONS, OVER 4 09/27/19 18 68073-QBZA SKIN LESIONS, OVER 4 12/27/19 18 30660-VXJL SKIN LESIONS, OVER 4 06/28/19 18 17648-SGMV SKIN LESIONS, OVER 4 12/28/19 17 05600-NPCN SKIN LESIONS, OVER 4 03/28/19 18 03127-OAGH SKIN LESIONS, OVER 4 05/28/19 23 40918-ESDW SKIN LESIONS, OVER 4 09/03/19 23 41954-FVDJ SKIN LESIONS, OVER 4 04/18/19 24 11082-JBRM SKIN LESIONS, OVER 4 12/10/19 23 22936-HYVY SKIN LESIONS, OVER 4 07/31/19 22 79379-NEBX SKIN LESIONS, OVER 4 11/06/19 22 55791-UNKB SKIN LESIONS, OVER 4 02/25/19 23 09106-WWER SKIN LESIONS, OVER 4 09/23/19 21 97429-YQKI SKIN LESIONS, OVER 4 04/21/19 22 86901-GYDM SKIN LESIONS, OVER 4 12/30/19 21 48868-KJFN SKIN LESIONS, OVER 4 05/06/19 21 28219-HKBQ SKIN LESIONS, OVER 4 10/15/19 20 24590-MRQU SKIN LESIONS, OVER 4 01/21/20 20 72997-OUEH SKIN LESIONS, OVER 4 06/19/19 25 42846-HNLG SKIN LESIONS, OVER 4 03/19/19 21746-OZJJ SKIN LESIONS, OVER 4 12/15/19 24 85577-KTRB SKIN LESIONS, OVER 4 08/01/19 24 21938-LUQE SKIN LESIONS, OVER 4 10/09/19 25 62896, X8296-TMPAU/INJECT, JOINT/BURSA 0 05/27/2022 33775 - Tenotomy, open flexor 07/16/2024 Next Appt Details Provider Name:Cande Vogt , 01/24/2025 01:30:00 PM, [address] [place], [address], Insurance Providers Payer Name Payer Address Payer Phone Subscriber Number Group Number Insured Name Patient Relationship to Insured Coverage Start Date Coverage End Date [employer] Medicare Complete [address] [address] [place] [address] [phone] [id number] Bell Martinez Self - patient is the [...]
--- OUTSIDE RECORDS SUMMARY | 2024-10-23 15:19 | XMS_ITS | Encounter Summary ---
Author Organization [employer] Address 75 [facility] 7t [place] [address] Care Team Providers Care Transitional Kindergarten Teacher Name Role Phone Romy Delgadillo MD Primary Care Provider [phone] Reason for Visit * Reason Comments Med Refill Encounter Details Date Type Department Care Team ([facility] Contact Info) Description 07/03/2024 Refill [facility] CHC MED & PEDS [address] [place], [place] [phone] Romy Delgadillo MD [address] [place] [address] Type 2 diabetes mellitus without complication, without long-term current use of insulin ([facility]); Acquired hypothyroidism; Primary hypertension Social History [...] complication, without long-term current use of insulin ([facility]) Acquired hypothyroidism Unspecified hypothyroidism Primary hypertension Unspecified essential hypertension documented in this encounter Additional Health Concerns Assessment Noted Time PHQ-9 Depression Total Score: 1 07/16/19 23 9:56 AM EDT documented as of this encounter Care Teams Transitional Kindergarten Teacher Relationship Specialty Start Date End Date Romy Delgadillo MD [address] [place] [address] PCP - General Family Medicine 01/27/12 documented as of this encounter
== END 2024-10-23 13:42 | disposition home or self-care (01) ==
LOC: HO.HVS 13:03
PROVIDERS: PCP Student in an Organized Health Care Education/Training Program; Visit Provider Surgery Vascular Surgery
DX: I73.9 Peripheral vascular disease, unspecified (principal); I65.23 Occlusion and stenosis of bilateral carotid arteries
CPT/HCPCS: 99214

== ENCOUNTER → 2024-10-23 13:03 | Outpatient (BNVA) | payer MEDICARE, SELFPAY | PROVIDERS: PCP Student in an Organized Health Care Education/Training Program; Visit Provider Surgery Vascular Surgery | DX: I65.23 Occlusion and stenosis of bilateral carotid arteries (principal); I73.9 Peripheral vascular disease, unspecified | CPT/HCPCS: 99212 ==

== ENCOUNTER 2024-12-27 14:34 | Outpatient (REF) | payer MEDICARE, SELFPAY ==
--- OUTSIDE RECORDS SUMMARY | 2024-12-06 09:00 | XMS_ITS ---
Author Organization [facility] Address [address] [place] [address] Care Team Providers Care Combination Welder Apprentice Name Role Phone Romy Delgadillo Primary Care Provider Cande Christie [phone] REASON FOR VISIT Cx per Dr Vogt Encounters Encounter Location Date Provider Diagnosis [facility] [address] [place] [address] 12/06/2024 Cande Vogt Plan Of Treatment Next Appt Details Provider Name:Cande Vogt , 01/24/2025 01:30:00 PM, [address] [place], [address], Progress Notes * Bell VOGTDOB:[birth year] (74 yo F)Acc No.[id number]:12/06/2024 Patient: Nadeen CHARMAINEFanny MELISSAhleen Provider: Checo Vogt DPM :1950 A ge:74 Y S ex:Female Date:12/06/2024 Address: [id number] Pcp:Romy Delgadillo Subjective: * Chief Complaints: * [address] Vogt. * Medical History: Objective: * Vitals: Assessment: Plan: * Treatment: * Images: * The named appointment provid er may or may not be the originator of this progress note, and it is not deemed complete until electronically signed by the appointment provider. Sign off status: Pending * Provider: Checo Vogt DPM Date: Generated for Lang oates/Meghann/Rosa on: 02/27/2024 01:48 PM EST
--- OUTSIDE RECORDS SUMMARY | 2024-12-27 13:45 | XMS_ITS | Encounter Summary ---
Author Organization [employer] Address [address] [facility] 7 [place] [address] Care Team Providers Care Plant Protection Guard Name Role Phone Mamta Villalobos MD Primary Care Provider [phone] Encounter Details Date Type Department Care Team ([facility] st Contact Info) Description 12/27/2024 1:45 PM EST Office Visit [facility] MED & PEDS [address] [place] [address] Maddie Carvajal MD [address] [place] [address] Type 2 diabetes mellitus without complication, without long-term current use of insulin (HCC) (Primary Dx); Dietary counseling; Exercise counseling; Hypothyroidism, unspecified type; Benign hypertension; Hypercholesterolemia; Preop examination Social History Tobacco Use Types Packs/Day Years Used Date Smoking Tobacco: Former Cigarettes Passive Smoke Exposure: Past Smokeless Tobacco: Never Alcohol Use Standard Drinks/Week Comments Never 0 (1 standard drink = 0.6 oz pur e alcohol) Depression Answer Date Recorded Patient Health Questionnaire-9 Score 1 07/15/2022 Housing Stability Answer Date Recorded What is your housing situation today? I have jayden sing 07/13/[address] you li [...] Sign Reading Time Taken Comments Blood Pressure 120/60 12/27/2024 2:10 PM EST Pulse 68 12/27/2024 2:10 PM EST Temperature 36.6 C (97.9 F) 12/27/2024 2:10 PM EST Respiratory Rate 20 12/27/2024 2:10 PM EST Oxygen Saturation - - Inhaled Oxygen Concentration - - Weight 96.6 kg (213 lb) 12/27/2024 2:10 PM EST Height 162.6 cm (5' 4 ) 12/27/2024 2:10 PM EST Body Mass Index 36.56 12/27/2024 2:10 PM EST documented in this encounter Plan of Treatment Scheduled Orders Name Type Priority Associated Diagnoses Orde r Schedule Basic Metabolic Panel Lab Routine Preop examination Expected: 12/27/2024 (Approximate), Expires: 12/27/2025 CBC auto differential Lab Routine Preop examination Expected: 12/27/2024 (Approximate), Expires: 12/27/2025 Prothrombin Time-INR Lab Routine Preop examination Expected: 12/27/2024, Expires: 12/27/2025 documented as of this encounter Goals Goal Patient Goal Type Associated Problems Recent Progress Patient-Stated? Author Help patients manage their type 2 diabetes Care Plan Help patients manage their type 2 diabetes Maddie Fernandez MD Weekly blood pressure task Care Plan Weekly blood pressure task No Maddie Carvajal MD Help patients manage their type 2 diabetes Care Plan Help patients manage their type 2 diabetes Maddie Fernandez MD Patient has chronic kidney disease Care Plan Patient has chronic kidney disease Maddie Fernandez MD Weekly blood pressure task Care Plan Weekly blood pressure task No Maddie Carvajal MD Patient has chronic kidney disease Care Plan Patient has chronic kidney disease No Maddie Carvajal MD documented as of this encounter Visit Diagnoses Diagnosis Type 2 diabetes mellitus without complication, without long-term current use of insulin (HCC)- Primary Dietary counseling Dietary surveillance and counseling Exercise counseling Hypothyroidism, unspecified type Benign hypertension Essential hypertension, benign Hypercholesterolemia Pure hypercholesterolemia Preop examination Unspecified pre-operative examination documented in this encounter Additional Health Concerns Active Problems Noted Date Diagnosed Date Help patients manage their type 2 diabetes 12/27 Weekly blood pressure task 12/27/2024 Help patients manage their type 2 diabetes 12/27 Patient has chronic kidney disease 12/27/2024 Weekly blood pressure task 12/27/2024 Patient has chronic kidney disease 12/27/2024 Assessment Noted Time PHQ-9 Depression Total Score: 1 07/16/19 23 9:56 AM EDT documented as of this encounter Care Teams Plant Protection Guard Relationship Specialty Start Date End Date Mamta Villalobos MD [address] [place] [id number] PCP - General Family Medicine 12/11/24 documented as of this encounter
[2024-12-27 17:45] LABS: MANUAL DIFF FLAG NO
[2024-12-27 17:58] LABS: Hematocrit 40.5 % (37.0-47.0); Hemoglobin 13.4 g/dl (12.0-16.0); Imm Gran Abs Auto 0.03 X10*3/uL (0.00-0.03); Imm Gran Pct Auto 0.3 % (0.0-0.4); Lymphocytes Absolute Auto 1.8 X10*3/uL (1.2-4.9); Mean Corpuscular HGB Conc 33.1 g/dl (31.0-35.0); Mean Corpuscular Hemoglobin 30.9 pg (27.0-33.0); Mean Corpuscular Volume 93.3 fL (80.0-98.0); NRBC Abs Auto 0.000 X10*3/uL (0.0-0.012); NRBC Pct Auto 0.0 /100WBC (0.0-0.2); Platelet Count 251 X10*3/uL (160-400); Red Blood Count 4.34 X10*6/uL (4.20-5.50); White Blood Count 8.9 X10*3/uL (4.8-10.8)
--- OUTSIDE RECORDS SUMMARY | 2024-12-27 17:58 | XMS_ITS | Encounter Summary ---
Author Organization [employer] Address [address] [place] [address] 7t [place] [address] Care Team Providers Care Automatic Lathe Tender Name Role Phone Romy Delgadillo MD Primary Care Provider [phone] Mamta Villalobos MD Primary Care Provider [phone] Encounter Details Date Type Department Care Team ([facility] st Contact Info) Description 06/23/2022 Orders Only [facility] CHC MED & PEDS [address] [place], [place] [id number] Mariangel Hurt LPN Social History Tobacco Use [...] on filedocumented in this encounter Care Teams Automatic Lathe Tender Relationship Specialty Start Date End Date Romy Delgadillo MD [address] [place] [id number] PCP - General Family Medicine 01/27/12 12/10/24 Mamta Villalobos MD [address] [place] [address] PCP - General Family Medicine 12/11/24 documented as of this encounter
--- OUTSIDE RECORDS SUMMARY | 2024-12-27 17:58 | XMS_ITS | Encounter Summary ---
Author Organization [employer] Address [address] [facility] [address] 7t [place] [address] Care Team Providers Care Loss Prevention Supervisor Name Role Phone Romy Delgadillo MD Primary Care Provider [phone] Mamta Villalobos MD Primary Care Provider [phone] Encounter Details Date Type Department Care Team (Late st Contact Info) Description 08/28/2024 Orders Only [facility] CHC MED & PEDS [address] [place], [place] [id number] Provider, MD Nimco Social History Tobacco Use [...] the past 12 months, has t he [employer], gas, oil or water [employer] threatened to shut off services in your [...] AM EDT) Stool Rectal contents / Unknown us Historical Provider LAB BODY FLUIDS AND STOOL S ORDERABLES Final Result documented in this encounter Visit Diagnoses Not on filedocumented in this encounter Additional Health Concerns Assessment Noted Time PHQ-9 Depression Total Score: 1 07/16/19 23 9:56 AM EDT documented as of this encounter Care Teams Loss Prevention Supervisor Relationship Specialty Start Date End Date Romy Delgadillo MD [address] [place] [address] PCP - General Family Medicine 01/27/12 12/10/24 Mamta Villalobos MD [address] [place] [address] PCP - General Family Medicine 12/11/24 documented as of this encounter
--- OUTSIDE RECORDS SUMMARY | 2024-12-27 17:59 | XMS_ITS | Encounter Summary ---
Author Organization [employer] Address [address] [facility] 7t [place] [address] Care Team Providers Care Cyber Defense Analyst Name Role Phone Romy Delgadillo MD Primary Care Provider [phone] Mamta Villalobos MD Primary Care Provider [phone] Reason for Visit * Reason Comments Med Refill Encounter Details Date Type Department Care Team ([facility] Contact Info) Description 07/03/2024 Refill [facility] CHC MED & PEDS [address] [place] [address] Romy Delgadillo MD [address] [place] [address] Type 2 diabetes mellitus without complication, without long-term current use of insulin ([facility]); Acquired hypothyroidism; Primary hypertension Social History Tobacco [...] without long-term current use of insulin (HCC) Acquired hypothyroidism Unspecified hypothyroidism Primary hypertension Unspecified essential hypertension documented in this encounter Additional Health Concerns Assessment Noted Time PHQ-9 Depression Total Score: 1 07/16/19 23 9:56 AM EDT documented as of this encounter Care Teams Cyber Defense Analyst Relationship Specialty Start Date End Date Romy Delgadillo MD [address] [place] [address] PCP - General Family Medicine 01/27/12 12/10/24 Mamta Villalobos MD [address] [place] [address] PCP - General Family Medicine 12/11/24 documented as of this encounter
--- OUTSIDE RECORDS SUMMARY | 2024-12-27 17:59 | XMS_ITS | Patient Health Record ---
Author Organization [facility] Address [address] [facility] [place] [address] Care Team Providers Care Master Naval Parachutist Name Role Phone Romy Delgadillo Primary Care Provider Cande Christie Unavailable [phone] Allergies Allergen (clinical drug ingredient) Drug/Non Drug Allergy documented on EMR Reaction Allergy Type Onset Date Status Latex Latex Unknown Allergy Active lisinopril Lisinopril coughing Drug Allergy Activ e Results Component Value Reference Range Notes X ray : Foot, right 3V Reviewed date:10/29/2024 03:16:07 PM Interpretation:See Examination above Performing Lab: Notes/Report: See Examination above HEMOGLOBIN A1C (GLYCOHEMOGLO BIN) Reviewed date:03/19/2024 03:23:57 PM Interpretation: Performing Lab: Notes/Report: HEMOGLOBIN A1C % (HH) 7.1 HEMOGLOBIN A1C (GLYCOHEMOGLO BIN) Reviewed date:10/29/2024 03:21:40 PM Interpretation: Performing Lab: Notes/Report: HEMOGLOBIN A1C % (HH) 6.8 Reason For Referral No Information Medications Medication SIG (Take, Route, Frequency, Duration) Notes Start Date End Date Status Cephalexin 500 MG 1 capsule Orally twi ce a day; Duration: 10 days 06/18/2024 Active Vitamin B 12 Not-Solomon ing Compression Stockings 20-30mm Hg as directed 12/09/2022 Not-Taking amLODIPine Besylate Active oxyBUTYnin Active Doxycycline Monohydrate 100 MG 1 capsule Orally Twice a day; Duration: 14 days 10/29/2024 Active Extra Depth Orthopedic Shoes (1 Pair) with Customized Heat Molded Multidensity Innersoles (3 Pair) Dx: NIDDM/Polyneuropathy (E11.42), Hammertoe Foot Deformity (M20.41,M20.42), Preulcerative Skin Lesion(s) (L85.1); Duration: 365 days 10/08/2024 Active Night Splint AFO - L1930 as directed 12/26/2017 Not-Taking Ciprofloxacin HCl 500 MG 1 tablet Orally every 12 hrs 11/06/2024 Active Ammonium Lactate 12 % 1 application Exte rnally to affected areas of dry skin to feet except for between the toes Twice a day; Duration: 30 days Active Losartan Potassium A ctive Silvadene 1 % 1 application Galvanizer Zinc ally Once a day; Duration: 30 days 05/28/2024 Active Extra Depth Orthopedic Shoes (1 Pair) with Customized Heat Molded Multidensity Innersoles (3 Pair) as directed Dx: NIDDM/Polyneuropathy (E11.42), Hammertoe Foot Deformity (M20.41,M20.42), Preulcerative Skin Lesion(s) (L85.1 03/19/2024 Active metFORMIN HCl 500 MG 1 tablet with a dawn l Orally Twice a day Not-Taking glipiZIDE Active Gabapentin Active Ciclopirox 8 % 1 application Galvanizer Zinc ally Once a day; Duration: 90 days 12/09/2022 Not-Taking Levothyroxine Sodium Active Fish Oil Not-Taking Centrum Silver Activ e Caltrate 600 Active Gemfibrozil Active cloNIDine HCl Active Atenolol 100 MG 1 tablet Orally Once a day Active Atorvastatin Calcium Active Aspirin Active Immunizations Vaccine Route Administration Date Status Comme nts COVID-19 Moderna Vaccine Unknown 05/05/2020 Administere d First Dose: 04/14/2020 Influenza Unknown 12/22/2015 Administered Influenza Unknown 10/18/2016 Administered Influenza Unknown 10/18/2017 Administered Influenza Unknown 10/18/2018 Administered Influenza Unknown 11/23/2019 Administered Influenza Unknown 10/15/2020 Administered Influenza Unknown 10/15/2022 Administered Influenza Unknown 11/15/2023 Administered Influenza Unknown 11/14/2024 Administered Pneumococcal Unknown 12/22/2015 Administered 2nd dose Social History Tobacco Use: Social History Observation Description Date Details (start date - stop date) Never Smoker NA - NA Tobacco use other than smoking: Question Answer Notes Are you an other tobacco user? No Tobacco Control (Standard) Question Answer Notes Tobacco use: Nonsmoker Additional Findings: Tobacco non-user Current no nsmoker AUDIT-C (Standard) Question Answer Notes Did you have a drink containing alcohol in the p ast year? No Points 0 Interpretation Negative Problems Problem Type SNOMED Code ICD Code Onset Dates Problem Status W/U Status Risk Notes Problem Acquired hammer toe of right foot (0193186402175339 ) Other hammer toe(s) (acquired), right foot (M20.41) Active confirmed Problem Acquired hammer toe of left foot (1343787419357556 ) Other hammer toe(s) (acquired), left foot (M20.42) Active confirmed Problem Polyneuropathy due to type 2 diabetes mellitus (213241967) Type 2 diabetes mellitus with diabetic polyneuropathy (E11.42) Active confirmed Problem Ulcer of toe (253696056) Skin ulcer of toe of right foot, limited to breakdown of skin (L97.511) Active confirmed Problem Skin ulcer of to e of right foot with fat layer exposed (L97.512) Active confirmed Vital Signs Blood pressure diastolic 75 mm Hg 12/20/2024 Height 5ft5in in 12/20/2024 Blood pressure systolic 120 mm Hg 12/20/2024 Weight 215 lbs 12/20/2024 BMI 35.77 kg/m2 12/20/2024 Procedures Procedure Date Ordered Date Performed Result Body Sit e 40225-BKDLJID NAIL, 6 OR MORE 03/19/2024 N/A 66342- Debride <25 sq cm 03/19/2024 N/A 73692-EGLH SKIN LESIONS, OVER 03/19/2024 N/A 69322- Debride <25 sq cm 04/05/2024 N/A 96812-OJDRTQE SKIN/TISSUE 05/28/2024 N/A 55044-GOUYZZX NAIL, 6 OR MORE 06/18/2024 N/A 82938-YSTNJAN SKIN/TISSUE 06/18/2024 N/A 98464-ZLDR SKIN LESIONS, OVER 4 06/18/2024 N/A 44890 - Tenotomy, open flexor 07/16/2024 N/A 19565-HHTZUXB NAIL, 6 OR MORE 10/08/2024 N/A 21441- Debride <25 sq cm 10/08/2024 N/A 11738-AKMT SKIN LESIONS, OVER 4 10/08/2024 N/A 58235-DOORFLO SKIN/TISSUE 10/29/2024 N/A 67284-MCYJPJV SKIN/TISSUE 11/22/2024 N/A 82690-YXOTMIB NAIL, 6 OR MORE 12/20/2024 N/A 29370- Debride <25 sq cm 12/20/2024 N/A 48481-HJFZ SKIN LESIONS, OVER 4 12/20/2024 N/A Encounters Encounter Location Date Provider Diagnosis [address] [address] 03/19/2024 Cande Black Type 2 diabetes mellitus with diabetic polyneuropathy E11.42 ; Tinea unguium B35.1 ; Skin ulcer of toe of right foot, limited to breakdown of skin L97.511 ; Cellulitis of toe of right foot L03.031 ; Xerosis of skin L85.3 ; Other hammer toe(s) (acquired), left foot M20.42 and Other hammer toe(s) (acquired), right foot M20.[address] [address] 04/05/2024 Cande Black Type 2 diabetes mellitus with diabetic polyneuropathy E11.42 ; Other hammer toe(s) (acquired), right foot M20.41 ; Skin ulcer of toe of right foot, limited to breakdown of skin L97.511 and Cellulitis of toe of right foot L03.[address] [address] 05/28/2024 Cande Black Skin ulcer of toe of right foot with fat layer exposed L97.512 and Type 2 diabetes mellitus with diabetic polyneuropathy E11.[address] [address] 06/18/2024 Cande Black Skin ulcer of toe of right foot with fat layer exposed L97.512 ; Type 2 diabetes mellitus with diabetic polyneuropathy E11.42 and Tinea unguium B35.[address] [address] 07/16/2024 Cande Black Hammer toe of right foot M20.[address] [address] 07/23/2024 Cande Black Hammer toe of right foot M20.[address] [address] 10/08/2024 Cande Black Type 2 diabetes mellitus with diabetic polyneuropathy E11.42 ; Tinea unguium B35.1 ; Other hammer toe(s) (acquired), right foot M20.41 ; Other hammer toe(s) (acquired), left foot M20.42 and Skin ulcer of toe of right foot, limited to breakdown of skin L97.[address] [address] 10/29/2024 Cande Black Cellulitis of toe of right foot L03.031 ; Other hammer toe(s) (acquired), right foot M20.41 ; Type 2 diabetes mellitus with diabetic polyneuropathy E11.42 and Skin ulcer of toe of right foot with fat layer exposed L97.[address] [address] 11/08/2024 Cande Black Cellulitis of toe of right foot L03.031 ; Other hammer toe(s) (acquired), right foot M20.41 ; Type 2 diabetes mellitus with diabetic polyneuropathy E11.42 and Skin ulcer of toe of right foot with fat layer exposed L97.[address] [address] 11/22/2024 Cande Black Type 2 diabetes mellitus with diabetic polyneuropathy E11.42 and Skin ulcer of toe of right foot with fat layer exposed L97.[address] [address] 11/29/2024 Cande Black Type 2 diabetes mellitus with diabetic polyneuropathy E11.42 ; Skin ulcer of toe of right foot, limited to breakdown of skin L97.511 and Other hammer toe(s) (acquired), right foot M20.[address] [address] 12/20/2024 Cande Black Type 2 diabetes mellitus with diabetic polyneuropathy E11.42 ; Tinea unguium B35.1 and Skin ulcer of toe of right foot, limited to breakdown of skin L97.511 [facility] [address] [place] [address] 05/24/2024 Cande Vogt [facility] [address] [address] 06/14/2024 Cande Vogt [facility] [address] [address] 06/18/2024 Candemarley Vogt [facility] [address] [address] 07/06/2024 Candemarley Vogt [facility] [address] [address] 10/29/2024 Cande Vogt [facility] [address] 10/29/2024 Cande Vogt Assessments Encounter Date Diagnosis (ICD Code) Assessment Notes Treatment Notes Treatment Clinical Notes Section Notes 03/19/2024 Type 2 diabetes mellitus with diabetic [...] E11.42) 10/08/2024 Tinea unguium (ICD-10 - B35.1) 10/29/2024 Other hammer toe(s) (acquired), right foot (ICD-10 - M20.41) 10/29/2024 Cellulitis of toe of right foot (ICD-10 - L03.031) 11/08/2024 Other hammer toe(s) (acquired), right foot (ICD-10 - M20.41) 11/08/2024 Cellulitis of toe of right foot (ICD-10 - L03.031) 11/29/2024 Type 2 diabetes mellitus with diabetic polyneuropathy (ICD-10 - E11.42) 11/29/2024 Skin ulcer of toe of right foot, limited to breakdown of skin (ICD-10 - L97.511) 12/20/2024 Type 2 diabetes mellitus with diabetic polyneuropathy (ICD-10 - E11.42) 12/20/2024 Tinea unguium (ICD-10 - B35.1) 11/22/2024 Type 2 diabetes mellitus with diabetic polyneuropathy (ICD-10 - E11.42) 11/22/2024 Skin ulcer of toe of right foot with fat layer exposed (ICD-10 - L97.512) 11/29/2024 Other hammer toe(s) (acquired), right foot (ICD-10 - M20.41) 12/20/2024 Skin ulcer of toe of right foot, limited to breakdown of skin (ICD-10 - L97.511) Patient Educated with: WOUND CARE INSTRUCTIONS. pdf (WOUND CARE INSTRUCTIONS. pdf) 11/08/2024 Type 2 diabetes mellitus with diabetic polyneuropathy (ICD-10 - E11.42) 10/29/2024 Type 2 diabetes mellitus with diabetic polyneuropathy (ICD-10 - E11.42) 04/05/2024 Skin ulcer of toe of right [...] B35.1) 03/19/2024 Tinea unguium (ICD-10 - B35.1) 03/19/2024 Skin ulcer of toe of right foot, limited to breakdown of skin (ICD-10 - L97.511) Resistant to previous conservative treatment Patient Educated with: WOUND CARE INSTRUCTIONS. pdf (WOUND CARE INSTRUCTIONS. pdf) 04/05/2024 Cellulitis of toe of right foot (ICD-10 - L03.031) 10/08/2024 Other hammer toe(s) (acquired), left foot (ICD-10 - M20.42) 10/29/2024 Skin ulcer of toe of right foot with fat layer exposed (ICD-10 - L97.512) 11/08/2024 Skin ulcer of toe of right foot with fat layer exposed (ICD-10 - L97.512) 03/19/2024 Cellulitis of toe of right foot [...] INSTRUCTIONS. pdf (DIABETIC FOOT CARE INSTRUCTIONS. pdf) 12/20/2024 Other Plan Of Treatment Pending Test Test Name Order Date *Wound Culture 10/29/2024 *Liver Function Test (LFT) 08/01/2023 *Liver Function Test (LFT) 08/15/2023 X ray : Foot, left 3V 07/23/2019 61191-YYJEFUX NAIL, 6 OR MORE 07/23/2019 65137-RSFNAUQ NAIL, 6 OR MORE 01/04/2019 75356-ZZUTTEB NAIL, 6 OR MORE 04/12/2019 46892-GETNLNP NAIL, 6 OR MORE 12/26/2017 05625-VNHYMFW NAIL, 6 OR MORE 03/27/2018 84491-KUCRESO NAIL, 6 OR MORE 06/26/2018 20801-AIZTPMN NAIL, 6 OR MORE 10/02/2018 81418-AEYTCWO NAIL, 6 OR MORE 12/04/2015 26203-PUMPYGG NAIL, 6 OR MORE 03/04/2016 13263-AJVLCIH NAIL, 6 OR MORE 06/03/2016 15478-XSZTZHJ NAIL, 6 OR MORE 10/11/2016 88738-KXHZWCW NAIL, 6 OR MORE 12/27/2016 22807-LQNMNIU NAIL, 6 OR MORE 03/28/2017 98579-OOKMXQO NAIL, 6 OR MORE 06/27/2017 43591-UUFSTFB NAIL, 6 OR MORE 09/26/2017 99921-HKHVSIO NAIL, 6 OR MORE 10/15/2019 66203-KDZJMNH NAIL, 6 OR MORE 01/21/2020 91686-DNCOPIJ NAIL, 6 OR MORE 05/05/2020 50995-WKYKSYZ NAIL, 6 OR MORE 09/22/2020 74251-IRZANUN NAIL, 6 OR MORE 12/29/2020 15703-TNCTNBK NAIL, 6 OR MORE 04/20/2021 81901-SQLGCST NAIL, 6 OR MORE 07/30/2021 91306-PMMISKP NAIL, 6 OR MORE 11/05/2021 08110-HPRPZZS NAIL, 6 OR MORE 02/25/2022 67677-TYXMKAO NAIL, 6 OR MORE 05/27/2022 81028-BGPBSAG NAIL, 6 OR MORE 09/02/2022 97916-MLPVAXB NAIL, 6 OR MORE 12/09/2022 52850-QHFVQIG NAIL, 6 OR MORE 04/18/2023 25883-IQINFXC NAIL, 6 OR MORE 03/19/2024 92900-OIENLAA NAIL, 6 OR MORE 12/15/2023 73733-NCGGFMQ NAIL, 6 OR MORE 06/18/2024 56702-GTZQNAK NAIL, 6 OR MORE 10/08/2024 21677-AGMEWSD NAIL, 6 OR MORE 12/20/2024 27684-Lddshdty Plate 04/20/2021 31990-Pgkovvwq Plate 05/05/2020 01107-Qriergbj Plate 10/15/2019 01934-Mmpxmsej Plate 06/27/2017 30360-Jxopajao Plate 10/11/2016 77727-Rlacaccd Plate 06/03/2016 27832- Debride <25 sq cm 01/21/2020 55400- Debride <25 sq cm 10/06/2020 96192- Debride <25 sq cm 09/22/2020 50831- Debride <25 sq cm 07/30/2021 39780- Debride <25 sq cm 12/20/2024 53163- Debride <25 sq cm 10/08/2024 25707- Debride <25 sq cm 03/19/2024 28500- Debride <25 sq cm 04/05/2024 24860- Debride <25 sq cm 08/01/2023 20947- Debride <25 sq cm 08/15/2023 38610- Debride <25 sq cm 12/01/2023 15501- Debride <25 sq cm 12/15/2023 01670-GPAVAAO SKIN/TISSUE 05/28/2024 00875-QRSBABR SKIN/TISSUE 06/18/2024 59705-WFSHZPU SKIN/TISSUE 10/29/2024 30052-JJMKUAZ SKIN/TISSUE 11/22/2024 17996 I&D ABSCESS- SIMPLE,SINGLE 021 , J0702- INJECT or DRAIN, JOINT/BUR SA 07/23/2019, J0702- INJECT or DRAIN, JOINT/BUR SA 10/15/2019 13363-MHZP SKIN LESIONS, OVER 4 12/04/19 16 36037-BWKU SKIN LESIONS, OVER 4 07/23/19 20 84242-SNGA SKIN LESIONS, OVER 4 04/12/19 20 73818-ILBT SKIN LESIONS, OVER 4 01/05/20 19 25956-EFQS SKIN LESIONS, OVER 4 10/03/19 19 05671-IROQ SKIN LESIONS, OVER 4 03/27/19 19 87203-AICZ SKIN LESIONS, OVER 4 06/27/19 19 76597-XVWB SKIN LESIONS, OVER 4 10/12/19 17 09704-PNPI SKIN LESIONS, OVER 4 06/04/19 17 80121-VOIB SKIN LESIONS, OVER 4 03/04/19 17 59038-JTCV SKIN LESIONS, OVER 4 09/27/19 18 66157-LAFF SKIN LESIONS, OVER 4 12/27/19 18 48877-JNKW SKIN LESIONS, OVER 4 06/28/19 18 52672-XVYW SKIN LESIONS, OVER 4 12/28/19 17 85920-QVOL SKIN LESIONS, OVER 4 03/28/19 18 84541-UKWU SKIN LESIONS, OVER 4 05/28/19 97223-FZQR SKIN LESIONS, OVER 4 09/03/19 75148-AMQQ SKIN LESIONS, OVER 4 04/18/19 24 23496-WZQY SKIN LESIONS, OVER 4 12/10/19 95522-FQMQ SKIN LESIONS, OVER 4 07/31/19 82704-ECQR SKIN LESIONS, OVER 4 11/06/19 75101-JRTF SKIN LESIONS, OVER 4 02/25/19 15742-WLLN SKIN LESIONS, OVER 4 09/23/19 87577-ZQFJ SKIN LESIONS, OVER 4 04/21/19 42174-SUVW SKIN LESIONS, OVER 4 12/30/19 47194-AZZI SKIN LESIONS, OVER 4 05/06/19 60423-GLPA SKIN LESIONS, OVER 4 10/15/19 20 13225-EQUW SKIN LESIONS, OVER 4 01/21/20 72616-TURU SKIN LESIONS, OVER 4 10/09/19 98931-XRLD SKIN LESIONS, OVER 4 12/21/19 16628-RPUA SKIN LESIONS, OVER 4 06/19/19 65177-OLEY SKIN LESIONS, OVER 4 03/19/19 28694-KLNO SKIN LESIONS, OVER 4 12/15/19 66699-KFFI SKIN LESIONS, OVER 4 08/01/19 24 05937, P5131-RARAC/INJECT, JOINT/BURSA 0 05/27/2022 55821 - Tenotomy, open flexor 07/16/2024 Next Appt Details Provider Name:Cande Vogt , 01/24/2025 01:30:00 PM, [address] [facility], [place], [address], Insurance Providers Payer Name Payer Address Payer Phone Subscriber Number Group Number Insured Name Patient Relationship to Insured Coverage Start Date Coverage End Date [employer] Medicare Complete [address] [address] [place] [address] [id number] Boivin, Bell Self - patient is the insured Medical [...] 1974 teeth extraction 1992 hysterectomy 1994 xrays Pankaj israel ap/lat/mo 07/23/19 cataract surgery- both eyes 06/04
--- OUTSIDE RECORDS SUMMARY | 2024-12-27 17:59 | XMS_ITS | Clinical Summary ---
Author Organization [employer] Address [address] [facility] 7t [place] [address] Care Team Providers Care Convention Services Manager Name Role Phone Mamta Villalobos MD Primary Care Provider [phone] Allergies Active Allergy Reactions Criticality Noted Date Comments Lisinopril Cough 03/21/2014 Other reaction(s): coughing Medications Lancets (OneTouch Delica Plus Zuzxto17L) misc CHECK TWICE DAILY 200 each 11 01/01/20 23 Active Calcium Carb-Cholecalcife rol 600-10 MG-MCG tablet Take 1 tablet by mouth every 12 (twelve) hours. 06/05/19 15 Active terbinafine (LamISIL AT) 1 % cream Apply topically 2 times daily. 15 g 2 10/12/19 24 Active glucose blood (OneTouch Ultra) test stripIndications: Type 2 diabetes mellitus without complication, without long-term current use of insulin (HCC),Acquired hypothyroidism CHECK BLOOD SUGAR TWICE DAILY 200 strip 2 11/02/19 24 Active cloNIDine (Catapres) 0.2 MG tabletIndications :Primary [...] complication, without long-term current use of insulin ([facility]),Acquired hypothyroidism TAKE 2 TABLETS BY MOUTH BEFORE BREAKFAST AND 4 TABLETS BY MOUTH BEFORE SUPPER 600 tablet 2 09/01/19 25 Active Accu-Chek Softclix Lancets lancetsIndication s:Type 2 diabetes mellitus without complication, without long-term current use of insulin ([facility]) CHECK BLOOD SUGAR TWICE DAILY 100 each 11 10/03/19 25 Active glucose blood (Accu-Chek Guide Test) test stripIndications: Type 2 diabetes mellitus without complication, without long-term current use of insulin ([facility]) CHECK BLOOD SUGAR TWICE DAILY 100 each 11 10/03/19 25 Active Blood Glucose Monitoring Suppl (Accu-Chek Guide Me) w/Device kitIndications:Ty pe 2 diabetes mellitus without complication, without long-term current use of insulin ([facility]) CHECK BLOOD SUGAR TWICE DAILY 1 kit 10/03/19 25 Active meloxicam (Mobic) 15 MG tablet Take 1 tablet (15 mg) by mouth 2 times daily. 60 tablet 2 10/11/19 25 Active Diclofenac Sodium (Voltaren) 1 % gel Use topical BID 100 g 3 10/11/19 25 Active levothyroxine (Synthroid, Levoxyl) 75 MCG tabletIndications :Type 2 diabetes mellitus without complication, without long-term current use of insulin ([facility]),Acquired hypothyroidism TAKE 1 TABLET BY MOUTH DAILY BEFORE BREAKFAST 100 tablet 2 12/04/19 25 Active polyethylene glycol, PEG, 3350 (MiraLax) 17 GM/SCOOP powder Take 17 g by mouth Once per day. 527 g 2 12/13/19 25 026 Active triamcinolone (Kenalog) 0.1 % ointment Apply topically 2 times daily. 30 g 12/28/19 25 Active levothyroxine (Synthroid, Levoxyl) 75 MCG tabletIndications :Type 2 diabetes mellitus without complication, without long-term current use of insulin ([facility]),Acquired hypothyroidism TAKE 1 TABLET BY MOUTH DAILY BEFORE BREAKFAST 100 tablet 2 03/21/19 25 025 Discontinued Active Problems Problem Noted Date Diagnosed Date Peripheral vascular disease 03/11/2022 Type 2 diabetes mellitus wit hout complication, without long-term current use of insulin 03/11/2022 Hypothyroidism 07/17/2012 Hypercholesterolemia 07/17/2012 Benign hypertension 07/17/2012 Encounters Date Type Department Care Team Description 12/27/2024 1:45 PM EST Office Visit [facility] [address] [place] [address] Maddie Carvajal MD Type 2 diabetes mellitus without complication, without long-term current use of insulin (HCC) (Primary Dx); Dietary counseling; Exercise counseling; Hypothyroidism, unspecified type; Benign hypertension; Hypercholesterolemia; Preop examination 12/27/2024 Travel 12/26/2024 Travel 12/12/2024 Orders Only [facility] & PEDS [address] [place] [address] Romy Delgadillo MD 12/02/2024 Refill [facility] [address] [place] [address] Romy Delgadillo MD Type 2 diabetes mellitus without complication, without long-term current use of insulin ([facility]); Acquired hypothyroidism 11/23/2024 Orders Only [facility] [address] [place] [address] Romy Delgadillo MD 11/14/2024 Telephone [facility] [address] [place] [address] Romy Delgadillo MD Appointment Request 10/23/2024 Telephone [facility] [address] [place] [address] Romy Delgadillo MD Call Back Request 10/17/2024 Orders Only [facility] External Provider, [facility] 10/10/2024 11:15 AM EDT Office Visit [facility] [address] [facility] [place] [address] Romy Delgadillo MD Type 2 diabetes mellitus without complication, without long-term current use of insulin ([facility]) (Primary Dx); Benign hypertension; Hypercholesterolemia; Bilateral chronic knee pain 10/10/2024 Travel 10/09/2024 Telephone [facility] [address] [place] [address] Romy Delgadillo MD Chart Prep 10/03/2024 Patient Outreach [facility] [address] [place], [place] [phone] Romy Delgadillo MD Pre-visit Planning (Pre visit planning LVM ) 10/01/2024 Refill [facility] [address] [place], [place] [phone] Romy Delgadillo MD Type 2 diabetes mellitus without complication, without long-term current use of insulin (CMS/HCC) 09/27/2024 Telephone [facility] [address] [place], [place] [phone] Romy Delgadillo MD from Last 3 Months Immunizations Immunization Administration Dates Next Due Influenza High-dose Quadriva lent Preservative Free 10/28/2020 Influenza Quadrivalent Adjuvanted 11/03/2021 Influenza injectable quadriv alent IIV4 with preservative 11/05/2016 Influenza, High Dose Seasona l, Preservative Free 12/12/2024,09/22/2023,11/06/2018,12/11,11/19/2014 Influenza, IIV3, injectable 11/16/2013 Influenza, Split (incl. [...] 20 12/27/2024 2:10 PM EST Oxygen Saturation 98% 03/01/2024 11:47 AM EST Inhaled Oxygen Concentration - - Weight 96.6 kg (213 lb) 12/27/2024 2:10 PM EST Height 162.6 cm (5' 4 ) 12/27/2024 2:10 PM EST Body Mass Index 36.56 12/27/2024 2:10 PM EST Plan of Treatment Health Maintenance Due Date Last Done Comments CT Colonography 1950 Colonoscopy 1950 FIT DNA/Cologuard 1950 Sigmoidoscopy 1950 Eye Exam 06/07/1959 Alcohol/Substance Use Screening 1961 Hepatitis C Screening 06/07/1967 Hepatitis A Vaccines (1 of 2 - Risk 2-dose series) 1968 Hepatitis B Vaccines (1 of 3 - Risk 3-dose series) 2009 Depression Screening 07/16/2023 07/15/2022, 07/16/19 Diabetes: Hemoglobin A1C 02/12/2025 025, 03/01/2024, 10/12/2023, Additional history exists Diabetes: Foot Exam 03/01/2025 03/01/2024, 03/01/2024, 03/01/2024, Additional history exists Diabetes: Urine Protein Screening 03/12/2025 03/12/2024, 01/15/2021 COVID-19 Vaccine ( season) 2025 12/12/2024, 12/29/2023, 11/26/2022, Additional history exists SDOH Screening 07/13/2025 07/13/2024 Lipid Panel 08/13/2025 08/13/2024, 02/15, 10/14/2023, Additional history exists Colorectal Cancer Screening 08/20/2025 FIT 08/20/2025 08/20/2024 FOBT 08/20/2025 08/20/2024 Tobacco Screening 12/27/2025 12/27/2024 DTaP/Tdap/Td Vaccines (2 - Td or Tdap) 12/24/2026 12/24/2016, 11/11/2006 Pneumococcal Vaccine: 50+ Years Completed 01/24/2018, 12/24/2015, 12/22/2015, Additional history exists Zoster Vaccines Completed 09/21/2021, 06/15, 12/05/2014 RSV Patients and Patients Aged 60 years or older Completed 02/24/2023 Influenza Vaccine Completed 12/12/2024, , 11/15/2023, Additional history exists HIB Vaccines Aged Out [...] on patient's age to complete this topic Goals Goal Patient Goal Type Associated Problems Recent Progress Patient-Stated? Author Help patients manage their type 2 diabetes Care Plan Help patients manage their type 2 diabetes Maddie Fernandez MD Weekly blood pressure task Care Plan Weekly blood pressure task Maddie Fernandez MD Help patients manage their type 2 diabetes Care Plan Help patients manage their type 2 diabetes Maddie Fernandez MD Patient has chronic kidney disease Care Plan Patient has chronic kidney disease Maddie Fernandez MD Weekly blood pressure task Care Plan Weekly blood pressure task Maddie Fernandez MD Patient has chronic kidney disease Care Plan Patient has chronic kidney disease No Maddie Carvajal MD Procedures Procedure Name Priority Date/Time Associated Diagnosis Comments [facility] LOWER EXTREMITY ARTERIAL DUPLEX BILATERAL WITH SHERI Routine 10/17/2024 1:43 PM EDT [facility] US CAROTID ARTERY DUPLEX BILATERAL Routine 10/17/2024 1:14 PM EDT POCT GLUCOSE Routine 10/10/2024 11:48 AM EDT Type 2 diabetes mellitus without complication, without long-term current use of insulin ([facility]) FECAL GLOBIN BY IMMUNOCHEMISTRY Routine 08/20/2024 9:52 AM EDT HEMOGLOBIN A1C Routine 08/13/2024 12:00 AM EDT Type 2 diabetes mellitus without complication, without long-term current use of insulin ([facility]) LIPID PANEL, STANDARD Routine 08/13/2024 12:00 AM EDT Type 2 diabetes mellitus without complication, without long-term current use of insulin ([facility]) Benign hypertension ALBUMIN, RANDOM URINE W/CREATININE Routine 03/12/2024 10:02 AM EST from Last 3 Months or Most Recently Relevant to Health Maintenance Results * [facility] US Lower Extremity Arterial Duplex Bilateral With Sheri (10/17/2024 1:43 PM EDT) 10/17/2024 1:43 PM EDT Narrative [facility] - 10/17/2024 3:36 PM EDT [address] [address] Ultrasound Report Signed Patient: Bell Martinez MR#: [id number] 356 : 1950 Acct:[id number] Age/Sex: 74 / F ADM Date: 10/17/24 Loc: .US Attending Dr: Tyree Gallardo MD Ordering Physician: Tyree Gallardo MD Date of Service: 10/17/24 Procedure(s): US arterial duplex BI w/ SHERI Accession Number(s): [id number] cc: Tyree Gallardo MD; Romy Delgadillo MD [...] = critical arterial disease Electronically signed by: Enriuqe Atkinson MD 10/17/2024 03:32 PM EDT RP Dictated By: Enrique Georges MD Signed By: <Electronically signed by Enrique De Luna MD in OV> 10/17/24 1532 DD/ 1343 TD/TT: 10/17/24 1413 Assistant Community Manager: Procedure Note Donotuseinterpreter, Image - 10/17/[address] [address] Ultrasound Report Signed Patient: Earnestine Martinez#: [id number] 356 : 1950Acct:[id number] Age/Sex: 74 / FADM Date: 10/17/24 Loc: . Attending Dr: Tyree Gallardo MD Ordering Physician: Tyree Gallardo MD Date of Service: 10/17/24 Procedure(s): US arterial duplex BI w/ SHERI Accession Number(s): [id number] cc: Tyree Gallardo MD; Romy Delgadillo MD [...] 10/17/24 1532 DD/ 1343 TD/TT: 10/17/24 1413 Assistant Community Manager: us [facility] External Provider CV VASC ULAR PROCEDURES Final Result Performing Organization Address City/State/[facility] Co de Phone Number [facility] [address] [place] [address] * [facility] US Carotid Artery Duplex Bilateral (10/17/2024 1:14 PM EDT) 10/17/2024 1:14 PM EDT Narrative [facility] - 10/17/2024 2:37 PM EDT [address] [address] Ultrasound Report Signed Patient: Bell Martinez MR#: [id number] 356 : 1950 Acct:[id number] Age/Sex: 74 / F ADM Date: 10/17/24 Loc: . Attending Dr: Tyree Gallardo MD Ordering Physician: Tyree Gallardo MD Date of Service: 10/17/24 Procedure(s): US carotid duplex BI Accession Number(s): [id number] cc: Tyree Gallardo MD; Romy Delgadillo MD [...] 10/17/24 1434 DD/ 1314 TD/TT: 10/17/24 1334 Assistant Community Manager: Procedure Note Donotuseinterpreter, Image - 10/17/[address] [address] Ultrasound Report Signed Patient: Earnestine Martinez#: [id number] 356 : 1950Acct:[id number] Age/Sex: 74 / FADM Date: 10/17/24 Loc: HO.US Attending Dr: Tyree Gallardo MD Ordering Physician: Tyree Gallardo MD Date of Service: 10/17/24 Procedure(s): US carotid duplex BI Accession Number(s): [id number] cc: Tyree Gallardo MD; Romy Delgadillo MD [...] 10/17/24 1434 DD/ 1314 TD/TT: 10/17/24 1334 Assistant Community Manager: [facility] External Provider CV VASC ULAR PROCEDURES Final Result [facility] [address] [place] [phone] * POCT Glucose (10/10/2024 11:48 AM EDT) Glucose Blood, POC 141 60 - 200 mg/dL QC Media Lot # [id number] Lot# Expiration Date Blood Capillary blood specimen / Unknown 10/10/2024 11:48 AM EDT Romy Delgadillo MD POINT OF CARE TEST ENTER/EDIT OR DERABLES Final Result * Fecal Globin By Immunochemistry (08/20/2024 9:52 AM EDT) Stool Rectal contents / Unknown Historical Provider LAB BODY FLUIDS AND STOOL S ORDERABLES Final Result * (ABNORMAL) Hemoglobin A1c (08/13/2024 12:00 AM EDT) Hemoglobin A1c 6.8(H) <6.0 % [facility] Comment:Hemoglobin A1C Refer ence Range Adults: 4.8 - 6.0 % Non diabetic: < 6.0 % Goal: < 7.0 %Additional Action Suggested: > 8.0 %Note: Hemoglobin A1c results are invalid for patients with abnormal amounts of HbF. Blood transfusions may impact the HbA1c concentration in the patient sample. Estimated Average Glucose 148 mg/dL [facility] Comment:eAG = Estimated ave rage glucose which is %A1C expressed asaverage glucose, using the formula of the H0W-EocglprXfnlhli Glucose study (ADAG), Diabetes Care, Vol.31,#8,Sep. 2007 Blood Venous blood specimen / Unknown 08/13/2024 08/13/2024 Romy Delgadillo MD LAB BLOOD ORDERABLES Final Resul t Performing Organization Address City/[facility]/ZIP Co de Phone Number [facility] [address] [place] [phone] * Lipid Panel, Standard (08/13/2024 12:00 AM EDT) Triglycerides 107 <150 mg/dL [facility] Comment:Desirable Triglyceri de: less than 150 mg/dLBorderline High Triglyceride 150-199 mg/dLHigh Triglyceride: 200-499 mg/dLVery High Triglyceride: greater than or equal to 5OO mg/dL Cholesterol 140 <200 mg/dL [facility] Comment:Desirable Cholestero l: less than 200 mg/dLBorderline High Cholesterol: 200-239 mg/dLHigh Cholesterol: greater than 239 mg/dL LDL Cholesterol Calculated 77 <100 mg/dL [facility] Comment:Desirable LDL: less than 100 mg/dLNear Optimal/Above Optimal LDL: 110- 129 mg/dLBorderline High LDL: 130-159 mg/dLHigh LDL: 160-189 mg/dLVery High LDL: greater than or equal to 190 mg/dL HDL Cholesterol 42 >40 mg/dL [facility] Comment:Desirable HDL: great er than 40 mg/dL Note: This HDL assay may give artificially low results in patients with liver disease. Blood Venous blood specimen / Unknown 08/13/2024 08/13/2024 Romy Delgadillo MD LAB BLOOD ORDERABLES Final Resul t Performing Organization Address City/[facility]/ZIP Co de Phone Number [facility] [address] [place] [phone] [phone] * (ABNORMAL) Albumin, Random Urine W/Creatinine (03/12/2024 10:02 AM EST) Creatinine, Urine 62.67 mg/dL [facility] Microalbumin Urine 22.0 mg/L [facility] Microalbum Creatinine Ratio Ur 35.1(H) <30 ug/mg cr [facility] Comment:Albumin/Creatinine R atio Reference Ranges: Normal: < 30 ug/mg creatinine Microalbuminuria: 30 - 300 ug/mg creatinineClinical Albuminuria: > 300 ug/mg creatinine 03/12/2024 10:0 2 AM EST 03/12/2024 2:14 PM EST us Romy Delgadillo MD LAB URINE ORDERABLES Final Resul t [facility] [address] [place] [address] [phone] from Last 3 Months or Most Recently Relevant to Health Maintenance Additional Health Concerns Active Problems Noted Date Diagnosed Date Help patients manage their type 2 diabetes 12/27 Weekly blood pressure task 12/27/2024 Help patients manage their type 2 diabetes 12/27 Patient has chronic kidney disease 12/27/2024 Weekly blood pressure task 12/27/2024 Patient has chronic kidney disease 12/27/[address] [facility] [place] [address] Advance Directives Documents on File Type Date Recorded Patient Government Program Manager Expl anation Advance Directives and Living Will 01/03/2024 3:40 PM HCP (Wilfredo Martinez) Care Teams Convention Services Manager Relationship Specialty Start Date End Date Mamta Villalobos MD [address] [place] [address] [place] [address] PCP - General Family Medicine 12/11/24
--- OUTSIDE RECORDS SUMMARY | 2024-12-27 17:59 | XMS_ITS | Encounter Summary ---
Author Organization [employer] Address [address] [facility] 7t [place] [address] Care Team Providers Care Clockmaker Apprentice Name Role Phone Romy Delgadillo MD Primary Care Provider [phone] Mamta Villalobos MD Primary Care Provider [phone] Reason for Visit * Reason Onset Date Comments Immunizations 11/25/2022 Encounter Details Date Type Department Care Team ([facility] Contact Info) Description 11/25/2022 Telephone [facility]EDS [address] [place], [place] [phone] Romy Delgadillo MD [address] [place] [address] Immunizations Social History Tobacco Use Types Packs/Day [...] the RSV vaccine. Please contact pt at [phone] documented in this encounter Plan of Treatment Not on file documented as of this encounter Visit Diagnoses Not on filedocumented in this encounter Additional Health Concerns Assessment Noted Time PHQ-9 Depression Total Score: 1 07/16/19 23 9:56 AM EDT documented as of this encounter Care Teams Clockmaker Apprentice Relationship Specialty Start Date End Date Romy Delgadillo MD [address] [place] [address] PCP - General Family Medicine 01/27/12 12/10/24 Mamta Villalobos MD [address] [place] [address] PCP - General Family Medicine 12/11/24 documented as of this encounter
--- OUTSIDE RECORDS SUMMARY | 2024-12-27 17:59 | XMS_ITS | Encounter Summary ---
Author Organization [employer] Address [address] [facility] [address] 7[address] [place] [address] Care Team Providers Care Foreign Agent Name Role Phone Mamta Villalobos MD Primary Care Provider [phone] Encounter Details Date Type Department Care Team (Latest Contact Info) Description 12/26/2024 Travel Social History Tobacco Use Types Packs/Day [...] documented as of this encounter Care Teams Foreign Agent Relationship Specialty Start Date End Date Mamta Villalobos MD [address] [place] [address] PCP - General Family Medicine 12/11/24 documented as of this encounter
--- OUTSIDE RECORDS SUMMARY | 2024-12-27 17:59 | XMS_ITS | Encounter Summary ---
Author Organization [employer] Address [address] [place] [address] [address] [place] [address] Care Team Providers Care Pulp Bleacher Name Role Phone Romy Delgadillo MD Primary Care Provider [phone] Mamta Villalobos MD Primary Care Provider [phone] Reason for Visit * Reason Comments Med Refill Encounter Details Date Type Department Care Team ([facility] Contact Info) Description 02/22/2022 Refill [facility] & PEDS [address] [place], [place] [phone] Romy Delgadillo MD [address] [place] [address] Social History Tobacco Use Types Packs/Day Years [...] on filedocumented in this encounter Care Teams Pulp Bleacher Relationship Specialty Start Date End Date Romy Delgadillo MD [address] [place] [phone] PCP - General Family Medicine 01/27/12 12/10/24 Mamta Villalobos MD [address] [place], [place] [phone] PCP - General Family Medicine 12/11/24 documented as of this encounter
--- OUTSIDE RECORDS SUMMARY | 2024-12-27 17:59 | XMS_ITS | Encounter Summary ---
Author Organization [employer] Address [address] [place] [address] [address] [place] [address] Care Team Providers Care Environmental Services Attendant Name Role Phone Romy Delgadillo MD Primary Care Provider [phone] Mamta Villalobos MD Primary Care Provider Reason for Visit * Reason Comments Med Refill Encounter Details Date Type Department Care Team ([facility] Contact Info) Description 02/23/2022 Refill [facility] PEDS [address] [place], [place] [phone] Romy Delgadillo MD [address] [place] [address] Social History Tobacco Use Types Packs/Day Years [...] on filedocumented in this encounter Care Teams Environmental Services Attendant Relationship Specialty Start Date End Date Romy Delgadillo MD [address] [place] [address] PCP - General Family Medicine 01/27/12 12/10/24 Mamta Villalobos MD [address] [place], [place] [phone] PCP - General Family Medicine 12/11/24 documented as of this encounter
--- OUTSIDE RECORDS SUMMARY | 2024-12-27 17:59 | XMS_ITS | Encounter Summary ---
Author Organization [employer] Address [address] [facility] 7t [place] [address] Care Team Providers Care Processes Chemical Design Engineer Name Role Phone Romy Delgadillo MD Primary Care Provider [phone] Mamta Villalobos MD Primary Care Provider [phone] Reason for Visit * Reason Comments Med Refill Encounter Details Date Type Department Care Team ([facility] Contact Info) Description 07/29/2023 Refill [facility] MED & PEDS [address] [place] [address] Romy Delgadillo MD [address] [place] [address] Type 2 diabetes mellitus without complication, without long-term current use of insulin ([facility]); Acquired hypothyroidism; Benign hypertension Social History Tobacco [...] of insulin (HCC) Acquired hypothyroidism Unspecified hypothyroidism Benign hypertension Essential hypertension, benign documented in this encounter Additional Health Concerns Assessment Noted Time PHQ-9 Depression Total Score: 1 07/16/19 23 9:56 AM EDT documented as of this encounter Care Teams Processes Chemical Design Engineer Relationship Specialty Start Date End Date Romy Delgadillo MD [address] [place] [address] PCP - General Family Medicine 01/27/12 12/10/24 Mamta Villalobos MD [address] [place] [address] PCP - General Family Medicine 12/11/24 documented as of this encounter
--- OUTSIDE RECORDS SUMMARY | 2024-12-27 17:59 | XMS_ITS | Encounter Summary ---
Author Organization [employer] Address [address] [facility] 7t [place] [address] Care Team Providers Care Engine Tester Name Role Phone Romy Delgadillo MD Primary Care Provider [phone] Mamta Villalobos MD Primary Care Provider [phone] Reason for Visit * Reason Onset Date Comments Glucose Meter 12/28/2022 Encounter Details Date Type Department Care Team ([facility] Contact Info) Description 12/28/2022 Telephone [facility] & PEDS [address] [place] [address] Romy Delgadillo MD [address] [place] [address] Glucose Meter Social History Tobacco Use Types [...] meter and no response. Please sent to [facility] - [address] documented in this encounter Plan of Treatment Not on file documented as of this encounter Visit Diagnoses Not on filedocumented in this encounter Additional Health Concerns Assessment Noted Time PHQ-9 Depression Total Score: 1 07/16/19 23 9:56 AM EDT documented as of this encounter Care Teams Engine Tester Relationship Specialty Start Date End Date Romy Delgadillo MD [address] [place] [address] PCP - General Family Medicine 01/27/12 12/10/24 Mamta Villalobos MD [address] [place] [address] PCP - General Family Medicine 12/11/24 documented as of this encounter
--- OUTSIDE RECORDS SUMMARY | 2024-12-27 17:59 | XMS_ITS | Encounter Summary ---
Author Organization [employer] Address [address] [place] [address] Care Team Providers Care It Admin Name Role Phone Mamta Villalobos MD Primary Care Provider [phone] Encounter Details Date Type Department Care Team (Latest Contact Info) Description 12/27/2024 Travel Social History Tobacco Use Types Packs/Day [...] on file documented as of this encounter Goals Goal [...] filedocumented in this encounter Additional Health Concerns Active [...] documented as of this encounter Care Teams It Admin Relationship Specialty Start Date End Date Mamta Villalobos MD [address] [place] [id number] PCP - General Family Medicine 12/11/24 documented as of this encounter
--- OUTSIDE RECORDS SUMMARY | 2024-12-27 17:59 | XMS_ITS | Encounter Summary ---
Author Organization [employer] Address [address] [facility] [address] [place] [address] Care Team Providers Care Supervisor [employer] Name Role Phone Romy Delgadillo MD Primary Care Provider [phone] Mamta Villalobos MD Primary Care Provider [phone] Reason for Visit * Reason Comments Med Refill Encounter Details Date Type Department Care Team ([facility] Contact Info) Description 03/08/2023 Refill [facility] [address] [place] [address] Romy Delgadillo MD [address] [place] [address] Social History Tobacco Use Types Packs/Day Years [...] documented as of this encounter Care Teams Supervisor [employer] Relationship Specialty Start Date End Date Romy Delgadillo MD [address] [place] [id number] PCP - General Family Medicine 01/27/12 12/10/24 Mamta Villalobos MD [address] [place] [id number] PCP - General Family Medicine 12/11/24 documented as of this encounter
[2024-12-27 18:07] LABS: Anion Gap 13 (12-20); Blood Urea Nitrogen 27 mg/dL (9-16); Calcium 9.9 mg/dL (8.4-10.2); Carbon Dioxide 26 mmol/L (22-29); Chloride 105 mmol/L (96-108); Estimated Glomerular Filt Rate 59; Potassium 4.8 mmol/L (3.3-5.1); Sodium 139 mmol/L (135-145)
[2024-12-27 18:09] LABS: INTERNATIONAL NORM RATIO 1.0 (0.9-1.1); Prothrombin Time 12.5 SEC (11.2-13.5)
== END 2024-12-27 14:35 | disposition home or self-care (01) ==
LOC: HO.CHCLDS 14:34
PROVIDERS: Visit Provider Pediatrics
DX: Z01.818 Encounter for other preprocedural examination (principal); Z51.81 Encounter for therapeutic drug level monitoring
CPT/HCPCS: 36415; 80048; 85025; 85610

== ENCOUNTER → 2025-01-03 13:52 | Outpatient (BNVA) | payer MEDICARE, SELFPAY | PROVIDERS: PCP Student in an Organized Health Care Education/Training Program | DX: Z01.818 Encounter for other preprocedural examination (principal) ==

== ENCOUNTER 2025-01-24 08:04 | Outpatient (AMB) | payer MEDICARE, SELFPAY ==
--- NOTE | 2025-01-24 08:15 | MHC.OFFVIS ---
Vital Signs 01/24/25 08:19 Height 5 ft 4 in Weight 215 lb BMI 36.9 Pulse 76 Pulse Oximetry (%) 96 Intake Visit Reasons: Left knee pain Intake Note: Bell is a 74 year old female who presents with complaints of progressively worsening left knee pain. She describes her pain as sharp and severe in nature, 11/23. Her pain has gotten worse over the last 5 years in spite of continued non operative treatments. She has tried Tylenol and meloxicam which gave her minimal relief. She has also done physical therapy exercises which aggravated her pain. The patient walks with a walker because of her left knee pain. She states that her left knee will give out several times per day. The patient recently fell because her knee gave out. At this point her left knee pain is interfering with her activities of daily living and her ability to sleep well through the night. Allergies latex Allergy (Intermediate, Verified 01/24/25 08:18) Rash lisinopril Allergy (Intermediate, Verified 01/24/25 08:18) Cough adhesive tape Adverse Reaction (Intermediate, Verified 01/24/25 08:18) Rash PFSH Medical History Urinary incontinence Wears dentures Osteoarthritis COVID-19 vaccine series completed Increased BMI Back pain, lumbosacral Arthritis Bone spur of ankle Plantar fasciitis Diabetes Hypothyroid Steatohepatitis Hypercholesteremia Hypertension Surgical History Hx of colonoscopy Hx of blepharoplasty (09/07/21) Hx of cataract surgery History of dental surgery History of hysterectomy History of tonsillectomy Family History Mother Rheumatoid arthritis Gout Diabetes Father Lung cancer Hypertension Social History Household Members: Spouse Housing: House Are you a primary physician assistant primary care to a significant other at home: No Do you presently have visiting nurse or other home services: No Patient Tobacco Use Status: Former Tobacco user Tobacco use type: Cigarette Current occupational status: retired Current occupation: Right handed Physical Exam Vital Signs: Last Vital Signs Pulse 76 01/24/25 08:19 Pulse Ox 96 01/24/25 08:19 BMI result Body Mass Index 36.9 Extrem Other: Left knee examination shows a minimal effusion, palpable crepitus with range of motion, pain with range of motion, range of motion from -3 degrees to 115 degrees, no instability Results Reviewed Results Reviewed: X-rays of the patient's left knee show end-stage degenerative joint disease with grade 4 [id number] arthritis, subchondral sclerosis, osteophyte formation, no acute bony abnormalities Assessment & Plan Assessment & Plan (1) Left knee pain: Code(s): M25.562 - Pain in left knee (2) Primary osteoarthritis of left knee: Code(s): M17.12 - Unilateral primary osteoarthritis, left knee Category: Medical Plan Ms. Martinez presents with progressively worsening left knee pain due to end-stage degenerative joint disease. I had a lengthy discussion with the patient regarding the treatment options. At this point she has failed continued non operative treatments. The risks and benefits of left total knee replacement surgery were discussed at length with the patient. The patient wishes to proceed with surgery. vice president client services will be consulted following her surgery for home physical therapy and nursing. The patient will follow up as instructed. Feel free to call me at any time should questions regarding her orthopedic management arise. I spent 20 minutes in reviewing the patient's records and imaging studies, seeing the patient and documenting in the medical record. Orders: Orders Hemoglobin A1c Today Z01.818 - Encounter for other preprocedural examination Coding Level of Care Code Est Pt Level 3 (74919) Add On Problem Visit Only Diagnoses Left knee pain M25.562 Primary osteoarthritis of left knee M17.12
[2025-01-24 08:19] VITALS: PULSE 76; O2SAT 96; BMI 36.9
== END 2025-01-24 08:43 | disposition home or self-care (01) ==
LOC: HO.HOS 08:04
PROVIDERS: PCP Student in an Organized Health Care Education/Training Program; Visit Provider Orthopaedic Surgery
DX: M25.562 Pain in left knee (principal); M17.12 Unilateral primary osteoarthritis, left knee
CPT/HCPCS: 99024

== ENCOUNTER → 2025-01-24 08:04 | Outpatient (BNVA) | payer MEDICARE, SELFPAY | PROVIDERS: PCP Student in an Organized Health Care Education/Training Program; Visit Provider Orthopaedic Surgery | DX: Z01.818 Encounter for other preprocedural examination (principal); M25.562 Pain in left knee; M17.12 Unilateral primary osteoarthritis, left knee | CPT/HCPCS: 99212 ==

== ENCOUNTER 2025-01-28 06:05 | Day surgery (SDC) | payer MEDICARE, SELFPAY ==
[2024-12-28 13:15] VITALS: BP 117/56; PULSE 44; RESP 16; O2SAT 97; BMI 36.9
[2024-12-28 15:28] LABS: MRSA Nasal PCR NEGATIVE (Negative); SA Nasal PCR NEGATIVE (Negative)
[2025-01-24 09:30] LABS: Hematocrit 41.2 % (37.0-47.0); Hemoglobin 13.8 g/dl (12.0-16.0); Mean Corpuscular HGB Conc 33.5 g/dl (31.0-35.0); Mean Corpuscular Hemoglobin 31.0 pg (27.0-33.0); Mean Corpuscular Volume 92.6 fL (80.0-98.0); NRBC Abs Auto 0.000 X10*3/uL (0.0-0.012); NRBC Pct Auto 0.0 /100WBC (0.0-0.2); Platelet Count 259 X10*3/uL (160-400); Red Blood Count 4.45 X10*6/uL (4.20-5.50); White Blood Count 8.1 X10*3/uL (4.8-10.8)
[2025-01-24 10:08] LABS: Anion Gap 10 (12-20); Blood Urea Nitrogen 22 mg/dL (9-16); Calcium 9.2 mg/dL (8.4-10.2); Carbon Dioxide 24 mmol/L (22-29); Chloride 111 mmol/L (96-108); Creatinine Clr Calc Pharmacy 71.6; Estimated Glomerular Filt Rate > 60; Potassium 4.0 mmol/L (3.3-5.1); Sodium 141 mmol/L (135-145)
[2025-01-28] VITALS (11 sets, daily range): BP systolic 117–151; BP diastolic 34–66; PULSE 56–88; RESP 13–19; TEMP 36.3–36.9; O2SAT 93–99; BMI 33.5
[2025-01-28 07:18] LABS: Glucose, Whole Blood 119 mg/dL (60-115)
--- NOTE | 2025-01-28 07:25 | HO.ANESPROP2 ---
Documented by User: Rajni Cervantes NP 01/24/25 13:54 HPI - Anesthesia Eval Consult details Narrative: 74yo F for Left Knee Replacement Total, 01/28/25 Medically optimized per PCP No recent illness No CP/SOB with very minimal activity r/t knee pain DM2: FBS ~ 80s Chronic bradycardia: 40's-50's recorded since 2020. PCP follows and attributes to chronic atenolol - no previous cardiac w/u. Pt asymptomatic. Discussed BP medication holds for DOS and adequate hydration leading up to surgery. Case reviewed with LM. Will hold valsartan and atenolol. Discussed GA vs Spinal PMFSH Active Problems Active Problems: All Active Problems Bilateral carotid artery stenosis (Acute) PAD (peripheral artery disease) (Acute) Primary osteoarthritis of left knee (Acute) Increased BMI (Acute) Past Medical History Medical History Urinary incontinence Wears dentures Osteoarthritis COVID-19 vaccine series completed Increased BMI Back pain, lumbosacral Arthritis Bone spur of ankle Plantar fasciitis Diabetes Hypothyroid Steatohepatitis Hypercholesteremia Hypertension Family History Family History Mother Rheumatoid arthritis Gout Diabetes Father Lung cancer Hypertension Family history of problems with anesthesia: No Surgical History Surgical History Hx of colonoscopy Hx of blepharoplasty (09/07/21) Hx of cataract surgery History of dental surgery History of hysterectomy History of tonsillectomy History of Problems with Anesthesia: No Social History Social History Household Members: Spouse Housing: House Are you a primary dog daycare provider to a significant other at home: No Do you presently have visiting nurse or other home services: No Patient Tobacco Use Status: Former Tobacco user Tobacco use type: Cigarette Use of substances other than those prescribed or required for medical reasons: No Have you been hit, kicked, punched, or otherwise hurt by someone within the past year? If so, by whom?: No Religion Healthcare Practices: Temple Are you DNR?: No Advance Directives: No Advance Directives Information Provided: Yes Advance Directives on File: No Current occupational status: retired Current occupation: Right handed Meds Allergies Allergy/AdvReac Type Severity Reaction Status Date / Time latex Allergy Intermediate Rash Verified 01/28/25 07:11 lisinopril Allergy Intermediate Cough Verified 01/28/25 07:11 adhesive tape AdvReac Intermediate Rash Verified 01/28/25 07:11 Home Medications ?Medication ?Instructions ?Recorded ?Confirmed ?Last Taken ?Type aspirin 81 mg tablet,delayed 81 mg PO DAILY 01/14/20 01/28/25 01/23/25 History release atenolol 100 mg tablet 100 mg PO DAILY 01/14/20 01/28/25 01/27/25 History atorvastatin 20 mg tablet 20 mg PO BEDTIME 01/14/20 01/28/25 Unknown History blood sugar diagnostic (OneTouch #10 ea 01/14/20 01/03/25 Unknown History Ultra Blue Test Strip) clonidine HCl 0.2 mg tablet 0.2 mg PO TID 01/14/20 01/28/25 09/07/21 History gabapentin 100 mg capsule 100 mg PO BID 01/14/20 01/28/25 09/07/21 History gemfibrozil 600 mg tablet 600 mg PO DAILY 01/14/20 01/28/25 Unknown History glipizide 5 mg tablet 10 mg PO DAILY 01/14/20 01/28/25 Unknown History lancets [OneTouch Delica Lancets] miscellaneous 01/14/20 01/03/25 Unknown History levothyroxine 75 mcg tablet 75 mcg PO DAILY 01/14/20 01/28/25 09/07/21 History oxybutynin chloride 5 mg tablet 10 mg PO DAILY 01/14/20 01/28/25 Unknown History valsartan 40 mg tablet 40 mg PO DAILY 01/14/20 01/28/25 05/19/20 History acetaminophen 500 mg capsule 500 mg PO Q8H PRN Pain 05/13/20 01/03/25 08/31/21 History amlodipine 10 mg tablet 1 tab PO DAILY 05/13/20 01/28/25 09/07/21 History calcium 600 mg (as 1 tab PO BID 05/13/20 01/28/25 Unknown History carbonate)-vitamin D3 10 mcg (400 unit) tablet (Calcium 600 + D(3)) glipizide 10 mg tablet 20 mg PO QPM 05/13/20 01/28/25 01/14/25 History multivitamin 1 tab PO DAILY 05/13/20 01/28/25 Unknown History niacin 500 mg tablet (Niacor) 500 mg PO DAILY 05/13/20 01/28/25 Unknown History biotin 10,000 mcg capsule 10,000 mcg PO DAILY 09/01/21 01/28/25 Unknown History meloxicam 7.5 mg tablet 7.5 mg PO DAILY PRN Pain 09/01/21 01/03/25 08/16/21 History camphor-menthol 0.2 %-3.5 % 1 appl topical DAILY PRN Pain 12/28/24 01/28/25 Unknown History topical gel diclofenac sodium 1 % topical gel 2 g topical QID 12/28/24 01/28/25 Unknown History Exam Height,Weight and Vital Signs: Height 5 ft 4 in Weight 97.522 kg Last Vital Signs Pulse 44 L 12/28/24 13:15 Resp 16 12/28/24 13:15 BP 117/56 L 12/28/24 13:15 Pulse Ox 97 12/28/24 13:15 O2 Del Method Room Air 12/28/24 13:15 Pertinent Lab Results Pertinent Lab Results: Lab Results 12/28/24 Range/Units 13:50 Nasal Screen MRSA (PCR) NEGATIVE (Negative) Nasal S. aureus Screen NEGATIVE (Negative) Nasal MRSA/S.aureus Interp SEE NOTE Laboratory Tests 12/27/24 14:37 WBC 8.9 Hgb 13.4 Hct 40.5 Plt Count 251 Sodium 139 Potassium 4.8 Chloride 105 Carbon Dioxide 26 BUN 27 H Creatinine 0.93 Narrative Narrative: EKG 12/2024 SB @ 50 Airway Mallampati Class: II TM Dist: >3cm Neck ROM: Full Denture: Upper and Lower Heart: juliann, regular Lungs: CTAB Assessment and Plan Assessment Anesthesia Assessment: Anesthesia Plan Discussed and PAT Visit Final Anesthetic Review Family History of Problems with Anesthesia: No History of Problems with Anesthesia: No Documented by User: Mariah Kramer DO 01/28/25 08:31 [facility] Past Medical History Medical History Urinary incontinence Wears dentures Osteoarthritis COVID-19 vaccine series completed Increased BMI Back pain, lumbosacral Arthritis Bone spur of ankle Plantar fasciitis Diabetes Hypothyroid Steatohepatitis Hypercholesteremia Hypertension Family History Family History Mother Rheumatoid arthritis Gout Diabetes Father Lung cancer Hypertension Family history of problems with anesthesia: No Surgical History Surgical History Hx of colonoscopy Hx of blepharoplasty (09/07/21) Hx of cataract surgery History of dental surgery History of hysterectomy History of tonsillectomy History of Problems with Anesthesia: No Social History Social History Household Members: Spouse Housing: House Are you a primary dog daycare provider to a significant other at home: No Do you presently have visiting nurse or other home services: No Patient Tobacco Use Status: Former Tobacco user Tobacco use type: Cigarette Use of substances other than those prescribed or required for medical reasons: No Have you been hit, kicked, punched, or otherwise hurt by someone within the past year? If so, by whom?: No Religion Healthcare Practices: Temple Are you DNR?: No Advance Directives: No Advance Directives Information Provided: Yes Advance Directives on File: No Current occupational status: retired Current occupation: Right handed Meds Allergies Allergy/AdvReac Type Severity Reaction Status Date / Time latex Allergy Intermediate Rash Verified 01/28/25 07:11 lisinopril Allergy Intermediate Cough Verified 01/28/25 07:11 adhesive tape AdvReac Intermediate Rash Verified 01/28/25 07:11 Home Medications ?Medication ?Instructions ?Recorded ?Confirmed ?Last Taken ?Type aspirin 81 mg tablet,delayed 81 mg PO DAILY 01/14/20 01/28/25 01/23/25 History release atenolol 100 mg tablet 100 mg PO DAILY 01/14/20 01/28/25 01/27/25 History atorvastatin 20 mg tablet 20 mg PO BEDTIME 01/14/20 01/28/25 Unknown History [facility] 01/14/20 01/03/25 Unknown History Ultra Blue Test Strip) clonidine HCl 0.2 mg tablet 0.2 mg PO TID 01/14/20 01/28/25 09/07/21 History gabapentin 100 mg capsule 100 mg PO BID 01/14/20 01/28/25 09/07/21 History gemfibrozil 600 mg tablet 600 mg PO DAILY 01/14/20 01/28/25 Unknown History glipizide 5 mg tablet 10 mg PO DAILY 01/14/20 01/28/25 Unknown History lancets [facility] Lanc[facility]] miscellaneous 01/14/20 01/03/25 Unknown History levothyroxine 75 mcg tablet 75 mcg PO DAILY 01/14/20 01/28/25 09/07/21 History oxybutynin chloride 5 mg tablet 10 mg PO DAILY 01/14/20 01/28/25 Unknown History valsartan 40 mg tablet 40 mg PO DAILY 01/14/20 01/28/25 05/19/20 History acetaminophen 500 mg capsule 500 mg PO Q8H PRN Pain 05/13/20 01/03/25 08/31/21 History amlodipine 10 mg tablet 1 tab PO DAILY 05/13/20 01/28/25 09/07/21 History calcium 600 mg (as 1 tab PO BID 05/13/20 01/28/25 Unknown History carbonate)-vitamin D3 10 mcg (400 unit) tablet (Calcium 600 + D(3)) glipizide 10 mg tablet 20 mg PO QPM 05/13/20 01/28/25 01/14/25 History multivitamin 1 tab PO DAILY 05/13/20 01/28/25 Unknown History niacin 500 mg tablet (Niacor) 500 mg PO DAILY 05/13/20 01/28/25 Unknown History biotin 10,000 mcg capsule 10,000 mcg PO DAILY 09/01/21 01/28/25 Unknown History meloxicam 7.5 mg tablet 7.5 mg PO DAILY PRN Pain 09/01/21 01/03/25 08/16/21 History camphor-menthol 0.2 %-3.5 % 1 appl topical DAILY PRN Pain 12/28/24 01/28/25 Unknown History topical gel diclofenac sodium 1 % topical gel 2 g topical QID 12/28/24 01/28/25 Unknown History Exam Exam Date and Time: 01/28/25 0725 Airway Mallampati Class: II TM Dist: >3cm Neck ROM: Full Denture: Upper and Lower Heart: S1S2 Assessment and Plan Assessment Anesthesia Assessment: Anesthesia Plan Discussed and Chart Reviewed Final Anesthetic Review Family History of Problems with Anesthesia: No History of Problems with Anesthesia: No NPO: Yes ASA Class: III Final Preanesthetic Review: No Changes in Pt Med Stat, Meds/Allgs Chart Reviewed, Consent Obtained/Reviewed and Anes Risks/Benef Reviewed Patient Risk: Low Procedure Risk: Intermediate Anesthetic Plan Anesthetic Plan: Spinal, Regional Block (left adductor canal and left ipack block) and Agree w/ Assess. and Plan Disposition: Standard PACU
--- NOTE | 2025-01-28 10:32 | PM.OP ---
Brief Operative Note Date of Service: 01/28/25 Pre-op diagnosis: Left knee degenerative joint disease Post-op diagnosis: same Procedure: Left total knee arthroplasty Implants: [employer] Triathlon cemented posterior stabilized total knee arthroplasty with a femoral component size 4 left, universal tibial component size 5, tibial stem size 12 mm in diameter by 50 mm in length, polyethylene liner size 5 with 9 mm of thickness, an asymmetric patellar component size 29 with 9 mm of thickness Surgeon: Anatoly Pollock MD Anesthesia: regional and spinal Was an Infertility Nurse used for this Procedure?: No Infertility Nurse: Mia Franz Estimated blood loss (mL): 200 Pathology: other (Bony fragments from the left femur, tibia and patella) Condition: stable Disposition: PACU
--- NOTE | 2025-01-28 10:33 | W.PM.OPN ---
Operative Note Operative Note Date of Service: 01/28/25 Narrative: After the patient was identified as Bell Martinez and her left knee was initialed by myself the patient was brought to the holding area where a left leg nerve block was performed by the anesthesiologist in routine fashion. The patient was then brought to the operating room where conscious sedation and spinal anesthesia were performed by the anesthesiologist in routine fashion. Because of the patient's diabetes (hemoglobin A1c 6.8) she was given both IV Ancef and IV vancomycin preoperatively for infection prophylaxis. The patient's left lower extremity was prepped and draped in sterile fashion. A formal time-out was completed. The patient's left knee was placed onto a small bump to produce 30? of knee flexion during exposure. A #10 scalpel blade was used to make a midline incision extending 1 handbreadth proximal and distal to the patella. A second #10 scalpel blade was used to dissect the subcutaneous tissues down to the extensor mechanism. The subcutaneous flaps were maintained as thick as possible. A medial parapatellar arthrotomy was then performed using a #10 scalpel blade. The arthrotomy was begun just medial to the patellar tendon. The arthrotomy was continued 1 cm medial to the patella and then 5 mm into the medial aspect of the quadriceps tendon. The infrapatellar fat pad was partially excised to help with exposure. The soft tissue retinaculum was raised one-half of the way around the medial aspect of the proximal tibia. The patella was everted and the knee was flexed to 90?. There was no injury to the patellar tendon or its insertion onto the tibial tubercle. A drill bit was introduced into the distal aspect of the femur with a starting point 1 cm anterior to the origin of the posterior cruciate ligament. The intramedullary alignment ike was put into place. The distal alignment guide was set for a 5 degree valgus cut. The distal cutting block was put into place and we held it with 4 pins. The intramedullary alignment ike was removed. Soft tissues were retracted in the distal femoral cut was made using a sagittal saw. The distal aspect of the femur measured to be a size 4 left component. Two drill holes were placed into the distal aspect of the femur marking 3? of external rotation. The distal cutting block was impacted into place and we held it with 2 pins. Soft tissues were retracted and the 4 distal femoral cuts were made using a sagittal saw. Final notching and drilling of the distal aspect of the femur were performed in routine fashion. The trial femoral component was impacted into place. The knee was taken through a full range of motion. The patella tracked well. The patella was everted and the knee was flexed to 90?. The trial component was removed and our attention was directed to the proximal tibia. The medial and lateral menisci were removed using a #10 scalpel blade. A small rim of the medial meniscus was left intact to help prevent injury to the medial collateral ligament. A drill bit was then introduced into the proximal tibia with a starting point midway from medial to lateral and one-third of the way posteriorly. The intramedullary alignment ike was put into place. The proximal tibial cutting guide was placed over the alignment ike in line with the 2nd toe. The guide was held in place using 3 pins. The intramedullary alignment ike was removed. Soft tissues were retracted and the proximal tibial cut was made using a sagittal saw. Inspection of the proximal tibia showed a bony cyst measuring approximately 5 mm x 5 mm x 10 mm along the medial tibial plateau. Because of the presence of the cyst the decision was made to use a tibial stem to help prevent loosening of the tibial component in the future. The proximal tibia measured to be a size 5 component. The tibial tray was put into place with a 9 mm liner. The femoral component was impacted into place. The knee was taken through a full range of motion. There was full flexion and full extension. There was no instability with varus or valgus stress testing with the knee in flexion or extension. The patella tracked well with no medially directed force. The rotation of the tibial tray was marked using electrocautery with the knee in extension. The patella was everted and the knee was flexed to 90?. All trial components were removed. The tibial tray was placed onto the proximal tibia in line with the electrocautery uday. The tray was held in place using 3 pins. Final broaching and drilling of the proximal tibia were performed in routine fashion. The trial liner and trial femoral component were put into place. The knee was brought into extension and our attention was directed to the patella. The patella measured 25 mm in thickness. The patellar resection guide was set for a 10 mm resection. Soft tissues were retracted and the patella cut was made using a sagittal saw. The remaining patella measured 15 mm in thickness. The undersurface of the patella was measured to be a size 29 asymmetric component. Three drill holes were placed into the undersurface of the patella in routine fashion. The trial component was put into place. The knee was taken through a full range of motion. The patella tracked well. The patella was everted and the knee was flexed to 90?. All trial components were removed. The knee was once again brought into extension and placed onto a small bump. The knee joint was irrigated with copious amounts of normal saline solution via pulse lavage while the cement was mixed. The patella was everted and the knee was flexed to 90?. A small amount of cement was placed along the posterior aspects of the tibial and femoral components. Cement was then pressurized into the proximal tibia. The tibial component was impacted into place. Any excess cement was removed. The polyethylene liner was then impacted into place. Cement was then pressurized into the distal aspect of the femur. A small amount of cement was placed into the intramedullary canal to help reduce bleeding. The femoral component was impacted into place. Any excess cement was removed. The knee was then brought into extension. Cement was pressurized into the undersurface of the patella. The patellar component was put into place and was held with a patella clamp. Any excess cement was removed. Once the cement had hardened the patellar clamp was removed. The knee was taken through a full range of motion. There was full flexion and extension. There was no instability with varus or valgus stress testing with the knee in flexion or extension. The patella tracked well with no medially directed force. The knee joint was irrigated with copious amounts of normal saline solution via pulse lavage. Any significant bleeding vessels were coagulated. The patient's left knee was placed onto a small bump. The arthrotomy was closed with #2 Ethibond [id number] interrupted suture as well as #1 Vicryl [id number] interrupted suture. The wound was once again irrigated. The subcutaneous tissues were closed with 0 Vicryl and 2-0 Vicryl interrupted sutures. The skin was closed with skin fabby. Dry sterile dressing and Chuy bandages were placed over the patient's left knee. The patient was awake and alert. The patient was transferred to the recovery room in stable condition. Justification for PA [employer] Territory Manager: The complexity of this total knee arthroplasty, involving significant bony deformity and soft tissue releases, necessitates the assistance of a qualified surgical services manager for optimal surgical exposure, hemostasis and efficient execution of the procedure.
[2025-01-28] MEDS: oxyCODONE HCl Immed Release 5 MG TABLET PO ×2 (12:37→16:30)
[2025-01-28] MEDS: Calcium + Vitamin D 250 MG TABLET 500 MG PO ×2 (12:37→20:24)
[2025-01-28] MEDS: oxyCODONE HCl ER 10 MG TAB.ER.12H PO ×2 (12:38→20:25)
[2025-01-28] MEDS: Lactated Ringers 1,000 ML 100 ML IVCONT (12:41)
--- NOTE | 2025-01-28 13:23 | P.CONHOSP_ITS ---
History of Present Illness Data of Consult Service Date: 01/28/25 Primary Care Provider: Romy Delgadillo MD [facility] Reason for consult: Medical management Pt is a 69-year-old female with a PMH significant for HTN, HLD, peripheral vascular disease, bilateral carotid artery stenosis, xse-wxomhle-rpujzudzp type 2 diabetes, hypothyroidism, and peripheral neuropathy who was admitted to the hospital under orthopedic services for elective left TKA. POD 0. Hospitalist consult for routine medical management. Pt seen and evaluated in her room where she is resting comfortably in her chair. Pt states she has been up and out of bed walking to the bathroom and back. Denies lightheadedness or dizziness. Pain well-controlled and currently a 3/10. Pt denies any other acute medical complaints at this time. No nausea, vomiting, abdominal pain. No SOB or difficulty breathing. Pt notes she has been using her incentive spirometry which is at bedside. Review of Systems 2 Review of Systems: Pain well-controlled. Pt otherwise has no acute medical complaints at this time. [facility] Medical History Urinary incontinence Wears dentures Osteoarthritis COVID-19 vaccine series completed Increased BMI Back pain, lumbosacral Arthritis Bone spur of ankle Plantar fasciitis Diabetes Hypothyroid Steatohepatitis Hypercholesteremia Hypertension Family History Mother Rheumatoid arthritis Gout Diabetes Father Lung cancer Hypertension Surgical History Hx of colonoscopy Hx of blepharoplasty (09/07/21) Hx of cataract surgery History of dental surgery History of hysterectomy History of tonsillectomy Social History Household Members: Spouse Housing: House Are you a primary dog daycare provider to a significant other at home: No Do you presently have visiting nurse or other home services: No Patient Tobacco Use Status: Former Tobacco user Tobacco use type: Cigarette Current occupational status: retired Current occupation: Right handed Meds Allergies Allergy/AdvReac Type Severity Reaction Status Date / Time latex Allergy Intermediate Rash Verified 01/28/25 07:11 lisinopril Allergy Intermediate Cough Verified 01/28/25 07:11 adhesive tape AdvReac Intermediate Rash Verified 01/28/25 07:11 Active Medications: Current Medications Acetaminophen (Acetaminophen 325 Mg Tablet) 650 mg PO Q6H PRN PRN Reason: Pain, Mild 1-3,fever,headache Amlodipine Besylate (Amlodipine Besylate 10 Mg Tablet) 10 mg PO DAILY [facility]; Protocol Last Admin: 01/28/25 12:39 Dose: Not Given Aspirin (Aspirin 325 Mg Tablet) 325 mg PO BID [facility] Atenolol (Atenolol 100 Mg Tablet) 100 mg PO DAILY [facility]; Protocol Last Admin: 01/28/25 12:37 Dose: 100 mg Atorvastatin Calcium (Atorvastatin Calcium 20 Mg Tablet) 20 mg PO BEDTIME [facility] Calcium Carbonate (Calcium Carbonate 750 Mg Tab.Chew) 750 mg PO Q4H PRN PRN Reason: Heartburn Calcium Carbonate/Cholecalciferol (Calcium + Vitamin D 250 Mg Tablet) 500 mg PO BID [facility] Last Admin: 01/28/25 12:37 Dose: 500 mg Celecoxib (Celecoxib 200 Mg Capsule) 200 mg PO BID [facility] Last Admin: 01/28/25 12:37 Dose: 200 mg Clonidine HCl (Clonidine Hcl 0.2 Mg Tablet) 0.2 mg PO TID [facility]; Protocol Docusate Sodium (Docusate Sodium 100 Mg Capsule) 100 mg PO BID [facility] Last Admin: 01/28/25 12:37 Dose: 100 mg Gabapentin (Gabapentin 100 Mg Capsule) 100 mg PO BID [facility] Last Admin: 01/28/25 12:37 Dose: 100 mg Gemfibrozil (Gemfibrozil 600 Mg Tablet) 600 mg PO DAILY [facility] Last Admin: 01/28/25 12:38 Dose: 600 mg Glipizide (Glipizide 10 Mg Tablet) 20 mg PO QPM [facility] Glipizide (Glipizide 10 Mg Tablet) 10 mg PO DAILY [facility] Hydromorphone HCl (Hydromorphone Hcl 0.5 Mg/0.5 Ml Syringe) 0.25 mg IVPUSH Q5M PRN PRN Reason: Pain, Moderate to Severe (Pain Scale 4-10) Stop: 01/28/25 14:37 Hydromorphone HCl (Hydromorphone Hcl 1 Mg/Ml Syringe) 0.25 mg IVPUSH Q4H PRN; Protocol PRN Reason: Pain, Severe (Pain Scale 7-10) Lactated Ringer's (Lr) 1,000 mls @ 100 mls/hr IVCONT .Q10H [facility] Last Admin: 01/28/25 12:42 Dose: Not Given Vancomycin HCl 1,500 mg/ (Sodium Chloride) 500 mls @ 333.333 mls/hr IV POSTOP@1900 ONE Stop: 01/28/25 20:29 Cefazolin Sodium/Dextrose (Ancef) 2 gm in 50 mls @ 100 mls/hr IV Q8H [facility] Stop: 01/29/25 15:59 Levothyroxine Sodium (Levothyroxine Sodium 75 Mcg Tablet) 75 mcg PO DAILY@0600 [facility] Last Admin: 01/28/25 12:37 Dose: Not Given Magnesium Hydroxide (Milk Of Magnesia 30 Ml Oral.Susp) 30 ml PO DAILY PRN PRN Reason: Constipation Melatonin (Melatonin 3 Mg Tablet) 6 mg PO BEDTIME PRN PRN Reason: Insomnia Methocarbamol (Methocarbamol 500 Mg Tablet) 500 mg PO TID [facility] Naloxone HCl (Naloxone Hcl 0.4 Mg/Ml Vial) 0.04 mg IVPUSH Q5M PRN PRN Reason: Excessive sedation or RR < 8 Non-Formulary Medication (Oxybutynin Chloride) 10 mg PO DAILY [facility] Ondansetron HCl (Ondansetron Hcl 4 Mg/2 Ml Vial) 4 mg IVPUSH ONCE PRN PRN Reason: Nausea and Vomiting Stop: 01/28/25 14:37 Ondansetron HCl (Ondansetron Hcl 4 Mg/2 Ml Vial) 4 mg IVPUSH Q8H PRN PRN Reason: Nausea and Vomiting Oxycodone HCl (Oxycodone Hcl Immed Release 5 Mg Tablet) 5 mg PO Q4H PRN PRN Reason: Pain, Moderate(Pain Scale 4-6) Last Admin: 01/28/25 12:37 Dose: 5 mg Oxycodone HCl (Oxycodone Hcl Er 10 Mg Tab.Er.12h) 10 mg PO BID [facility] Last Admin: 01/28/25 12:38 Dose: 10 mg Sodium Chloride (0.9 % Sodium Chloride Flush 3 Ml Syringe) 3 ml IVFLUSH QSHIFT [facility] Last Admin: 01/28/25 12:39 Dose: Not Given Valsartan (Valsartan 40 Mg Tablet) 40 mg PO DAILY [facility]; Protocol Last Admin: 01/28/25 12:37 Dose: 40 mg Home Medications ?Medication ?Instructions ?Recorded ?Confirmed ?Last Taken ?Type aspirin 81 mg tablet,delayed 81 mg PO DAILY 01/14/20 1 03/31/24 01/23/25 History release atenolol 100 mg tablet 100 mg PO DAILY 01/14/2001/27/25 History atorvastatin 20 mg tablet 20 mg PO BEDTIME 01/14/20 Unknown History blood sugar diagnostic (OneTouch #10 ea 01/14/2001/03 Unknown History Ultra Blue Test Strip) clonidine HCl 0.2 mg tablet 0.2 mg PO TID 01/14/2009/07/21 History gabapentin 100 mg capsule 100 mg PO BID 01/14/2001/2809/07/21 History gemfibrozil 600 mg tablet 600 mg PO DAILY 01/14/20 Unknown History glipizide 5 mg tablet 10 mg PO TID 01/14/20 Unknown History levothyroxine 75 mcg tablet 75 mcg PO DAILY 01/14/2003/31/24 09/07/21 History valsartan 40 mg tablet 40 mg PO DAILY 01/14/2001/1405/19/20 History acetaminophen 500 mg capsule 500 mg PO Q8H PRN Pain 01/03/25 08/31/21 History amlodipine 10 mg tablet 1 tab PO DAILY 05/13/2001/1409/07/21 History calcium 600 mg (as 1 tab PO BID 05/13/20 Unknown History carbonate)-vitamin D3 10 mcg (400 unit) tablet (Calcium 600 + D(3)) multivitamin 1 tab PO DAILY 05/13/2001/14 Unknown History niacin 500 mg tablet (Niacor) 500 mg PO DAILY 05/13/20 01/28/25 Unknown History biotin 10,000 mcg capsule 10,000 mcg PO DAILY 09/01/21 01/28/25 Unknown History meloxicam 7.5 mg tablet 7.5 mg PO DAILY PRN Pain 01/03/25 08/16/21 History camphor-menthol 0.2 %-3.5 % 1 appl topical DAILY PRN P ain 12/28/24 01/28/25 Unknown History topical gel diclofenac sodium 1 % topical gel 2 g topical QID 12/1501/28/25 Unknown History oxybutynin chloride 15 mg 15 mg PO DAILY 01/28/2501/14 Unknown History tablet,extended release 24 hr Physical Exam 2 Vital Signs and Narrative: Vital Signs: Last Vital Signs Temp 97.6 F 01/28/25 12:17 Pulse 62 01/28/25 12:17 Resp 16 01/28/25 12:17 BP 151/58 H 01/28/25 12:17 Pulse Ox 94 01/28/25 12:17 O2 Del Method Room Air 01/28/25 12:17 BMI result Body Mass Index 33.5 General: AOx3, no acute distress Resp: CTA bilaterally CVS: S1, S2, RRR GI: +BS, NT, no distention Skin: Warm, dry Neuro: Cranial nerves II-XII grossly intact bilaterally. Motor grossly intact bilaterally Extremities: No edema. Left knee with preserved range of motion will appropriately tender at surgical sites, wrapped in clean dressing Chuy bandage. Psych: Appropriate affect Results Labs 01/24/25 09:17 01/24/25 09:17 Labs: Laboratory Results - last 24 hr 01/28/25 07:06 POC Glucose 119 H Assessment and Plan (1) Status post total left knee replacement: Status: Acute Plan Pt is a 69-year-old female with a PMH significant for HTN, HLD, peripheral vascular disease, bilateral carotid artery stenosis, twq-myyyccn-qrbjxcyob type 2 diabetes, hypothyroidism, and peripheral neuropathy who was admitted to the hospital under orthopedic services for elective left TKA. POD 0. Hospitalist consult for routine medical management. Left TKA, POD 0 Pain well-controlled Pt has been OOB in walking into the bathroom Plan as per Orthopedics PAD/carotid stenosis Continue aspirin, statin, and gemfibrozil HTN Continue amlodipine, atenolol, clonidine, valsartan Rar-tbgsmom-ojkunrmqx type 2 diabetes POCs well controlled; latest A1c 6.2 Sliding-scale insulin, diabetic diet Continue glipizide Hypothyroidism Continue levothyroxine Thank you for allowing us to participate in the care of this pt. Med reconciliation complete. Will sign off for now. Please reach out again if any acute issue or need arises.
--- NOTE | 2025-01-28 13:58 | PHA.MEDREC ---
Pharmacy Consult ? Medication Reconciliation Pharmacy has reviewed the medication reconciliation done by nursing and also spoke to patient. Per patient, she takes glipizide 10 mg tid (along with the clonidine 0.2 mg tid) and she confirmed she takes oxybutynin ER 15 mg daily.
[2025-01-28] MEDS: oxyBUTYnin chloride ER 5 MG TAB.ER.24 15 MG PO (14:10)
--- NOTE | 2025-01-28 16:10 | PC.NURSE ---
glipizide med administration delayed due to lack of the med on the floor, this nurse called pharmacy and requested the med.
[2025-01-28] MEDS: 0.9 % Sodium Chloride Flush 3 ML SYRINGE IVFLUSH ×2 (16:36→20:25)
[2025-01-28 16:54] LABS: Glucose, Whole Blood 215 mg/dL (60-115)
[2025-01-28 20:28] LABS: Glucose, Whole Blood 124 mg/dL (60-115)
[2025-01-29 03:07] VITALS: BP 134/60; PULSE 52; RESP 16; TEMP 36.3; O2SAT 93
[2025-01-29 05:52] LABS: MANUAL DIFF FLAG NO
[2025-01-29 05:55] LABS: Hematocrit 33.9 % (37.0-47.0); Hemoglobin 11.5 g/dl (12.0-16.0); Imm Gran Abs Auto 0.05 X10*3/uL (0.00-0.03); Imm Gran Pct Auto 0.4 % (0.0-0.4); Lymphocytes Absolute Auto 1.2 X10*3/uL (1.2-4.9); Mean Corpuscular HGB Conc 33.9 g/dl (31.0-35.0); Mean Corpuscular Hemoglobin 31.1 pg (27.0-33.0); Mean Corpuscular Volume 91.6 fL (80.0-98.0); NRBC Abs Auto 0.000 X10*3/uL (0.0-0.012); NRBC Pct Auto 0.0 /100WBC (0.0-0.2); Platelet Count 181 X10*3/uL (160-400); Red Blood Count 3.70 X10*6/uL (4.20-5.50); White Blood Count 12.0 X10*3/uL (4.8-10.8)
[2025-01-29 06:10] LABS: Anion Gap 13 (12-20); Blood Urea Nitrogen 23 mg/dL (9-16); Calcium 9.4 mg/dL (8.4-10.2); Carbon Dioxide 23 mmol/L (22-29); Chloride 109 mmol/L (96-108); Creatinine Clr Calc Pharmacy 69.4; Estimated Glomerular Filt Rate > 60; Potassium 4.2 mmol/L (3.3-5.1); Sodium 141 mmol/L (135-145)
[2025-01-29 07:23] LABS: Glucose, Whole Blood 107 mg/dL (60-115)
[2025-01-29] MEDS: oxyCODONE HCl Immed Release 5 MG TABLET PO (07:41)
[2025-01-29] MEDS: Calcium + Vitamin D 250 MG TABLET 500 MG PO (07:41)
[2025-01-29] MEDS: oxyBUTYnin chloride ER 5 MG TAB.ER.24 15 MG PO (07:42)
[2025-01-29] MEDS: oxyCODONE HCl ER 10 MG TAB.ER.12H PO (07:43)
[2025-01-29 07:44] VITALS: BP 121/56; PULSE 53; RESP 16; TEMP 36.5; O2SAT 94
--- NOTE | 2025-01-29 09:30 | MHC.CM.PN ---
PT LIVES WITH AND SON HAS A RIDE HOME IT IS EXPECTED THAT [facility]
--- NOTE | 2025-01-29 09:36 | PM.DS ---
DS: Providers Provider Date of discharge: 01/29/25 Primary care physician: Romy Delgadillo MD Consults: 01/28/25 11:48 Consult to Case Management Routine Comment: s/p LTKA home with services Consult to Hospitalist Routine Comment: Consulting Provider: [facility] Reason For Exam: Routine medical management DS: Diagnosis Discharge Diagnosis (1) Status post total left knee replacement: Status: Acute DS: Summary Hospital Course Hospital Course: The patient underwent a successful left total knee arthroplasty, they were transferred to PACU and then to the floor to recover. During their stay, their vitals were stable, afebrile at 97.7. Labs were unremarkable, H/H 11.5/33.9. POD0 they were started on Aspirin 325mg po bid for DVT ppx, they also received Physical Therapy services twice a day. Prior to discharge, their dressing was clean dry and intact and the plan was to be discharged home with VNA services. Time Attestation Discharge Coordination Time (in mins): 30 Quality: Safe Use of Opioids Does Pt have an Active Cancer Diagnosis on the Problem List?: No Quality: Stroke Does the patient have a stroke diagnosis?: No Physical Exam Vital Signs: Vital Signs: Last Vital Signs Temp 97.7 F 01/29/25 07:44 Pulse 53 01/29/25 07:44 Resp 16 01/29/25 07:44 BP 121/56 L 01/29/25 07:44 Pulse Ox 94 01/29/25 07:44 O2 Del Method Room Air 01/29/25 07:44 BMI result Body Mass Index 33.5 Const: General: cooperative, healthy appearing and no acute distress Resp: Effort & Inspection: normal respiratory effort and able to speak in complete sentences Extrem: Other: left knee dressing is c/d/i. Able to dorsi/plantar flex. Calf is supple and nontender. Sensation intact. Pedal pulse intact. Psych: Appearance: grossly normal Mental Status: mental status grossly normal Attitude: cooperative DS: Data Data Completed and Pending Pending studies at discharge: Pending at discharge 01/28/25 08:49 Surgical [PTH] Routine Labs on day of discharge: Laboratory Results - last 24 hr 01/28/25 01/28/25 01/29/25 16:49 20:24 05:42 WBC 12.0 H RBC 3.70 L Hgb 11.5 L Hct 33.9 L MCV 91.6 MCH 31.1 MCHC 33.9 RDW 12.6 Plt Count 181 D MPV 9.7 Immature Gran % (Auto) 0.4 Neut % (Auto) 79.3 H Lymph % (Auto) 9.9 L [place] % (Auto) 10.0 Eos % (Auto) 0.2 Baso % (Auto) 0.2 Lymph # (Auto) 1.2 [place] # (Auto) 1.2 Eos # (Auto) 0.0 Baso # (Auto) 0.0 Abs Immat Gran (auto) 0.05 H Absolute Neuts (auto) 9.5 H Absolute Nucleated RBC 0.000 Nucleated RBC % (auto) 0.0 Sodium 141 Potassium 4.2 Chloride 109 H Carbon Dioxide 23 Anion Gap 13 BUN 23 H Creatinine 0.76 Estim Creat Clear Calc 69.4 Estimated GFR > 60 POC Glucose 215 H 124 H Fasting Glucose 100 H Calcium 9.4 01/29/25 07:18 WBC RBC Hgb Hct MCV MCH MCHC RDW Plt Count MPV Immature Gran % (Auto) Neut % (Auto) Lymph % (Auto) [place] % (Auto) Eos % (Auto) Baso % (Auto) Lymph # (Auto) [place] # (Auto) Eos # (Auto) Baso # (Auto) Abs Immat Gran (auto) Absolute Neuts (auto) Absolute Nucleated RBC Nucleated RBC % (auto) Sodium Potassium Chloride Carbon Dioxide Anion Gap BUN Creatinine Estim Creat Clear Calc Estimated GFR POC Glucose 107 Fasting Glucose Calcium Discharge Plan Discharge Patient Disposition: Home, Self-Care Referrals: Mia Franz PA-C [Physician [facility] Consultant, Orthopedics] - 02/15/25 11:30 am Discharge Medications: New methocarbamol 500 mg Tablet 500 mg PO TID 7 Days Qty: 21 0RF acetaminophen 325 mg Tablet 650 mg PO Q6H PRN (Reason: Pain, Mild 1-3,Fever,Headache) 30 Days Qty: 240 0RF aspirin 325 mg Tablet 325 mg PO BID 42 Days Qty: 84 0RF celecoxib 200 mg Capsule 200 mg PO BID 30 Days Qty: 60 0RF docusate sodium 100 mg Capsule 100 mg PO BID 30 Days Qty: 60 0RF oxycodone 5 mg Tablet 5 mg PO Q4H PRN (Reason: Pain, Moderate(Pain Scale 4-6)) 7 Days Qty: 42 0RF Rx Instructions: Partial Fill upon patient request. Continued (DME) walker [facility] See Rx Instructions .ROUTE .MEDSUPPLY Qty: 1 0RF Rx Instructions: Folding front wheeled walker amlodipine 10 mg tablet 1 tab PO DAILY multivitamin Tablet 1 tab PO DAILY niacin [Niacor] 500 mg Tablet 500 mg PO DAILY calcium carbonate-vitamin D3 [Calcium 600 + D(3)] 600 mg(1,500mg) -400 unit Tablet 1 tab PO BID biotin 10,000 mcg Capsule 10,000 mcg PO DAILY diclofenac sodium 1 % Gel 2 g TOPICAL QID Rx Instructions: apply to single elbow, wrist or hand; for hand includes palm/fingers/back of hand camphor-menthol 0.2-3.5 % Gel 1 appl TOPICAL DAILY PRN (Reason: Pain) Rx Instructions: rub in gently and completely oxybutynin chloride 15 mg tablet extended release 24hr 15 mg PO DAILY (DME) [employer] Ultra Blue Test Strip Strip See Rx Instructions .ROUTE .MEDSUPPLY Qty: 10 Rx Instructions: As directed atorvastatin 20 mg tablet 20 mg PO BEDTIME clonidine HCl 0.2 mg tablet 0.2 mg PO TID atenolol 100 mg tablet 100 mg PO DAILY levothyroxine 75 mcg tablet 75 mcg PO DAILY gemfibrozil 600 mg tablet 600 mg PO DAILY valsartan 40 mg tablet 40 mg PO DAILY glipizide 5 mg tablet 10 mg PO TID gabapentin 100 mg capsule 100 mg PO BID Held meloxicam 7.5 mg Tablet 7.5 mg PO DAILY PRN (Reason: Pain) Hold Instructions: Resume on 02/25/25. aspirin 81 mg tablet,delayed release (DR/EC) 81 mg PO DAILY Hold Instructions: Resume on 03/13/25. Discontinued acetaminophen [Tylenol Extra Strength] 500 mg Capsule 500 mg PO Q8H PRN (Reason: Pain) Discharge Orders: Discharge Order (Routine); Ordered 01/29/25 Ordered By: Mia Franz Diet: Advance to usual diet Activity on Discharge: Use cane or walker Activity Restrictions/Additional Instructions: Physical Therapy for ROM 0-120, quad strength, gait training. Use walker for ambulation Limit stair climbing No shower or tub bath No driving for 6 weeks Continue anticoagulant Keep Aquacel dressing clean, dry and intact. Follow up with orthopedics in 2 weeks -Bandage/Incision Site Care: -Ice 20mins at a time -Make sure you use a towel or cloth on your skin as a barrier -DO NOT remove the bandage -Keep Bandage clean, dry and intact -Do not get the bandage wet: -No tub bath, pools or hot tubs -If there are any concerns regarding the bandage please call orthopedics: [phone] -Knee Precautions: -Refrain from putting pillows under the knee -Keep leg straight while resting the knee -Avoid low chairs and deep couches -Use supportive shoes with nonslip soles -Physical Therapy: -Patient is WBAT with the use of a walker -Range of Motion: 0-120 degrees. -Strengthening: Quadriceps and hip muscles -Walking: Gait training and gradually increasing distance with walker -Ankle pumps and incentive spirometry to limit the risk of blood clot -Diet: -Resume regular diet as tolerated. -Drink plenty of fluids and eat a high-fiber foods to avoid constipation -This is a common side effect of pain medication) -Take stool softeners as prescribed -Blood Clot Prevention: -Take the prescribed blood thinner (Aspirin) as directed for 6 weeks -Perform ankle pumps and walk frequently with the walker and assistance if needed -Report calf pain, swelling, or shortness of breath immediately Print Language: Swedish
--- NOTE | 2025-01-29 09:37 | P.F2F_ITS ---
Service Date Service Date: 01/29/25 Encounter Date of encounter: 01/29/25 Reasons for Services Signs and symptoms assessed: s/p LTKA Pt. is considered homebound due to recent surgery. Unable to drive, poor balance, poor gait mechanics. Reason for physical therapy: home safety and mobility, therapeutic exercises, restore joint function, gait/transfer training and ADL training Homebound: Leaving the home is medically contraindicated at this time without the asist of a device and/or another person due th the listed conditions above and below. Reason homebound: unsteady gait / fall risk, leg weakness, pain with ambulation, pain with transfers, poor balance / fall risk and unable to drive Certification: Based on the above findings, I certify that this patient is confined to the home and needs intermittent longterm care, physical therapy and/or speech th erapy, or continues to need occupational therapy. The patient is under my care, and I have initiated the establishment of the plan of care. The patient will be followed by a physician who will periodically review the plan of care. Time Spent With Patient Time: Total time managing care of this patient today ____ minutes.
--- NOTE | 2025-01-29 09:48 | MHC.CM.PN ---
PT DCD HOME WITH NS
[2025-01-29 11:15] LABS: Glucose, Whole Blood 173 mg/dL (60-115)
== END 2025-01-29 12:43 | disposition home health service (06) ==
LOC: HO.SSS 06:06 → HO.S3 11:07
PROVIDERS: Physician Assistant; PCP Student in an Organized Health Care Education/Training Program; Visit Provider Orthopaedic Surgery
PROC: (CPT 27447; principal; 2025-01-28 07:30)
DX: M25.562 Pain in left knee (principal); M17.12 Unilateral primary osteoarthritis, left knee; M23.52 Chronic instability of knee, left knee; Z91.81 History of falling; E11.9 Type 2 diabetes mellitus without complications; I65.23 Occlusion and stenosis of bilateral carotid arteries; I10 Essential (primary) hypertension; E78.00 Pure hypercholesterolemia, unspecified; I73.9 Peripheral vascular disease, unspecified; E03.9 Hypothyroidism, unspecified; G62.9 Polyneuropathy, unspecified; K76.0 Fatty (change of) liver, not elsewhere classified; Z79.82 Long term (current) use of aspirin; Z99.89 Dependence on other enabling machines and devices; Z79.899 Other long term (current) drug therapy; Z79.84 Long term (current) use of oral hypoglycemic drugs; Z88.8 Allergy status to other drugs, medicaments and biological substances; Z91.040 Latex allergy status; L23.1 Allergic contact dermatitis due to adhesives; Z98.890 Other specified postprocedural states; Z87.891 Personal history of nicotine dependence
CPT/HCPCS: 27447; 36415; 80048; 82947; 83036; 85025; 85027; 86850; 86900; 86901; 87640; 87641; 88305; 88311; 97110; 97162; 97530; A6260; C1776; J0131; J0665; J0690; J1100; J1171; J2003; J2151; J2250; J2704; J3374; J7120

== ENCOUNTER → 2025-01-28 06:05 | Outpatient (BNV) | payer MEDICARE, SELFPAY | PROVIDERS: PCP Student in an Organized Health Care Education/Training Program; Visit Provider Orthopaedic Surgery | DX: Z47.1 Aftercare following joint replacement surgery (principal); Z96.652 Presence of left artificial knee joint | CPT/HCPCS: 27447; 99024; G0180 ==

== ENCOUNTER → 2025-01-28 06:05 | Outpatient (BNV) | payer MEDICARE, SELFPAY | PROVIDERS: PCP Student in an Organized Health Care Education/Training Program; Visit Provider Student in an Organized Health Care Education/Training Program | DX: Z96.652 Presence of left artificial knee joint (principal) | CPT/HCPCS: 99223 ==